=== PATIENT | male | born 1955 | race Caucasian/White ===

== ENCOUNTER 2020-12-08 18:24 | Observation (INO) | payer MEDICARE, SELFPAY ==
[2020-12-08] VITALS (12 sets, daily range): BP systolic 118–160; BP diastolic 74–92; PULSE 75–92; RESP 18–25; TEMP 36.6–37.2; O2SAT 92–97; BMI 39.9; BMI 41.1
--- NOTE | 2020-12-08 18:25 | CT_ITS ---
We are attempting to reach an attending provider to discuss findings. An addendum with communication details will be sent when the communication is complete. HISTORY: Neuro deficit, acute stroke suspected EXAMINATION: CT Head Stroke Protocol W/O Contrast Injection TECHNIQUE: Multiple axial images were obtained of the head without intravenous contrast. A radiation dose optimization technique was used for this scan. IV Contrast dosage and agent: COMPARISON: None FINDINGS: BRAIN PARENCHYMA: No intra- or extra-axial hemorrhage. No evidence of acute infarct. No intracranial mass or mass effect. There is preservation of the villalobos/white matter interface. Posterior fossa structures are unremarkable. CSF SPACES: Appropriate for age. No hydrocephalus. Basal cisterns are patent. CALVARIUM, SKULL BASE, PARANASAL SINUSES AND MASTOID AIR CELLS: Scattered mucoperiosteal thickening. No discrete lytic or blastic abnormalities. ASPECTS Score for Acute Strokes: 10 CT/STROKE Brain/Head without Cont IMPRESSION: Negative Brain CT without contrast. Individualized dose optimization techniques were used for this CT. at 1840 Reported and signed by: Matteo Nunez MD Electronically Signed: Matteo Nunez MD at 18:39 EDT Tel , Service support ,
--- NOTE | 2020-12-08 18:25 | RAD_ITS ---
HISTORY: Neuro deficit, acute, stroke suspected EXAMINATION/TECHNIQUE: XR Chest 1 View: 1 view COMPARISON: None FINDINGS: LINES/DEVICES: None. LUNGS: No consolidation, edema or effusion. No pneumothorax. MEDIASTINUM AND CARDIOVASCULAR STRUCTURES: Cardiomegaly. Central airways and mediastinal contour are unremarkable. BONES AND SOFT TISSUES: No acute bony abnormalities. RAD/Chest 1 View IMPRESSION: Cardiomegaly without radiographic evidence of acute cardiopulmonary disease. at 1927 Reported and signed by: Matteo Nunez MD Electronically Signed: Matteo Nunez MD at 19:26 EDT Tel , Service support ,
--- NOTE | 2020-12-08 18:25 | EKG12_ITS ---
Test Reason : STROKE Blood Pressure : / mmHG Vent. Rate : 077 BPM Atrial Rate : 077 BPM P-R Int : 220 ms QRS Dur : 130 ms QT Int : 454 ms P-R-T Axes : 032 -59 116 degrees QTc Int : 513 ms Sinus rhythm with 1st degree A-V block Left axis deviation Left ventricular hypertrophy with QRS widening and repolarization abnormality Inferior infarct , age undetermined Abnormal ECG Confirmed by PIYUSH RAMIREZ, HOMER ([id number]), primer expeditor and drier NADJA NAVA ([id number]) on 12/13/2020 10:04:50 A M Referred By: TIM Confirmed By:YANDEL PICKETT MD
--- NOTE | 2020-12-08 18:26 | ED.VIS.STROK ---
HPI History of Present Illness Chief Complaint: Neuro S/Sx Informant: patient and EMS Onset/Context/Timing Onset: Today Context: Sudden Onset Timing: Continuous Quality and Location: Positive for Right Facial Droop, Right Arm Parasthesia, Right Arm Weakness, Right Leg Weakness and Slurred Speech Current Severity: Mild Maximum Severity: Moderate Associated Symptoms Associated Symptoms: Positive for Nausea and Vomiting Narrative Narrative: The patient is a 65-year-old male who does not follow with a primary care physician who presents to the emergency department with acute onset right-sided weakness, right facial droop, and slurred speech. Patient was in his normal state of health. He was working outdoors today. He was doing a lot of yard work. He came in and showered. He was sitting down to eat with his . She turned to him and asked him a question. He cannot respond. She noticed that his face was drooping. When he spoke, he was having significant slurred speech. He was also nauseated with vomiting. On arrival, the patient states that his symptoms are markedly improving. He has no history of stroke. Prior similar symptoms: No Recent Illness/Hospitalization: No PFSH PFS Medical History (Updated 12/08/20 @ 18:54 by Tony Bill) Degenerative disc disease no medical history Home Medications acetaminophen [Tylenol] 650 mg PO Q4H PRN 12/08/20 [History Last Taken Unknown] Allergy/AdvReac Type Severity Reaction Status Date / Time No Known Allergies Allergy Verified 12/08/20 18:58 Surgical History History of carpal tunnel surgery History of hip replacement Social History Smoking Status: Never smoker ROS ROS ED Constitutional Constitutional ED: Denies chills or fever(s) Eyes Eyes: Denies blurry vision or change in vision ENT ENT ED: Denies ear pain or sore throat Cardiovascular Cardiovascular: Denies chest pain or palpitations Respiratory/Chest Respiratory/Chest: Denies cough, dyspnea or dyspnea on exertion Gastrointestinal Gastrointestinal: Denies abdominal pain, nausea or vomiting Genitourinary Genitourinary ED: Denies dysuria or urinary frequency Musculoskeletal Musculoskeletal: Denies arthralgias or myalgias Integumentary Denies rash Neurologic Neurologic: Denies headache(s) or paresthesias Psychiatric Psychiatric: Denies anxiety or depression Endocrine Endocrinology: Denies polydipsia or polyuria Allergic/Immunologic Allergic/Immunologic ED: Denies urticaria EXAM Physical Exam Const Vital Signs: 12/08/20 18:37 12/08/20 18:43 12/08/20 18:44 Temperature 98.9 F Temperature Source Oral Pulse Rate 77 76 75 Respiratory Rate 22 H 20 H 20 H Blood Pressure 136/90 H 136/90 H 121/78 H Blood Pressure Mean 105 105 92 Pulse Ox 94 94 94 Oxygen Delivery Method Room Air Room Air Room Air Oxygen Flow Rate (L/min) 12/08/20 18:52 12/08/20 19:01 12/08/20 19:32 Temperature Temperature Source Pulse Rate 76 Respiratory Rate 20 H Blood Pressure 127/83 H 118/74 Blood Pressure Mean 97 88 Pulse Ox 94 92 Oxygen Delivery Method Nasal Cannula Room Air Room Air Oxygen Flow Rate (L/min) 2 Positive well nourished and well developed General Appearance ED: well developed HEENT Reports normocephalic, head/scalp atraumatic and moist mucous membranes Eyes PERRL and EOMs intact bilaterally Neck no lymphadenopathy and supple General: Negative for tenderness Chest Wall inspection of chest normal Resp normal respiratory effort and clear to auscultation bilaterally Cardio regular rate, regular rhythm and no murmurs GI normal to inspection, nondistended, normoactive bowel sounds Palpation: Negative for tender, guarding or rebound tenderness present Back/Spine no CVA tenderness Cervical Spine: Negative for cervical spine tenderness Thoracic Spine / Upper Back: Negative for thoracic spinal tenderness Extremity normal to inspection General Extremety ED: Negative for tenderness Neuro oriented x3 and CN's II-XII intact bilaterally Neuro Narrative: No focal deficits appreciated. Sensorium / Orientation: alert Psych mental status grossly normal Skin no rashes or lesions noted, no wounds and skin turgor normal STROKE Vital Signs/Narrative: Vital Signs Temp Pulse Resp BP Pulse Ox 12/08/20 19:32 118/74 92 12/08/20 19:01 76 20 H 127/83 H 94 12/08/20 18:44 75 20 H 121/78 H 94 12/08/20 18:43 76 20 H 136/90 H 94 12/08/20 18:37 98.9 F 77 22 H 136/90 H 94 NIHSS Initial: 1a Level of Consciousness: 0 1b LOC Questions (Score 2 if aphasic/stupor): 0 1c LOC Commands (Only score 1st attempt): 0 2 Best Gaze (If aphasic, use reflexive mvmts.): 0 3 Visual: 0 4 Facial Palsy: 0 5 Motor Arm Right (UN = amputation/fusion): 0 5 Motor Arm Left: 0 6 Motor Leg Right: 0 6 Motor Leg Left: 0 7 Limb ataxia (Only + if out of proportion): 0 8 Sensory (Aphasia/stupor=0 or 1, coma=2): 0 9 Best Language: 0 10 Dysarthria (mute, coma=2, intubated=UN): 0 11 Extinction and Inattention (only scored if +): 0 Total Score: 0 MDM MDM MDM Narrative Medical decision making narrative: Stroke team was activated prehospital he. On arrival, the patient symptoms have markedly improved. He underwent noncontrast CT which was unremarkable for acute process. The patient also underwent CTA which shows what appears to be a chronically occluded right vertebral artery with reconstitution. Patient received no TPA because his symptoms have resolved and his NIH was 0. However, given the significant symptoms and lack of known risk factors, the patient will be admitted at this time. Impression 1. TIA Lab Data Attestation: I reviewed the patient's lab results. Labs: Laboratory Results - last 24 hr 12/08/20 12/08/20 12/08/20 18:27 18:27 18:27 WBC 9.9 RBC 5.31 Hgb 15.9 Hct 50.2 MCV 94.5 H MCH 29.9 MCHC 31.7 L RDW Std Deviation 44.8 H RDW Coeff of Benny 12.8 Plt Count 242 MPV 9.8 Immature Gran % (Auto) 0.400 Neut % (Auto) 62.1 Lymph % (Auto) 23.9 [place] % (Auto) 11.2 H Eos % (Auto) 2.2 Baso % (Auto) 0.2 Absolute Neuts (auto) 6.2 Absolute Lymphs (auto) 2.37 Nucleated RBC % 0 PT 13.5 INR 1.1 APTT 26.3 Sodium 142 Potassium 3.5 Chloride 106 Carbon Dioxide 27.0 Anion Gap 9 BUN 16 Creatinine 1.18 Estim Creat Clear Calc 76.58 Est GFR (MDRD) Af Amer 80 Est GFR (MDRD) Non-Af 66 BUN/Creatinine Ratio 13.6 Glucose 118 H Calcium 9.0 Troponin I 0.025 Radiography Diagnostic Testing: Radiology Impression Brain CT 12/08/20 18:25 IMPRESSION: Negative Brain CT without contrast. Individualized dose optimization techniques were used for this CT. at 1840 Reported and signed by: Matteo Nunez MD Electronically Signed: Matteo Nunez MD at 18:39 EDT Tel , Service support , ADDENDUM: 12/08/20 1857 IMPRESSION: Negative Brain CT without contrast. Individualized dose optimization techniques were used for this CT. at 1840 Reported and signed by: Matteo Nunez MD N.B. : The above information has been verbally conveyed by Matteo Nunez MD to Guille Thrasher MD, on 12/08/2020 18:50:20 (ET). Electronically Signed: Matteo Nunez MD at 18:39 EDT Tel , Service support , Chest X-Ray 12/08/20 18:25 IMPRESSION: Cardiomegaly without radiographic evidence of acute cardiopulmonary disease. at 1927 Reported and signed by: Matteo Nunez MD Electronically Signed: Matteo Nunez MD at 19:26 EDT Tel , Service support , Head/Neck CTA 12/08/20 18:27 IMPRESSION: 5 cm aneurysmal dilatation of the ascending aorta. No significant major vessel vaso-occlusive disease in the head. 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 Individualized dose optimization techniques were used for this CT. at 1859 Reported and signed by: Matteo Nunez MD Electronically Signed: Matteo Nunez MD at 18:58 EDT Tel , Service support , ADDENDUM: 12/08/20 1908 IMPRESSION: 5 cm aneurysmal dilatation of the ascending aorta. No significant major vessel vaso-occlusive disease in the head. 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 Individualized dose optimization techniques were used for this CT. at 0929 Reported and signed by: Matteo Nunez MD N.B. : The above information has been verbally conveyed by Matteo Nunez MD to Guille Thrasher MD, on 12/08/2020 19:01:21 (ET). Electronically Signed: Matteo Nunez MD at 18:58 EDT Tel , Service support , Discharge Plan Triage Chief Complaint: Neuro S/Sx ED Provider: Guille Thrasher Dx/Rx/DC Orders Prescriptions: No Action acetaminophen [Tylenol] 325 mg Capsule 650 mg PO Q4H PRN (Reason: Pain) RF: 0 Primary Care Provider: Josefina Berumen
--- NOTE | 2020-12-08 18:27 | CT_ITS ---
We are attempting to reach an attending provider to discuss findings. An addendum with communication details will be sent when the communication is complete. HISTORY: stroke TECHNIQUE: Routine carotid CT angiogram protocol was performed without and with IV contrast. In addition, images were obtained of the [place]. Nascet criteria using the distal ICAs for comparison were used for evaluation of stenoses. 3D reconstructions were reviewed. A radiation dose optimization technique was used for this scan. IV Contrast dosage and agent: 100mL [id number] COMPARISON: None FINDINGS: --NECK: AORTIC ARCH AND BRANCHES: 5 cm aneurysmal dilatation ascending aorta. Cervical vessel origins patent. RIGHT CCA: No occlusion, significant stenosis or dissection. RIGHT ICA: No occlusion, significant stenosis or dissection. LEFT CCA: No occlusion, significant stenosis or dissection. LEFT ICA: No occlusion, significant stenosis or dissection. RIGHT VERTEBRAL ARTERY: No occlusion, significant stenosis or dissection. LEFT VERTEBRAL ARTERY: Occludes at the base of the skull with reconstitution by collaterals. NECK SOFT TISSUES: Unremarkable. LUNG APICES: Clear. BONES: Unremarkable. --HEAD: --Anterior circulation: ICAs: No significant stenosis at the intracranial/visualized segments. ACAs: Absent right A1 segment, no significant stenosis at the visualized segments. ACOM: Present. MCAs: No significant stenosis at the visualized segments. --Posterior circulation: quality tech: No significant stenosis at the visualized segments. origin left DIRECTOR DISTRIBUTION. BASILAR ARTERY: No significant stenosis. VERTEBRAL ARTERIES: No significant stenosis at the intradural/visualized segments. No evidence of intracranial aneurysm or vascular malformation. CT/CTA Head AND Neck W/ Contrast IMPRESSION: 5 cm aneurysmal dilatation of the ascending aorta. No significant major vessel vaso-occlusive disease in the head. 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 Individualized dose optimization techniques were used for this CT. at 1859 Reported and signed by: Matteo Nunez MD Electronically Signed: Matteo Nunez MD at 18:58 EDT Tel , Service support ,
--- NOTE | 2020-12-08 18:32 | ED.RN ---
NO OLD EKGS IN MUSE
[2020-12-08 18:36] LABS: Absolute Lymphocyte Count 2.37 X10^3/uL (0.83-4.51); Absolute Neutrophil Count 6.2 X10^3/uL (2.0-7.7); Basophil# 0.02 X10^3/uL; Basophil% 0.2 % (0-1); Eosinophil# 0.22 X10^3/uL; Eosinophils% 2.2 % (0-5); Hematocrit 50.2 % (40-54); Hemoglobin 15.9 g/dL (13.0-16.5); Lymphocyte # 2.37 X10^3/ul (0.83-4.51); Lymphocyte % 23.9 % (19-41); Mean Corp Hgb Conc 31.7 g/dL (32-36); Mean Corpuscular Hgb 29.9 pg (27.0-32.0); Mean Corpuscular Volume 94.5 fL (80-94); Mean Platelet Vol. 9.8 fl (6.2-12.0); Monocyte# 1.11 X10^3/uL; Monocyte% 11.2 % (0-10); NRBC Flagged by Analyzer 0 % (0-5); Neutrophil # 6.16 X10^3/uL (2.7-7.7); Neutrophil % 62.1 % (47-70); Platelet Count 242 K/mm3 (150-450); RBC Distribution Width CV 12.8 % (11.6-14.6); RBC Distribution Width SD 44.8 fl (35.1-43.9); Red Blood Count 5.31 M/mm3 (4.6-6.2); White Blood Count 9.9 K/mm3 (4.4-11.0)
[2020-12-08 18:46] LABS: Partial Thromboplast Time 26.3 Seconds (24.1-36.2)
[2020-12-08 18:47] LABS: International Normalized Ratio 1.1; Prothrombin Time (Protime)PT. 13.5 SECONDS (11.7-14.9)
[2020-12-08 18:55] LABS: Anion Gap 9 (5-15); BUN 16 mg/dL (7-18); BUN/Creat Ratio 13.6 RATIO (10-20); Chloride 106 mmol/L (98-107); Creatinine, Serum 1.18 mg/dL (0.70-1.30); EST Glomerular Filtration Rate 66 mL/min (>60); Est Glom Filt Rate - Afr Amer 80 mL/min (>60); Estimated Creatinine Clearance 76.58 ml/min; Glucose 118 mg/dL (74-106); Potassium 3.5 mmol/L (3.5-5.1); Sodium Level 142 mmol/L (136-145)
[2020-12-08] MEDS: Ondansetron 4 MG/2 ML Vial IV (19:00)
[2020-12-08] MEDS: 0.9% Normal Saline 1,000 ML 100 ML IV ×2 (19:00→21:16)
--- NOTE | 2020-12-08 19:06 | PCM.HP.STD ---
HPI - General General Date of Admission: 12/08/20 Chief Complaint: Transient R sided weakness, facial droop, slurred speech. HPI Narrative The patient is a 65 y/o M w/ PMHx: Morbid Obesity, no known medical history but reports not seeing a physician in many years, appearance likely BL LE venous stasis and possibly undiagnosed ALLIE who presents to the [facility] ED on 12/08/20 with onset at ~ 5:30 pm following dinner, just prior to getting up from his chair, noted onset right sided weakness, slurred speech, right facial droop with associated nausea and emesis prompting EMS call and transition to the ED for evaluation. Initial ED evaluation with NIH stroke scale 1. Work-up in the ED included T 98.9, heart rate 77, BP 136/90 initially with repeat 127/83, respiratory rate 22, 94% on room air, CBC with WBC 9.9, hemoglobin 15.9, platelet 242 without evidence of marked left shift, unremarkable coags, BNP not marked appearing aside glucose 118, troponin 0.025, CT brain with no acute intracranial findings, CTA head and neck with noted 5 cm aneurysmal dilation of the ascending aorta otherwise no significant major vessel vaso-occlusive disease in the head, left vertebral artery occlusion at the base of the skull with distal reconstitution by collaterals noted. In the ED stroke call performed and upon their evaluation NIH stroke scale 0 and patient reported feeling back to normal. Patient did receive aspirin 325 mg p.o. x1. Telemetry stroke recommend follow-up MRI brain, aspirin, statin, lipid profile, A1c per usual TIA/CVA protocol assessment. [facility] Medical History (Updated 12/08/20 @ 21:[address] Alyssa Tafoya MD) Degenerative disc disease Morbid obesity Home Medications acetaminophen [Tylenol] 650 mg PO Q4H PRN 12/08/20 [History Last Taken Unknown] Allergy/AdvReac Type Severity Reaction Status Date / Time No Known Allergies Allergy Verified 12/08/20 18:58 Family History (Updated 12/08/20 @ 21:[address] Alyssa Tafoya MD) Mother Heart disease Hypertension CAD (coronary artery disease) Father Cancer Surgical History (Updated 12/08/20 @ 20:01 by Jennifer Troy) H/O sinus surgery History of carpal tunnel surgery History of hip replacement Social History (Updated 12/08/20 @ 21:[address] Alyssa Tafoya MD) household members: family Smoking Status: Never smoker alcohol intake: current details: 1 EtOH drink daily. substance use type: does not use ROS ROS Narrative Admission Review of Systems: CONSTITUTIONAL: No weight loss, fever, chills, + weakness or fatigue. HEENT: Eyes: No visual loss, blurred vision, double vision or yellow sclerae. Ears, Nose, Throat: No hearing loss, sneezing, congestion, runny nose or sore throat. SKIN: + Stasis changes, R anterior ellis abrasion. No rash or itching, lesions. CARDIOVASCULAR: No chest pain, chest pressure or chest discomfort, palpitations, edema, orthopnea, syncopal events. RESPIRATORY: No shortness of breath, cough or sputum, wheezing, hemoptysis. GASTROINTESTINAL: No anorexia, nausea, vomiting or diarrhea, abdominal pain, melena, BRBPR. GENITOURINARY: No dysuria, frequency, urgency or retention. NEUROLOGICAL: + R sided weakness, facial droop, slurred speech. No headache, dizziness, syncope, paralysis, ataxia, numbness or tingling in the extremities, change in bowel or bladder control, seizure. MUSCULOSKELETAL: + muscle, back pain, joint pain or stiffness. HEMATOLOGIC: No anemia, bleeding or bruising. LYMPHATICS: No enlarged nodes. No history of splenectomy. PSYCHIATRIC: No history of depression or anxiety. ENDOCRINOLOGIC: No reports of sweating, cold or heat intolerance. No polyuria or polydipsia. ALLERGIES: No history of asthma, hives, eczema or rhinitis. Vital Signs Vital Signs Vital Signs: 12/08/20 18:37 12/08/20 18:43 12/08/20 18:44 Temperature 98.9 F Temperature Source Oral Pulse Rate 77 76 75 Respiratory Rate 22 H 20 H 20 H Blood Pressure 136/90 H 136/90 H 121/78 H Blood Pressure Mean 105 105 92 Pulse Ox 94 94 94 Oxygen Delivery Method Room Air Room Air Room Air Oxygen Flow Rate (L/min) 12/08/20 18:52 12/08/20 19:01 Temperature Temperature Source Pulse Rate 76 Respiratory Rate 20 H Blood Pressure 127/83 H Blood Pressure Mean 97 Pulse Ox 94 Oxygen Delivery Method Nasal Cannula Room Air Oxygen Flow Rate (L/min) 2 Physical Exam Narrative Physical Examination: General: awake, alert, oriented x 3 and cooperative, seated upright in the ED bed in no apparent distress. Skin: normal color, normal turgor, no icterus, no cyanosis except BL LE venous stasis skin changes, L anterior ellis abrasion. HEENT: AT/NC, EOMI, PERRLA, mildly dry MM, no carotid bruits or JVD noted; however, thickened neck makes examination difficult. Lungs: CTA bilaterally, moderate effort, mild decrease BL bases, no rales, ronchi or wheezing. Heart: Regular rate and rhythm; no gallop, rub audible. Abdomen: soft, morbidly obese, NTTP, ND but difficult to assess given habitus, distant normal BS, difficult to assess HSM given habitus. Extremities: no cyanosis, no clubbing, BL LE ankle 1+ edema and see skin. Neurological: patient awake, alert, oriented x 3, cognitive function intact; pupils equally reactive to light and accommodation, cranial nerves II-XII grossly normal, moving all 4 extremities, no focal deficits, strength mildly globally decreased, resolution of prior reported facial droop/right sided weakness and slurred speech, FTN/HTN appropriate, negative babinski. Psychiatric: affect appears normal, no acute evidence of depressive or anxiety feelings. Lab / Micro Data Result Diagrams: 12/08/20 18:27 12/08/20 18:27 Labs: Laboratory Results - last 24 hr 12/08/20 12/08/20 12/08/20 18:27 18:27 18:27 WBC 9.9 RBC 5.31 Hgb 15.9 Hct 50.2 MCV 94.5 H MCH 29.9 MCHC 31.7 L RDW Std Deviation 44.8 H RDW Coeff of Benny 12.8 Plt Count 242 MPV 9.8 Immature Gran % (Auto) 0.400 Neut % (Auto) 62.1 Lymph % (Auto) 23.9 [place] % (Auto) 11.2 H Eos % (Auto) 2.2 Baso % (Auto) 0.2 Absolute Neuts (auto) 6.2 Absolute Lymphs (auto) 2.37 Nucleated RBC % 0 PT 13.5 INR 1.1 APTT 26.3 Sodium 142 Potassium 3.5 Chloride 106 Carbon Dioxide 27.0 Anion Gap 9 BUN 16 Creatinine 1.18 Estim Creat Clear Calc 76.58 Est GFR (MDRD) Af Amer 80 Est GFR (MDRD) Non-Af 66 BUN/Creatinine Ratio 13.6 Glucose 118 H Calcium 9.0 Troponin I 0.[address] 12/08/20 18:25 IMPRESSION: Negative Brain CT without contrast. Individualized dose optimization techniques were used for this CT. at 1840 Reported and signed by: Matteo Nunez MD Electronically Signed: Matteo Nunez MD at 18:39 EDT Tel , Service support , ADDENDUM: 12/08/20 1857 IMPRESSION: Negative Brain CT without contrast. Individualized dose optimization techniques were used for this CT. at 1840 Reported and signed by: Matteo Nunez MD N.B. : The above information has been verbally conveyed by Matteo Nunez MD to Guille Thrasher MD, on 12/08/2020 18:50:20 (ET). Electronically Signed: Matteo Nunez MD at 18:39 EDT Tel , Service support , Head/Neck CTA 12/08/20 18:27 IMPRESSION: 5 cm aneurysmal dilatation of the ascending aorta. No significant major vessel vaso-occlusive disease in the head. 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 Individualized dose optimization techniques were used for this CT. at 1859 Reported and signed by: Matteo Nunez MD Electronically Signed: Matteo Nunez MD at 18:58 EDT Tel , Service support , Assessment & Plan Assessment/Plan (1) TIA (transient ischemic attack): PLAN: The patient is a 65 y/o M w/ PMHx: Morbid Obesity, no known medical history but reports not seeing a physician in many years, appearance likely BL LE venous stasis and possibly undiagnosed ALLIE who presents to the [facility] ED on 12/08/20 with onset at ~ 5:30 pm following dinner, just prior to getting up from his chair, noted onset right sided weakness, slurred speech, right facial droop with associated nausea and emesis. 1. Right facial droop, right-sided weakness, slurred speech transiently concerning for TIA/CVA: Will admit to PCU, will obtain MRI Brain, ECHO, PT/OT/Speech/Nutrition evaluation per protocol. Will consult Neurology for evaluation once MRI obtained per protocol. Will allow permissive HTN, maintain on asa, statin w/ AM FLP, fall precautions. HgbA1c, mag, TSH, FLP pending. 2. Incidental ascending aorta aneurysm: CT with incidentally noted 5 cm aneurysmal dilation of the ascending aorta, will recommend outpatient continued assessment and follow-up. 3. Mild hyperglycemia: Glucose 118, hemoglobin A1c pending as noted. 4. Elevated BP without hypertensive diagnosis: Patient likely an undiagnosed hypertensive patient, given presentation will maintain permissive hypertension and add regimen once appropriate. 5. Morbid Obesity: Weight loss and lifestyle changes encouraged, nutrition consulted. 6. Suspected ALLIE: Per discussion with patient and family in the room do suspect likely sleep apnea, will obtain trending pulse ox. 7. Suspected venous stasis disease: Bilateral lower extremity with stasis skin changes, abrasion to the left ellis which patient's notes having been there for several weeks, will need to have continued through medical evaluation given he has not seen a physician in at least a decade. 8. DVT prophylaxis: SCDs, Lovenox. Visit Charges OBSV E&M: 20388 Initial observation care L3
[2020-12-08 19:56] LABS: Magnesium 2.1 mg/dL (1.6-2.6)
--- NOTE | 2020-12-08 20:26 | ECHOCS_ITS ---
Reason For Study: CVA Procedure This was a 2D Doppler, Color Flow transthoracic echocardiogram. Very technically difficult study due to patients body habitus. Bubble study and contrast injection performed. Exam performed portable in patient room. Left Ventricle Normal LV size. The estimated ejection fraction is 60 %. Diastolic function is indeterminate. No regional wall motion abnormalities noted. Right Ventricle Normal RV size. Normal systolic function. Atria Normal left atrium. Normal right atrium. No doppler evidence for ASD. Mitral Valve There is no mitral valve stenosis. No mitral valve insufficiency. Tricuspid Valve There is no tricuspid stenosis. Unable to estimate RV systolic pressure due to inadequate jet, pulmonary artery pressure probably normal. Trivial tricuspid valve insufficiency. Aortic Valve The aortic valve is not well visualized. There is no aortic stenosis. No aortic valve insufficiency. Pulmonic Valve There is no pulmonic valvular stenosis. No pulmonic valve insufficiency. Great Vessels Normal aortic root. Pericardium/Pleural No pericardial effusion. Medication Diluted definity 4ml given slow IV push to enhance endocardial definition. Performed a rapid injection of agitated mix of 9 cc saline and 1cc air to assess for atrial septal defect. MMode/2D Measurements & Calculations LVIDd: 5.6 cm IVSd: 2.1 cm Ao root diam: 4.9 cm LVIDs: 4.3 cm LVPWd: 2.4 cm RVDd: 4.7 cm FS: 22.4 % LAV(MOD-bp): 113.2 ml LA A4 area: 32.3 cm2 RA A4 area: 27.9 cm2 LAV(MOD-bp) Indexed: 42.1 ml/m2 LAV(MOD-sp2): 98.9 ml LAV(MOD-sp4): 125.2 ml Time Measurements MV dec time: 0.18 sec Doppler Measurements & Calculations MV E max johny: 126.3 cm/sec Lat Peak E' Johny: 6.6 cm/sec Med Peak E' Johny: 7.9 cm/sec MV A max johny: 139.5 cm/sec E/E' lat: 19.0 E/E' med: 16.0 MV E/A: 0.91 Ao V2 max: 177.1 cm/sec AI max johny: 347.5 cm/sec LV V1 max: 97.8 cm/sec Ao max P.5 mmHg AI max P.3 mmHg LV V1 max P.8 mmHg Ao V2 mean: 113.4 cm/sec AI dec slope: 199.2 cm/sec2 LV V1 mean P.8 mmHg Ao mean P.2 mmHg AI P1/2t: 510.9 msec LV V1 mean: 61.9 cm/sec Ao V2 VTI: 28.7 cm LV V1 VTI: 19.8 cm PA V2 max: 65.2 cm/sec ECHO/Echo Complete W/ Contrast Interpretation Summary The study was technically difficult. Contrast injection was performed. The estimated ejection fraction is 60 %. Diastolic function is indeterminate. The study was technically difficult. Contrast injection was performed. Ordering Physician: Alyssa Tafoya Referring Physician: Josefina Berumen Performed By: Brodwolf, Gagan, RCS
[2020-12-08] MEDS: Atorvastatin Calcium 80 MG Tablet PO (23:12)
[2020-12-08] MEDS: Enoxaparin 40 MG/0.4 ML Syringe SC (23:12)
[2020-12-08] MEDS: Famotidine 20 MG Tablet PO (23:12)
[2020-12-09] VITALS (15 sets, daily range): BP systolic 163–221; BP diastolic 90–126; PULSE 85–103; RESP 12–20; TEMP 36.5–37.2; O2SAT 91–100
--- NOTE | 2020-12-09 01:11 | NURSING ---
NIH late on patient do to assisting with a code earlier. NIH assessment completed and documented no changes noted at this time.
[2020-12-09] MEDS: hydrALAZINE 20 MG/ML Vial 5 MG IV (05:37)
--- NOTE | 2020-12-09 05:55 | MRI_ITS ---
STUDY: MRI BRAIN WITHOUT CONTRAST REASON FOR EXAM: Male, 65 years old. TIA TECHNIQUE: Standardized multiplanar fat and water weighted pulse sequences were obtained. COMPARISON: CT 12/08/2020 FINDINGS: Normal size of the ventricles and extra-axial spaces for the patient''s age. Normal white matter tracts of the supratentorial brain. There is no evidence for recent intracranial ischemia or other cause of cytotoxic edema on diffusion weighted imaging (DWI). Normal T2* images of the brain without demonstrated susceptibility artifact. There is no demonstrated hemosiderin stain. Normal bilateral basal ganglia. Normal thalami. There is no extra-axial fluid accumulation. Normal flow voids within the major intracranial circulation suggesting patency by spin echo criteria. Normal sella turcica, pituitary gland, infundibular stalk, optic chiasm and hypothalamus. Normal tectal plate and pineal gland. Normal midbrain, kai and medulla. Normal cerebellum. Normal basal cisterns. Normal bilateral temporal bones. Normal bilateral internal auditory canals. No demonstrated orbital abnormality, within the constraints of a routine brain study. Normal visualized paranasal sinuses. Normal calvarium and skull base. Normal visualized soft tissue structures. Normal visualized upper cervical spine. MRI/Brain without Contrast IMPRESSION: Normal unenhanced MRI of the brain. No acute infarct. Electronically Signed: Fernando Cuevas MD at 13:33 EDT Tel , Service support ,
[2020-12-09 07:06] LABS: Absolute Lymphocyte Count 1.07 X10^3/uL (0.83-4.51); Absolute Neutrophil Count 5.2 X10^3/uL (2.0-7.7); Basophil# 0.03 X10^3/uL; Basophil% 0.4 % (0-1); Eosinophil# 0.12 X10^3/uL; Eosinophils% 1.7 % (0-5); Hematocrit 47.8 % (40-54); Hemoglobin 15.1 g/dL (13.0-16.5); Lymphocyte # 1.07 X10^3/ul (0.83-4.51); Mean Corp Hgb Conc 31.6 g/dL (32-36); Mean Corpuscular Hgb 29.9 pg (27.0-32.0); Mean Corpuscular Volume 94.7 fL (80-94); Mean Platelet Vol. 10.1 fl (6.2-12.0); Monocyte# 0.73 X10^3/uL; Monocyte% 10.2 % (0-10); NRBC Flagged by Analyzer 0 % (0-5); Neutrophil # 5.18 X10^3/uL (2.7-7.7); Neutrophil % 72.4 % (47-70); Platelet Count 190 K/mm3 (150-450); RBC Distribution Width CV 13.2 % (11.6-14.6); RBC Distribution Width SD 45.6 fl (35.1-43.9); Red Blood Count 5.05 M/mm3 (4.6-6.2); White Blood Count 7.2 K/mm3 (4.4-11.0)
[2020-12-09] MEDS: Aspirin 81 MG TAB.CHEW PO (07:47)
[2020-12-09] MEDS: Famotidine 20 MG Tablet PO (07:47)
[2020-12-09] MEDS: Enoxaparin 40 MG/0.4 ML Syringe SC (07:47)
[2020-12-09] MEDS: 0.9% Normal Saline 1,000 ML 100 ML IV (07:50)
[2020-12-09 08:08] LABS: AST(SGOT) 20 U/L (15-37); Alanine Aminotransfer ALT/SGPT 25 U/L (16-61); Albumin, Serum 3.5 g/dL (3.2-5.0); Alkaline Phosphatase 79 U/L (45-117); Anion Gap 7 (5-15); BUN 14 mg/dL (7-18); BUN/Creat Ratio 16.4 RATIO (10-20); Calcium,Total 8.8 mg/dL (8.5-10.1); Chloride 105 mmol/L (98-107); Cholesterol 180 mg/dL (200); Creatinine, Serum 0.85 mg/dL (0.70-1.30); EST Glomerular Filtration Rate 96 mL/min (>60); Est Glom Filt Rate - Afr Amer 116 mL/min (>60); Estimated Creatinine Clearance 106.32 ml/min; Globulin 3.4 g/dL (2.2-4.2); Glucose 121 mg/dL (74-106); High Density Lipoprotein 45 mg/dL; Protein, Total 6.9 g/dL (6.4-8.2); Sodium Level 140 mmol/L (136-145); Thyroid Stim Hormone (TSH) 1.56 uIU/mL (0.358-3.74); Triglycerides 112 mg/dL; Very Low Density Lipoprotein 22 mg/dL (5-40)
[2020-12-09 08:53] LABS: Hemoglobin A1c 5.9 % (3.8-5.6)
--- NOTE | 2020-12-09 10:37 | PCM.PN.HOSP ---
Subjective Subjective Patient is a 65-year-old gentleman with multiple comorbidities admitted with right-sided weakness, right facial droop and slurred speech. An assessment of possible TIA made admitted to a monitored bed for subsequent evaluation Objective Data Objective Data Vital Signs: Vital Signs Temp Pulse Resp BP Pulse Ox 98.0 F 95 18 182/110 H 97 12/09/20 07:54 12/09/20 07:54 12/09/20 07:54 12/09/20 07:54 12/09/20 08:09 Oxygen Flow Rate (L/min) 2 Oxygen Delivery Method Room Air Weight: 150 kg Body Mass Index (BMI) 41.1 Intake & Output: Intake and Output for Last 24 Hours 12/07/20 12/08/20 12/09/20 23:59 23:59 23:59 Intake Total 428.33 / 428.33 1110.00 / 1110.00 Balance 428.33 / 428.33 1110.00 / 1110.00 Lab / Micro Data Result Diagrams: 12/09/20 06:38 12/09/20 06:38 Labs: Laboratory Results - last 24 hr 12/08/20 12/08/20 12/08/20 18:27 18:27 18:27 WBC 9.9 RBC 5.31 Hgb 15.9 Hct 50.2 MCV 94.5 H MCH 29.9 MCHC 31.7 L RDW Std Deviation 44.8 H RDW Coeff of Benny 12.8 Plt Count 242 MPV 9.8 Immature Gran % (Auto) 0.400 Neut % (Auto) 62.1 Lymph % (Auto) 23.9 Hubbard % (Auto) 11.2 H Eos % (Auto) 2.2 Baso % (Auto) 0.2 Absolute Neuts (auto) 6.2 Absolute Lymphs (auto) 2.37 Nucleated RBC % 0 PT 13.5 INR 1.1 APTT 26.3 Sodium 142 Potassium 3.5 Chloride 106 Carbon Dioxide 27.0 Anion Gap 9 BUN 16 Creatinine 1.18 Estim Creat Clear Calc 76.58 Est GFR (MDRD) Af Amer 80 Est GFR (MDRD) Non-Af 66 BUN/Creatinine Ratio 13.6 Glucose 118 H Hemoglobin A1c Calcium 9.0 Magnesium Total Bilirubin AST ALT Alkaline Phosphatase Troponin I 0.025 Total Protein Albumin Globulin Albumin/Globulin Ratio Triglycerides Cholesterol LDL Cholesterol VLDL Cholesterol HDL Cholesterol TSH 12/08/20 12/09/20 12/09/20 18:27 06:38 06:38 WBC 7.2 RBC 5.05 Hgb 15.1 Hct 47.8 MCV 94.7 H MCH 29.9 MCHC 31.6 L RDW Std Deviation 45.6 H RDW Coeff of Benny 13.2 Plt Count 190 MPV 10.1 Immature Gran % (Auto) 0.300 Neut % (Auto) 72.4 H Lymph % (Auto) 15.0 L Hubbard % (Auto) 10.2 H Eos % (Auto) 1.7 Baso % (Auto) 0.4 Absolute Neuts (auto) 5.2 Absolute Lymphs (auto) 1.07 Nucleated RBC % 0 PT INR APTT Sodium 140 Potassium 4.0 Chloride 105 Carbon Dioxide 28.0 Anion Gap 7 BUN 14 Creatinine 0.85 Estim Creat Clear Calc 106.32 Est GFR (MDRD) Af Amer 116 Est GFR (MDRD) Non-Af 96 BUN/Creatinine Ratio 16.4 Glucose 121 H Hemoglobin A1c Calcium 8.8 Magnesium 2.1 Total Bilirubin 0.60 AST 20 ALT 25 Alkaline Phosphatase 79 Troponin I Total Protein 6.9 Albumin 3.5 Globulin 3.4 Albumin/Globulin Ratio 1.0 Triglycerides 112 Cholesterol 180 LDL Cholesterol 113 VLDL Cholesterol 22 HDL Cholesterol 45 TSH 1.56 12/09/20 06:38 WBC RBC Hgb Hct MCV MCH MCHC RDW Std Deviation RDW Coeff of Benny Plt Count MPV Immature Gran % (Auto) Neut % (Auto) Lymph % (Auto) Hubbard % (Auto) Eos % (Auto) Baso % (Auto) Absolute Neuts (auto) Absolute Lymphs (auto) Nucleated RBC % PT INR APTT Sodium Potassium Chloride Carbon Dioxide Anion Gap BUN Creatinine Estim Creat Clear Calc Est GFR (MDRD) Af Amer Est GFR (MDRD) Non-Af BUN/Creatinine Ratio Glucose Hemoglobin A1c 5.9 H Calcium Magnesium Total Bilirubin AST ALT Alkaline Phosphatase Troponin I Total Protein Albumin Globulin Albumin/Globulin Ratio Triglycerides Cholesterol LDL Cholesterol VLDL Cholesterol HDL Cholesterol TSH Radiography Diagnostic Testing: Radiology Impression Brain CT 12/08/20 18:25 IMPRESSION: Negative Brain CT without contrast. Individualized dose optimization techniques were used for this CT. at 1840 Reported and signed by: Matteo Nunez MD Electronically Signed: Matteo Nunez MD at 18:39 EDT Tel , Service support , ADDENDUM: 12/08/20 1857 IMPRESSION: Negative Brain CT without contrast. Individualized dose optimization techniques were used for this CT. at 1840 Reported and signed by: Matteo Nunez MD N.B. : The above information has been verbally conveyed by Matteo Nunez MD to Guille Thrasher MD, on 12/08/2020 18:50:20 (ET). Electronically Signed: Matteo Nunez MD at 18:39 EDT Tel , Service support , Chest X-Ray 12/08/20 18:25 IMPRESSION: Cardiomegaly without radiographic evidence of acute cardiopulmonary disease. at 1927 Reported and signed by: Matteo Nunez MD Electronically Signed: Matteo Nunez MD at 19:26 EDT Tel , Service support , Head/Neck CTA 12/08/20 18:27 IMPRESSION: 5 cm aneurysmal dilatation of the ascending aorta. No significant major vessel vaso-occlusive disease in the head. 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 Individualized dose optimization techniques were used for this CT. at 1859 Reported and signed by: Matteo Nunez MD Electronically Signed: Matteo Nunez MD at 18:58 EDT Tel , Service support , ADDENDUM: 12/08/20 1908 IMPRESSION: 5 cm aneurysmal dilatation of the ascending aorta. No significant major vessel vaso-occlusive disease in the head. 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 Individualized dose optimization techniques were used for this CT. at 1859 Reported and signed by: Matteo Nunez MD N.B. : The above information has been verbally conveyed by Matteo Nunez MD to Guille Thrasher MD, on 12/08/2020 19:01:21 (ET). Electronically Signed: Matteo Nunez MD at 18:58 EDT Tel , Service support , Physical Exam Narrative GENERAL: cooperative HEENT: Atraumatic; EYES; Anicteric, Normal Conjunctiva NECK; supple, normal thyroid, RESPIRATORY: Diminished to auscultation CARDIOVASCULAR: Regular S1 S2, GI: soft, normoactive bowel sounds, : No Renal angle tenderness; EXTREMITIES: No edema, no clubbing, MUSCULOSKELETAL: no muscle waisting NEURO: Awake; no lateralizing signs. SKIN: No Rash PSYCH; Flat affect Assessment & Plan Assessment/Plan (1) TIA (transient ischemic attack): (2) Ascending aortic aneurysm: (3) Morbid obesity: (4) Degenerative disc disease: PLAN: Patient is a 65-year-old gentleman with multiple comorbidities admitted with right-sided weakness, right facial droop and slurred speech. An assessment of possible TIA made admitted to a monitored bed for subsequent evaluation 1. Transient ischemic attack ?Patient has been admitted to monitored bed currently undergoing evaluation with every 4 neurochecks, 2D echo, CT angio and an MRI. CT angio obtained demonstrated No significant major vessel vaso-occlusive disease in the head. 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 2D echo was also ordered results pending 2. Ascending aorta aneurysm ?Patient CT obtained as part of evaluation for his TIA did demonstrate 5 cm aneurysmal dilatation of the ascending aorta.. Patient informed of the result. Patient to follow-up with PCP for subsequent serial monitoring and referral to cardiology 3. Morbid obesity - With a BMI of 41.3 patient was counseled on weight reduction 4. Degenerative disc disease ?Pain meds as needed 5. DVT prophylaxis - On enoxaparin Visit Charges OBSV E&M: 33189 Subsequent observation care L2
[2020-12-09 10:54] LABS: Bacteria 0 SEEN /hpf (None Seen); Mucous, Urine 0 SEEN /hpf (<or=2+); Red Blood Cells-Urine 0 SEEN /hpf (0-5)
[2020-12-09 10:59] LABS: Glucose, Dipstick Normal (Normal); Ketone-Dipstick Negative (Negative); Leukocyte Esterase-Dipstick Negative /ul (Negative); Nitrite-Dipstick Negative (Negative); Occult Blood-Urine Negative /ul (Negative); Protein-Dipstick 30 mg/dl (Negative); Specific Gravity, Urine 1.025 (1.002-1.030); Urine Bilirubin Dipstick Negative (Negative); Urine Clarity Clear (Clear); Urine Urobilinogen Normal (Normal)
[2020-12-09 11:10] LABS: Color, Urine Straw (Yellow)
[2020-12-09 11:21] LABS: Squamous Epithelial Cells - UA 0-5 SEEN /hpf (0-5); White Blood Cells 0-5 SEEN /hpf (0-5)
[2020-12-09] MEDS: LORazepam 2 MG/ML Syringe IV (11:27)
[2020-12-09] MEDS: Albuterol 2.5 MG/3 ML VIAL.NEB. INHALATION (11:49)
--- NOTE | 2020-12-09 12:25 | NURSING ---
Pt taken to MRI. EDWARD Richmond asks pt if he is feeling relaxed from the Ativan he received, to which, pt replies I don't feel any different from the way I felt before they gave it to me EDWARD Richmond states she will give him 0.5mg Ativan IV. Per Ativan IV x1 order 0.5mg may be repeated in MRI if needed. 0.5mg Ativan IV given by EDWARD Richmond at 1221. Pt aware MRI scan will take approx 25 minutes. darshan Owen's nurse to be made aware that pt received more Ativan in MRI.
--- NOTE | 2020-12-09 14:29 | DS.PCM_ITS ---
Providers Date of Admission: 12/08/20 Primary Care Physician: Dr. Josefina Berumen, DO Reason For Visit: TIA Diagnosis Discharge Diagnosis (1) TIA (transient ischemic attack): Status: Acute Code(s): G45.9 - Transient cerebral ischemic attack, unspecified (2) Ascending aortic aneurysm: Status: Acute Code(s): I71.2 - Thoracic aortic aneurysm, without rupture (3) Morbid obesity: Status: Inactive Code(s): E66.01 - Morbid (severe) obesity due to excess calories (4) Degenerative disc disease: Status: Acute Medications at Discharge Home Medications acetaminophen [Tylenol] 650 mg PO Q4H PRN 12/08/20 aspirin 81 mg PO DAILY@0800 #0 tab 12/09/20 aspirin [Ecotrin Low Strength] 81 mg PO DAILY #90 tab 12/09/20 atorvastatin 40 mg PO QHS #90 tab 12/09/20 Hospital Course Summary of Care Provided Minutes Spent on Discharge: 35 Hospital Course: ?Patient is a 65-year-old gentleman with multiple comorbidities admitted with right-sided weakness, right facial droop and slurred speech.? An assessment of possible TIA made admitted to a monitored bed for subsequent evaluation 1.? Transient ischemic attack ?Patient has been admitted to monitored bed currently undergoing evaluation with every 4 neurochecks, 2D echo, CT angio and an MRI.? CT angio obtained demonstrated No significant major vessel vaso-occlusive disease in the head. Left vertebral artery occludes at the base of the skull with distal reconstitution by collaterals.? 2D echo was also ordered results pending ?Patient 2D echo was unremarkable. MRI was negative for acute CVA. Patient was discharged home on aspirin and statin therapy ? 2.? Ascending aorta aneurysm ?Patient CT obtained as part of evaluation for his TIA did demonstrate 5 cm aneurysmal dilatation of the ascending aorta..? Patient informed of the result.? Patient to follow-up with PCP for subsequent serial monitoring and referral to cardiology 3.? Morbid obesity - With a BMI of 41.3 patient was counseled on weight reduction ? 4.? Degenerative disc disease ?Pain meds as needed 5.? DVT prophylaxis - On enoxaparin Physical Exam Narrative GENERAL: cooperative HEENT: Atraumatic; EYES; Anicteric, Normal Conjunctiva NECK; supple, normal thyroid, RESPIRATORY: Diminished to auscultation CARDIOVASCULAR:? Regular S1 S2, GI:? soft, normoactive bowel sounds, : No Renal angle tenderness; EXTREMITIES:? No edema, no clubbing, MUSCULOSKELETAL:? no muscle waisting NEURO:? Awake;? no lateralizing signs. SKIN:? No Rash PSYCH; Flat? affect ABG / Lab / Microbiology Data Result Diagrams: 12/09/20 06:38 12/09/20 06:38 Laboratory: Laboratory Results - last 24 hr 12/08/20 12/08/20 12/08/20 18:27 18:27 18:27 WBC 9.9 RBC 5.31 Hgb 15.9 Hct 50.2 MCV 94.5 H MCH 29.9 MCHC 31.7 L RDW Std Deviation 44.8 H RDW Coeff of Benny 12.8 Plt Count 242 MPV 9.8 Immature Gran % (Auto) 0.400 Neut % (Auto) 62.1 Lymph % (Auto) 23.9 [place] % (Auto) 11.2 H Eos % (Auto) 2.2 Baso % (Auto) 0.2 Absolute Neuts (auto) 6.2 Absolute Lymphs (auto) 2.37 Nucleated RBC % 0 PT 13.5 INR 1.1 APTT 26.3 Sodium 142 Potassium 3.5 Chloride 106 Carbon Dioxide 27.0 Anion Gap 9 BUN 16 Creatinine 1.18 Estim Creat Clear Calc 76.58 Est GFR (MDRD) Af Amer 80 Est GFR (MDRD) Non-Af 66 BUN/Creatinine Ratio 13.6 Glucose 118 H Hemoglobin A1c Calcium 9.0 Magnesium Total Bilirubin AST ALT Alkaline Phosphatase Troponin I 0.025 Total Protein Albumin Globulin Albumin/Globulin Ratio Triglycerides Cholesterol LDL Cholesterol VLDL Cholesterol HDL Cholesterol TSH Urine Color Urine Clarity Urine pH Ur Specific [place] Urine Protein Urine Glucose (UA) Urine Ketones Urine Occult Blood Urine Nitrite Urine Bilirubin Urine Urobilinogen Ur Leukocyte Esterase Urine RBC Urine WBC Ur Squamous Epith Cells Urine Bacteria Urine Mucus 12/08/20 12/09/20 12/09/20 18:27 06:38 06:38 WBC 7.2 RBC 5.05 Hgb 15.1 Hct 47.8 MCV 94.7 H MCH 29.9 MCHC 31.6 L RDW Std Deviation 45.6 H RDW Coeff of Benny 13.2 Plt Count 190 MPV 10.1 Immature Gran % (Auto) 0.300 Neut % (Auto) 72.4 H Lymph % (Auto) 15.0 L [place] % (Auto) 10.2 H Eos % (Auto) 1.7 Baso % (Auto) 0.4 Absolute Neuts (auto) 5.2 Absolute Lymphs (auto) 1.07 Nucleated RBC % 0 PT INR APTT Sodium 140 Potassium 4.0 Chloride 105 Carbon Dioxide 28.0 Anion Gap 7 BUN 14 Creatinine 0.85 Estim Creat Clear Calc 106.32 Est GFR (MDRD) Af Amer 116 Est GFR (MDRD) Non-Af 96 BUN/Creatinine Ratio 16.4 Glucose 121 H Hemoglobin A1c Calcium 8.8 Magnesium 2.1 Total Bilirubin 0.60 AST 20 ALT 25 Alkaline Phosphatase 79 Troponin I Total Protein 6.9 Albumin 3.5 Globulin 3.4 Albumin/Globulin Ratio 1.0 Triglycerides 112 Cholesterol 180 LDL Cholesterol 113 VLDL Cholesterol 22 HDL Cholesterol 45 TSH 1.56 Urine Color Urine Clarity Urine pH Ur Specific [place] Urine Protein Urine Glucose (UA) Urine Ketones Urine Occult Blood Urine Nitrite Urine Bilirubin Urine Urobilinogen Ur Leukocyte Esterase Urine RBC Urine WBC Ur Squamous Epith Cells Urine Bacteria Urine Mucus 12/09/20 12/09/20 06:38 10:30 WBC RBC Hgb Hct MCV MCH MCHC RDW Std Deviation RDW Coeff of Benny Plt Count MPV Immature Gran % (Auto) Neut % (Auto) Lymph % (Auto) [place] % (Auto) Eos % (Auto) Baso % (Auto) Absolute Neuts (auto) Absolute Lymphs (auto) Nucleated RBC % PT INR APTT Sodium Potassium Chloride Carbon Dioxide Anion Gap BUN Creatinine Estim Creat Clear Calc Est GFR (MDRD) Af Amer Est GFR (MDRD) Non-Af BUN/Creatinine Ratio Glucose Hemoglobin A1c 5.9 H Calcium Magnesium Total Bilirubin AST ALT Alkaline Phosphatase Troponin I Total Protein Albumin Globulin Albumin/Globulin Ratio Triglycerides Cholesterol LDL Cholesterol VLDL Cholesterol HDL Cholesterol TSH Urine Color Straw Urine Clarity Clear Urine pH 5.0 Ur Specific [place] 1.025 Urine Protein 30 H Urine Glucose (UA) Normal Urine Ketones Negative Urine Occult Blood Negative Urine Nitrite Negative Urine Bilirubin Negative Urine Urobilinogen Normal Ur Leukocyte Esterase Negative Urine RBC 0 SEEN Urine WBC 0-5 SEEN Ur Squamous Epith Cells 0-5 SEEN Urine Bacteria 0 SEEN Urine Mucus 0 SEEN Radiography Diagnostic Testing: Radiology Impression Brain CT 12/08/20 18:25 IMPRESSION: Negative Brain CT without contrast. Individualized dose optimization techniques were used for this CT. at 1840 Reported and signed by: Matteo Nunez MD Electronically Signed: Matteo Nunez MD at 18:39 EDT Tel , Service support , ADDENDUM: 12/08/20 1857 IMPRESSION: Negative Brain CT without contrast. Individualized dose optimization techniques were used for this CT. at 1840 Reported and signed by: Matteo Nunez MD N.B. : The above information has been verbally conveyed by Matteo Nunez MD to Guille Thrasher MD, on 12/08/2020 18:50:20 (ET). Electronically Signed: Matteo Nunez MD at 18:39 EDT Tel , Service support , Chest X-Ray 12/08/20 18:25 IMPRESSION: Cardiomegaly without radiographic evidence of acute cardiopulmonary disease. at 1927 Reported and signed by: Matteo Nunez MD Electronically Signed: Matteo Nunez MD at 19:26 EDT Tel , Service support , Head/Neck CTA 12/08/20 18:27 IMPRESSION: 5 cm aneurysmal dilatation of the ascending aorta. No significant major vessel vaso-occlusive disease in the head. 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 Individualized dose optimization techniques were used for this CT. at 1859 Reported and signed by: Matteo Nunez MD Electronically Signed: Matteo Nunez MD at 18:58 EDT Tel , Service support , ADDENDUM: 12/08/20 1908 IMPRESSION: 5 cm aneurysmal dilatation of the ascending aorta. No significant major vessel vaso-occlusive disease in the head. 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 Individualized dose optimization techniques were used for this CT. at 1859 Reported and signed by: Matteo Nunez MD N.B. : The above information has been verbally conveyed by Matteo Nunez MD to Guille Thrasher MD, on 12/08/2020 19:01:21 (ET). Electronically Signed: Matteo Nunez MD at 18:58 EDT Tel , Service support , Echocardiogram 12/08/20 20:26 Interpretation Summary The study was technically difficult. Contrast injection was performed. The estimated ejection fraction is 60 %. Diastolic function is indeterminate. The study was technically difficult. Contrast injection was performed. Ordering Physician: Alyssa Tafoya Referring Physician: Josefina Berumen Performed By: Gagan Singh RCS Brain MRI 12/09/20 05:55 IMPRESSION: Normal unenhanced MRI of the brain. No acute infarct. Electronically Signed: Fernando Cuevas MD at 13:33 EDT Tel , Service support , D/C Instructions Discharge Diet: No restrictions Discharge Activity: Return to Normal Activity Meaningful Use Info Meaningful Use Diagnoses (Choose all that apply): None applicable Discharge Plan Admission Admit Date/Time: 12/08/20 19:41 Attending Provider: Marcus Avila Primary Care Provider: Josefina Berumen Instructions Patient Instructions: Transient Ischemic Attack (TIA) Discharge Orders/Prescriptions Prescriptions: New aspirin 81 mg Tablet,Chewable 81 mg PO DAILY@0800 Qty: 0 RF: 0 atorvastatin 40 mg tablet 40 mg PO QHS Qty: 90 RF: 0 aspirin [Ecotrin Low Strength] 81 mg tablet,delayed release (DR/EC) 81 mg PO DAILY Qty: 90 RF: 0 Continued acetaminophen [Tylenol] 325 mg Capsule 650 mg PO Q4H PRN (Reason: Pain) RF: 0 Referrals / Follow Up: Josefina Berumen DO [Primary Care Provider] - In 1 Week Disposition Disposition (needs filled in before D/C Order can be placed): Home, self care Visit Charges OBSV E&M: 20134 Observation care discharge
--- NOTE | 2020-12-09 14:31 | CASEMGMT ---
SW completed a PHQ 9 with patient as he had a TIA. He scored a 0. Rosy PEDRO
--- NOTE | 2020-12-09 15:17 | PCM.DC ---
Discharge Instructions Diet Discharge Diet: No restrictions Activity Discharge Activity: Return to Normal Activity Follow Up Care Test Results: Test results from this visit will be discussed in further detail at your follow-up appointment, if applicable. Discharge Plan Admission Admit Date/Time: 12/08/20 19:41 Primary Reason for Your Visit: TIA Attending Provider: Marcus Avila Primary Care Provider: Josefina Berumen Instructions Patient Instructions: Transient Ischemic Attack (TIA) Discharge Orders/Prescriptions Prescriptions: New aspirin 81 mg Tablet,Chewable 81 mg PO DAILY@0800 Qty: 0 RF: 0 atorvastatin 40 mg tablet 40 mg PO QHS Qty: 90 RF: 0 aspirin [Ecotrin Low Strength] 81 mg tablet,delayed release (DR/EC) 81 mg PO DAILY Qty: 90 RF: 0 Continued acetaminophen [Tylenol] 325 mg Capsule 650 mg PO Q4H PRN (Reason: Pain) RF: 0 Referrals / Follow Up: Josefina Berumen, [Primary Care Provider] - In 1 Week Disposition Disposition (needs filled in before D/C Order can be placed): Home, self care
== END 2020-12-09 14:33 | disposition home or self-care (01) ==
LOC: ED 19:56 → PCU 19:57
PROVIDERS: Admitting Provider Family Medicine; Emergency Provider Emergency Medicine; Visit Provider Internal Medicine
DX: G45.9 Transient cerebral ischemic attack, unspecified (principal); I71.2 Thoracic aortic aneurysm, without rupture; E66.01 Morbid (severe) obesity due to excess calories; R29.810 Facial weakness; R53.1 Weakness; R47.81 Slurred speech; R03.0 Elevated blood-pressure reading, without diagnosis of hypertension; R73.9 Hyperglycemia, unspecified; R29.700 NIHSS score 0; Z68.41 Body mass index [BMI] 40.0-44.9, adult; Z79.899 Other long term (current) drug therapy; Z79.82 Long term (current) use of aspirin
CPT/HCPCS: 36415; 70450; 70496; 70498; 70551; 71045; 80048; 80053; 80061; 81001; 83036; 83735; 84443; 84484; 85025; 85610; 85730; 92610; 93005; 93306; 94640; 94762; 96361; 96372; 96374; 96375; 99218; 99251; 99285; J7030; Q9957; A4216; C8929; G0378; G0463; J2405

== ENCOUNTER 2021-11-10 17:34 | Inpatient (IN) | payer MEDICARE, SELFPAY ==
[2021-11-10 17:36] VITALS: BP 139/67; PULSE 115; RESP 20; TEMP 36.6; O2SAT 98; BMI 48.2
[2021-11-10 17:39] VITALS: BP 139/67; PULSE 115; RESP 20; TEMP 36.6; O2SAT 98
[2021-11-10] MEDS: Cefazolin 1 GM/50 ML BAG IV (18:11)
[2021-11-10] MEDS: 0.9% Normal Saline 1,000 ML 1000 ML IV (18:11)
[2021-11-10] MEDS: Acetaminophen 325 MG Tablet 650 MG PO (18:11)
[2021-11-10 18:12] LABS: Absolute Lymphocyte Count 1.24 X10^3/uL (0.83-4.51); Absolute Neutrophil Count 4.5 X10^3/uL (2.0-7.7); Basophil# 0.01 X10^3/uL; Basophil% 0.1 % (0-1); Eosinophil# 0.26 X10^3/uL; Eosinophils% 3.9 % (0-5); Hematocrit 47.5 % (40-54); Hemoglobin 15.9 g/dL (13.0-16.5); Lymphocyte # 1.24 X10^3/ul (0.83-4.51); Lymphocyte % 18.4 % (19-41); Mean Corp Hgb Conc 33.5 g/dL (32-36); Mean Corpuscular Hgb 31.4 pg (27.0-32.0); Mean Corpuscular Volume 93.9 fL (80-94); Monocyte# 0.73 X10^3/uL; Monocyte% 10.8 % (0-10); NRBC Flagged by Analyzer 0 % (0-5); Neutrophil # 4.47 X10^3/uL (2.7-7.7); Neutrophil % 66.5 % (47-70); Platelet Count 205 K/mm3 (150-450); RBC Distribution Width CV 13.2 % (11.6-14.6); Red Blood Count 5.06 M/mm3 (4.6-6.2); White Blood Count 6.7 K/mm3 (4.4-11.0)
[2021-11-10] MEDS: Morphine 4 MG/ML Syringe IV ×2 (18:18→18:51)
--- NOTE | 2021-11-10 18:20 | RAD_ITS ---
STUDY: X-RAY - LEFT FOOT CLINICAL: Male, 66 years old. Injury/Pain TECHNIQUE: 3 view(s) of the foot. COMPARISON: None. FINDINGS: Normal talus, calcaneus, and tarsal bones. There are degenerative changes of the midfoot. Normal metatarsi. There is degenerative arthrosis of the metatarsophalangeal joint of the hallux . Normal interphalangeal joint of the great toe. There is a comminuted fracture of the first distal phalanx associated with bone loss. There is diffuse soft tissue swelling. Normal second through fifth metatarsophalangeal joints. Normal interphalangeal joints and phalanges of the lesser toes. There are densities projecting over the soft tissues of the plantar aspect of the midfoot. RAD/Foot min 3 Views IMPRESSION: Comminuted fracture of the first distal phalanx associated with bone loss. Indeterminate densities projecting over the soft tissues of the plantar aspect of the midfoot, may reflect retained foreign bodies. Electronically Signed: Vicky Phillips MD at 18:33 EDT ,
[2021-11-10 18:27] LABS: AST(SGOT) 19 U/L (15-37); Alanine Aminotransfer ALT/SGPT 28 U/L (16-61); Albumin, Serum 3.5 g/dL (3.2-5.0); Alkaline Phosphatase 79 U/L (45-117); Anion Gap 4 (5-15); BUN 19 mg/dL (7-18); Calcium,Total 9.6 mg/dL (8.5-10.1); Chloride 109 mmol/L (98-107); Creatinine, Serum 0.95 mg/dL (0.70-1.30); EST Glomerular Filtration Rate 85 mL/min (>60); Est Glom Filt Rate - Afr Amer 103 mL/min (>60); Estimated Creatinine Clearance 83.67 ml/min; Globulin 3.5 g/dL (2.2-4.2); Glucose 139 mg/dL (74-106); Potassium 3.6 mmol/L (3.5-5.1); Sodium Level 143 mmol/L (136-145)
[2021-11-10 18:30] LABS: Partial Thromboplast Time 31.1 Seconds (24.1-36.2)
[2021-11-10] MEDS: Diphth,Pertuss(Acell),Tet Vac 0.5 ML Vial IM (18:40)
--- NOTE | 2021-11-10 18:51 | EDS_ITS ---
HPI History of Present Illness HPI Narrative: Patient presents with injury to his left great toe that occurred today. Patient states a mower deck fell onto his toe. Patient states that hit his leg as it was falling. Patient states the mower deck with detached from the mower and was not operational. Patient is unsure of his last tetanus. Patient states his pain is localized to his left great toe. Patient states the bleeding stopped after several minutes of pressure. Patient denies any paresthesias or weakness. Patient denies any chest pain or shortness of breath. Chief Complaint: Lower Extremity Injury Informant: patient Occured/Mechanism Mechanism/Context: Yes blunt trauma and Yes direct blow Onset/Context/Timing Onset: Today Context: Sudden Onset Timing: Continuous Quality of Pain: Aching Worsened by: Movement Relieved by: Nothing Associated Symptoms Associated Symptoms: Negative for Parasthesia, Weakness and Loss of Funtion Narrative Tetanus Immunization: Unknown [facility] Medical History Degenerative disc disease Morbid obesity Home Medications acetaminophen [Tylenol] 650 mg PO Q4H PRN 12/08/20 [History Last Taken Unknown] aspirin 81 mg PO DAILY@0800 #0 tab 12/09/20 [Rx Last Taken Unknown] aspirin [Ecotrin Low Strength] 81 mg PO DAILY #90 tab 12/09/20 [Rx Last Taken Unknown] atorvastatin 40 mg PO QHS #90 tab 12/09/20 [Rx Last Taken Unknown] Allergy/AdvReac Type Severity Reaction Status Date / Time No Known Allergies Allergy Verified 11/10/21 17:41 Family History Mother Heart disease Hypertension CAD (coronary artery disease) Father Cancer Surgical History H/O sinus surgery History of carpal tunnel surgery History of hip replacement Social History household members: family Smoking Status: Never smoker alcohol intake: current details: 1 EtOH drink daily. substance use type: does not use ROS ROS ED Constitutional Constitutional ED: Denies chills or fever(s) Eyes Eyes: Denies blurry vision or change in vision ENT ENT ED: Denies rhinorrhea or sore throat Cardiovascular Cardiovascular: Denies chest pain or palpitations Respiratory/Chest Respiratory/Chest: Denies cough or dyspnea Gastrointestinal Gastrointestinal: Denies nausea or vomiting Genitourinary Genitourinary ED: Denies dysuria or hematuria Musculoskeletal Musculoskeletal: Denies back pain or neck pain Integumentary Denies abscess or rash Neurologic Neurologic: Denies headache(s) or weakness Allergic/Immunologic Allergic/Immunologic ED: Denies mouth swelling or urticaria EXAM Physical Exam Const Vital Signs: 11/10/21 17:36 11/10/21 17:39 Temperature 97.9 F 97.9 F Temperature Source Temporal Temporal Pulse Rate 115 H 115 H Respiratory Rate 20 H 20 H Blood Pressure 139/67 H 139/67 H Blood Pressure Mean 91 91 Pulse Ox 98 98 Oxygen Delivery Method Room Air Room Air Positive well nourished and well developed General Appearance ED: well developed HEENT Reports moist mucous membranes Neck supple and no JVD Resp normal respiratory effort and clear to auscultation bilaterally Cardio regular rate, regular rhythm and no murmurs GI normal to inspection, nondistended, normoactive bowel sounds and non-tender Palpation: soft Extremity normal to inspection Extremity Narrative: There is a superficial skin tear over the anteromedial aspect of the left lower leg. There is a near complete amputation of the distal phalanx of the left great toe. This includes the nail plate and nailbed. There is mild bleeding. Capillary refill is less than 2 seconds in all digits. General Extremety ED: Negative for edema or tenderness General Extremity: Negative for edema Neuro oriented x3, CN's II-XII intact bilaterally and no sensory deficits noted Sensorium / Orientation: alert Motor Exam: strength 5/5 throughout Psych mental status grossly normal Skin no rashes or lesions noted MDM MDM MDM Narrative Medical decision making narrative: Patient was given IV fluids. Patient was given a tetanus booster. Patient was given a dose of Ancef. Patient was given a dose of morphine. X-rays of the left foot were obtained. There are 3 views. On my interpretation, there is a comminuted fracture of the left great toe with displacement. CBC was within normal limits. PT with INR and PTT were normal. Comprehensive metabolic profile was within normal limits. Patient was advised of his findings. Case was discussed with Dr. Marquis. She will be in to evaluate the patient and likely admit the patient for surgery. Patient understood and was agreeable with the plan. All questions were answered. Lab Data Attestation: I reviewed the patient's lab results. Labs: Laboratory Results - last 24 hr 11/10/21 11/10/21 11/10/21 17:55 17:55 17:55 WBC 6.7 RBC 5.06 Hgb 15.9 Hct 47.5 MCV 93.9 MCH 31.4 MCHC 33.5 RDW Std Deviation 45.0 H RDW Coeff of Benny 13.2 Plt Count 205 MPV 11.0 Immature Gran % (Auto) 0.300 Neut % (Auto) 66.5 Lymph % (Auto) 18.4 L [place]verse % (Auto) 10.8 H Eos % (Auto) 3.9 Baso % (Auto) 0.1 Absolute Neuts (auto) 4.5 Absolute Lymphs (auto) 1.24 Nucleated RBC % 0 PT 13.0 INR 1.0 APTT 31.1 Sodium 143 Potassium 3.6 Chloride 109 H Carbon Dioxide 30.0 Anion Gap 4 L BUN 19 H Creatinine 0.95 Estim Creat Clear Calc 83.67 Est GFR (MDRD) Af Amer 103 Est GFR (MDRD) Non-Af 85 BUN/Creatinine Ratio 20.0 Glucose 139 H Calcium 9.6 Total Bilirubin 0.30 AST 19 ALT 28 Alkaline Phosphatase 79 Total Protein 7.0 Albumin 3.5 Globulin 3.5 Albumin/Globulin Ratio 1.0 Radiography Diagnostic Testing: Clinical Impression(s) from Imaging Studies Foot X-Ray 11/10/21 18:20 IMPRESSION: Comminuted fracture of the first distal phalanx associated with bone loss. Indeterminate densities projecting over the soft tissues of the plantar aspect of the midfoot, may reflect retained foreign bodies. Electronically Signed: Vicky Phillips MD at 18:33 EDT , EKG Initial EKG: Interpretation: Sinus Tachycardia (115) and Non-Specific ST Changes Discharge Plan Triage Chief Complaint: Lower Extremity Injury ED Provider: Luis Alberto Gutiérrez Dx/Rx/DC Orders Clinical Impression: Open displaced fracture of distal phalanx of left great toe, Noninfected skin tear of left leg Prescriptions: No Action acetaminophen [Tylenol] 325 mg Capsule 650 mg PO Q4H PRN (Reason: Pain) RF: 0 aspirin 81 mg Tablet,Chewable 81 mg PO DAILY@0800 Qty: 0 RF: 0 atorvastatin 40 mg tablet 40 mg PO QHS Qty: 90 RF: 0 aspirin [Ecotrin Low Strength] 81 mg tablet,delayed release (DR/EC) 81 mg PO DAILY Qty: 90 RF: 0 Primary Care Provider: Care Physician,No Primary Referrals: Care Physician,No Primary [Primary Care Provider] - Disposition Disposition: Acute Care Hospital [facility]
--- NOTE | 2021-11-10 20:16 | HP.PCM_ITS ---
HPI - General General Date of Admission: 11/10/21 HPI Narrative MARTI MARTINS, is a 66 M who was seen bedside for a left lower extremity crush injury. The injury occurred earlier this afternoon when a mower deck fell on his toe. He estimates the mower deck weighs 100s of pounds and fell at an accelerated rotational force and hit after detached from the rest of the mower. His tetanus has been updated while in the emergency room. His pain is moderate to the left great toe with attempted motion otherwise it is controlled. A dressing is in place upon initial evaluation. He reports his bleeding was controlled initially with direct pressure. He relates the mower deck also hit his leg and he has a skin tear. He does not have any current leg or ankle pain however reports he has neuropathy. He has had neuropathy for a while and denies known diabetes status. He denies lower extremity weakness. He also has lower extremity chronic swelling and a history of venous stasis wounds with delayed healing. He has a venous stasis wound on his leg lateral aspect at this time relates this has been present for a couple of months. He denies claudication however reports vascular disease does run in his family. He denies calf pain. He is with a family member today who brought him into the emergency room. His reported past medical history includes hypertension in which he stopped taking his medication within the past 2 months, obesity, reported previous TIA, prior joint replacement. He denies other known cardiac history. [facility] Medical History Degenerative disc disease Morbid obesity Home Medications acetaminophen [Tylenol] 650 mg PO Q4H PRN 12/08/20 [History Last Taken Unknown] aspirin 81 mg PO DAILY@0800 #0 tab 12/09/20 [Rx Last Taken Unknown] aspirin [Ecotrin Low Strength] 81 mg PO DAILY #90 tab 12/09/20 [Rx Last Taken Unknown] atorvastatin 40 mg PO QHS #90 tab 12/09/20 [Rx Last Taken Unknown] Allergy/AdvReac Type Severity Reaction Status Date / Time No Known Allergies Allergy Verified 11/10/21 17:41 Family History Mother Heart disease Hypertension CAD (coronary artery disease) Father Cancer Surgical History H/O sinus surgery History of carpal tunnel surgery History of hip replacement Social History household members: family Smoking Status: Never smoker alcohol intake: current details: 1 EtOH drink daily. substance use type: does not use ROS Constitutional Constitutional: Denies chills, fatigue or fever(s) ENT HEENT: Denies sore throat Cardiovascular Cardiovascular: Reports leg edema, leg ulcers and pedal edema; Denies claudication, dizziness, nausea or vomiting Respiratory/Chest Respiratory/Chest: Denies cough Gastrointestinal Gastrointestinal: Denies nausea Genitourinary Genitourinary: Denies dysuria Musculoskeletal Musculoskeletal: Reports difficulty walking, extremity pain and numbness Integumentary Integumentary: Reports skin ulcer and wounds Hematologic/Lymphatic Hematologic/Lymphatic: Denies easy bleeding Vital Signs Vital Signs Vital Signs: 11/10/21 17:36 11/10/21 17:39 Temperature 97.9 F 97.9 F Temperature Source Temporal Temporal Pulse Rate 115 H 115 H Respiratory Rate 20 H 20 H Blood Pressure 139/67 H 139/67 H Blood Pressure Mean 91 91 Pulse Ox 98 98 Oxygen Delivery Method Room Air Room Air Weight Weight: 156.7 kg Body Mass Index (BMI) 48.2 Physical Exam Const alert and oriented x3 General Appearance: cooperative and comfortable HEENT normocephalic Extremity Extremity Narrative: No calf tenderness; negative Aleman bilateral Diminished pulses. Nonpalpable bilateral PT pulses and weak DP pulses bilateral. Notable bilateral lower extremity edema (left more than right). Capillary fill time is less than 3 seconds digits 2, 3, 4, 5 on the left and significantly delayed to the left hallux. Muscle wasting noted Active range of motion lesser toes on the left and ankle Compartments are soft to palpate left lower extremity and there is no bogginess or fluctuance No skin tenting left lower extremity Crush injury left hallux with near traumatic amputation with plantar vessels and soft tissue intact. Visualized bone and hematogenous drainage is also noted but not pulsatile. General Extremity: edema and no tenderness to palpation of joints or extremities; Negative for cyanosis Skin Skin Narrative: no purulence, no streaking, no odor, no infection. There is no boogie necrosis however the detached distal hallux at the interphalangeal joint level has a cyanotic tip and is to be noted to be nonsalvageable General Skin Exam: Negative for erythema Neuro Neuro Narrative: lack of normal epicritic sensation via light touch is consistent with neuropathy status Psych cooperative and affect normal Results Lab / Micro Data Result Diagrams: 11/10/21 17:55 11/10/21 17:55 Labs: Laboratory Results - last 24 hr 11/10/21 17:55: WBC 6.7, RBC 5.06, Hgb 15.9, Hct 47.5, MCV 93.9, MCH 31.4, MCHC 33.5, RDW Std Deviation 45.0 H, RDW Coeff of Benny 13.2, Plt Count 205, MPV 11.0, Immature Gran % (Auto) 0.300, Neut % (Auto) 66.5, Lymph % (Auto) 18.4 L, Graham % (Auto) 10.8 H, Eos % (Auto) 3.9, Baso % (Auto) 0.1, Absolute Neuts (auto) 4.5, Absolute Lymphs (auto) 1.24, Nucleated RBC % 0 11/10/21 17:55: PT 13.0, INR 1.0, APTT 31.1 11/10/21 17:55: Sodium 143, Potassium 3.6, Chloride 109 H, Carbon Dioxide 30.0, Anion Gap 4 L, BUN 19 H, Creatinine 0.95, Estim Creat Clear Calc 83.67, Est GFR (MDRD) Af Amer 103, Est GFR (MDRD) Non-Af 85, BUN/Creatinine Ratio 20.0, Glucose 139 H, Calcium 9.6, Total Bilirubin 0.30, AST 19, ALT 28, Alkaline Phosphatase 79, Total Protein 7.0, Albumin 3.5, Globulin 3.5, Albumin/Globulin Ratio 1.0 Radiology Impression Foot X-Ray 11/10/21 18:20 IMPRESSION: Comminuted fracture of the first distal phalanx associated with bone loss. Indeterminate densities projecting over the soft tissues of the plantar aspect of the midfoot, may reflect retained foreign bodies. Electronically Signed: Vicky Pihllips MD at 18:33 EDT , Assessment & Plan Assessment/Plan (1) Open displaced fracture of distal phalanx of left great toe: (2) Noninfected skin tear of left leg: (3) Crush injury of left foot: (4) Non-pressure chronic ulcer of unspecified part of left lower leg with fat layer exposed: (5) Venous insufficiency (chronic) (peripheral): (6) Other hereditary and idiopathic neuropathies: PLAN: I reviewed and discussed his case today. His traumatic accident is noted and I reviewed his diagnostic data. He does not have leukocytosis. There are no other gross abnormalities with CBC and CMP. I recommend screening with hemoglobin A1c. I also recommend preoperative EKG and this was ordered. Foot x-ray 3 views of the left demonstrate comminuted displaced distal phalanx fracture without soft tissue emphysema or retained foreign body. No other fractures or dislocations are noted. Ankle and leg x-rays were also ordered because the injury also included a crush component to his leg and he also has noted neuropathy. His tetanus was updated in the emergency room. After saline irrigation, wound cultures were obtained aerobic, anaerobic, and MRSA PCR in case he develops infection later because this was considered a dirty open fracture because it went through his shoe and there may be additional necrosis from the crush component. Surgical amputation of the remainder of the hallux of the left foot is recommended. The following work up and care recommendations were made: Dressing: Betadine wet-to-dry applied. To keep intact until surgery. Offload: Heel weight-bear left foot with surgical shoe and use of assistive device Edema: To elevate and keep Rowdy wrap intact Infection: This not present at this time however he will be monitored for this. Cultures were obtained as noted. He is on IV Ancef and is to be treated as an open fracture with antibiotics ordered preperi-and postoperative. Pain: Pain medications including oxycodone and morphine are ordered as needed Host factors: His medical history is noted. Hospitalist was asked to be on consultation for medical management and also for preoperative assessment. This is greatly appreciated. The case was briefly reviewed with Dr. Adame. It is also noted that he has prior history of leg ulcers with delayedhealing. Nutritional supplementation will be ordered to optimize healing. After his acute injury treatment I would also like to see him for wound care including further work-up of potential peripheral vascular disease and venous insufficien cy to treatment from a comprehensive standpoint. Preoperative diagnostic data was reviewed and additional EKG was ordered for risk assessment. I anticipate this left hallux irrigation and amputation may be completed under MAC and local anesthesia in the surgery time is anticipated to be less than 1 hour in duration. Preoperative indications, planned procedure, benefits, risk, anticipated healing time and management were reviewed. The patient understands and elects proceed with surgery at this time. No guarantees were made. The patient understands risk and complications include but are not limited to following: pain, swelling, scarring, need for further surgery, tendon contracture, transfer lesion, arthritis, need for further surgery, delayed or nonhealing, infection, blood clot, allergic reaction, loss of limb, function, or life. The informed surgical limb and consent will need to be signed. I answered all the patient's questions. This is not an elective surgery. This is tentatively scheduled for 11-11-2021 at approximately 9:00 AM. N.p.o. order was placed. Hold additional anticoagulation medication until after surgery. CODE STATUS confirmed: Full code Please do not hesitate to call if you have any questions. Jessica Marquis DPM, [facility] [phone]
--- NOTE | 2021-11-10 20:17 | RAD_ITS ---
EXAM: XR LEFT TIBIA AND FIBULA, 2 VIEWS CLINICAL INDICATION: trauma pt dropped mower deck on left foot. partial amputation to great toe. infection to leg TECHNIQUE: Frontal and lateral views of the left tibia and fibula. This report was created using [place] report generation technology. COMPARISON: None. FINDINGS: BONES/JOINTS: Unremarkable. No acute fracture. No subluxation. Normal alignment. Preservation of the joint space. No sclerotic or destructive changes observed. SOFT TISSUES: Soft tissue swelling around the level of the ankle. No radiopaque foreign body. VASCULATURE: There are atherosclerotic vascular calcifications. RAD/Tibia & Fibula 2 Views IMPRESSION: Soft tissue swelling around the level of the ankle. Electronically Signed: Harish Byrd MD at 21:29 EDT Reading Location ID and State: [facility] / [place] , Service support ,
[2021-11-10] MEDS: HYDROmorphone 1 MG/ML Syringe 0.5 MG IV (20:36)
--- NOTE | 2021-11-10 20:54 | PCM.PN.HOSP ---
Subjective Subjective 66-year-old male with history of hypertension, hyperlipidemia, morbid obesity presents to the hospital with an injury to his left great toe. A mower deck fell onto his toe and per podiatry they will need to take him to the OR tomorrow for amputation and washout. Objective Data Objective Data Vital Signs: Vital Signs Temp Pulse Resp BP Pulse Ox 97.9 F 115 H 20 H 139/67 H 98 11/10/21 17:39 11/10/21 17:39 11/10/21 17:39 11/10/21 17:39 11/10/21 17:39 Oxygen Delivery Method Room Air Weight: 345 lb 7.43 oz Body Mass Index (BMI) 48.2 Intake & Output: Intake and Output for Last 24 Hours 11/09/21 11/10/21 11/11/21 03:59 03:59 03:59 Intake Total 1050 / 1050 Balance 1050 / 1050 Lab / Micro Data Result Diagrams: 11/10/21 17:55 11/10/21 17:55 Labs: Laboratory Results - last 24 hr 11/10/21 17:55: WBC 6.7, RBC 5.06, Hgb 15.9, Hct 47.5, MCV 93.9, MCH 31.4, MCHC 33.5, RDW Std Deviation 45.0 H, RDW Coeff of Benny 13.2, Plt Count 205, MPV 11.0, Immature Gran % (Auto) 0.300, Neut % (Auto) 66.5, Lymph % (Auto) 18.4 L, [place]ett % (Auto) 10.8 H, Eos % (Auto) 3.9, Baso % (Auto) 0.1, Absolute Neuts (auto) 4.5, Absolute Lymphs (auto) 1.24, Nucleated RBC % 0 11/10/21 17:55: PT 13.0, INR 1.0, APTT 31.1 11/10/21 17:55: Sodium 143, Potassium 3.6, Chloride 109 H, Carbon Dioxide 30.0, Anion Gap 4 L, BUN 19 H, Creatinine 0.95, Estim Creat Clear Calc 83.67, Est GFR (MDRD) Af Amer 103, Est GFR (MDRD) Non-Af 85, BUN/Creatinine Ratio 20.0, Glucose 139 H, Calcium 9.6, Total Bilirubin 0.30, AST 19, ALT 28, Alkaline Phosphatase 79, Total Protein 7.0, Albumin 3.5, Globulin 3.5, Albumin/Globulin Ratio 1.0 Radiography Diagnostic Testing: Radiology Impression Foot X-Ray 11/10/21 18:20 IMPRESSION: Comminuted fracture of the first distal phalanx associated with bone loss. Indeterminate densities projecting over the soft tissues of the plantar aspect of the midfoot, may reflect retained foreign bodies. Electronically Signed: Vicky Phillips MD at 18:33 EDT , Physical Exam Const alert and oriented x3 General Appearance: cooperative HEENT normocephalic and moist oral mucous membranes Eyes PERRL, EOMs intact bilaterally and conjunctivae normal Neck supple and no JVD Resp normal respiratory effort, no retractions, no use of accessory muscles and clear to auscultation bilaterally Auscultation: Negative for crackles, rales, rhonchi or wheezes Cardio regular rate, regular rhythm, S1 normal heart sound, S2 normal heart sound and no murmurs GI soft to palpation, non-tender and non-distended; Negative for hepatosplenomegaly Extremity no clubbing, cyanosis or edema Extremity Narrative: Left great toe is nearly amputated, dressing currently in place Skin no rashes or lesions noted Neuro no focal motor deficits and no sensory deficits noted Psych affect normal Appearance: appropriate Assessment & Plan Assessment/Plan (1) Open displaced fracture of distal phalanx of left great toe: PLAN: 1. Open displaced fracture of the distal phalanx of his left great toe ? This is due to a crush injury ? Pain management per primary, plan for operative amputation and washout tomorrow ? PT/OT 2. HTN/HLD ? Blood pressures are stable, currently a little bit elevated but this is likely secondary to the pain also he ran out of his lisinopril ? Continue with lisinopril DVT: SCDs Charges/Coding Visit Charges Inpatient E&M: 00410 Subs Hosp L2
[2021-11-10 21:01] LABS: Hemoglobin A1c 5.9 % (3.8-5.6)
[2021-11-10 21:03] VITALS: BP 180/89; PULSE 100; RESP 20; TEMP 37.1; O2SAT 97
--- NOTE | 2021-11-10 21:15 | RAD_ITS ---
EXAM: XR LEFT ANKLE COMPLETE, 3 OR MORE VIEWS CLINICAL INDICATION: trauma TECHNIQUE: Frontal, lateral and oblique views of the left ankle. This report was created using [employer] report generation technology. COMPARISON: None. FINDINGS: BONES/JOINTS: There is a calcaneal spur. No acute fracture. No subluxation. Normal alignment. Preservation of the joint space. No sclerotic or destructive changes observed. SOFT TISSUES: Soft tissue swelling around the ankle. No radiopaque foreign body. VASCULATURE: There are atherosclerotic vascular calcifications. RAD/Ankle min 3 Views IMPRESSION: Soft tissue swelling around the ankle. Electronically Signed: Harish Byrd MD at 21:33 EDT ,
[2021-11-10 21:30] VITALS: BMI 46.4
[2021-11-10 21:56] LABS: M R Staph aureus DNA By PCR Negative (Negative); Probe Check PASS; Specimen Processing Control PASS; Staph aureus DNA By PCR NEGATIVE (Negative)
[2021-11-10 22:36] VITALS: BP 173/101; PULSE 108; RESP 20; TEMP 36.6; O2SAT 96
[2021-11-10] MEDS: oxyCODONE 5 MG Tablet 10 MG PO (22:59)
[2021-11-11] VITALS (14 sets, daily range): BP systolic 139–187; BP diastolic 91–105; PULSE 87–107; RESP 16–20; TEMP 36.6–37.2; O2SAT 94–98; BMI 46.4
[2021-11-11] MEDS: Morphine 2 MG/ML Syringe IV ×3 (00:34→07:04)
[2021-11-11] MEDS: 0.9% Saline Lock 10 ML Syringe IV ×3 (03:59→23:05)
--- NOTE | 2021-11-11 07:41 | PCM.PN.HOSP ---
Subjective Subjective Patient is a 66-year-old gentleman who presented with left lower extremity pain. He apparently dropped a lower deck on the left foot. Imaging studies obtained in the ED demonstrated comminuted fracture of the first distal phalanx associated with bone loss. Patient was admitted to podiatry service with consultation placed to the hospitalist team to assist with management of patient medical comorbidities Objective Data Objective Data Vital Signs: Vital Signs Temp Pulse Resp BP Pulse Ox 98.4 F 99 20 H 187/92 H 94 11/11/21 03:54 11/11/21 03:54 11/11/21 03:54 11/11/21 03:54 11/11/21 07:20 Oxygen Delivery Method Room Air Weight: 150.4 kg Body Mass Index (BMI) 46.4 Intake & Output: Intake and Output for Last 24 Hours 11/09/21 11/10/21 11/11/21 23:59 23:59 23:59 Intake Total 1050 / 1165 115 / 115 Output Total 375 / 375 Balance 1050 / 1165 -260 / -260 Lab / Micro Data Result Diagrams: 11/10/21 17:55 11/10/21 17:55 Labs: Laboratory Results - last 24 hr 11/10/21 17:55: WBC 6.7, RBC 5.06, Hgb 15.9, Hct 47.5, MCV 93.9, MCH 31.4, MCHC 33.5, RDW Std Deviation 45.0 H, RDW Coeff of Benny 13.2, Plt Count 205, MPV 11.0, Immature Gran % (Auto) 0.300, Neut % (Auto) 66.5, Lymph % (Auto) 18.4 L, Mckean % (Auto) 10.8 H, Eos % (Auto) 3.9, Baso % (Auto) 0.1, Absolute Neuts (auto) 4.5, Absolute Lymphs (auto) 1.24, Nucleated RBC % 0 11/10/21 17:55: PT 13.0, INR 1.0, APTT 31.1 11/10/21 17:55: Sodium 143, Potassium 3.6, Chloride 109 H, Carbon Dioxide 30.0, Anion Gap 4 L, BUN 19 H, Creatinine 0.95, Estim Creat Clear Calc 83.67, Est GFR (MDRD) Af Amer 103, Est GFR (MDRD) Non-Af 85, BUN/Creatinine Ratio 20.0, Glucose 139 H, Calcium 9.6, Total Bilirubin 0.30, AST 19, ALT 28, Alkaline Phosphatase 79, Total Protein 7.0, Albumin 3.5, Globulin 3.5, Albumin/Globulin Ratio 1.0 11/10/21 17:55: Hemoglobin A1c 5.9 H 11/10/21 20:15: S.aureus Protein A PCR NEGATIVE, MRSA (PCR) Negative Micro: Microbiology 11/11/21 06:20 Nasal Secretion SARS-CoV-2 Antigen (Rapid) - Final Radiography Diagnostic Testing: Radiology Impression Foot X-Ray 11/10/21 18:20 IMPRESSION: Comminuted fracture of the first distal phalanx associated with bone loss. Indeterminate densities projecting over the soft tissues of the plantar aspect of the midfoot, may reflect retained foreign bodies. Electronically Signed: Vicky Phillips MD at 18:33 EDT , Tibia/Fibula X-Ray 11/10/21 20:17 IMPRESSION: Soft tissue swelling around the level of the ankle. Electronically Signed: Harish Byrd MD at 21:29 EDT , Ankle X-Ray 11/10/21 21:15 IMPRESSION: Soft tissue swelling around the ankle. Electronically Signed: Harish Byrd MD at 21:33 EDT , Physical Exam Narrative GENERAL: cooperative HEENT: Atraumatic; EYES; Anicteric, Normal Conjunctiva NECK; supple, normal thyroid, RESPIRATORY: Diminished to auscultation CARDIOVASCULAR: Regular S1 S2, GI: soft, normoactive bowel sounds, : No Renal angle tenderness; EXTREMITIES: No edema, no clubbing, MUSCULOSKELETAL: Left foot in surgical dressing NEURO: Awake; no lateralizing signs. SKIN: No Rash PSYCH; Flat affect Assessment & Plan Assessment/Plan (1) Open displaced fracture of distal phalanx of left great toe: PLAN: Patient is a 66-year-old gentleman who presented with left lower extremity pain. He apparently dropped a lower deck on the left foot. Imaging studies obtained in the ED demonstrated comminuted fracture of the first distal phalanx associated with bone loss. Patient was admitted to podiatry service with consultation placed to the hospitalist team to assist with management of patient medical comorbidities 1. Open displaced fracture of the distal phalanx of the left great toe ? Following a crush injury. Plan is for patient to undergo surgical repair with plans for operative amputation and washout by Dr. Marquis on 11/11/2021 2. Hypertension - Blood pressure controlled, home medications continued with dose adjustment as needed 3. Class III obesity with BMI of 46.4 ? Weight loss advised 4. DVT prophylaxis ? SCDs for now with plans to initiate chemoprophylaxis following patient procedure Charges/Coding Visit Charges Inpatient E&M: 96109 Subs Hosp L2
--- NOTE | 2021-11-11 08:30 | RAD_ITS ---
STUDY: X-RAY - LEFT FOOT CLINICAL: Male, 66 years old. LEFT FOOT TECHNIQUE: 3 view(s) of the foot. COMPARISON: 11/10/2021 FINDINGS: 4 seconds of fluoroscopy of the left foot was utilized and operating room during amputation of the first digit 3 images are somewhat limited for interpretation.. RAD/Foot min 3 Views IMPRESSION: Fluoroscopy during interpretation of the first digit. Electronically Signed: Fernando Cuevas MD at 13:13 EDT ,
--- NOTE | 2021-11-11 09:45 | AMP_PTH ---
PATIENT: MARTI MARTINS LOC: [facility]3 U#:[id number] AGE/SX: 66/M ROOM: [facility] RE11/10/[address]: Dr. Luis Alberto Wilkerson DO : 1955 BED: 1 DIS: 11/13/2021 SPEC #: [id number] RECD: 11/13/21 10:11 STATUS: DAISHA REArtem #: [id number] CHIN: 11/11/21 09:[address]: Jessica Marquis DEPT: SURGICAL PATHOLOGY RECD BY: Marlen Savage ENTERED: 11/13/21 10:39 SP TYPE: Amputation OTHR DR: DO Dr. Jessica Mcconnell, DPM Dr. Declan Adame MD No Primary Care Phys Tissues: Toe, NOS Procedures: Decalcification bone/plaque Surgery Specimen Level II Comments: @ Ordering doctor for DEC edited from to DR.JFASCI Kyleigh HASKINS at 11/13/21 1438 @ Ordering doctor for SUIV edited from to @ sandra HASKINS at 11/13/21 1438 @ Submitting doctor edited from to DR.JFASCI Kyleigh HASKINS at 11/13/21 1438 HEADER OPERATION: Amputation of first left toe PRE-OP DIAGNOSIS: Open displaced fracture of distal phalanx of left great toe, crush injury of left foot TISSUE SUBMITTED: First left toe MICROSCOPIC DIAGNOSIS First left toe, amputation: Skin with focal area of ulceration and associated acute inflammation. Pieces of bone with focal area of hemorrhage, clinically crush injury left foot. RIZWANA:asad 11/16/2021 MICROSCOPIC DESCRIPTION Slides are reviewed. GROSS DESCRIPTION Received in fixative is one container labeled with the patient's name and designated first left toe. The specimen consists of a portion of toe with nail measuring 6 x 4 x 3 cm. A focal area of hemorrhage is noted underneath the toe. Resection margin is irregular and hemorrhagic. Also present in the container is a detached piece of bone measuring 7 x 3 x 1 cm. A focal area of ulceration is noted in this piece. Also present in the container is a detached piece of bone with adherent soft tissue measuring 6.5 x 2 x 2 cm. Clinical Asst sections are submitted in three cassettes as follows: 1 - skin underlying tissue of toe, 2 - detached piece of skin, 3 & 4 - detached piece of bone after decalcification. / RIZWANA:asad 11/13/2021 TC:5 CPT: 36152, 41055
[2021-11-11] MEDS: Lactated Ringers 1,000 ML 30 ML IV (10:45)
--- NOTE | 2021-11-11 10:55 | OP.PCM_ITS ---
Problems Associated Problem List Diagnoses (1) Open displaced fracture of distal phalanx of left great toe: (2) Crush injury of left foot: Report of Operation Date of Procedure: 11/11/21 Pre-Operative Diagnosis: open left hallux fracture secondary to crush injury Post-Operative Diagnosis: open left hallux fracture secondary to crush injury Surgery/Procedure Performed:: Left hallux amputation Description of Surgical Findings:: Hemostasis: Well-padded pneumatic left mid leg tourniquet, 250 mmHg, 9 minutes Materials: 2-0 Vicryl, 3-0 and 2-0 Prolene Specimens: Left first toe sent to pathology Complications: None The patient tolerated the procedure and anesthesia well. The patient was transported to the PACU with vital signs stable and vascular status intact to the surgical limb. To ice and elevate for pain and inflammation management. Postoperative x-rays were reviewed prior to leaving the operating room. Adequate left hallux amputation is noted without soft tissue emphysema foreign body or other acute fractures or dislocations. Postoperative orders were entered electronically. He will be transferred back to the medical surgical floor upon continued stability. He continues on IV antibiotics and his tetanus has been updated. Surgeon: Jessica Marquis manager enterprise content management: None Type of Anesthesia: Local (Preop: 1:1 mix 1% lidocaine plain and 0.5% Marcaine plain administered in the left first ray block fashion, 10 cc) and Spinal Anesthesiologist: Adam Silva Specimen's removed: Left hallux sent to pathology Drains: none Estimated Blood Loss (mL): <25 mL Description of Procedure: Indications: This 66 year old male with significant past medical history of hypertension, obesity, prior work up for TIA sustained a left foot injury on 11/10/21. This in jury resulted in an open hallux fracture with near complete toe detachment. He presents to the OR today for hallux amputation. The injury initially occurred when a mower deck detached and fell on his left foot in an accelerated manner. He presented to the emergency room in which his bleeding was stabilized and his tetanus status was updated. He has weak palpable pulse on the foot and his foot is warm to touch. He has significant bilateral lower extremities swelling with some evidence of venous stasis ulcer to the lateral aspect of the left leg that measures 8.5 x 4 x 0.1 cm. There is also a skin laceration from the injury to the medial left leg which measures 11 x 4 x 0.1 cm. There is no purulence or signs of infection. There is peripheral hyperpigmentation and skin peeling noted consistent with stasis changes. The hallux at the correct site is devitalized with cyanotic distal tip and nonsalvageable dorsal and plantar hallux skin. The distal phalanx is comminuted and directly visualized and is detached by over 80% and is seen lying in a plantar position. Foot x-rays were reviewed which demonstrate a comminuted displaced distal phalanx fracture without other acute fracture dislocations. Ankle and leg x-rays of the left lower extremity were also reviewed without acute injuries noted. It is noted that he does have some vessel calcification. He is otherwise stable and was also seen by hospitalist physician preoperatively and is optimized. Procedure in detail: The patient was brought into the operating room, and was place on the operating room table in the supine position. He was carefully secured to the operating room table with a safely belt around his upper limbs. A time out was performed, the patient was properly identified and the surgical plan and left surgical limb designation was confirmed. Patient was already on antibiotics; 3g ancef every 8 hours while on medical surgical floor. A well padded pneumatic tourniquet was placed around the left mid leg. The patient received spinal anesthesia per the anesthesia team, and an additional left foot first block was administered by myself. The left foot was scrubbed, prepped and draped in the usual aseptic fashion. The left foot was exsanguinated via Esmarch, and the left ankle pneumatic tourniquet was inflated to 250mmHg. Using a 15 scalpel blade a fishmouth incision was performed and the hallux was disarticulated at the metatarsal phalangeal joint level allowing preservation of soft tissue envolope and full coverage for closure of this amputation site. This was set aside and sent to pathology. It is noted he already had initial post irrigation culture sent to microbiology upon arrival to the hospital including aerobic, anaerobic, and MRSA PCR. Under direct surgical visualization, no necrosis or purulence was seen at this level. The tourniquet was deflated at this time. Healthy bleeding tissue was noted at the amputation level and no pulsatile bleeding was noted after hemostasis was controlled with direct pressure and electrocauterization. The site was flushed out with copious amounts of normal saline solution. A flap was created with the remaining viable skin using a 15 blade and deep closure was performed with vicryl in a minimal manner utilizing not touch technique. The skin edges were brought together and were reapproximated using 3-0 and 2-0 Prolene without tension. Brisk capillary refill time was noted to all digits of the left foot and also to all aspects of the amputation stump site. A dressing was applied which consisted of betadine soaked adaptic, 4x4 gauze, kerlix and fay dressing. Additional Adaptic was applied to the left leg ulcer site. After procedure: Patient tolerated the above procedure well with no complications. He was transported from the operating room to the recovery room in good condition to the PACU. Post operative orders placed. Post operative instructions were reviewed. He was advised to keep the surgical foot elevated, and to keep dressing left foot clean, dry and intact. To remain non weightbearing. He will work with PT and OT tomorrow for partial heel weightbearing with surigcal shoe in place and with assistive devices. Patient will be followed as an inpatient. To continue on IV antibiotics for treatment of his open fracture site during his hospital admission. Post surgical xrays were also reviewed as noted. Medical management per hospitalist team is noted and appreciated. He is also noted he does have some venous stasis changes including ulceration and this will be followed with further work-up in the outpatient setting. It is okay to proceed with DVT prophylaxis tomorrow morning. Jessica Marquis DPM, [facility] Grafts/Implants Used: none Complications None Admit VTE Documentation VTE Present on Admission: No VTE Mechan Device Prophylaxis: SCD's VTE Pharm Prophylaxis ordered?: Yes
[2021-11-11] MEDS: Lidocaine 1% (20 ml mdv) 20 ML Vial (11:14)
[2021-11-11] MEDS: Bupivacaine 0.25% 30 ML Vial (11:14)
[2021-11-11] MEDS: Lisinopril 40 MG Tablet PO (13:25)
--- NOTE | 2021-11-11 15:15 | CASEMGMT ---
RN DIANNA PERSONNEL CLERK CM to room to meet with patient for initial transition planning/care coordination assessment. EDWARD BUSTAMANTE introduced self and role at [facility].? Pt voices understanding and consents to assessment at this time.? Pt resting in bed in no distress at this time.? Pt is A/O at this time and answers all questions appropriately.?? Care providers, pharmacy, and demographics verified/updated at this time. PCP: No PCP. Provided w/list of local PCP's [facility] Prescription Benefit:? Yes Living Will/HPOA:? Has both LW and HPOA, who is his ex- Renee Hernandez LNOK: Ex-/POA, Renee Hernandez Living Arrangements: Lives w/ex-Afia, in one-story home w/2-3 steps to enter. Was independent prior to injury/hospitalization. Transportation: Pt and Afia both drive DME: ? Denies using any DME. Has crutches and a W/C available, if needed. Does not have a walker. States if therapy recommends a walker, he would be agreeable to getting one. Reviewed list of local DME companies. Pt states he does not have preference. HHC/SNF: No hx of SNF. Has had HHC in the past after hip surgery. Pt wishes to return home and states has no concerns with going home at time of discharge.? Pt voices no further concerns/needs at this time.? Advised pt to ask for CM if any further questions/concerns/needs arise.? Voices understanding. PLAN: ?Home w/support of ex-/POA and discharge plans in place. Pt agreeable to getting walker, if therapy recommends it. Green sheet on chart for walker, if needed. Marcelino BRIAN RN, CM
[2021-11-11] MEDS: Juven (unflavored) Packet 1 PACKET PO (17:00)
[2021-11-11] MEDS: oxyCODONE 5 MG Tablet 10 MG PO ×2 (17:00→21:04)
--- NOTE | 2021-11-11 17:42 | CM.ED ---
SW Note SW was advised by RN DIANNA that patient may have discharge needs. PT/OT held today due to patient's surgery. As there are no PT/OT recommendations the patient's discharge plan is still undetermined. Parris MCKENZIE
[2021-11-11] MEDS: Morphine 2 MG/ML Syringe 3 MG IV ×2 (18:08→23:13)
[2021-11-11] MEDS: Acetaminophen 325 MG Tablet 650 MG PO (20:35)
[2021-11-12 04:01] VITALS: BP 166/94; PULSE 96; RESP 20; TEMP 36.7; O2SAT 94
[2021-11-12] MEDS: oxyCODONE 5 MG Tablet 10 MG PO ×4 (04:05→21:29)
[2021-11-12] MEDS: Acetaminophen 325 MG Tablet 650 MG PO ×2 (04:06→21:28)
--- NOTE | 2021-11-12 07:49 | PN.HOSP_ITS ---
Subjective Subjective Patient underwent left hallux amputation on 11/11/2021. Seen this a.m. complains of significant pain. Objective Data Objective Data Vital Signs: Vital Signs Temp Pulse Resp BP Pulse Ox 98.1 F 96 20 H 166/94 H 94 11/12/21 04:01 11/12/21 04:01 11/12/21 04:01 11/12/21 04:01 11/12/21 04:01 Oxygen Delivery Method Room Air Weight: 150.4 kg Body Mass Index (BMI) 46.4 Intake & Output: Intake and Output for Last 24 Hours 11/10/21 11/11/21 11/12/21 23:59 23:59 23:59 Intake Total 1050 / 1165 1620 / 1735 115 / 115 Output Total 2075 / 2075 500 / 500 Balance 1050 / 1165 -455 / -340 -385 / -385 Lab / Micro Data Result Diagrams: 11/10/21 17:55 11/10/21 17:55 Micro: Microbiology 11/10/21 20:15 Wound - Toe Gram Stain - Final 11/10/21 20:15 Wound - Toe Wound Culture - Preliminary Gram positive organism 11/11/21 06:20 Nasal Secretion SARS-CoV-2 Antigen (Rapid) - Final Radiography Diagnostic Testing: Radiology Impression Foot X-Ray 11/11/21 08:30 IMPRESSION: Fluoroscopy during interpretation of the first digit. Electronically Signed: Fernando Cuevas MD at 13:13 EDT , Physical Exam Narrative GENERAL: cooperative HEENT: Atraumatic; EYES; Anicteric, Normal Conjunctiva NECK; supple, normal thyroid, RESPIRATORY: Diminished to auscultation CARDIOVASCULAR: Regular S1 S2, GI: soft, normoactive bowel sounds, : No Renal angle tenderness; EXTREMITIES: No edema, no clubbing, MUSCULOSKELETAL: Left foot in surgical dressing NEURO: Awake; no lateralizing signs. SKIN: No Rash PSYCH; Flat affect Assessment & Plan Assessment/Plan (1) Open displaced fracture of distal phalanx of left great toe: PLAN: Patient is a 66-year-old gentleman who presented with left lower extremity pain. He apparently dropped a lower deck on the left foot. Imaging studies obtained in the ED demonstrated comminuted fracture of the first distal phalanx associated with bone loss. Patient was admitted to podiatry service with consultation placed to the hospitalist team to assist with management of p atient medical comorbidities 1. Open displaced fracture of the distal phalanx of the left great toe ? Following a crush injury. Plan is for patient to undergo surgical repair with plans for operative amputation and washout by Dr. Marquis on 11/11/2021 -11/13/2019 patient underwent left hallux amputation on 11/11/2021 2. Hypertension - Blood pressure controlled, home medications continued with dose adjustment as needed 3. Class III obesity with BMI of 46.4 ? Weight loss advised 4. DVT prophylaxis ? On enoxaparin Charges/Coding Visit Charges Inpatient E&M: 85010 Subs Hosp L2
[2021-11-12] MEDS: Morphine 2 MG/ML Syringe 3 MG IV (09:11)
[2021-11-12] MEDS: Juven (unflavored) Packet 1 PACKET PO ×2 (09:12→15:06)
[2021-11-12] MEDS: Enoxaparin 40 MG/0.4 ML Syringe SC (09:15)
[2021-11-12] MEDS: Lisinopril 40 MG Tablet PO (09:15)
[2021-11-12 09:36] VITALS: BP 178/97; PULSE 105; RESP 20; TEMP 37.8; O2SAT 99
--- NOTE | 2021-11-12 11:23 | PN_ITS ---
Subjective Subjective This 66-year-old male was seen bedside postoperative day #1 left hallux amputation secondary to crush injury with open dislocated fracture. He denies fever, chill, nausea, vomiting. He relates his pain is very manageable at this time now that the Rowdy wrap was loosened. He worked with physical therapy this morning and reports he does not feel safe to return home yet even with use of an assistive device. He would like to consider at [facility]. Objective Data Objective Data Vital Signs: Vital Signs Temp Pulse Resp BP Pulse Ox 100.1 F H 105 H 20 H 178/97 H 99 11/12/21 09:36 11/12/21 09:36 11/12/21 09:36 11/12/21 09:36 11/12/21 09:36 Oxygen Delivery Method Room Air Weight: 150.4 kg Body Mass Index (BMI) 46.4 Intake & Output: Intake and Output for Last 24 Hours 11/10/21 11/11/21 11/12/21 23:59 23:59 23:59 Intake Total 1050 / 1165 1620 / 1735 230 / 230 Output Total 2075 / 2075 500 / 500 Balance 1050 / 1165 -455 / -340 -270 / -270 Lab / Micro Data Result Diagrams: 11/10/21 17:55 11/10/21 17:55 Micro: Microbiology 11/10/21 20:15 Wound - Toe Gram Stain - Final 11/10/21 20:15 Wound - Toe Wound Culture - Preliminary Staphylococcus species 11/11/21 06:20 Nasal Secretion SARS-CoV-2 Antigen (Rapid) - Final Radiography Diagnostic Testing: Radiology Impression Foot X-Ray 11/11/21 08:30 IMPRESSION: Fluoroscopy during interpretation of the first digit. Electronically Signed: Fernando Cuevas MD at 13:13 EDT , Physical Exam Const alert and oriented x3 General Appearance: cooperative and comfortable Extremity Extremity Narrative: No calf tenderness; negative Aleman bilateral Diminished pulses. Nonpalpable bilateral PT pulses and weak DP pulses bilateral. Lower extremity edema noted, left. Capillary fill time is less than 3 seconds digits 2, 3, 4, 5 on the left and also to to all aspects of the hallux amputation surgical site Muscle wasting noted Active range of motion lesser toes on the left and ankle Compartments are soft to palpate left lower extremity and there is no bogginess or fluctuance No adjacent bogginess or fluctuance on palpation left lower extremity General Extremity: edema and no tenderness to palpation of joints or extremities; Negative for cyanosis Skin Skin Narrative: no purulence, no streaking, no odor, no infection. Hallux amputation with sutures intact without gapping or evidence of boogie eschar or necrosis development. General Skin Exam: Negative for erythema Neuro Neuro Narrative: lack of normal epicritic sensation via light touch is consistent with neuropathy status Psych cooperative and affect normal Assessment & Plan Assessment/Plan (1) Open displaced fracture of distal phalanx of left great toe: (2) Crush injury of left foot: (3) Noninfected skin tear of left leg: (4) Non-pressure chronic ulcer of unspecified part of left lower leg with fat layer exposed: (5) Venous insufficiency (chronic) (peripheral): (6) Other hereditary and idiopathic neuropathies: (7) Difficulty in walking: PLAN: I reviewed and discussed his case today. He is afebrile and he has continued hypertension. He is postoperative day #1 left hallux amputation secondary to a traumatic crush injury. The surgical dressing was changed with Betadine Adaptic and gauze to the foot and Adaptic to the leg ulcers. This was secured with Rowdy wrap. The following work up and care recommendations were made: Offload: Heel weight-bear left foot with surgical shoe and use of assistive d evice. To continue to work with physical and Occupational Therapy. He did not feel comfortable with his status after this morning sessions. Edema: To elevate and keep Rowdy wrap intact Infection: This not present at this time however he will be monitored for this. Cultures were obtained as noted there is only rare gram-positive growth so far which may be consistent with skin contamination. He will complete IV Ancef every 8 hours today. Additional antibiotics only be considered if local signs of infection develop. Pain: Pain medications including oxycodone and morphine are ordered as needed Host factors: Nutritional supplementation will be ordered to optimize healing. After his acute injury treatment I would also like to see him for wound care including further work-up of potential peripheral vascular disease and venous insufficiency to treatment from a comprehensive standpoint. This will be completed in outpatient setting. Medical management: Managed by hospitalist team and is greatly appreciated DVT prophylaxis: SCD contralateral limb and enoxaparin Discharge planning: He does not feel comfortable or safe returning home. We will see if there is an opportunity for [place] [facility] facility placement and a consult for case management was placed. Please do not hesitate to call if you have any questions. Jessica Marquis DPM, [facility] [phone]
[2021-11-12 15:17] VITALS: BP 154/89; PULSE 91; RESP 18; TEMP 37.1; O2SAT 95
[2021-11-12 21:25] VITALS: BP 162/102; PULSE 110; RESP 20; TEMP 36.6; O2SAT 95
[2021-11-12] MEDS: Lactated Ringers 1,000 ML 30 ML IV (21:26)
[2021-11-13] VITALS (8 sets, daily range): BP systolic 120–158; BP diastolic 84–92; PULSE 90–114; RESP 20–22; TEMP 36.4–37; O2SAT 92–96
[2021-11-13] MEDS: oxyCODONE 5 MG Tablet 10 MG PO ×3 (02:45→19:51)
--- NOTE | 2021-11-13 07:13 | PN_ITS ---
Subjective Subjective This 66-year-old male was seen bedside postoperative day #2 left hallux amputation secondary to crush injury with open dislocated fracture. He denies fever, chill, nausea, vomiting. He relates his pain is very manageable at this time now that the Rowdy wrap was loosened. He would like to consider at [facility] facility placement and reports he does not feel safe returning home. He also requests a parking placard. Objective Data Objective Data Vital Signs: Vital Signs Temp Pulse Resp BP Pulse Ox 97.5 F L 99 20 H 158/92 H 92 11/13/21 02:39 11/13/21 02:39 11/13/21 02:39 11/13/21 02:39 11/13/21 02:39 Oxygen Delivery Method Room Air Weight: 150.4 kg Body Mass Index (BMI) 46.4 Intake & Output: Intake and Output for Last 24 Hours 11/11/21 11/12/21 11/13/21 23:59 23:59 23:59 Intake Total 1620 / 1735 700 / 700 Output Total 2075 / 2075 1400 / 2475 1075 / 1075 Balance -455 / -340 -700 / -1775 -1075 / -1075 Lab / Micro Data Result Diagrams: 11/10/21 17:55 11/10/21 17:55 Micro: Microbiology 11/10/21 20:15 Wound - Toe Gram Stain - Final 11/10/21 20:15 Wound - Toe Wound Culture - Preliminary Staphylococcus species 11/11/21 06:20 Nasal Secretion SARS-CoV-2 Antigen (Rapid) - Final Physical Exam Const alert and oriented x3 General Appearance: cooperative and comfortable Cardio regular rate and regular rhythm Extremity Extremity Narrative: No calf tenderness; negative Aleman bilateral Diminished pulses. Capillary fill time is less than 3 seconds digits 2, 3, 4, 5 on the left Active range of motion lesser toes on the left and ankle; no pain today Compartments are soft to palpate left lower extremity and there is no bogginess or fluctuance No adjacent bogginess or fluctuance on palpation left lower extremity General Extremity: edema and no tenderness to palpation of joints or extremities; Negative for cyanosis Skin Skin Narrative: no purulence, no streaking, no odor, no infection. Left lower extremity dressing and Rowdy wraps are clean, dry, and intact without strikethroug h. General Skin Exam: Negative for erythema Neuro Neuro Narrative: lack of normal epicritic sensation via light touch is consistent with neuropathy status Psych cooperative and affect normal Assessment & Plan Assessment/Plan (1) Open displaced fracture of distal phalanx of left great toe: (2) Crush injury of left foot: (3) Noninfected skin tear of left leg: (4) Non-pressure chronic ulcer of unspecified part of left lower leg with fat layer exposed: (5) Venous insufficiency (chronic) (peripheral): (6) Other hereditary and idiopathic neuropathies: (7) Difficulty in walking: PLAN: I reviewed and discussed his case today. He is afebrile and vitals are stable. He is postoperative day #2 left hallux amputation secondary to a traumatic crush injury. The following work up and care recommendations were made: Dressing: To keep clean and dry and intact today. We will change tomorrow with Adaptic and Betadine gauze to the hallux amputation site. Adaptic will also be applied to the leg ulcer sites. This will further be secured with an Rowdy wrap to the left lower extremity. Offload: Heel weight-bear left foot with surgical shoe and use of assistive device. To continue to work with physical and Occupational Therapy. He did not feel comfortable with his status after this morning sessions. Edema: To elevate and keep Rowdy wrap intact Infection: This not present at this time however he will be monitored for this. Cultures were obtained as noted there is only rare staph species (no mrsa) growth so far which may be consistent with skin contamination. He has completed IV Ancef every 8 hours yesterday for treatment of open fracture. Additional antibiotics only be considered if local signs of infection develop. Pain: Pain medications including oxycodone and morphine are ordered as needed. This is better controlled at this time. Host factors: Nutritional supplementation will be ordered to optimize healing. After his acute injury treatment I would also like to see him for wound care including further work-up of potential peripheral vascular disease and venous insufficiency to treatment from a comprehensive standpoint. This will be completed in outpatient setting. Medical management: Managed by hospitalist team and is greatly appreciated DVT prophylaxis: SCD contralateral limb and enoxaparin Discharge planning: He does not feel comfortable or safe returning home. We will see if there is an opportunity for [facility] facility placement and a consult for case management was placed. Handicap parking placard order was also provided per his request today. Please do not hesitate to call if you have any questions. Jessica Marquis DPM, FAC[facility] [phone]
[2021-11-13] MEDS: Juven (unflavored) Packet 1 PACKET PO (09:25)
[2021-11-13] MEDS: Lisinopril 40 MG Tablet PO (09:25)
[2021-11-13] MEDS: Enoxaparin 40 MG/0.4 ML Syringe SC (09:25)
[2021-11-13] MEDS: cycloBENZAPRine HCl 10 MG Tablet PO ×2 (11:53→19:57)
--- NOTE | 2021-11-13 12:12 | CASEMGMT ---
Patient is requesting to go to a residential facility for rehab. SW provided patient with a list of SNF providers including quality and resource use data and consistent with the patient?s preferred geographic region, medical needs, and insurance network. GREG explained to patient the facilities GREG highlighted in pink are the facilities that take his insurance. Patient said his first choice is [facility]. GREG told patient SW will check on bed availability and get back to him. GREG spoke with Patricia in TCU and they are able to take patient. Patricia will start pre-cert with K[facility]. GREG let patient know that TCU can take him and that he will stay in the hospital until his insurance approves him. Plan: [facility] pending insurance approval. Rosy PEDRO
--- NOTE | 2021-11-13 12:19 | PCM.PN.HOSP ---
Subjective Subjective Pain neck. Difficulty turning his head. Pain in left foot tolerable. Objective Data Objective Data Vital Signs: Vital Signs Temp Pulse Resp BP Pulse Ox 37.0 C 90 20 H 141/88 H 93 11/13/21 08:40 11/13/21 08:40 11/13/21 08:40 11/13/21 08:40 11/13/21 08:40 Oxygen Delivery Method Room Air Weight: 150.4 kg Body Mass Index (BMI) 46.4 Intake & Output: Intake and Output for Last 24 Hours 11/11/21 11/12/21 11/13/21 23:59 23:59 23:59 Intake Total 1620 / 1735 700 / 700 Output Total 2075 / 2075 1400 / 2475 1075 / 1075 Balance -455 / -340 -700 / -1775 -1075 / -1075 Lab / Micro Data Result Diagrams: 11/10/21 17:55 11/10/21 17:55 Micro: Microbiology 11/10/21 20:15 Wound - Toe Gram Stain - Final 11/10/21 20:15 Wound - Toe Wound Culture - Preliminary Staphylococcus sciuri Staphylococcus epidermidis 11/10/21 20:15 Wound - Toe Anaerobic Culture - Preliminary 11/11/21 06:20 Nasal Secretion SARS-CoV-2 Antigen (Rapid) - Final Physical Exam Const alert and no apparent distress Neck Neck Narrative: reproducible bilateral trapezius spasm. Resp normal respiratory effort, no retractions, no use of accessory muscles and clear to auscultation bilaterally Cardio regular rate, regular rhythm, S1 normal heart sound and S2 normal heart sound GI normal to inspection, nondistended, normoactive bowel sounds, soft to palpation, non-tender and non-distended Extremity normal to inspection Assessment & Plan Assessment/Plan (1) Open displaced fracture of distal phalanx of left great toe: QUALIFIERS: Encounter type: initial encounter Qualified Code(s): S92.422B - Displaced fracture of distal phalanx of left great toe, initial encounter for open fracture PLAN: Patient is a 66-year-old gentleman who presented with left lower extremity pain. He apparently dropped a lower deck on the left foot. Imaging studies obtained in the ED demonstrated comminuted fracture of the first distal phalanx associated with bone loss. Patient was admitted to podiatry service with consultation placed to the hospitalist team to assist with management of patient medical comorbidities 1. Open displaced fracture of the distal phalanx of the left great toe ? Following a crush injury. Plan is for patient to undergo surgical repair with plans for operative amputation and washout by Dr. Marquis on 11/11/2021 -11/13/2019 patient underwent left hallux amputation on 11/11/2021 2. Hypertension - Blood pressure controlled, home medications continued with dose adjustment as needed 3. Class III obesity with BMI of 46.4 ? Weight loss advised 4. DVT prophylaxis ? On enoxaparin 5. Trapezius spasm - Add cyclobenzaprine Charges/Coding Visit Charges Inpatient E&M: 88972 Subs Hosp L2
[2021-11-13] MEDS: Polyethylene Glycol 3350 17 GM PACKET PO (15:06)
[2021-11-13] MEDS: Bisacodyl 5 MG Tablet 10 MG PO (15:06)
--- NOTE | 2021-11-13 16:45 | PCM.DC ---
Discharge Instructions Diet Discharge Diet: No restrictions Activity Discharge Activity: May Not Drive and May Shower (with shower bag left lower extremity) Weight Bearing Status: Partial weight bearing (left heel weightbear with surgical shoe) Keep extremity elevated above heart level: Left Leg Dressing / Incision Call your doctor if your incision/area has: Continuous Slow Oozing, Sudden Increased Bleeding, Increased Pain/ Swelling, Increased Redness, Foul Smelling Discharge and Swelling at the incision site Call your doctor if you observe: Fever of 101 or Higher, Change in Color, Calf discomfort and Uncontrolled pain Change Dressing in: do not change dressing Cleanse incision/area with: Soap & Water Follow Up Care Please Follow Up With: Test Results: Test results from this visit will be discussed in further detail at your follow-up appointment, if applicable. Discharge Plan Admission Admit Date/Time: 11/10/21 20:22 Primary Reason for Your Visit: hallux crush injury with amputation Attending Provider: Luis Alberto Wilkerson Primary Care Provider: Care Physician,No Primary Consulting Providers: Declan Adame Instructions Additional Instructions / Restrictions: Heel weight-bear with surgical shoe left lower extremity. Use assistive device. Keep surgical and wound dressings clean, dry, and intact until follow-up in clinic. Elevate left lower extremity. Apply ice behind the knee for 15 minutes each hour if needed for additional pain control. Discharge Orders/Prescriptions Prescriptions: No Action acetaminophen [Tylenol] 325 mg Capsule 650 mg PO Q4H PRN (Reason: Pain) RF: 0 lisinopril 40 mg Tablet 40 mg PO DAILY RF: 0 aspirin [Ecotrin Low Strength] 81 mg tablet,delayed release (DR/EC) 81 mg PO DAILY RF: 0 Referrals / Follow Up: Jessica Marquis DPM [STAFF PHYSICIAN] - In 1 Week (Wound care center for leg ulcer and post [phone]. ) Care Physician,No Primary [Primary Care Provider] -
--- NOTE | 2021-11-13 18:56 | NURSING ---
Report called to TCU. Please leave IV in per TCU nurse. Pt will need last set of vitals and complete discharge.
--- NOTE | 2021-11-13 19:15 | PCM.TXEXTCAR ---
Diet 11/11/21 10:54 Diet: Regular - General Dietary Modifications:: Sodium Restricted Is pt able to select menu?: Yes Wound(s) L foot: Wound Type: Surgical Incision Therapies Weight Bearing: Partial weight bearing Problem/Diagnosis (1) Open displaced fracture of distal phalanx of left great toe: Status: Acute Comment: walking difficulty, venous insufficiency, left leg laceration, left leg wound, hypertension, neck pain Allergies/Procedures Done in Hospital Allergies No Known Allergies Allergy (Verified 11/10/21 17:41) Type of Care/Length of Stay Estimated LOS: Convalescent Care Less Than 30 days Type of Care Needed: Skilled Rehab Potential: Good Prognosis: Good Additional Orders/Day of Discharge Day of Discharge: 11/13/21 Dietary and Speech Recommendations Dietitian Recommendations/Changes: regular diet as tolerated after surgery; ensure enlive w/ medpass does not appear indicated at this time. May benefit from Sung BID instead. Will adjust ONS. Follow Up Care Please Follow Up With: dia Discharge Plan Admission Admit Date/Time: 11/10/21 20:22 Primary Reason for Your Visit: hallux crush injury with amputation Attending Provider: Luis Alberto Wilkerson Primary Care Provider: Care Physician,No Primary Consulting Providers: Declan Adame Instructions Additional Instructions / Restrictions: Heel weight-bear with surgical shoe left lower extremity. Use assistive device. Keep surgical and wound dressings clean, dry, and intact until follow-up in clinic. Elevate left lower extremity. Apply ice behind the knee for 15 minutes each hour if needed for additional pain control. Discharge Orders/Prescriptions Prescriptions: No Action acetaminophen [Tylenol] 325 mg Capsule 650 mg PO Q4H PRN (Reason: Pain) RF: 0 lisinopril 40 mg Tablet 40 mg PO DAILY RF: 0 aspirin [Ecotrin Low Strength] 81 mg tablet,delayed release (DR/EC) 81 mg PO DAILY RF: 0 Referrals / Follow Up: Jessica Marquis DPM [STAFF PHYSICIAN] - In 1 Week (Wound care center for leg ulcer and post [phone]. ) Care Physician,No Primary [Primary Care Provider] -
--- NOTE | 2021-11-13 19:17 | DS.PCM_ITS ---
Providers Date of Admission: 11/10/21 Date of Discharge: 11/13/21 Primary Care Physician: Saida Primary Care Phys Consultations 11/10/21 20:42 Consult: Hospitalist Routine Consulting Provider: Declan Adame Reason for Consult: preop assessment/medical management EMERGENT Consult: No MD Notified: Yes Date Notified: 11/10/21 Time Notified: 20:42 Method of Notification: Verbal Reason For Visit: OPEN HALLUX FRACTURE Diagnosis Discharge Diagnosis (1) Open displaced fracture of distal phalanx of left great toe: Status: Acute Code(s): S92.422B - Displaced fracture of distal phalanx of left great toe, initial encounter for open fracture Qualifiers: Encounter type: initial encounter Qualified Code(s): S92.422B - Displaced fracture of distal phalanx of left great toe, initial encounter for open fracture Plan: Admitted for crush injury left hallux secondary to countersinker balance screw hole deck with open hallux fracture on 11-10-21. Surgical hallux amputation of left foot performed on 11-11-21. Tetanus was updated and he underwent a 2 day course of IV AB for open fracture treatment. Also seen for left leg ulcer (chronic and recurrent) and left leg new laceration at time of injury as well. Also treated for neck pain and hypertension while hospitalized. Plan is for continued SNF placement for ongoing pt and ot due to walking difficulty. Medications at Discharge Home Medications acetaminophen [Tylenol] 650 mg PO Q4H PRN 12/08/20 aspirin [Ecotrin Low Strength] 81 mg PO DAILY 11/10/21 lisinopril 40 mg PO DAILY 11/10/21 Hospital Course Operations - (left hallux amputation) Summary of Care Provided Minutes Spent on Discharge: 20 Hospital Course: Admitted, antibiotics, surgery, wound care, PT/OT. Physical Exam Const alert and oriented x3 General Appearance: cooperative and comfortable Cardio regular rate and regular rhythm Extremity Extremity Narrative: No calf tenderness; negative Aleman bilateral Diminished pulses. Capillary fill time is less than 3 seconds digits 2, 3, 4, 5 on the left Active range of motion lesser toes on the left and ankle; no pain today Compartments are soft to palpate left lower extremity and there is no bogginess or fluctuance No adjacent bogginess or fluctuance on palpation left lower extremity General Extremity: edema and no tenderness to palpation of joints or extremities; Negative for cyanosis Skin Skin Narrative: no purulence, no streaking, no odor, no infection. Left lower extremity dressing and Rowdy wraps are clean, dry, and intact without strikethrough. General Skin Exam: Negative for erythema Neuro Neuro Narrative: lack of normal epicritic sensation via light touch is consistent with neuropathy status Psych cooperative and affect normal Weight / BMI Weight Weight: 150.4 kg Body Mass Index (BMI) 46.4 ABG / Lab / Microbiology Data Result Diagrams: 11/10/21 17:55 11/10/21 17:55 Microbiology: Microbiology 11/13/21 16:40 Nasal Secretion SARS-CoV-2 Antigen (Rapid) - Final 11/10/21 20:15 Wound - Toe Gram Stain - Final 11/10/21 20:15 Wound - Toe Wound Culture - Preliminary Staphylococcus sciuri Staphylococcus epidermidis 11/10/21 20:15 Wound - Toe Anaerobic Culture - Preliminary 11/11/21 06:20 Nasal Secretion SARS-CoV-2 Antigen (Rapid) - Final D/C Instructions Discharge Diet: No restrictions Weight Bearing Status: Partial weight bearing (left heel weightbear with surgical shoe) Keep extremity elevated above heart level: Left Leg Call your doctor if your incision/area has: Continuous Slow Oozing, Sudden Increased Bleeding, Increased Pain/ Swelling, Increased Redness, Foul Smelling Discharge and Swelling at the incision site Call your doctor if you observe: Fever of 101 or Higher, Change in Color, Calf discomfort and Uncontrolled pain Cleanse incision/area with: Soap & Water Please Follow Up With: fascione Meaningful Use Info Meaningful Use Diagnoses (Choose all that apply): None applicable Discharge Plan Admission Admit Date/Time: 11/10/21 20:22 Primary Reason for Your Visit: hallux crush injury with amputation Attending Provider: Luis Alberto Wilkerson Primary Care Provider: Care Physician,No Primary Consulting Providers: Declan Adame Instructions Additional Instructions / Restrictions: Heel weight-bear with surgical shoe left lower extremity. Use assistive device. Keep surgical and wound dressings clean, dry, and intact until follow-up in clinic. Elevate left lower extremity. Apply ice behind the knee for 15 minutes each hour if needed for additional pain control. Discharge Orders/Prescriptions Prescriptions: No Action acetaminophen [Tylenol] 325 mg Capsule 650 mg PO Q4H PRN (Reason: Pain) RF: 0 lisinopril 40 mg Tablet 40 mg PO DAILY RF: 0 aspirin [Ecotrin Low Strength] 81 mg tablet,delayed release (DR/EC) 81 mg PO DAILY RF: 0 Referrals / Follow Up: Jessica Marquis DPM [STAFF PHYSICIAN] - In 1 Week (Wound care center for leg ulcer and post [phone]. ) Care Physician,No Primary [Primary Care Provider] - Disposition Disposition (needs filled in before D/C Order can be placed): Detention Facility
== END 2021-11-13 20:15 | disposition skilled nursing facility (03) | DRG 504 ==
LOC: ED 20:28 → MS3 20:32
PROVIDERS: Admitting Provider Podiatrist; Emergency Provider Emergency Medicine
PROC: 0Y6Q0Z0 Detachment at Left 1st Toe, Complete, Open Approach (ICD-10-PCS; principal; 2021-11-11 09:30)
DX: S92.422B Displaced fracture of distal phalanx of left great toe, initial encounter for open fracture (principal); L97.922 Non-pressure chronic ulcer of unspecified part of left lower leg with fat layer exposed; Z68.42 Body mass index [BMI] 45.0-49.9, adult; G60.8 Other hereditary and idiopathic neuropathies; E66.01 Morbid (severe) obesity due to excess calories; I10 Essential (primary) hypertension; G62.9 Polyneuropathy, unspecified; E78.5 Hyperlipidemia, unspecified; I87.2 Venous insufficiency (chronic) (peripheral); S97.82XA Crushing injury of left foot, initial encounter; W23.0XXA Caught, crushed, jammed, or pinched between moving objects, initial encounter; Z23 Encounter for immunization
CPT/HCPCS: 73590; 73610; 73630; 76000; 80053; 83036; 85025; 85610; 85730; 87070; 87075; 87077; 87186; 87205; 87426; 87640; 88302; 88305; 88311; 90471; 90715; 97110; 97116; 97162; 97166; 97530; 97535; 99251; 99285; J7030; J7120; A4216; G0463

== ENCOUNTER 2021-11-13 20:25 | Inpatient (IN) | payer MEDICARE, SELFPAY ==
[2021-11-13 20:59] VITALS: BMI 41.3
[2021-11-13 21:00] VITALS: PULSE 102; RESP 20; O2SAT 95
[2021-11-13 21:10] VITALS: BP 151/100; PULSE 93; RESP 18; TEMP 37.7; O2SAT 95
--- NOTE | 2021-11-13 21:21 | PCM.HP.STD ---
HPI - General General Date of Admission: 11/13/21 HPI Narrative 11/10/2021 MARTI MARTINS, is a 66 Male who presents to [facility] Emergency Department with left great toe injury. Left great toe injury, mower deck fell on toe. Mower deck hit his leg, then left great toe. Left great toe pain, bleeding stopped. IV fluids given, Td booster given, Ancef given, Morphine given. X-ray showed comminuted fracture left great toe with displacement. 11/10/2021 Admit to Hospital. Prepare for surgery. 11/10/2021 Lisinopril for hypertension. 11/11/2021 Weight loss advised for morbid obesity. Dr. Marquis performed left hallux amputation. 11/12/2021 Pain significant. Lovenox for DVT prophylaxis. 11/13/2021 Neck pain, difficulty turning head. Left foot pain tolerable. Add Flexeril for trapezius strain. 11/13/2021 Admit to TCU with debility, here for rehabilitation, strengthening, prior to discharge home with family. [facility] Medical History (Updated 11/13/21 @ 21:[address] Flakito Lopez MD) Amputation of left great toe Asthma Degenerative disc disease Hyperlipidemia Hypertension Morbid obesity Home Medications acetaminophen [Tylenol] 650 mg PO Q4H PRN 12/08/20 [History Last Taken Unknown] aspirin [Ecotrin Low Strength] 81 mg PO DAILY 11/10/21 [History Last Taken Unknown] lisinopril 40 mg PO DAILY 11/10/21 [History Last Taken Unknown] Allergy/AdvReac Type Severity Reaction Status Date / Time No Known Allergies Allergy Verified 11/10/21 17:41 Family History Mother Heart disease Hypertension CAD (coronary artery disease) Father Cancer Surgical History H/O sinus surgery History of carpal tunnel surgery History of hip replacement Social History household members: family Smoking Status: Never smoker alcohol intake: current details: 1 EtOH drink daily. substance use type: does not use ROS Constitutional Constitutional: Denies chills, fever(s) or weight gain ENT HEENT: Denies headache(s), nasal congestion or nasal discharge Cardiovascular Cardiovascular: Denies chest pain or palpitations Respiratory/Chest Respiratory/Chest: Denies cough, excessive phlegm production or shortness of breath with exertion Gastrointestinal Gastrointestinal: Denies abdominal pain, nausea or vomiting Genitourinary Genitourinary: Denies dysuria Musculoskeletal Musculoskeletal: Reports other Details: Neck, upper back stiffness. ; Denies joint pain or joint swelling Integumentary Integumentary: Denies rash or wounds Neurologic Neurologic: Denies focal weakness, numbness or tingling Psychiatric Psychiatric: Denies anxiety, auditory hallucinations, depression, homicidal ideation or suicidal ideation Physical Exam Const alert General Appearance: cooperative HEENT normocephalic Eyes PERRL and EOMs intact bilaterally Neck supple, no JVD and no carotid bruits Resp normal respiratory effort, normal air movement and clear to auscultation bilaterally Cardio regular rate and regular rhythm GI normal to inspection, nondistended, normoactive bowel sounds, non-tender and non-distended Extremity normal capillary refill Extremity Narrative: Left lower extremity dressing, left great toe amputation. General Extremity: Negative for edema Skin no rashes or lesions noted General Skin Exam: no breakdown Psych affect normal Appearance: appropriate Results Lab / Micro Data Result Diagrams: 11/14/21 05:20 11/14/21 05:20 Assessment & Plan Assessment/Plan (1) Debility: (2) Crush injury of left foot: (3) Trapezius strain: (4) Degenerative disc disease: (5) Hypertension: (6) Hyperlipidemia: (7) Morbid obesity: PLAN: 66 year old male with below past medical history hospitalized for left great toe crush injury/open fracture, underwent left hallux amputation 11/11/[address] Marquis, admitted to TCU with debility, here for rehabilitation, strengthening, prior to discharge home with family. Debility - PT/OT. Pain - Tylenol 1000mg q6h prn (1-3), Tramadol 50mg q6h prn (4-5), Oxycodone 5mg q4h prn pain (6-10). Bowel - Miralax 17gm daily, senna/colace 2 tablets bid, Dulcolax 10mg daily prn. Adult immunization - Administer pneumonia vaccine, flu vaccine, covid19 vaccine. DVT prophylaxis - HAS-BLED score 1 intermediate risk of bleeding, Odette score 6 high risk of blood clots, overall risk intermediate, Rx Xarelto 10mg daily x 14 days. CV prophylaxis - Aspirin 81mg daily. Hypertension - Lisinopril 40mg daily. Neck spasm - Flexeril 10mg tid. Fever - Low grade fever last night, evaluation for source negative, monitor.
[2021-11-13 21:30] VITALS: BP 145/82; TEMP 38.1
--- NOTE | 2021-11-13 21:50 | NURSING ---
Updated Dr. Lopez of patient's request for flexeril and that patient has temp 100.5. Order for 2 site blood cultures, cxray, CBC, BMP, respiratory panel, consult for Dr. Marquis, and flexeril 10mg TID.
--- NOTE | 2021-11-13 22:20 | RAD_ITS ---
EXAM: XR CHEST, 2 VIEWS CLINICAL INDICATION: cough,temp TECHNIQUE: 4 views, 2 AP upright views with mild superior and inferior position and respectively and 2 lateral views. COMPARISON: December 08, 2020 FINDINGS: LUNGS AND PLEURAL SPACES: Mildly increased lucency in the upper to mid lung connors and presumed COPD. No infiltrate or effusion. Flowing ossification at multiple mid to lower thoracic levels with at least mild diffuse idiopathic skeletal hyperostosis. No pneumothorax. HEART: Stable. Borderline cardiomegaly accentuated by portable technique. MEDIASTINUM: Central airways and mediastinal contour are unremarkable. BONES/JOINTS: Unremarkable. SOFT TISSUES: Unremarkable. RAD/Chest PA and Lateral IMPRESSION: No acute findings in the chest. Stable chronic-appearing changes including borderline apparent cardiomegaly and suspicion of COPD. Electronically Signed: Yu Alejandre MD at 23:43 EDT ,
[2021-11-13 22:43] LABS: Absolute Lymphocyte Count 1.24 X10^3/uL (0.83-4.51); Absolute Neutrophil Count 7.3 X10^3/uL (2.0-7.7); Basophil# 0.02 X10^3/uL; Basophil% 0.2 % (0-1); Eosinophil# 0.31 X10^3/uL; Hematocrit 45.9 % (40-54); Hemoglobin 14.7 g/dL (13.0-16.5); Lymphocyte # 1.24 X10^3/ul (0.83-4.51); Mean Corpuscular Hgb 30.2 pg (27.0-32.0); Mean Corpuscular Volume 94.3 fL (80-94); Mean Platelet Vol. 10.6 fl (6.2-12.0); Monocyte# 1.37 X10^3/uL; Monocyte% 13.3 % (0-10); NRBC Flagged by Analyzer 0 % (0-5); Neutrophil # 7.34 X10^3/uL (2.7-7.7); Neutrophil % 71.2 % (47-70); Platelet Count 201 K/mm3 (150-450); RBC Distribution Width CV 13.1 % (11.6-14.6); RBC Distribution Width SD 45.5 fl (35.1-43.9); Red Blood Count 4.87 M/mm3 (4.6-6.2); White Blood Count 10.3 K/mm3 (4.4-11.0)
[2021-11-13] MEDS: Acetaminophen 500 MG Tablet 1000 MG PO (22:45)
[2021-11-13] MEDS: Senna/Docusate Sodium 1 Tablet 2 TABLET PO (22:46)
[2021-11-13 23:03] LABS: Anion Gap 6 (5-15); BUN 21 mg/dL (7-18); BUN/Creat Ratio 25.9 RATIO (10-20); Calcium,Total 9.1 mg/dL (8.5-10.1); Chloride 104 mmol/L (98-107); Creatinine, Serum 0.81 mg/dL (0.70-1.30); EST Glomerular Filtration Rate 102 mL/min (>60); Est Glom Filt Rate - Afr Amer 123 mL/min (>60); Glucose 102 mg/dL (74-106); Potassium 3.9 mmol/L (3.5-5.1); Sodium Level 139 mmol/L (136-145)
[2021-11-14 00:49] VITALS: TEMP 37.1
[2021-11-14 05:41] LABS: Absolute Lymphocyte Count 0.96 X10^3/uL (0.83-4.51); Basophil# 0.03 X10^3/uL; Basophil% 0.3 % (0-1); Differential Indicated SCAN CRITERIA MET; Eosinophil# 0.35 X10^3/uL; Eosinophils% 3.5 % (0-5); Hematocrit 42.8 % (40-54); Lymphocyte # 0.96 X10^3/ul (0.83-4.51); Lymphocyte % 9.7 % (19-41); Mean Corp Hgb Conc 32.7 g/dL (32-36); Mean Corpuscular Volume 94.7 fL (80-94); Mean Platelet Vol. 10.1 fl (6.2-12.0); Monocyte# 1.51 X10^3/uL; Monocyte% 15.3 % (0-10); NRBC Flagged by Analyzer 0 % (0-5); Neutrophil # 6.98 X10^3/uL (2.7-7.7); Neutrophil % 70.9 % (47-70); POSITIVE DIFFERENTIAL YES; Platelet Count 181 K/mm3 (150-450); RBC Distribution Width CV 13.2 % (11.6-14.6); RBC Distribution Width SD 45.6 fl (35.1-43.9); Red Blood Count 4.52 M/mm3 (4.6-6.2); White Blood Count 9.9 K/mm3 (4.4-11.0)
[2021-11-14 06:00] VITALS: BP 128/78; PULSE 91; TEMP 36.6
[2021-11-14] MEDS: Senna/Docusate Sodium 1 Tablet 2 TABLET PO ×2 (06:01→17:23)
[2021-11-14] MEDS: Polyethylene Glycol 3350 17 GM PACKET PO (06:02)
[2021-11-14] MEDS: Lisinopril 40 MG Tablet PO (06:03)
[2021-11-14] MEDS: Aspirin E.C. 81 MG Tablet PO (06:03)
[2021-11-14 06:30] LABS: Anion Gap 6 (5-15); BUN 21 mg/dL (7-18); BUN/Creat Ratio 27.5 RATIO (10-20); Chloride 103 mmol/L (98-107); Creatinine, Serum 0.76 mg/dL (0.70-1.30); EST Glomerular Filtration Rate 109 mL/min (>60); Est Glom Filt Rate - Afr Amer 132 mL/min (>60); Estimated Creatinine Clearance 117.36 ml/min; Glucose 119 mg/dL (74-106); Potassium 3.7 mmol/L (3.5-5.1); Sodium Level 138 mmol/L (136-145)
[2021-11-14 06:45] LABS: Differential Comment SCANNED
[2021-11-14] MEDS: cycloBENZAPRine HCl 10 MG Tablet PO ×3 (09:32→20:56)
[2021-11-14] MEDS: oxyCODONE 5 MG Tablet PO ×2 (09:36→13:46)
[2021-11-14] MEDS: Tuberculin,Purif.prot.deriv. 50 TU/ML Vial 0.1 ML ID (09:37)
--- NOTE | 2021-11-14 11:43 | CASEMGMT ---
Social Work Met with patient for initial assessment. Introduced self and role. Pt wishes to have exwife as primary contact. Pt has two children but did not want them added. Discussed code status and MOLST form. Pt confirmed full code. MOLST communicated to , placed in chart. Explained [facility] insurance with [employer] 11/15 and continued stay is not guaranteed with each review. The goal is for pt to return home with exwife. Pt does have 3 steps to enter. Exwife does not work but has bad knees per pt. SW to continue to follow for DC planning. Gwen Farooq, IC [employer]
--- NOTE | 2021-11-14 12:22 | PCM.PROGNOTE ---
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 He denies any constitutional symptoms today. He relates some pain to the left foot but states it is manageable following loosening of his dressings. He states he had just finished physical therapy today and feels it went well. He has no other complaints. Objective Data Objective Data Vital Signs: Vital Signs Temp Pulse Resp BP Pulse Ox 97.8 F 91 18 128/78 H 95 11/14/21 06:00 11/14/21 06:00 11/13/21 21:10 11/14/21 06:00 11/13/21 21:10 Oxygen Delivery Method Room Air Weight: 150.139 kg Body Mass Index (BMI) 41.3 Intake & Output: Intake and Output for Last 24 Hours 11/12/21 11/13/21 11/14/21 23:59 23:59 23:59 Intake Total 240 / 240 Output Total 200 / 200 Balance -200 / -200 240 / 240 Lab / Micro Data Result Diagrams: 11/14/21 05:20 11/14/21 05:20 Labs: Laboratory Results - last 24 hr 11/13/21 22:10: WBC 10.3, RBC 4.87, Hgb 14.7, Hct 45.9, MCV 94.3 H, MCH 30.2, MCHC 32.0, RDW Std Deviation 45.5 H, RDW Coeff of Benny 13.1, Plt Count 201, MPV 10.6, Immature Gran % (Auto) 0.300, Neut % (Auto) 71.2 H, Lymph % (Auto) 12.0 L, [place] % (Auto) 13.3 H, Eos % (Auto) 3.0, Baso % (Auto) 0.2, Absolute Neuts (auto) 7.3, Absolute Lymphs (auto) 1.24, Nucleated RBC % 0 11/13/21 22:10: Sodium 139, Potassium 3.9, Chloride 104, Carbon Dioxide 29.0, Anion Gap 6, BUN 21 H, Creatinine 0.81, Est GFR (MDRD) Af Amer 123, Est GFR (MDRD) Non-Af 102, BUN/Creatinine Ratio 25.9 H, Glucose 102, Calcium 9.1 11/14/21 05:20: WBC 9.9, RBC 4.52 L, Hgb 14.0, Hct 42.8, MCV 94.7 H, MCH 31.0, MCHC 32.7, RDW Std Deviation 45.6 H, RDW Coeff of Benny 13.2, Plt Count 181, MPV 10.1, Immature Gran % (Auto) 0.300, Neut % (Auto) 70.9 H, Lymph % (Auto) 9.7 L, [place] % (Auto) 15.3 H, Eos % (Auto) 3.5, Baso % (Auto) 0.3, Absolute Neuts (auto) 7.0, Absolute Lymphs (auto) 0.96, Nucleated RBC % 0, Differential Comment SCANNED 11/14/21 05:20: Sodium 138, Potassium 3.7, Chloride 103, Carbon Dioxide 29.0, Anion Gap 6, BUN 21 H, Creatinine 0.76, Estim Creat Clear Calc 117.36, Est GFR (MDRD) Af Amer 132, Est GFR (MDRD) Non-Af 109, BUN/Creatinine Ratio 27.5 H, Glucose 119 H, Calcium 9.0 Micro: Microbiology 11/13/21 23:05 Mucosa - Nose Respiratory Panel (PCR) - Final Radiography Diagnostic Testing: Radiology Impression Chest X-Ray 11/13/21 22:20 IMPRESSION: No acute findings in the chest. Stable chronic-appearing changes including borderline apparent cardiomegaly and suspicion of COPD. Electronically Signed: Yu Alejandre MD at 23:43 EDT , Physical Exam Const alert, oriented x3 and no apparent distress General Appearance: cooperative and comfortable HEENT normocephalic Eyes General Eye: normal appearance of both eyes Neck General: normal visual inspection Lymph Lymphatic: no lymphadenopathy noted and no lymphedema noted Chest inspection of chest normal Resp normal respiratory effort Cardio regular rate and regular rhythm Extremity normal capillary refill and no calf tenderness Extremity Narrative: Vascular: DP and PT pulses are palpable bilaterally. Capillary refill less than 3 seconds to digits 2, 3, 4, and 5 of the left foot. Negative Homans' sign bilaterally. Negative Aleman sign bilaterally. Musculoskeletal: Active range of motion of the lesser toes on the left foot and ankle; no pain today. Compartments are soft to palpation of the lower extremity with no bogginess or fluctuance. No adjacent bogginess or fluctuance on palpation about the surgical site. Derm: Left lower extremity edema secondary to chronic venous insufficiency with brawny discoloration of the lower extremity with hemosiderin deposition. There are 2 superficial leg ulcerations secondary to his chronic venous insufficiency, medial leg and lateral leg with no localized signs of infection. Ulcerative sites demonstrate serosanguineous drainage as noted by strikethrough to the dressing. Left foot hallux amputation site demonstrates intact sutures with well coapted incision and no erythema, no purulent drainage, no malodor or other localized signs of infection. Left foot demonstrates mild nonpitting edema. General Extremity: Negative for calf tenderness Peripheral Pulses: Yes posterior tibial pulses present and dorsalis pedis pulses present Skin no rashes or lesions noted and no jaundice Neuro oriented x3 and moves all extremities Assessment & Plan Assessment/Plan (1) Crush injury of left foot: (2) Noninfected skin tear of left leg: (3) Non-pressure chronic ulcer of unspecified part of left lower leg with fat layer exposed: (4) Venous insufficiency (chronic) (peripheral): (5) Other hereditary and idiopathic neuropathies: (6) Difficulty in walking: (7) Open displaced fracture of distal phalanx of left great toe: QUALIFIERS: Encounter type: initial encounter Qualified Code(s): S92.422B - Displaced fracture of distal phalanx of left great toe, initial encounter for open fracture PLAN: 66-year-old male status post left hallux amputation secondary to traumatic crush injury performed 11/11/[address] Marquis. POD #3. Patient seen and evaluated. I discussed his case with him today. He is afebrile and vitals are stable. The following work-up and care recommendations were made: Dressing: He is to keep his dressings clean dry and intact to the left foot. Dressings changed daily with Adaptic and Betadine gauze to the hallux amputation site. Adaptic placed to left lower leg extremity ulceration sites. Foot dressed with 4 x 4 gauze fluff between the toes, 4 x 4 gauze, conform/Dolly, Kerlix, and Rowdy wraps rolled onto the foot and leg. Nursing may change dressing daily. Offloading: He may bear weight to the left heel with a surgical shoe and use of an assistive device. He is to continue working with physical and Occupational Therapy as he continues to rehab. Edema: Elevate both lower extremities at times of rest and keep Rowdy wrap intact to left foot. Infection: No localized signs of infection are present at this time however he will continue to be monitored for any changes. Cultures demonstrated scant staph (No MRSA), likely skin contamination. He has completed course of IV Ancef for treatment of open fracture. Additional antibiotics will be considered if localized signs of infection develop. Pain: Pain medications including oxycodone and morphine have been ordered and will be taken as needed. Host factors: Sung nutritional supplementation has been ordered to optimize wound healing. Following his acute injury treatment he is to follow-up with Dr. Marquis in the wound care center for continued care of his venous leg ulcerations with potential further work-up of peripheral vascular disease and venous insufficiency, this will be completed in an outpatient setting. Medical management: Dr. Lopez following, this is greatly appreciated. At this time no localized signs of infection are present about the surgical site, he will continue to be monitored for any changes. Podiatry will continue to follow in the postoperative period while he is rehabbing. Pending his discharge home he will follow-up with Dr. Marquis in the wound care center. Please call for any questions Jr. Dandre Guillen.P.M. [facility] [place] [phone] Note: [employer] speech recognition senior regulatory affairs specialist software was used to create portions of this document. Sound-alike and misspelled words, as well as other senior regulatory affairs specialist errors may be contained in the documentation.
--- NOTE | 2021-11-14 15:42 | PCM.PN.RX ---
Progress Note - Pharmacy Subjective: TCU ADMISSION Objective: Allergies No Known Allergies Allergy (Verified 11/10/21 17:41) Current Medications Generic Name Dose Route Start Last Admin Trade Name Freq PRN Reason Stop Dose Admin Acetaminophen 1,000 mg 11/13/21 21:33 11/13/21 22:45 Acetaminophen 500 Mg Tablet PO 1,000 mg Q6H PRN PRN Administration Pain Score 1-3 Aspirin 81 mg 11/14/21 06:00 11/14/21 06:03 Aspirin E.C. 81 Mg Tablet PO 81 mg DAILY GRAYSON Administration Bisacodyl 10 mg 11/13/21 21:32 Bisacodyl 5 Mg Tablet PO DAILY PRN Constipation Cyclobenzaprine HCl 10 mg 11/14/21 08:00 11/14/21 13:03 Cyclobenzaprine Hcl 10 Mg Tablet PO 10 mg TID GRAYSON Administration Lisinopril 40 mg 11/14/21 06:00 11/14/21 06:03 Lisinopril 40 Mg Tablet PO 40 mg DAILY GRAYSON Administration Oxycodone HCl 5 mg 11/13/21 21:32 11/14/21 13:46 Oxycodone 5 Mg Tablet PO 5 mg Q4H PRN PRN Administration Pain Score 6-10 Polyethylene Glycol 17 gm 11/14/21 06:00 11/14/21 06:02 Polyethylene Glycol 3350 17 Gm Packet PO 17 gm DAILY GRAYSON Administration Rivaroxaban 10 mg 11/14/21 17:00 Rivaroxaban 10 Mg Tablet PO 11/28/21 17:01 DINNER GRAYSON Senna/Docusate Sodium 2 tablet 11/13/21 21:45 11/14/21 06:01 Senna/Docusate Sodium 1 Tablet PO 2 tablet BID GRAYSON Administration Sodium Chloride 10 - 40 ml 11/13/21 23:48 0.9% Saline Lock 10 Ml Syringe IV UD PRN SALINE FLUSH Tramadol HCl 50 mg 11/13/21 21:32 Tramadol 50 Mg Tablet PO Q6H PRN PRN Pain Score 4-5 Tuberculin PPD 0.1 ml 11/21/21 10:00 Tuberculin,Purif.Prot.Deriv. 50 Tu/Ml Vial ID 11/21/21 10:01 X1 ONE Problem List (Last Updated 11/13/21 @ 21:[address] Flakito Lopez MD) Open displaced fracture of distal phalanx of left great toe (Acute) Crush injury of left foot (Acute) Noninfected skin tear of left leg (Acute) Non-pressure chronic ulcer of unspecified part of left lower leg with fat layer exposed (Chronic) Other hereditary and idiopathic neuropathies (Acute) Venous insufficiency (chronic) (peripheral) (Chronic) Difficulty in walking (Acute) Morbid obesity (Acute) Hyperlipidemia (Acute) Trapezius strain (Acute) Debility (Acute) Hypertension (Chronic) Degenerative disc disease (Acute) Vital Signs Temp Pulse Resp BP Pulse Ox 97.8 F 91 18 128/78 H 95 11/14/21 06:00 11/14/21 06:00 11/13/21 21:10 11/14/21 06:00 11/13/21 21:10 Oxygen Delivery Method Room Air Weight: 150.139 kg Body Mass Index (BMI) 41.3 Sodium 138 mmol/L (136-145) 11/14/21 05:20 Potassium 3.7 mmol/L (3.5-5.1) 11/14/21 05:20 Chloride 103 mmol/L (98-107) 11/14/21 05:20 Carbon Dioxide 29.0 mmol/L (21.0-32.0) 11/14/21 05:20 Anion Gap 6 (5-15) 11/14/21 05:20 BUN 21 mg/dL (7-18) H 11/14/21 05:20 Creatinine 0.76 mg/dL (0.70-1.30) 11/14/21 05:20 Est GFR (MDRD) Af Amer 132 mL/min (>60) 11/14/21 05:20 Est GFR (MDRD) Non-Af 109 mL/min (>60) 11/14/21 05:20 BUN/Creatinine Ratio 27.5 RATIO (10-20) H 11/14/21 05:20 Glucose 119 mg/dL (74-106) H 11/14/21 05:20 Assessment/Plan: 1. Pain: acetaminophen 32854hb PO Q6H PRN pain 1-3, tramadol 50mg PO Q6H PRN pain 4-5 and oxycodone 5mg PO Q4H PRN pain 6-10. Please continue to monitor for S/S of increased pain, PRN usage, renal function, constipation and respiratory depression. 2. DVT prophylaxis: rivaroxaban 10mg PO DINNER thru 11/28/21. Please continue to monitor for S/S of bleeding and hemoglobin (last 14g/dL). 3. CV prophylaxis: aspirin 81mg PO DAILYCM. Please continue to monitor for S/S of bleeding and hemoglobin. 4. Hypertension: lisinopril 40mg PO daily. Please continue to monitor for BP (last 128/78), potassium (last 3.7mmol/L), cough and renal function. 5. Muscle spasms: cyclobenzaprine 10mg PO TID. Please continue to monitor for muscle spasms and anticholinergic side effects. Psychotropic Medications: None Unnecessary Medications: None Bowel Regimen: Miralax 17gm PO daily, senna/docusate 2T PO BID and bisacodyl 10mg PO daily constipation. Please continue to monitor for S/S of constipation and PRN usage. Date of Note:: 11/14/21
[2021-11-14 15:44] VITALS: BP 144/72; PULSE 99; RESP 18; TEMP 36.6; O2SAT 97
--- NOTE | 2021-11-14 16:19 | NURSING ---
called in and reported that was talking to pt after had just hung up with pt and reported that thought that pt sounded like speech slightly slurred and that had same symptoms when had a light stroke previous year went in to check pt out and pt very upset that they called you guys when i told them i had been coughing up phlegm just before bp elevated d/t pt being angry. nih stroke assessment done and no unilateral weakness obs at this time. will continue to monitor. pt denies need to call or family back. pt a&ox3 with tongue midline and no slurred speech obs at this time
[2021-11-14] MEDS: Rivaroxaban 10 MG Tablet PO (17:23)
[2021-11-14] MEDS: Acetaminophen 500 MG Tablet 1000 MG PO (20:55)
[2021-11-14] MEDS: oxyCODONE 5 MG Tablet 10 MG PO (20:55)
[2021-11-15 07:02] VITALS: BP 149/89; PULSE 90; RESP 18; TEMP 36.4; O2SAT 94
[2021-11-15] MEDS: cycloBENZAPRine HCl 10 MG Tablet PO ×3 (07:06→20:36)
[2021-11-15] MEDS: Senna/Docusate Sodium 1 Tablet 2 TABLET PO ×2 (07:07→17:01)
[2021-11-15] MEDS: Polyethylene Glycol 3350 17 GM PACKET PO (07:07)
[2021-11-15] MEDS: traMADol 50 MG Tablet PO ×2 (07:08→20:38)
[2021-11-15] MEDS: Lisinopril 40 MG Tablet PO (07:08)
[2021-11-15] MEDS: Aspirin E.C. 81 MG Tablet PO (07:09)
[2021-11-15] MEDS: 0.9% Saline Lock 10 ML Syringe IV (08:08)
--- NOTE | 2021-11-15 09:31 | WOUNDNOTE ---
wound photo: left foot
--- NOTE | 2021-11-15 09:33 | WOUNDNOTE ---
wound photo: left medial lower leg
--- NOTE | 2021-11-15 09:33 | WOUNDNOTE ---
wound photo: left lateral lower leg
--- NOTE | 2021-11-15 09:36 | WOUNDNOTE ---
wound photo: left foot
--- NOTE | 2021-11-15 11:19 | NS ---
Provided first choice/daily specials menu w/ instructions on how to order. Portion sizes fine for pt.
[2021-11-15 14:33] VITALS: BP 158/95; PULSE 94; RESP 16; TEMP 37.2; O2SAT 97
[2021-11-15] MEDS: Rivaroxaban 10 MG Tablet PO (17:01)
[2021-11-15] MEDS: oxyCODONE 5 MG Tablet 10 MG PO (17:01)
[2021-11-15] MEDS: Acetaminophen 500 MG Tablet 1000 MG PO (20:38)
[2021-11-16] MEDS: Aspirin E.C. 81 MG Tablet PO (06:02)
[2021-11-16] MEDS: Lisinopril 40 MG Tablet PO (06:02)
[2021-11-16] MEDS: cycloBENZAPRine HCl 10 MG Tablet PO ×3 (06:02→20:18)
[2021-11-16] MEDS: Polyethylene Glycol 3350 17 GM PACKET PO (06:02)
[2021-11-16] MEDS: Senna/Docusate Sodium 1 Tablet 2 TABLET PO ×2 (06:07→17:16)
[2021-11-16] MEDS: 0.9% Saline Lock 10 ML Syringe IV (06:12)
[2021-11-16 06:24] VITALS: BP 140/85; PULSE 82; RESP 16; TEMP 36; O2SAT 96
[2021-11-16] MEDS: oxyCODONE 5 MG Tablet 10 MG PO ×2 (08:39→14:53)
[2021-11-16 13:40] VITALS: BP 114/78; PULSE 100; RESP 18; TEMP 36.1; O2SAT 95
[2021-11-16] MEDS: Rivaroxaban 10 MG Tablet PO (17:16)
--- NOTE | 2021-11-16 18:35 | PCA ---
Patient did not wish to get washed up at this time, and stated they would prefer to wait until the morning.
[2021-11-16] MEDS: Acetaminophen 500 MG Tablet 1000 MG PO (20:17)
[2021-11-16] MEDS: traMADol 50 MG Tablet PO (20:18)
--- NOTE | 2021-11-17 05:38 | NURSING ---
Patient c/o pain in right hip this AM. Tramadol 50mg PO administered as directed. Patient repositioned. Will continue to monitor.
[2021-11-17] MEDS: Polyethylene Glycol 3350 17 GM PACKET PO (05:50)
[2021-11-17] MEDS: Aspirin E.C. 81 MG Tablet PO (05:50)
[2021-11-17] MEDS: Senna/Docusate Sodium 1 Tablet 2 TABLET PO ×2 (05:50→17:19)
[2021-11-17] MEDS: Lisinopril 40 MG Tablet PO (05:50)
[2021-11-17] MEDS: cycloBENZAPRine HCl 10 MG Tablet PO ×3 (05:51→21:36)
[2021-11-17] MEDS: Acetaminophen 500 MG Tablet 1000 MG PO (05:56)
--- NOTE | 2021-11-17 06:00 | NURSING ---
Patient c/o pain in left foot 10/29. Preferred Tylenol at this time and will take stronger pain medication closer to time for therapy. PRN Tylenol administered as directed. Will continue to monitor.
[2021-11-17] MEDS: traMADol 50 MG Tablet PO (08:08)
--- NOTE | 2021-11-17 09:04 | CASEMGMT ---
Social Work BIMS and PHQ-9 completed for MDS assessment. Gwen Farooq, HEAD UP OPERATOR MARKETING AGENT
[2021-11-17] MEDS: oxyCODONE 5 MG Tablet 10 MG PO ×2 (10:55→20:41)
--- NOTE | 2021-11-17 12:10 | NURSING ---
Completed pain interview for ILDEFONSO 11/20/2021
--- NOTE | 2021-11-17 13:19 | PCM.PROGNOTE ---
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 He denies any constitutional symptoms today. He relates some pain to the left foot but states this is improving and it is manageable following loosening of his dressings. He states he will be attending physical therapy today and feels it is going well and he is gaining more confidence. He has no other complaints. Objective Data Objective Data Vital Signs: Vital Signs Temp Pulse Resp BP Pulse Ox 97.0 F L 100 18 114/78 95 11/16/21 13:40 11/16/21 13:40 11/16/21 13:40 11/16/21 13:40 11/16/21 13:40 Oxygen Delivery Method Room Air Weight: 150.139 kg Body Mass Index (BMI) 41.3 Intake & Output: Intake and Output for Last 24 Hours 11/15/21 11/16/21 11/17/21 23:59 23:59 23:59 Intake Total 360 / 360 840 / 840 240 / 240 Balance 360 / 360 840 / 840 240 / 240 Lab / Micro Data Result Diagrams: 11/14/21 05:20 11/14/21 05:20 Micro: Microbiology 11/13/21 22:17 Blood Culture (Wb) - Anticubital Left Blood Culture - Preliminary No growth in 48 hours. 11/13/21 22:10 Blood Culture (Wb) - Anticubital Right Blood Culture - Preliminary No growth in 48 hours. 11/13/21 23:05 Mucosa - Nose Respiratory Panel (PCR) - Final Physical Exam Const alert, oriented x3 and no apparent distress General Appearance: cooperative and comfortable HEENT normocephalic Eyes General Eye: normal appearance of both eyes Neck General: normal visual inspection Lymph Lymphatic: no lymphadenopathy noted and no lymphedema noted Chest inspection of chest normal Resp normal respiratory effort Cardio regular rate and regular rhythm Extremity normal capillary refill and no calf tenderness Extremity Narrative: Vascular: DP and PT pulses are palpable bilaterally. Capillary refill less than 3 seconds to digits 2, 3, 4, and 5 of the left foot. Negative Homans' sign bilaterally. Negative Aleman sign bilaterally. Musculoskeletal: Active range of motion of the lesser toes on the left foot and ankle; no pain today. Compartments are soft to palpation of the lower extremity with no bogginess or fluctuance. No adjacent bogginess or fluctuance on palpation about the surgical site. Derm: Left lower extremity edema secondary to chronic venous insufficiency with brawny discoloration of the lower extremity with hemosiderin deposition. There are 2 superficial leg ulcerations secondary to his chronic venous insufficiency, medial leg and lateral leg with no localized signs of infection. Ulcerative sites demonstrate serosanguineous drainage as noted by strikethrough to the dressing. Left foot hallux amputation site demonstrates intact sutures with well coapted incision and no erythema, no purulent drainage, no malodor or other localized signs of infection. Left foot demonstrates mild nonpitting edema. General Extremity: Negative for calf tenderness Skin no rashes or lesions noted and no jaundice Neuro oriented x3 and moves all extremities Assessment & Plan Assessment/Plan (1) Crush injury of left foot: (2) Noninfected skin tear of left leg: (3) Non-pressure chronic ulcer of unspecified part of left lower leg with fat layer exposed: (4) Venous insufficiency (chronic) (peripheral): (5) Other hereditary and idiopathic neuropathies: (6) Difficulty in walking: (7) Open displaced fracture of distal phalanx of left great toe: QUALIFIERS: Encounter type: initial encounter Qualified Code(s): S92.422B - Displaced fracture of distal phalanx of left great toe, initial encounter for open fracture PLAN: 66-year-old male status post left hallux amputation secondary to traumatic crush injury performed 11/11/[address] Marquis. POD #6. Patient seen and evaluated. I discussed his case with him today. He is afebrile and vitals are stable. Incision site sutures intact with skin well coapted. He continues to have decreased edema to the foot. The following work-up and care recommendations were made: Dressing: He is to keep his dressings clean dry and intact to the left foot. Dressings changed daily with Adaptic and Betadine gauze to the hallux amputation site. Adaptic placed to left lower leg extremity ulceration sites. Foot dressed with 4 x 4 gauze fluff between the toes, 4 x 4 gauze, conform/Dolly, Kerlix, and Rowdy wraps rolled onto the foot and leg. Nursing may change dressing daily. Offloading: He may bear weight to the left heel with a surgical shoe and use of an assistive device. He is to continue working with physical and Occupational Therapy as he continues to rehab. Edema: Elevate both lower extremities at times of rest and keep Rowdy wrap intact to left foot. Infection: No localized signs of infection are present at this time however he will continue to be monitored for any changes. Cultures demonstrated scant staph (No MRSA), likely skin contamination. He has completed course of IV Ancef for treatment of open fracture. Additional antibiotics will be considered if localized signs of infection develop. Pain: Pain medications including oxycodone and morphine have been ordered and will be taken as needed. Host factors: Sung nutritional supplementation has been ordered to optimize wound healing. Following his acute injury treatment he is to follow-up with Dr. Marquis in the wound care center for continued care of his venous leg ulcerations with potential further work-up of peripheral vascular disease and venous insufficiency, this will be completed in an outpatient setting. Medical management: Dr. Lopez following, this is greatly appreciated. At this time no localized signs of infection are present about the surgical site, he will continue to be monitored for any changes. Podiatry will continue to follow in the postoperative period while he is rehabbing. Pending his discharge home he will follow-up with Dr. Marquis in the wound care center. Please call for any questions Dr. Guille Collier Jr. D.P.M. [facility] [phone] Note: [employer] speech recognition poultry veterinarian software was used to create portions of this document. Sound-alike and misspelled words, as well as other poultry veterinarian errors may be contained in the documentation.
[2021-11-17 14:07] VITALS: BP 134/88; PULSE 98; RESP 18; TEMP 36.2; O2SAT 96
[2021-11-17] MEDS: Rivaroxaban 10 MG Tablet PO (17:19)
[2021-11-17 23:42] VITALS: PULSE 0
[2021-11-18] MEDS: oxyCODONE 5 MG Tablet 10 MG PO ×3 (01:23→21:27)
[2021-11-18] MEDS: Senna/Docusate Sodium 1 Tablet 2 TABLET PO ×2 (05:50→17:05)
[2021-11-18] MEDS: Lisinopril 40 MG Tablet PO (05:50)
[2021-11-18] MEDS: cycloBENZAPRine HCl 10 MG Tablet PO ×3 (05:50→21:22)
[2021-11-18] MEDS: Polyethylene Glycol 3350 17 GM PACKET PO (05:50)
[2021-11-18] MEDS: Aspirin E.C. 81 MG Tablet PO (05:50)
[2021-11-18] MEDS: traMADol 50 MG Tablet PO ×2 (08:06→17:05)
[2021-11-18 11:30] VITALS: PULSE 93; RESP 18; O2SAT 99
[2021-11-18 16:00] VITALS: BP 146/77; PULSE 96; RESP 17; TEMP 36.6; O2SAT 93
[2021-11-18] MEDS: Rivaroxaban 10 MG Tablet PO (17:05)
[2021-11-18] MEDS: Acetaminophen 500 MG Tablet 1000 MG PO (17:06)
[2021-11-19] MEDS: Acetaminophen 500 MG Tablet 1000 MG PO ×2 (05:38→17:11)
[2021-11-19] MEDS: traMADol 50 MG Tablet PO ×2 (05:38→17:10)
[2021-11-19] MEDS: Aspirin E.C. 81 MG Tablet PO (05:39)
[2021-11-19] MEDS: Lisinopril 40 MG Tablet PO (05:40)
[2021-11-19] MEDS: Senna/Docusate Sodium 1 Tablet 2 TABLET PO ×2 (05:40→17:08)
[2021-11-19] MEDS: cycloBENZAPRine HCl 10 MG Tablet PO ×3 (05:41→19:58)
[2021-11-19] MEDS: Polyethylene Glycol 3350 17 GM PACKET PO (05:41)
[2021-11-19 16:00] VITALS: BP 132/80; PULSE 97; RESP 21; TEMP 36.2; O2SAT 94
[2021-11-19] MEDS: Rivaroxaban 10 MG Tablet PO (17:08)
[2021-11-19] MEDS: oxyCODONE 5 MG Tablet 10 MG PO (19:57)
[2021-11-20] VITALS: RESP 18
[2021-11-20] MEDS: Polyethylene Glycol 3350 17 GM PACKET PO (06:25)
[2021-11-20] MEDS: traMADol 50 MG Tablet PO ×2 (06:26→18:14)
[2021-11-20] MEDS: Acetaminophen 500 MG Tablet 1000 MG PO ×2 (06:26→18:14)
[2021-11-20] MEDS: Senna/Docusate Sodium 1 Tablet 2 TABLET PO ×2 (06:27→18:04)
[2021-11-20] MEDS: Aspirin E.C. 81 MG Tablet PO (06:27)
[2021-11-20] MEDS: cycloBENZAPRine HCl 10 MG Tablet PO ×3 (06:27→21:06)
[2021-11-20] MEDS: Lisinopril 40 MG Tablet PO (06:28)
--- NOTE | 2021-11-20 11:08 | NURSING ---
Forming Process Worker Note: Interview and MDS section F complete.
[2021-11-20] MEDS: oxyCODONE 5 MG Tablet 10 MG PO ×2 (12:31→21:09)
--- NOTE | 2021-11-20 14:28 | WOUNDNOTE ---
Nursing had changed dressing to the left foot and lower leg wounds.
--- NOTE | 2021-11-20 14:46 | NURSING ---
Resident educated on the COVID 19 Vaccine and does not want to receive it.
[2021-11-20 15:56] VITALS: BP 129/75; PULSE 97; RESP 18; TEMP 36.4; O2SAT 93
[2021-11-20] MEDS: Juven (unflavored) Packet 1 PACKET PO (18:04)
[2021-11-20] MEDS: Rivaroxaban 10 MG Tablet PO (18:04)
[2021-11-21] MEDS: Polyethylene Glycol 3350 17 GM PACKET PO (05:00)
[2021-11-21] MEDS: Lisinopril 40 MG Tablet PO (05:01)
[2021-11-21] MEDS: Aspirin E.C. 81 MG Tablet PO (05:01)
[2021-11-21] MEDS: Senna/Docusate Sodium 1 Tablet 2 TABLET PO ×2 (05:01→17:04)
[2021-11-21] MEDS: cycloBENZAPRine HCl 10 MG Tablet PO ×3 (05:01→20:16)
[2021-11-21] MEDS: Acetaminophen 500 MG Tablet 1000 MG PO ×2 (05:05→20:16)
[2021-11-21 05:36] LABS: Absolute Lymphocyte Count 1.54 X10^3/uL (0.83-4.51); Absolute Neutrophil Count 3.9 X10^3/uL (2.0-7.7); Basophil# 0.02 X10^3/uL; Basophil% 0.3 % (0-1); Eosinophil# 0.34 X10^3/uL; Eosinophils% 5.1 % (0-5); Hematocrit 43.9 % (40-54); Hemoglobin 13.9 g/dL (13.0-16.5); Lymphocyte # 1.54 X10^3/ul (0.83-4.51); Lymphocyte % 23.1 % (19-41); Mean Corp Hgb Conc 31.7 g/dL (32-36); Mean Corpuscular Hgb 30.4 pg (27.0-32.0); Mean Corpuscular Volume 96.1 fL (80-94); Mean Platelet Vol. 9.9 fl (6.2-12.0); Monocyte# 0.83 X10^3/uL; Monocyte% 12.5 % (0-10); NRBC Flagged by Analyzer 0 % (0-5); Neutrophil % 58.5 % (47-70); Platelet Count 249 K/mm3 (150-450); RBC Distribution Width CV 12.9 % (11.6-14.6); RBC Distribution Width SD 45.9 fl (35.1-43.9); Red Blood Count 4.57 M/mm3 (4.6-6.2); White Blood Count 6.7 K/mm3 (4.4-11.0)
[2021-11-21 05:57] LABS: Anion Gap 4 (5-15); BUN 19 mg/dL (7-18); BUN/Creat Ratio 25.2 RATIO (10-20); Calcium,Total 8.8 mg/dL (8.5-10.1); Chloride 99 mmol/L (98-107); Creatinine, Serum 0.75 mg/dL (0.70-1.30); EST Glomerular Filtration Rate 111 mL/min (>60); Est Glom Filt Rate - Afr Amer 134 mL/min (>60); Estimated Creatinine Clearance 118.93 ml/min; Glucose 108 mg/dL (74-106); Potassium 4.2 mmol/L (3.5-5.1); Sodium Level 135 mmol/L (136-145)
[2021-11-21] MEDS: Juven (unflavored) Packet 1 PACKET PO ×2 (07:57→17:04)
[2021-11-21 10:00] VITALS: RESP 18
[2021-11-21] MEDS: oxyCODONE 5 MG Tablet 10 MG PO (10:22)
[2021-11-21] MEDS: Tuberculin,Purif.prot.deriv. 50 TU/ML Vial 0.1 ML ID (10:26)
--- NOTE | 2021-11-21 13:47 | WOUNDNOTE ---
wound photo: left medial lower leg
--- NOTE | 2021-11-21 13:47 | WOUNDNOTE ---
wound photo: left lateral lower leg
--- NOTE | 2021-11-21 13:48 | WOUNDNOTE ---
wound photo: left foot
[2021-11-21 15:55] VITALS: BP 132/83; PULSE 101; RESP 14; TEMP 36.4; O2SAT 92
[2021-11-21] MEDS: Rivaroxaban 10 MG Tablet PO (17:04)
[2021-11-22] MEDS: Aspirin E.C. 81 MG Tablet PO (05:21)
[2021-11-22] MEDS: cycloBENZAPRine HCl 10 MG Tablet PO ×3 (05:21→19:33)
[2021-11-22] MEDS: Lisinopril 40 MG Tablet PO (05:21)
[2021-11-22] MEDS: Acetaminophen 500 MG Tablet 1000 MG PO ×3 (05:25→19:31)
[2021-11-22] MEDS: Juven (unflavored) Packet 1 PACKET PO ×2 (08:19→17:46)
--- NOTE | 2021-11-22 09:35 | CASEMGMT ---
Addendum entered by Gwen Farooq 11/23/21 13:45: Followed up with pt on HHC preference. Pt prefers [facility]. Referral made for PT/OT/SN. Original Note: Social Work IDT met with patient and exwife for care plan meeting. Discussed patient's progress in PT/OT and nursing. Pt progressing well. Explained [employer] insurance with NRD 11/23 and EDC 11/27, however, explained pt is doing well and anticipate DC date with 3 day notice. Explained and provided insurance care plan. Exwife is getting training on wound care today from nursing. Discussed HHC vs OP. Pt prefers HHC. Pt and exwife agreeable to set DC for 11/25. Provided skilled HHC lsit with quality and resource data to choose HHC agency. Pt needs FWW. SW to refer to [facility]. SW to f/u for HHC referral. Plan: D home with exwife 11/25, HHC PT/OT/SN, FWW Gwen Farooq, SOLAR ELECTRIC/PHOTOVOLTAIC INSTALLER BRAND AMBASSADOR
--- NOTE | 2021-11-22 10:40 | NURSING ---
Pt ex- in today and was shown how to perform dressing change to LLE. She verbalized understanding of proper steps and was able to verbalize back to this nurse the proper order of procedure at the end of dressing change. She states pt is probably discharging Saturday and she would be picking him up. On Saturday she plans on trying dressing change before discharge from TCU under nursing supervision.
--- NOTE | 2021-11-22 12:45 | PN_ITS ---
Subjective Subjective This 66 year old male seen bedside today for follow up on a left hallux amputation performed on 11/11/21. Patient denies any constitutional symptoms. Patient notes controlled pain. Patient able to transport assisted with walker. Patient denies any signs or symptoms of DVT. Patient has no other complaints. Objective Data Objective Data Vital Signs: Vital Signs Temp Pulse Resp BP Pulse Ox 97.6 F L 101 H 14 132/83 H 92 11/21/21 15:55 11/21/21 15:55 11/21/21 15:55 11/21/21 15:55 11/21/21 15:55 Oxygen Delivery Method Room Air Weight: 145.83 kg Body Mass Index (BMI) 41.3 Intake & Output: Intake and Output for Last 24 Hours 11/20/21 11/21/21 11/22/21 23:59 23:59 23:59 Intake Total 720 / 720 780 / 780 300 / 300 Balance 720 / 720 780 / 780 300 / 300 Lab / Micro Data Result Diagrams: 11/21/21 05:11 11/21/21 05:11 Micro: Microbiology 11/20/21 06:25 Nasal Secretion SARS-CoV-2 Antigen (Rapid) - Final 11/13/21 22:17 Blood Culture (Wb) - Anticubital Left Blood Culture - Final No growth in 5 days. 11/13/21 22:10 Blood Culture (Wb) - Anticubital Right Blood Culture - Final No growth in 5 days. 11/13/21 23:05 Mucosa - Nose Respiratory Panel (PCR) - Final Physical Exam Const alert, oriented x3 and no apparent distress General Appearance: cooperative and comfortable HEENT normocephalic Eyes General Eye: normal appearance of both eyes Neck General: normal visual inspection Lymph Lymphatic: no lymphadenopathy noted and no lymphedema noted Chest inspection of chest normal Resp normal respiratory effort Cardio regular rate and regular rhythm Extremity normal capillary refill and no calf tenderness Extremity Narrative: Vascular: DP and PT pulses are palpable bilaterally. Capillary refill less than 3 seconds to digits 2, 3, 4, and 5 of the left foot. Negative Homans' sign bilaterally. Negative Aleman sign bilaterally. Musculoskeletal: Active range of motion of the lesser toes on the left foot and ankle; no pain today. Compartments are soft to palpation of the lower extremity with no bogginess or fluctuance. No adjacent bogginess or fluctuance on palpation about the surgical site. Derm: Left lower extremity edema secondary to chronic venous insufficiency with brawny discoloration of the lower extremity with hemosiderin deposition. There are 2 superficial leg ulcerations secondary to his chronic venous insufficiency, medial leg and lateral leg with no localized signs of infection. Ulcerative sites demonstrate serosanguineous drainage as noted by strikethrough to the dressing. Left foot hallux amputation site demonstrates intact sutures with well coapted incision and no erythema, no purulent drainage, no malodor or other localized signs of infection. Left foot demonstrates mild nonpitting edema. General Extremity: Negative for calf tenderness Skin no rashes or lesions noted and no jaundice Neuro oriented x3 and moves all extremities Assessment & Plan Assessment/Plan (1) Crush injury of left foot: (2) Noninfected skin tear of left leg: (3) Non-pressure chronic ulcer of unspecified part of left lower leg with fat layer exposed: (4) Venous insufficiency (chronic) (peripheral): (5) Other hereditary and idiopathic neuropathies: (6) Difficulty in walking: (7) Open displaced fracture of distal phalanx of left great toe: QUALIFIERS: Encounter type: initial encounter Qualified Code(s): S92.422B - Displaced fracture of distal phalanx of left great toe, initial encounter for open fracture PLAN: 66-year-old male status post left hallux amputation secondary to traumatic crush injury performed 11/11/[address] Marquis. POD #6. Patient seen and evaluated. I discussed his case with him today. He is afebrile and vitals are stable. Incision site sutures intact with skin well coapted. He continues to have decreased edema to the foot. The following work-up and care recommendations were made: Dressing: He is to keep his dressings clean dry and intact to the left foot. Dressings changed daily with Adaptic and Betadine gauze to the hallux amputation site. Adaptic placed to left lower leg extremity ulceration sites. Foot dresse d with 4 x 4 gauze fluff between the toes, 4 x 4 gauze, conform/Dolly, Kerlix, and Rowdy wraps rolled onto the foot and leg. Nursing may change dressing daily. Offloading: He may bear weight to the left heel with a surgical shoe and use of an assistive device. He is to continue working with physical and Occupational Therapy as he continues to rehab. Edema: Elevate both lower extremities at times of rest and keep Rowdy wrap intact to left foot. Infection: No localized signs of infection are present at this time however he will continue to be monitored for any changes. Cultures demonstrated scant staph (No MRSA), likely skin contamination. He has completed course of IV Ancef for treatment of open fracture. Additional antibiotics will be considered if localized signs of infection develop. Pain: Pain medications including oxycodone and morphine have been ordered and will be taken as needed. Host factors: Sung nutritional supplementation has been ordered to optimize wound healing. Following his acute injury treatment he is to follow-up with Dr. Marquis in the wound care center for continued care of his venous leg ulcerations with potential further work-up of peripheral vascular disease and venous insufficiency, this will be completed in an outpatient setting. Medical management: Dr. Lopez following, this is greatly appreciated. At this time no localized signs of infection are present about the surgical site, he will continue to be monitored for any changes. Podiatry will continue to follow in the postoperative period while he is rehabbing. Pending his discharge home he will follow-up with Dr. Marquis in the wound care center. Patient will d/c to home with heel weightbearing assisted by walker on Saturday. Please call for any questions Dr. Guille Collier Jr. D.P.M. [facility] [phone] Note: [employer] speech recognition radiation / chemistry technician software was used to create portions of this document. Sound-alike and misspelled words, as well as other radiation / chemistry technician errors may be contained in the documentation.
[2021-11-22 14:40] VITALS: BP 128/75; PULSE 96; RESP 14; TEMP 36.6; O2SAT 94
[2021-11-22] MEDS: Rivaroxaban 10 MG Tablet PO (17:46)
--- NOTE | 2021-11-22 19:39 | PCM.DC.SUM ---
Providers Date of Admission: 11/13/21 Primary Care Physician: Saida Primary Care Phys Consultations 11/13/21 23:28 Consult: Podiatry Routine Consulting Provider: Jessica Marquis Reason for Consult: Surgical patient, left great toe amputation EMERGENT Consult: No MD Notified: Yes Date Notified: 11/13/21 Time Notified: 23:29 Method of Notification: Answering Service Method of Consult:: In-Person Reason For Visit: OPEN HALLUX FRACTURE Diagnosis Discharge Diagnosis (1) Crush injury of left foot: Status: Acute Code(s): S97.82XA - Crushing injury of left foot, initial encounter (2) Noninfected skin tear of left leg: Status: Acute Code(s): S81.812A - Laceration without foreign body, left lower leg, initial encounter (3) Non-pressure chronic ulcer of unspecified part of left lower leg with fat layer exposed: Status: Chronic Code(s): L97.922 - Non-pressure chronic ulcer of unspecified part of left lower leg with fat layer exposed (4) Venous insufficiency (chronic) (peripheral): Status: Chronic Code(s): I87.2 - Venous insufficiency (chronic) (peripheral) (5) Other hereditary and idiopathic neuropathies: Status: Acute Code(s): G60.8 - Other hereditary and idiopathic neuropathies (6) Difficulty in walking: Status: Acute Code(s): R26.2 - Difficulty in walking, not elsewhere classified (7) Open displaced fracture of distal phalanx of left great toe: Status: Resolved Code(s): S92.422B - Displaced fracture of distal phalanx of left great toe, initial encounter for open fracture Qualifiers: Encounter type: initial encounter Qualified Code(s): S92.422B - Displaced fracture of distal phalanx of left great toe, initial encounter for open fracture Medications at Discharge Home Medications aspirin [Ecotrin Low Strength] 81 mg PO DAILY 11/10/21 acetaminophen 1,000 mg PO Q6H PRN PRN #0 tab 11/22/21 [id number] [Sung (with collagen)] 1 packet PO 0600,1700 30 Days #60 ea 11/22/21 cyclobenzaprine 10 mg PO TID 30 Days #90 tab 11/22/21 lisinopril 40 mg PO DAILY 30 Days #30 tab 11/22/21 oxycodone 10 mg PO Q4H PRN PRN 3 Days #18 tab 11/22/21 polyethylene glycol 3350 17 g PO DAILY 30 Days #30 ea 11/22/21 povidone-iodine [Betadine] 0 ml TOPICAL 2200 30 Days #500 ml 11/22/21 sennosides-docusate sodium [Stool Softener-Stimulant Laxat] 2 tab PO BID 30 Days #120 tab 11/22/21 tramadol 50 mg PO Q6H PRN PRN 3 Days #12 tab 11/22/21 Hospital Course Operations - (Left hallux amputation.) Procedures None Summary of Care Provided Minutes Spent on Discharge: 35 Hospital Course: 66 year old male with below past medical history hospitalized for left great toe crush injury/open fracture, underwent left hallux amputation 11/11/[address] Marquis, admitted to TCU with debility, here for rehabilitation, strengthening, prior to discharge home with family. Discharge home with ex- 11/25/2021, Home Health Care PT/OT/SN, [employer] - Front wheeled walker. Physical Exam Const alert General Appearance: cooperative HEENT normocephalic Eyes PERRL and EOMs intact bilaterally Neck supple, no JVD and no carotid bruits Resp normal respiratory effort, normal air movement and clear to auscultation bilaterally Cardio regular rate and regular rhythm GI normal to inspection, nondistended, normoactive bowel sounds, non-tender and non-distended Extremity normal capillary refill Extremity Narrative: Left hallux amputation. General Extremity: Negative for edema Skin no rashes or lesions noted General Skin Exam: no breakdown Psych affect normal Appearance: appropriate Weight / BMI Weight Weight: 145.83 kg Body Mass Index (BMI) 41.3 ABG / Lab / Microbiology Data Result Diagrams: 11/21/21 05:11 11/21/21 05:11 Microbiology: Microbiology 11/20/21 06:25 Nasal Secretion SARS-CoV-2 Antigen (Rapid) - Final 11/13/21 22:17 Blood Culture (Wb) - Anticubital Left Blood Culture - Final No growth in 5 days. 11/13/21 22:10 Blood Culture (Wb) - Anticubital Right Blood Culture - Final No growth in 5 days. 11/13/21 23:05 Mucosa - Nose Respiratory Panel (PCR) - Final D/C Instructions Discharge Diet: No restrictions Discharge Activity: Return to Normal Activity, May Shower and Use Walker May resume sexual activity in: No Restrictions Weight Bearing Status: Weight bearing as tolerated Call your doctor if you observe: Fever of 101 or Higher, Inability to urinate, Inability to have a bowel movement, Shortness of breath, Dizziness, Fainting spells, Swelling in the ankles, Chest pain and Uncontrolled pain Additional Instructions: Discharge home with ex- 11/25/2021, Home Health Care PT/OT/SN, [employer] - Front wheeled walker. Meaningful Use Info Meaningful Use Diagnoses (Choose all that apply): None applicable Discharge Plan Admission Admit Date/Time: 11/13/21 20:25 Primary Reason for Your Visit: Debility. Attending Provider: Flakito Lopez Chi Primary Care Provider: Care Physician,No Primary Consulting Providers: Jessica Marquis Instructions Additional Instructions / Restrictions: Discharge home with ex- 11/25/2021, Home Health Care PT/OT/SN, [employer] - Front wheeled walker. Discharge Orders/Prescriptions Prescriptions: New acetaminophen 500 mg Tablet 1,000 mg PO Q6H PRN PRN (Reason: Pain Score 1-3) Qty: 0 RF: 0 cyclobenzaprine 10 mg Tablet 10 mg PO TID 30 Days Qty: 90 RF: 0 polyethylene glycol 3350 17 gram Powder In Packet 17 g PO DAILY 30 Days Qty: 30 RF: 0 oxycodone 5 mg Tablet 10 mg PO Q4H PRN PRN (Reason: Pain Score 6-10) 3 Days Qty: 18 RF: 0 Sung (with collagen) 7-7-1.5 gram Powder In Packet 1 packet PO 0600,1700 30 Days Qty: 60 RF: 0 povidone-iodine [Betadine] 10 % Solution 0 ml topical 2200 30 Days Qty: 500 RF: 0 sennosides-docusate sodium [Stool Softener-Stimulant Laxat] 8.6-50 mg Tablet 2 tab PO BID 30 Days Qty: 120 RF: 0 tramadol 50 mg Tablet 50 mg PO Q6H PRN PRN (Reason: Pain Score 4-5) 3 Days Qty: 12 RF: 0 Continued aspirin [Ecotrin Low Strength] 81 mg tablet,delayed release (DR/EC) 81 mg PO DAILY RF: 0 lisinopril 40 mg Tablet 40 mg PO DAILY 30 Days Qty: 30 RF: 0 Discontinued acetaminophen [Tylenol] 325 mg Capsule 650 mg PO Q4H PRN (Reason: Pain) RF: 0 Referrals / Follow Up: Jessica Marquis DPM [STAFF PHYSICIAN] - In 1 Week Care Physician,No Primary [Primary Care Provider] - Disposition Disposition (needs filled in before D/C Order can be placed): Home Health Service
[2021-11-23] MEDS: traMADol 50 MG Tablet PO ×3 (00:30→20:28)
[2021-11-23] MEDS: Juven (unflavored) Packet 1 PACKET PO ×2 (05:20→17:04)
[2021-11-23] MEDS: Acetaminophen 500 MG Tablet 1000 MG PO ×2 (05:20→21:39)
[2021-11-23] MEDS: cycloBENZAPRine HCl 10 MG Tablet PO ×3 (05:21→21:33)
[2021-11-23] MEDS: Aspirin E.C. 81 MG Tablet PO (05:21)
[2021-11-23] MEDS: Lisinopril 40 MG Tablet PO (05:21)
[2021-11-23 05:24] VITALS: BP 129/95; PULSE 85; RESP 16; TEMP 36.9; O2SAT 97
--- NOTE | 2021-11-23 13:36 | CASEMGMT ---
Social Work BIMS and PHQ-9 completed for MDS assessment. Gwen Farooq, TRAFFIC OPERATOR BIG DATA SOFTWARE ENGINEER
[2021-11-23 14:21] VITALS: BP 135/83; PULSE 102; RESP 18; TEMP 36.2; O2SAT 96
[2021-11-23] MEDS: Rivaroxaban 10 MG Tablet PO (17:04)
[2021-11-24] MEDS: Juven (unflavored) Packet 1 PACKET PO ×2 (06:04→18:09)
[2021-11-24 06:06] VITALS: BP 139/78; PULSE 86
[2021-11-24] MEDS: Lisinopril 40 MG Tablet PO (06:07)
[2021-11-24] MEDS: Aspirin E.C. 81 MG Tablet PO (06:07)
[2021-11-24] MEDS: cycloBENZAPRine HCl 10 MG Tablet PO ×3 (06:08→20:29)
[2021-11-24] MEDS: traMADol 50 MG Tablet PO ×2 (10:03→20:27)
[2021-11-24 14:17] VITALS: BP 140/94; PULSE 104; RESP 18; TEMP 36.1; O2SAT 96
[2021-11-24] MEDS: Rivaroxaban 10 MG Tablet PO (18:09)
[2021-11-24] MEDS: Acetaminophen 500 MG Tablet 1000 MG PO (20:28)
[2021-11-24 23:56] VITALS: RESP 18
[2021-11-25] MEDS: traMADol 50 MG Tablet PO (06:42)
[2021-11-25] MEDS: Aspirin E.C. 81 MG Tablet PO (06:42)
[2021-11-25] MEDS: Juven (unflavored) Packet 1 PACKET PO (06:43)
[2021-11-25] MEDS: Polyethylene Glycol 3350 17 GM PACKET PO (06:43)
[2021-11-25] MEDS: Senna/Docusate Sodium 1 Tablet 2 TABLET PO (06:43)
[2021-11-25] MEDS: cycloBENZAPRine HCl 10 MG Tablet PO (06:43)
[2021-11-25] MEDS: Lisinopril 40 MG Tablet PO (06:44)
[2021-11-25 06:53] VITALS: BP 141/90; PULSE 88; RESP 20; TEMP 36.2; O2SAT 97
[2021-11-25 06:55] VITALS: RESP 20; O2SAT 97
--- NOTE | 2021-11-25 09:32 | NURSING ---
Dressing changed performed by this nurse before d/c, Ex- decided not to come up and do dressing change d/t having pain today
== END 2021-11-25 09:15 | disposition home health service (06) | DRG 560 ==
PROVIDERS: Admitting Provider Family Medicine Geriatric Medicine; Visit Provider Family Medicine Geriatric Medicine
DX: S92.422D Displaced fracture of distal phalanx of left great toe, subsequent encounter for fracture with routine healing (principal); L97.922 Non-pressure chronic ulcer of unspecified part of left lower leg with fat layer exposed; Z68.41 Body mass index [BMI] 40.0-44.9, adult; E66.01 Morbid (severe) obesity due to excess calories; I10 Essential (primary) hypertension; I87.2 Venous insufficiency (chronic) (peripheral); E78.5 Hyperlipidemia, unspecified; G60.9 Hereditary and idiopathic neuropathy, unspecified; R26.2 Difficulty in walking, not elsewhere classified; J45.909 Unspecified asthma, uncomplicated; S46.812D Strain of other muscles, fascia and tendons at shoulder and upper arm level, left arm, subsequent encounter; S29.012D Strain of muscle and tendon of back wall of thorax, subsequent encounter; W23.0XXD Caught, crushed, jammed, or pinched between moving objects, subsequent encounter; Z79.899 Other long term (current) drug therapy; Z79.82 Long term (current) use of aspirin
CPT/HCPCS: 36415; 71046; 80048; 85025; 87040; 87426; 87633; 97110; 97116; 97162; 97166; 97530; 97535; 97802; A4216

== ENCOUNTER → 2021-11-29 | Outpatient (CLI) | payer MEDICARE, SELFPAY ==
--- NOTE | 2021-11-29 16:15 | RAD_ITS ---
STUDY: X-RAY - CERVICAL SPINE REASON FOR EXAM: Male, 66 years old. CERVICALGIA TECHNIQUE: 3 view(s) of the cervical spine were obtained. COMPARISON: None FINDINGS: Normal anterior atlantoaxial articulation. Normal odontoid process. There is straightening of the normal cervical lordosis. There is multi-level endplate spondylosis. There is multi-level degenerative disc disease with multilevel disc space narrowing. Multilevel facet arthropathy. Degenerative anterolisthesis at C4-C5. There are atherosclerotic vascular calcifications of the carotid arteries. RAD/Cerv Spine 2 or 3 Views IMPRESSION: Multilevel degenerative disc disease and facet arthropathy, as above. Electronically Signed: Michele Read MD ([place]) at 22:38 EDT ,
[2021-11-29 17:10] LABS: Absolute Lymphocyte Count 1.79 X10^3/uL (0.83-4.51); Absolute Neutrophil Count 6.3 X10^3/uL (2.0-7.7); Basophil# 0.04 X10^3/uL; Basophil% 0.4 % (0-1); Eosinophil# 0.39 X10^3/uL; Eosinophils% 4.1 % (0-5); Hematocrit 45.8 % (40-54); Hemoglobin 14.9 g/dL (13.0-16.5); Lymphocyte # 1.79 X10^3/ul (0.83-4.51); Lymphocyte % 18.8 % (19-41); Mean Corp Hgb Conc 32.5 g/dL (32-36); Mean Corpuscular Hgb 30.1 pg (27.0-32.0); Mean Corpuscular Volume 92.5 fL (80-94); Mean Platelet Vol. 10.1 fl (6.2-12.0); Monocyte# 0.96 X10^3/uL; Monocyte% 10.1 % (0-10); NRBC Flagged by Analyzer 0 % (0-5); Neutrophil % 66.2 % (47-70); Platelet Count 334 K/mm3 (150-450); RBC Distribution Width CV 12.6 % (11.6-14.6); RBC Distribution Width SD 42.9 fl (35.1-43.9); Red Blood Count 4.95 M/mm3 (4.6-6.2); White Blood Count 9.5 K/mm3 (4.4-11.0)
[2021-11-29 17:41] LABS: ALB/GLOB Ratio 0.9 RATIO (0.9-2.4); AST(SGOT) 14 U/L (15-37); Alanine Aminotransfer ALT/SGPT 26 U/L (16-61); Albumin, Serum 3.6 g/dL (3.2-5.0); Alkaline Phosphatase 88 U/L (45-117); Anion Gap 7 (5-15); BUN 26 mg/dL (7-18); BUN/Creat Ratio 27.8 RATIO (10-20); Calcium,Total 9.3 mg/dL (8.5-10.1); Chloride 103 mmol/L (98-107); Cholesterol 152 mg/dL (200); Creatinine, Serum 0.94 mg/dL (0.70-1.30); EST Glomerular Filtration Rate 86 mL/min (>60); Est Glom Filt Rate - Afr Amer 104 mL/min (>60); Globulin 4.1 g/dL (2.2-4.2); Glucose 100 mg/dL (74-106); High Density Lipoprotein 34 mg/dL; PSA,Total - Annual Screen 2.71 ng/mL (0.00-4.00); Potassium 4.5 mmol/L (3.5-5.1); Protein, Total 7.7 g/dL (6.4-8.2); Sodium Level 138 mmol/L (136-145); Thyroid Stim Hormone (TSH) 1.46 uIU/mL (0.358-3.74); Triglycerides 109 mg/dL; Very Low Density Lipoprotein 22 mg/dL (5-40)
[2021-11-30 09:06] LABS: Hepatitis C Antibody Non-Reactive (Nonreactive)
== END | disposition home or self-care (01) ==
LOC: POLAB3 15:35 → RAD 16:13
PROVIDERS: PCP Family Medicine Geriatric Medicine; Referring Provider Family Medicine Geriatric Medicine; Visit Provider Family Medicine Geriatric Medicine
DX: R53.83 Other fatigue (principal); E78.5 Hyperlipidemia, unspecified; Z12.5 Encounter for screening for malignant neoplasm of prostate; Z13.89 Encounter for screening for other disorder
CPT/HCPCS: 36415; 72040; 80053; 80061; 84153; 84443; 85025; 86803; G0103

== ENCOUNTER 2021-12-13 12:40 | Outpatient (RCR) | payer MEDICARE, SELFPAY ==
[2021-12-13 13:10] VITALS: BP 159/94; PULSE 107; RESP 20; TEMP 36.3; BMI 39.9
--- NOTE | 2021-12-13 16:34 | PCM.WC.PN ---
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 He had a lot of soft tissue injury and he went for surgical amputation of the remainder of the hallux. His sutures are intact. He denies redness, odor, fever, chill, nausea, vomiting. He also had a chronic intermittent left leg ulcer the past couple of years and has chronic swelling. He also had sustained the laceration of the left leg at the time of injury and the site is healed. He denies claudication. He reports prior right hip injury with reduction in right lower extremity limb with atrophy. This contributes to his gait abnormalities. He has chronic intermittent limb edema that is worse on the left lower extremity. Progress of Wound: Improving Objective Data Objective Data Vital Signs: Vital Signs Temp Pulse Resp BP 97.3 F L 107 H 20 H 159/94 H 12/13/21 13:10 12/13/21 13:10 12/13/21 13:10 12/13/21 13:10 Oxygen Delivery Method Room Air Weight: 145.15 kg Body Mass Index (BMI) 39.9 Physical Exam Const alert, oriented x3 and no apparent distress General Appearance: cooperative and comfortable Lymph Lymphatic: no lymphedema noted Extremity normal capillary refill and no calf tenderness Extremity Narrative: Vascular: DP and PT pulses are palpable bilaterally. Capillary refill less than 3 seconds to digits 2, 3, 4, and 5 of the left foot. Negative Homans' sign bilaterally. Negative Aleman sign bilaterally. Musculoskeletal: Active range of motion of the lesser toes on the left foot and ankle; no pain today. Compartments are soft to palpation of the lower extremity with no bogginess or fluctuance. No adjacent bogginess or fluctuance on palpation about the surgical site. Derm: Left lower extremity edema secondary to chronic venous insufficiency with brawny discoloration of the lower extremity with hemosiderin deposition. There is one reduced size superficial leg ulceration likely secondary to his chronic venous insufficiency, lateral leg with no localized signs of infection. Ulcerative sites demonstrate serosanguineous drainage as noted by strikethrough to the dressing. he prior ulcer secondary to injury laceration is now healed with full epithelialization Left foot hallux amputation site demonstrates intact sutures with well coapted incision and no erythema, no purulent drainage, no malodor or other localized signs of infection. Left foot demonstrates mild nonpitting edema no gapping noted upon suture removal and there are medial and distal skin discontinuities remaining with granular and fibrous bases. General Extremity: Negative for calf tenderness Neuro oriented x3 Debridement Note Debridement Note Wound debrided: left leg, left amputation site (medial and distal) Wound Grade/Stage: Type of Debridement: Excisional debridement Anesthesia Used: 4% Lidocaine Solution Depth: in the subcutaneous layer Percentage of wound debrided: 100 Instrument Used: #15 blade Tissue Removed: fibrous, devitalized subcutaneous, biofilm, slough Severity: Fat Layer Exposed Amount of bleeding with debridement: Mild Bleeding Controlled with: Pressure Patient tolerated procedure: Patient tolerated procedure well Post-Debridement Measurements and Additional Note: Post-Debridement Measurements/Treatment - Nurse 1 - General Ulcer Assessment Start: 12/13/21 13:09 Freq: Status: Active Protocol: MERVIN Activity Type Activity Date Activity User E-Sign Co-Sign Detail Recorded Client Recorded Date Recorded By Document 12/13/21 13:10 [facility] [id number] 12/13/21 13:22 [facility] 12/13/21 13:10 - Today's Visit Information Type of service Follow-up Visit (Physician/OIM CONSULTANT ) Arrival Mode Ambulatory,Cane Transfer Assistance None Patient Identification Verified (Name & Yes ) Patient Requires Transmission-Based No Precautions Height and Weight Height 6 ft 3 in Weight 145.15 kg Weight in Pounds 320.0 lbs Weight Measurement Method Estimated by Patient Body Mass Index (BMI) 39.9 BMI Classification Obese BSA - Jemma 2.68 Vital Signs Temperature (97.8 F-99.1 F) 97.3 F L Temperature Source Temporal Pulse Rate (60-100) 107 H Pulse Location Monitor Respiratory Rate (12-18) 20 H Respiratory rate source Observation Oxygen Delivery Method Room Air Blood Pressure (90/60-120/80) 159/94 H Blood Pressure Mean (mm Hg) 115 Source Monitor Position Sitting Blood Pressure Location Left Arm History Since Last Visit- (Skip if this is Patient's initial visit) Left Footwear Surgical Shoe with pressure relief insole Right Footwear Regular Shoe Pain Scale: 0-10 Numeric Is Patient Pain Free? Yes Communication Assessment Preferred language Monegasque Scalehouse Attendant Required No Able to Read Yes Able to Write Yes Communication Tools None Right Hearing Abillity Normal Left Hearing Abillity Normal Visual Assistive Devices Glasses Teaching Assessment Preferences Verbal,Written, Audio/Visual, Demonstration Barriers to Learning None Readiness To Learn Excellent Willingness to Engage in Self Management High Activies Readiness to Engage in Self Management High Activities Anxiety Level Calm Cooperation Cooperative Perception Coherent Interest in Health Problem Asks Questions Education Importance Acknowledges Need Does Patient Smoke tobacco or other No substances Smoking Status Never smoker Is Patient Diabetic No Functional Assessment Recent Decline in Ability to Perform Ambulation Culture/Shinto/Manager Of Purchasing Cultural/Shinto Needs that may affect No Treatment Plan Teaching: Wound Center *Welcome to the Wound Center -Person Taught Patient -Teaching Method Discussion -Response to teaching Verbalize understanding Welcome to the Wound Care Center English MOISE - Nurse 1 - General Ulcer Measurement Start: 12/13/21 13:09 Freq: Status: Active Protocol: Activity Type Activity Date Activity User E-Sign Co-Sign Detail Recorded Client Recorded Date Recorded By Document 12/13/21 13:10 [facility] [id number] 12/13/21 13:22 [facility] 12/13/21 13:10 Wound Center Nurse 1 #2- L LAT LE CLUSTER -Combined with other wound No -Current Size (cm) - Length 1.8 -Current Size (cm) - Width 0.5 -Current Size (cm) - Depth 0.1 -Total Square Cm 0.90 -Date of Last Picture (Recall this 12/13/21 field) -Photo Taken Yes -Epithelialization None Present -Tunneling No -Undermining/Tunneling No -Circular Undermining No -Exudate Amt Small -Exudate Type Serous -Wound Margin Distinct, Outline Attached -Granulation Amt Medium (34-66%) -Granulation Quality Red -Slough/Fibrin Yes -Necrosis Amt Medium (34-66%) -Necrotic Tissue Type Adherent Slough -Texture (Tracy-wound Skin Appearance) Assessed, Scarring -Moisture (Tracy-wound Skin Appearance) Assessed,Dry/ Scaly -Color (Tracy-wound Skin Appearance) Assessed, Erythema -Temperature (Tracy-wound Skin No Abnormality Appearance) (Pt Warm) -Tenderness on Palpation (Tracy-wound Yes Skin Appearance) -Ulcer Cleansing Soap and Water -Foul Odor after Cleansing No -Anesthetic Used 5% Lidocaine Gel #1- L post-op medial SITE -Combined with other wound No -Current Size (cm) - Length 0.1 -Current Size (cm) - Width 0.1 -Current Size (cm) - Depth 0.1 -Total Square Cm 0.01 -Date of Last Picture (Recall this 12/13/21 field) -Photo Taken Yes -Epithelialization None Present -Tunneling No -Undermining/Tunneling No -Circular Undermining No -Texture (Tracy-wound Skin Appearance) Assessed -Moisture (Tracy-wound Skin Appearance) Assessed,Dry/ Scaly -Color (Tracy-wound Skin Appearance) Assessed -Temperature (Tracy-wound Skin No Abnormality Appearance) (Pt Warm) -Tenderness on Palpation (Tracy-wound No Skin Appearance) -Ulcer Cleansing Soap and Water -Foul Odor after Cleansing No -Anesthetic Used 5% Lidocaine Gel -Wound Comment(s) SUTURES IN PLACE Lower Limb Edema Present Yes Left Calf (cm) 46.6 Left Ankle (cm) 28.4 WC - Nurse 2 - General Ulcer CM Notes Start: 12/13/21 13:09 Freq: Status: Active Protocol: Activity Type Activity Date Activity User E-Sign Co-Sign Detail Recorded Client Recorded Date Recorded By Document 12/13/21 13:35 [id number] 12/13/21 13:42 [facility]ON 12/13/21 13:35 Wound Center Nurse 2 3-left postop distal ulcer foot -Time 13:41 -Correct Patient Yes -Correct Side, Site, Position Yes -Correct Procedure Yes -Procedure Performed Yes -Type of Procedure Debridement -Clinical Debridement Subcutaneous -Tissue Removed Subcutaneous -Post Debridement (cm) - Length 0.6 -Post Debridement (cm) - Width 0.6 -Post Debridement (cm) - Depth 0.1 -Total Square (Post) (cm) 0.36 -Area of Debridement (cm) - Length 0.6 -Area of Debridement (cm) - Width 0.6 -Total Square (Area) (cm) 0.36 -Tunneling No -Undermining/Tunneling No -Circular Undermining No -Wound/Ulcer Outcome Not Healed -Ulcer Cleansing Rinsed/ Irrigated with Saline -Foul Odor after Cleansing No -Bioengineered Tissue No -Bleeding Controlled with Pressure -Treatment Response Procedure Tolerated Well -Offloading Yes -Type of Offloading Surgical Shoe -Debridement - Subq, 1st 20sq cm Yes #2- L LAT LE CLUSTER -Time 13:35 -Correct Patient Yes -Correct Side, Site, Position Yes -Correct Procedure Yes -Procedure Performed Yes -Type of Procedure Debridement -Clinical Debridement Subcutaneous -Tissue Removed Subcutaneous -Post Debridement (cm) - Length 1.8 -Post Debridement (cm) - Width 0.6 -Post Debridement (cm) - Depth 0.1 -Total Square (Post) (cm) 1.08 -Area of Debridement (cm) - Length 1.8 -Area of Debridement (cm) - Width 0.6 -Total Square (Area) (cm) 1.08 -Tunneling No -Undermining/Tunneling No -Circular Undermining No -Wound/Ulcer Outcome Not Healed -Ulcer Cleansing Rinsed/ Irrigated with Saline -Foul Odor after Cleansing No -Bioengineered Tissue No -Bleeding Controlled with Pressure -Treatment Response Procedure Tolerated Well -Offloading Yes -Type of Offloading Surgical Shoe -Debridement - Subq, 20sq cm Yes #1- L post-op medial SITE -Time 13:38 -Correct Patient Yes -Correct Side, Site, Position Yes -Correct Procedure Yes -Procedure Performed Yes -Type of Procedure Debridement -Clinical Debridement Subcutaneous -Tissue Removed Subcutaneous -Post Debridement (cm) - Length 1.0 -Post Debridement (cm) - Width 0.3 -Post Debridement (cm) - Depth 0.1 -Total Square (Post) (cm) 0.30 -Area of Debridement (cm) - Length 1.0 -Area of Debridement (cm) - Width 0.3 -Total Square (Area) (cm) 0.30 -Tunneling No -Undermining/Tunneling No -Circular Undermining No -Wound/Ulcer Outcome Not Healed -Ulcer Cleansing Rinsed/ Irrigated with Saline -Foul Odor after Cleansing No -Bioengineered Tissue No -Treatment Response Procedure Tolerated Well -Offloading Yes -Type of Offloading Surgical Shoe -Debridement - Subq, 20sq cm No Pain Scale: 0-10 Numeric Is Patient Pain Free? Yes WC - Nurse 3 - General Ulcer D/C NN Start: 12/13/21 13:09 Freq: Status: Active Protocol: Activity Type Activity Date Activity User E-Sign Co-Sign Detail Recorded Client Recorded Date Recorded By Document 12/13/21 13:50 [place] [id number] 12/13/21 13:51 ID 12/13/21 13:50 Wound Care Nurse 3 3-left postop distal ulcer foot -Ulcer Cleansing Rinsed/ Irrigated with Saline -Foul Odor after Cleansing No -Negative Pressure Wound Therapy N/A -Primary Dressing Applied C Hydrogel ($) -Primary Dressing Covered/Secured with Dry Gauze, Secured with Tape #2- L LAT LE CLUSTER -Ulcer Cleansing Rinsed/ Irrigated with Saline -Foul Odor after Cleansing No -Negative Pressure Wound Therapy N/A -Primary Dressing Applied C Hydrogel ($), NonAdherent Contact Layer -Primary Dressing Covered/Secured with Dry Gauze & Roll Gauze, Secured with Tape #1- L post-op medial SITE -Ulcer Cleansing Rinsed/ Irrigated with Saline -Foul Odor after Cleansing No -Negative Pressure Wound Therapy N/A -Primary Dressing Applied C Hydrogel ($) -Primary Dressing Covered/Secured with Dry Gauze, Secured with Tape Pain Scale: 0-10 Numeric Is Patient Pain Free? Yes WC - Visit Discharge Discharge Condition Stable Ambulatory Status Ambulatory Transportation Private Auto Medication Reconcilliation completed & Yes provided to patient/care provider Clinical Summary of Care Provided Yes Assessment/Plan Assessment/Plan (1) Chronic ulcer of left leg with fat layer exposed: CODE(S): L97.922 - Non-pressure chronic ulcer of unspecified part of left lower leg with fat layer exposed (2) Localized edema: CODE(S): R60.0 - Localized edema (3) Other specified peripheral vascular diseases: CODE(S): I73.89 - Other specified peripheral vascular diseases (4) Venous insufficiency (chronic) (peripheral): CODE(S): I87.2 - Venous insufficiency (chronic) (peripheral) (5) Crush injury of left foot: CODE(S): S97.82XA - Crushing injury of left foot, initial encounter PLAN: Patient seen and evaluated. I discussed his case with him today. He is afebrile and vitals are stable. Incision site sutures intact with skin well coapted. The following work-up and care recommendations were made: Dressing: He is to keep his dressings clean dry and intact to the left foot. Dressings changed daily with Adaptic and Betadine gauze to the hallux amputation site. Adaptic placed to left lower leg extremity ulceration sites of leg and foot. Offloading: He may bear weight to the left heel with a surgical shoe and use of an assistive device. His gait has improved since he resided in transitional care unit for additional rehabilitation services. Edema: Elevate both lower extremities at times of rest and keep Rowdy wrap intact to left foot. Doppler with venous reflux exam was ordered to work up for diagnosis of venous insufficiency. Infection: No localized signs of infection are present at this time however he will continue to be monitored for any changes. Cultures demonstrated scant staph (No MRSA), likely skin contamination. He has completed course of IV Ancef for treatment of open fracture. Additional antibiotics will be considered if localized signs of infection develop. This is not noted today. Pain: Pain medications including oxycodone and morphine have been ordered and will be taken as needed. Vascular: arterial studies ordered to rule in or out arterial perfusion issues. Diagnostic data: CBC and CMP reviewed from 11-29-2021 without gross pertinent abnormalities. Host factors: Sung nutritional supplementation has been ordered to optimize wound healing. Following his acute injury treatment he is to follow-up with Dr. Marquis in the wound care center for continued care of his venous leg ulcerations with potential further work-up of peripheral vascular disease and venous insufficiency, this will be completed in an outpatient setting. Medical management: Dr. Lopez following, this is greatly appreciated. Note: [employer] speech recognition supervisor electric software was used to create portions of this document. Sound-alike and misspelled words, as well as other supervisor electric errors may be contained in the documentation. The medical decision making level is moderate based on data including at least three of the following: review of prior external notes, review of a test, ordering a test, assessment requiring an independent historian. The medical decision making level is moderate. There is noted moderate risk of morbidity after considering this treatment plan and diagnostic data. Considerations were given to prescription management, decisions regarding surgical options, or social determinants of health. The problems addressed require a moderate decision making level which includes one or more chronic illnesses (w/ exacerbation, progression, or side effects), two or more stable chronic illnesses, one undiagnosed new problem w/ uncertain prognosis, one acute illness with systemic symptoms, or one acute complicated injury.
== END 2021-12-19 23:59 | disposition home or self-care (01) ==
LOC: WC 12:40
PROVIDERS: PCP Family Medicine Geriatric Medicine; Visit Provider Podiatrist
DX: L97.922 Non-pressure chronic ulcer of unspecified part of left lower leg with fat layer exposed (principal); I73.89 Other specified peripheral vascular diseases; R60.0 Localized edema; I87.2 Venous insufficiency (chronic) (peripheral); R26.9 Unspecified abnormalities of gait and mobility; S97.82XA Crushing injury of left foot, initial encounter
CPT/HCPCS: 11042; 99213; G0463

== ENCOUNTER → 2022-01-09 | Outpatient (CLI) | payer MEDICARE, SELFPAY ==
--- NOTE | 2022-01-09 12:00 | RAD_ITS ---
STUDY: X-RAY - LUMBAR SPINE REASON FOR EXAM: Male, 66 years old. LOW BACK PAIN TECHNIQUE: 3 view(s) of the lumbar spine were obtained. COMPARISON: None FINDINGS: Normal lumbar lordosis. There is no substantial scoliosis. There is a normal alignment of the vertebrae. There is multilevel endplate spondylosis of the lumbar vertebrae. There is multi-level degenerative disc disease with multi-level disc space narrowing. Facet hypertrophy throughout the lumbar spine. The soft tissue structures are unremarkable. RAD/Lumbar Spine 2 or 3 Views IMPRESSION: Degenerative changes of the spine, as detailed above. MRI would be useful. Electronically Signed: Fernando Cuevas MD at 8:10 EDT ,
== END | disposition home or self-care (01) ==
LOC: RAD 11:58
PROVIDERS: PCP Family Medicine Geriatric Medicine; Referring Provider Family Medicine Geriatric Medicine; Visit Provider Family Medicine Geriatric Medicine
DX: M54.50 Low back pain, unspecified (principal)
CPT/HCPCS: 72100

== ENCOUNTER → 2022-01-12 | Outpatient (CLI) | payer MEDICARE, SELFPAY ==
--- NOTE | 2022-01-12 08:21 | ART_ITS ---
Reason For Study: PVD Procedure A bilateral lower extremity continuous wave Doppler with analog waveform analysis,segmental pressures,and ankle brachial indexes without exercise. Left Segmental Pressures Left brachial= 151mmHg. Left posterior tibial artery = 154mmHg. Left dorsalis pedis artery = 141mmHg. The left dorsalis pedis waveforms are triphasic. The left posterior tibial artery waveforms are triphasic. Right Segmental Pressures Right brachial= 136mmHg. Right posterior tibial artery = 176mmHg. Right dorsalis pedis artery = 172mmHg. The right dorsalis pedis waveforms are triphasic. The right posterior tibial artery waveforms are triphasic. Indices The right ankle brachial index by the dorsalis pedis is 1.14. The right ankle brachial index by the posterior tibial artery is 1.17. The left ankle brachial index by the dorsalis pedis is 1.02. The left ankle brachial index by the posterior tibial artery is 0.93. VL/Lower Ext Art Exam w/o Exercis Interpretation Summary Normal right lower extremity PT and DP ankle-brachial index at rest at 1.17 and 1.14 respectively with normal triphasic Doppler waveforms Normal left lower extremity PT ankle-brachial index at rest at 1.02 with a mini shan diminished left ankle-brachial DP index of 0.93. Triphasic left posterior tibial and biphasic l eft dorsalis pedis Doppler waveforms Ordering Physician: Jessica Marquis Referring Physician: Jessica Marquis Performed By: SHAE DE LA PAZ
--- NOTE | 2022-01-12 08:24 | VDLE_ITS ---
Reason For Study: Edema RIGHT LEFT CFV is compressible, spontaneous, phasic, CFV appears patent with color flow only. competent and demonstrates normal Normal venous flow noted. Patient unable to augmentation. tolerate compression. FV is compressible, spontaneous, phasic, FV is compressible, spontaneous, phasic, competent and demonstrates normal competent and demonstrates normal augmentation. augmentation. POP V is compressible, spontaneous, phasic, POP V is compressible, spontaneous, phasic, competent and demonstrates normal competent and demonstrates normal augmentation. augmentation. T/P Trunk is compressible. T/P Trunk is compressible. PTV is compressible. PTV is compressible. RT PerV is compressible. LT PerV is compressible. SFJ is competent and measures 0.79 cm. SFJ is competent and measures 0.92 cm. GSV proximal thigh measures 0.43 x 0.47 cm. GSV proximal thigh measures 0.36 x 0.44 cm. GSV at knee measures 0.42 x 0.49 cm. GSV at knee measures 0.33 x 0.37 cm. GSV above knee is competent. GSV above knee is competent. GSV below knee is INCOMPETENT for greater GSV below knee is INCOMPETENT for greater than 0.5 seconds. than 0.5 seconds. SSV proximal calf is competent and measures ASV proximal calf is INCOMPETENT for greater 0.38 x 0.45 cm. than 0.5 seconds and measures 0.37 x 0.49 cm. Procedure SSV proximal calf is INCOMPETENT for greater Exam performed in department. than 0.5 seconds and measures 0.58 x 0.64 cm. This is a venous duplex using B-mode, color flow and spectral Doppler. Patient was scanned in reverse Trendelenburg position during reflux assessment. A preliminary report was called and/or faxed to . VL/Venous Duplex US - Alexandre Extrem Interpretation Summary Deep veins of the lower extremities are bilaterally patent and compressible seg mentally. There is no evidence of deep vein thrombosis on either side. Valvular competence appears in tact within the proximal deep venous systems bilaterally. The great saphenous veins appear bila terally patent and compressible segmentally. Sapheno-femoral junctions are bilaterally competent . The right great saphenous vein appears competent above the knee. The right great saphenous vein appears incompetent below the knee. The left great saphenous vein appears competent above the knee. The left great saphenous vein appears incompetent below the knee. The right small saphenous ve in is patent and competent. The left small saphenous vein is patent and incompetent. The accesso ry saphenous vein in the left proximal calf is incompetent. Ordering Physician: Jessica Marquis Referring Physician: Jessica Marquis Performed By: Guille Meza
== END | disposition home or self-care (01) ==
LOC: CVS 08:18
PROVIDERS: PCP Family Medicine Geriatric Medicine; Referring Provider Podiatrist; Visit Provider Podiatrist
DX: I87.2 Venous insufficiency (chronic) (peripheral) (principal); I73.89 Other specified peripheral vascular diseases; R60.0 Localized edema
CPT/HCPCS: 93923; 93970

== ENCOUNTER 2022-01-17 09:15 | Outpatient (RCR) | payer MEDICARE, SELFPAY ==
[2021-12-20 01:16] VITALS: BP 159/94; PULSE 107; RESP 20; TEMP 36.3; BMI 39.9
[2021-12-20 08:50] VITALS: RESP 20; TEMP 36.2; BMI 39.9
--- NOTE | 2021-12-20 09:44 | PCM.WC.PN ---
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 He had a lot of soft tissue injury and he went for surgical amputation of the remainder of the hallux. He denies redness, odor, fever, chill, nausea, vomiting. He also had a chronic intermittent left leg ulcer the past couple of years and has chronic swelling. He denies claudication. He reports prior right hip injury with reduction in right lower extremity limb with atrophy. This contributes to his gait abnormalities. He has chronic intermittent limb edema that is worse on the left lower extremity. His venous doppler with reflux evaluation is scheduled for 01/12/22. Progress of Wound: improving leg stable foot x 2 Objective Data Objective Data Vital Signs: Vital Signs Temp Pulse Resp BP 97.2 F L 107 H 20 H 159/94 H 12/20/21 08:50 12/20/21 01:16 12/20/21 08:50 12/20/21 01:16 Oxygen Delivery Method Room Air Weight: 145.15 kg Body Mass Index (BMI) 39.9 Physical Exam Const alert, oriented x3 and no apparent distress General Appearance: cooperative and comfortable Lymph Lymphatic: no lymphedema noted Extremity normal capillary refill and no calf tenderness Extremity Narrative: Vascular: DP and PT pulses are palpable bilaterally. Capillary refill less than 3 seconds to digits 2, 3, 4, and 5 of the left foot. Negative Homans' sign bilaterally. Negative Aleman sign bilaterally. Musculoskeletal: Active range of motion of the lesser toes on the left foot and ankle; no pain today. Compartments are soft to palpation of the lower extremity with no bogginess or fluctuance. No adjacent bogginess or fluctuance on palpation about the surgical site. Derm: Left lower extremity edema secondary to chronic venous insufficiency with brawny discoloration of the lower extremity with hemosiderin deposition. There is one reduced size superficial leg ulceration likely secondary to his chronic venous insufficiency, lateral leg with no localized signs of infection. Ulcerative sites demonstrate serosanguineous drainage as noted by strikethrough to the dressing. the prior ulcer secondary to injury laceration is now healed with full epithelialization Left foot hallux amputation site demonstrates intact sutures with well coapted incision and no erythema, no purulent drainage, no malodor or other localized signs of infection. Left foot demonstrates mild nonpitting edema no gapping noted upon suture removal and there are medial and distal skin discontinuities remaining with granular and fibrous bases. General Extremity: Negative for calf tenderness Neuro oriented x3 Debridement Note Debridement Note Wound debrided: left leg, left medial foot, left distal foot at surgical site Wound Grade/Stage: Type of Debridement: Excisional debridement Anesthesia Used: 4% Lidocaine Solution Depth: in the subcutaneous layer Percentage of wound debrided: 100 Instrument Used: #15 blade Tissue Removed: fibrous, devitalized subcutaneous, biofilm, slough Severity: Fat Layer Exposed Amount of bleeding with debridement: Mild Bleeding Controlled with: Pressure Patient tolerated procedure: Patient tolerated procedure well Post-Debridement Measurements and Additional Note: Post-Debridement Measurements/Treatment - Nurse 1 - General Ulcer Assessment Start: 12/20/21 08:50 Freq: Status: Active Protocol: MERVIN Activity Type Activity Date Activity User E-Sign Co-Sign Detail Recorded Client Recorded Date Recorded By Document 12/20/21 08:50 [facility] Desktop 12/20/21 09:05 [facility] 12/20/21 08:50 - Today's Visit Information Type of service Follow-up Visit (Physician/MAINTENANCE HELPER ) Arrival Mode Ambulatory,Cane Transfer Assistance None Patient Identification Verified (Name & Yes ) Patient Requires Transmission-Based No Precautions Height and Weight Body Mass Index (BMI) 39.9 BMI Classification Obese Vital Signs Temperature (97.8 F-99.1 F) 97.2 F L Temperature Source Temporal Pulse Location Monitor Respiratory Rate (12-18) 20 H Respiratory rate source Observation Oxygen Delivery Method Room Air Source Monitor Position Sitting Blood Pressure Location Left Arm History Since Last Visit- (Skip if this is Patient's initial visit) Have you changed medications since your No last visit? Any new allergies or adverse reactions No Had a fall/change in ADL's that may No increase risk of falls Signs or symptoms of abuse and/or No neglect since last visit Have you been in the hospital since your No last visit? Has dressing in place as prescribed Yes Has compression in place as prescribed Yes Has offloadiing in place as prescribed Yes Experienced any changes in pain level or No management Left Footwear Surgical Shoe with pressure relief insole Right Footwear Regular Shoe Pain Scale: 0-10 Numeric Is Patient Pain Free? Yes WC - Nurse 1 - General Ulcer Measurement Start: 12/20/21 08:50 Freq: Status: Active Protocol: Activity Type Activity Date Activity User E-Sign Co-Sign Detail Recorded Client Recorded Date Recorded By Document 12/20/21 08:50 [facility] Desktop 12/20/21 09:05 [facility] 12/20/21 08:50 Wound Center Nurse 1 3-left postop distal ulcer foot -Combined with other wound No -Current Size (cm) - Length 0.1 -Current Size (cm) - Width 0.1 -Current Size (cm) - Depth 0.1 -Total Square Cm 0.01 -Date of Last Picture (Recall this 12/20/21 field) -Photo Taken Yes -Epithelialization Large 67-100% -Tunneling No -Undermining/Tunneling No -Circular Undermining No -Exudate Amt None Present -Wound Margin Distinct, Outline Attached -Slough/Fibrin Yes -Necrosis Amt Small (1-33%) -Necrotic Tissue Type Adherent Slough -Texture (Tracy-wound Skin Appearance) Assessed, Localized Edema ,Scarring -Moisture (Tracy-wound Skin Appearance) Assessed -Color (Tracy-wound Skin Appearance) Assessed -Temperature (Tracy-wound Skin No Abnormality Appearance) (Pt Warm) -Tenderness on Palpation (Tracy-wound No Skin Appearance) -Ulcer Cleansing Soap and Water -Foul Odor after Cleansing No -Anesthetic Used 4% Lidocaine Solution #2- L LAT LE CLUSTER -Combined with other wound No -Current Size (cm) - Length 3.6 -Current Size (cm) - Width 0.4 -Current Size (cm) - Depth 0.1 -Total Square Cm 1.44 -Date of Last Picture (Recall this 12/20/21 field) -Photo Taken Yes -Epithelialization Small 1-33% -Tunneling No -Undermining/Tunneling No -Exudate Amt Small -Exudate Type Serous -Wound Margin Distinct, Outline Attached -Granulation Amt None Present (0 %) -Slough/Fibrin Yes -Necrosis Amt Large (67-100%) -Necrotic Tissue Type Adherent Slough -Texture (Tracy-wound Skin Appearance) Assessed, Scarring -Moisture (Tracy-wound Skin Appearance) Assessed -Color (Tracy-wound Skin Appearance) Assessed, Hemosiderin Staining -Temperature (Tracy-wound Skin No Abnormality Appearance) (Pt Warm) -Tenderness on Palpation (Tracy-wound No Skin Appearance) -Ulcer Cleansing Soap and Water -Foul Odor after Cleansing No -Anesthetic Used 4% Lidocaine Solution #1- L post-op medial SITE -Combined with other wound No -Current Size (cm) - Length 0.4 -Current Size (cm) - Width 0.4 -Current Size (cm) - Depth 0.1 -Total Square Cm 0.16 -Date of Last Picture (Recall this 12/20/21 field) -Photo Taken Yes -Epithelialization Small 1-33% -Tunneling No -Undermining/Tunneling No -Circular Undermining No -Exudate Amt Small -Exudate Type Serous -Wound Margin Distinct, Outline Attached -Granulation Amt Small (1-33%) -Granulation Quality Red -Slough/Fibrin Yes -Necrosis Amt Medium (34-66%) -Necrotic Tissue Type Adherent Slough -Texture (Tracy-wound Skin Appearance) Assessed, Localized Edema ,Scarring -Moisture (Tracy-wound Skin Appearance) Assessed -Color (Tracy-wound Skin Appearance) Assessed -Temperature (Tracy-wound Skin No Abnormality Appearance) (Pt Warm) -Tenderness on Palpation (Tracy-wound No Skin Appearance) -Ulcer Cleansing Soap and Water -Foul Odor after Cleansing No -Anesthetic Used 4% Lidocaine Solution Lower Limb Edema Present Yes Left Calf (cm) 47.3 Left Ankle (cm) 26.8 WC - Nurse 2 - General Ulcer CM Notes Start: 12/20/21 08:50 Freq: Status: Active Protocol: Activity Type Activity Date Activity User E-Sign Co-Sign Detail Recorded Client Recorded Date Recorded By Document 12/20/21 09:39 [id number] 12/20/21 09:43 ARON 12/20/21 09:39 Wound Center Nurse 2 3-left postop distal ulcer foot -Time 09:39 -Correct Patient Yes -Correct Side, Site, Position Yes -Correct Procedure Yes -Procedure Performed Yes -Type of Procedure Debridement -Clinical Debridement Subcutaneous -Tissue Removed Subcutaneous -Post Debridement (cm) - Length 0.3 -Post Debridement (cm) - Width 0.2 -Post Debridement (cm) - Depth 0.1 -Total Square (Post) (cm) 0.06 -Area of Debridement (cm) - Length 0.3 -Area of Debridement (cm) - Width 0.2 -Total Square (Area) (cm) 0.06 -Tunneling No -Undermining/Tunneling No -Circular Undermining No -Wound/Ulcer Outcome Not Healed -Ulcer Cleansing Rinsed/ Irrigated with Saline -Foul Odor after Cleansing No -Bioengineered Tissue No -Bleeding Controlled with Pressure -Treatment Response Procedure Tolerated Well -Offloading Yes -Type of Offloading Surgical Shoe -Debridement - Subq, 1st 20sq cm No #2- L LAT LE CLUSTER -Time 09:40 -Correct Patient Yes -Correct Side, Site, Position Yes -Correct Procedure Yes -Procedure Performed Yes -Type of Procedure Debridement -Clinical Debridement Subcutaneous -Tissue Removed Subcutaneous -Post Debridement (cm) - Length 2.3 -Post Debridement (cm) - Width 1.0 -Post Debridement (cm) - Depth 0.1 -Total Square (Post) (cm) 2.30 -Area of Debridement (cm) - Length 2.3 -Area of Debridement (cm) - Width 1.0 -Total Square (Area) (cm) 2.30 -Tunneling No -Undermining/Tunneling No -Circular Undermining No -Wound/Ulcer Outcome Not Healed -Ulcer Cleansing Rinsed/ Irrigated with Saline -Foul Odor after Cleansing No -Bioengineered Tissue No -Bleeding Controlled with Pressure -Treatment Response Procedure Tolerated Well -Offloading Yes -Type of Offloading Surgical Shoe -Debridement - Subq, 1st 20sq cm No #1- L post-op medial SITE -Time 09:41 -Correct Patient Yes -Correct Side, Site, Position Yes -Correct Procedure Yes -Procedure Performed Yes -Type of Procedure Debridement -Clinical Debridement Subcutaneous -Tissue Removed Subcutaneous -Post Debridement (cm) - Length 0.8 -Post Debridement (cm) - Width 0.3 -Post Debridement (cm) - Depth 0.1 -Total Square (Post) (cm) 0.24 -Area of Debridement (cm) - Length 0.8 -Area of Debridement (cm) - Width 0.3 -Total Square (Area) (cm) 0.24 -Tunneling No -Undermining/Tunneling No -Circular Undermining No -Wound/Ulcer Outcome Not Healed -Ulcer Cleansing Rinsed/ Irrigated with Saline -Foul Odor after Cleansing No -Bioengineered Tissue No -Bleeding Controlled with Pressure -Treatment Response Procedure Tolerated Well -Offloading Yes -Type of Offloading Surgical Shoe -Debridement - Subq, 1st 20sq cm Yes Pain Scale: 0-10 Numeric Is Patient Pain Free? Yes Assessment/Plan Assessment/Plan (1) Chronic ulcer of left leg with fat layer exposed: CODE(S): L97.922 - Non-pressure chronic ulcer of unspecified part of left lower leg with fat layer exposed (2) Localized edema: CODE(S): R60.0 - Localized edema (3) Other specified peripheral vascular diseases: CODE(S): I73.89 - Other specified peripheral vascular diseases (4) Venous insufficiency (chronic) (peripheral): CODE(S): I87.2 - Venous insufficiency (chronic) (peripheral) (5) Crush injury of left foot: CODE(S): S97.82XA - Crushing injury of left foot, initial encounter (6) Chronic ulcer of left foot with fat layer exposed: CODE(S): L97.522 - Non-pressure chronic ulcer of other part of left foot with fat layer exposed PLAN: Patient seen and evaluated. I discussed his case with him today. He is afebrile and vitals are stable. ulcers debrided as noted in clinical panel. The following work-up and care recommendations were made: Dressing: He is to keep his dressings clean dry and intact to the left foot. Hydrogel / Adaptic placed to left lower leg extremity ulceration sites of leg and foot. Offloading: He may bear weight to the left heel with a surgical shoe and use of an assistive device. His gait has improved since he resided in transitional care unit for additional rehabilitation services. Edema: Elevate both lower extremities at times of rest and keep Rowdy wrap intact to left foot. Doppler with venous reflux exam was ordered to work up for diagnosis of venous insufficiency. Infection: No localized signs of infection are present at this time however he will continue to be monitored for any changes. Cultures demonstrated scant staph (No MRSA), likely skin contamination. He has completed course of IV Ancef for treatment of open fracture. Additional antibiotics will be considered if localized signs of infection develop. This is not noted today. Pain: Pain medications including oxycodone and morphine have been ordered and will be taken as needed. Vascular: arterial studies ordered to rule in or out arterial perfusion issues. Diagnostic data: CBC and CMP reviewed from 11-29-2021 without gross pertinent abnormalities. Host factors: Sung nutritional supplementation has been ordered to optimize wound healing. Following his acute injury treatment he is to follow-up with Dr. Marquis in the wound care center for continued care of his venous leg ulcerations with potential further work-up of peripheral vascular disease and venous insufficiency, this will be completed in an outpatient setting. Medical management: Dr. Lopez following, this is greatly appreciated. Note: [employer] speech recognition instrument repairer software was used to create portions of this document. Sound-alike and misspelled words, as well as other instrument repairer errors may be contained in the documentation.
[2021-12-27 09:27] VITALS: BP 149/83; PULSE 98; RESP 18; TEMP 36.3; BMI 39.9
--- NOTE | 2021-12-27 15:22 | PCM.WC.PN ---
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 He had a lot of soft tissue injury and he went for surgical amputation of the remainder of the hallux. He denies redness, odor, fever, chill, nausea, vomiting. He also had a chronic intermittent left leg ulcer the past couple of years and has chronic swelling. He denies claudication. He reports prior right hip injury with reduction in right lower extremity limb with atrophy. This contributes to his gait abnormalities. He has chronic intermittent limb edema that is worse on the left lower extremity. His venous doppler with reflux evaluation is scheduled for 01/12/22. His leg ulcer is no longer draining and he thinks this site has healed. Progress of Wound: healed leg improving foot x 2 Objective Data Objective Data Vital Signs: Vital Signs Temp Pulse Resp BP 97.3 F L 98 18 149/83 H 12/27/21 09:27 12/27/21 09:27 12/27/21 09:27 12/27/21 09:27 Oxygen Delivery Method Room Air Weight: 145.15 kg Body Mass Index (BMI) 39.9 Physical Exam Const alert, oriented x3 and no apparent distress General Appearance: cooperative and comfortable Lymph Lymphatic: no lymphedema noted Extremity normal capillary refill and no calf tenderness Extremity Narrative: Vascular: DP and PT pulses are palpable bilaterally. Capillary refill less than 3 seconds to digits 2, 3, 4, and 5 of the left foot. Negative Homans' sign bilaterally. Negative Aleman sign bilaterally. Musculoskeletal: Active range of motion of the lesser toes on the left foot and ankle; no pain today. Compartments are soft to palpation of the lower extremity with no bogginess or fluctuance. No adjacent bogginess or fluctuance on palpation about the surgical site. Derm: Left lower extremity edema secondary to chronic venous insufficiency with brawny discoloration of the lower extremity with hemosiderin deposition. leg ulcer is healed with full epithelialization Left foot hallux amputation site demonstrates intact sutures with well coapted incision and no erythema, no purulent drainage, no malodor or other localized signs of infection. Left foot demonstrates mild nonpitting edema no gapping noted upon suture removal and there are medial and distal skin discontinuities remaining with granular and fibrous bases. General Extremity: Negative for calf tenderness Neuro oriented x3 Debridement Note Debridement Note Wound debrided: left foot medial and distal Wound Grade/Stage: 1 Type of Debridement: Excisional debridement Anesthesia Used: 4% Lidocaine Solution Depth: in the subcutaneous layer Percentage of wound debrided: 100 Instrument Used: #15 blade Tissue Removed: fibrous, devitalized subcutaneous, biofilm, slough Severity: Fat Layer Exposed Amount of bleeding with debridement: Mild Bleeding Controlled with: Pressure Patient tolerated procedure: Patient tolerated procedure well Post-Debridement Measurements and Additional Note: Post-Debridement Measurements/Treatment - Nurse 1 - General Ulcer Assessment Start: 12/20/21 08:50 Freq: Status: Active Protocol: ELVIA Activity Type Activity Date Activity User E-Sign Co-Sign Detail Recorded Client Recorded Date Recorded By Document 12/20/21 08:50 [facility] Desktop 12/20/21 09:05 [facility] Document 12/27/21 09:27 [id number] 12/27/21 09:42 RB 12/20/21 12/27/21 08:50 09:27 - Today's Visit Information Type of service Follow-up Visit Follow-up Visit (Physician/TRUST ADMINISTRATIVE ASSISTANT (Physician/TRUST ADMINISTRATIVE ASSISTANT ) ) Arrival Mode Ambulatory,Cane Ambulatory Transfer Assistance None None Patient Identification Verified (Name & Yes Yes ) Patient Requires Transmission-Based No No Precautions Height and Weight Body Mass Index (BMI) 39.9 39.9 BMI Classification Obese Obese Vital Signs Temperature (97.8 F-99.1 F) 97.2 F L 97.3 F L Temperature Source Temporal Temporal Pulse Rate (60-100) 98 Pulse Location Monitor Monitor Respiratory Rate (12-18) 20 H 18 Respiratory rate source Observation Observation Oxygen Delivery Method Room Air Blood Pressure (90/60-120/80) 149/83 H Blood Pressure Mean (mm Hg) 105 Source Monitor Monitor Position Sitting Semi-Fowlers Blood Pressure Location Left Arm Left Arm History Since Last Visit- (Skip if this is Patient's initial visit) Have you changed medications since your No No last visit? Any new allergies or adverse reactions No No Had a fall/change in ADL's that may No No increase risk of falls Signs or symptoms of abuse and/or No No neglect since last visit Have you been in the hospital since your No No last visit? Has dressing in place as prescribed Yes Yes Has compression in place as prescribed Yes Yes Has offloadiing in place as prescribed Yes Yes Experienced any changes in pain level or No No management Left Footwear Surgical Shoe Regular Shoe with pressure relief insole Right Footwear Regular Shoe Regular Shoe Pain Scale: 0-10 Numeric Is Patient Pain Free? Yes Yes WC - Nurse 1 - General Ulcer Measurement Start: 12/20/21 08:50 Freq: Status: Active Protocol: Activity Type Activity Date Activity User E-Sign Co-Sign Detail Recorded Client Recorded Date Recorded By Document 12/20/21 08:50 [facility] Desktop 12/20/21 09:05 BM Document 12/27/21 09:27 RB [id number] 12/27/21 09:42 RB 12/20/21 12/27/21 08:50 09:27 Wound Center Nurse 1 3-left postop distal ulcer foot -Combined with other wound No No -Current Size (cm) - Length 0.1 0.8 -Current Size (cm) - Width 0.1 0.3 -Current Size (cm) - Depth 0.1 0.2 -Total Square Cm 0.01 0.24 -Date of Last Picture (Recall this 12/20/21 field) -Photo Taken Yes Yes -Epithelialization Large 67-100% -Tunneling No No -Undermining/Tunneling No No -Circular Undermining No -Exudate Amt None Present Medium -Exudate Type Serosanguineous -Wound Margin Distinct, Distinct, Outline Outline Attached Attached -Granulation Amt Medium (34-66%) -Granulation Quality Mcneil -Slough/Fibrin Yes Yes -Necrosis Amt Small (1-33%) Small (1-33%) -Necrotic Tissue Type Adherent Slough Adherent Slough -Structure Exposed N/A -Texture (Tracy-wound Skin Appearance) Assessed, Assessed, Localized Edema Scarring ,Scarring -Moisture (Tracy-wound Skin Appearance) Assessed Assessed -Color (Tracy-wound Skin Appearance) Assessed Assessed -Temperature (Tracy-wound Skin No Abnormality No Abnormality Appearance) (Pt Warm) (Pt Warm) -Tenderness on Palpation (Tracy-wound No No Skin Appearance) -Ulcer Cleansing Soap and Water Wound Cleanser -Foul Odor after Cleansing No No -Anesthetic Used 4% Lidocaine 5% Lidocaine Solution Gel #2- L LAT LE CLUSTER -Combined with other wound No No -Current Size (cm) - Length 3.6 0 -Current Size (cm) - Width 0.4 0 -Current Size (cm) - Depth 0.1 0 -Total Square Cm 1.44 0 -Date of Last Picture (Recall this 12/20/21 field) -Photo Taken Yes Yes -Epithelialization Small 1-33% Large 67-100% -Tunneling No -Undermining/Tunneling No -Exudate Amt Small -Exudate Type Serous -Wound Margin Distinct, Outline Attached -Granulation Amt None Present (0 %) -Slough/Fibrin Yes -Necrosis Amt Large (67-100%) -Necrotic Tissue Type Adherent Slough -Texture (Tracy-wound Skin Appearance) Assessed, Scarring -Moisture (Tracy-wound Skin Appearance) Assessed -Color (Tracy-wound Skin Appearance) Assessed, Hemosiderin Staining -Temperature (Tracy-wound Skin No Abnormality Appearance) (Pt Warm) -Tenderness on Palpation (Tracy-wound No Skin Appearance) -Ulcer Cleansing Soap and Water -Foul Odor after Cleansing No -Anesthetic Used 4% Lidocaine Solution #1- L post-op medial SITE -Combined with other wound No No -Current Size (cm) - Length 0.4 0.1 -Current Size (cm) - Width 0.4 0.1 -Current Size (cm) - Depth 0.1 0.1 -Total Square Cm 0.16 0.01 -Date of Last Picture (Recall this 12/20/21 field) -Photo Taken Yes Yes -Epithelialization Small 1-33% -Tunneling No -Undermining/Tunneling No -Circular Undermining No -Exudate Amt Small -Exudate Type Serous -Wound Margin Distinct, Outline Attached -Granulation Amt Small (1-33%) -Granulation Quality Red -Slough/Fibrin Yes -Necrosis Amt Medium (34-66%) -Necrotic Tissue Type Adherent Slough -Texture (Tracy-wound Skin Appearance) Assessed, Localized Edema ,Scarring -Moisture (Tracy-wound Skin Appearance) Assessed -Color (Tracy-wound Skin Appearance) Assessed -Temperature (Tracy-wound Skin No Abnormality Appearance) (Pt Warm) -Tenderness on Palpation (Tracy-wound No Skin Appearance) -Ulcer Cleansing Soap and Water -Foul Odor after Cleansing No -Anesthetic Used 4% Lidocaine Solution Lower Limb Edema Present Yes Left Calf (cm) 47.3 Left Ankle (cm) 26.8 WC - Nurse 2 - General Ulcer CM Notes Start: 12/20/21 08:50 Freq: Status: Active Protocol: Activity Type Activity Date Activity User E-Sign Co-Sign Detail Recorded Client Recorded Date Recorded By Document 12/20/21 09:39 [id number] 12/20/21 09:43 Document 12/27/21 09:45 [id number] 12/27/21 09:48 12/20/21 12/27/21 09:39 09:45 Wound Center Nurse 2 3-left postop distal ulcer foot -Time 09:39 09:46 -Correct Patient Yes Yes -Correct Side, Site, Position Yes Yes -Correct Procedure Yes Yes -Procedure Performed Yes Yes -Type of Procedure Debridement Debridement -Clinical Debridement Subcutaneous Subcutaneous -Tissue Removed Subcutaneous Subcutaneous -Post Debridement (cm) - Length 0.3 0.5 -Post Debridement (cm) - Width 0.2 0.9 -Post Debridement (cm) - Depth 0.1 0.1 -Total Square (Post) (cm) 0.06 0.45 -Area of Debridement (cm) - Length 0.3 0.5 -Area of Debridement (cm) - Width 0.2 0.9 -Total Square (Area) (cm) 0.06 0.45 -Tunneling No No -Undermining/Tunneling No No -Circular Undermining No No -Wound/Ulcer Outcome Not Healed Not Healed -Ulcer Cleansing Rinsed/ Rinsed/ Irrigated with Irrigated with Saline Saline -Foul Odor after Cleansing No No -Bioengineered Tissue No No -Bleeding Controlled with Pressure Pressure -Treatment Response Procedure Procedure Tolerated Well Tolerated Well -Offloading Yes Yes -Type of Offloading Surgical Shoe Surgical Shoe -Debridement - Subq, 1st 20sq cm No Yes #2- L LAT LE CLUSTER -Time 09:40 -Correct Patient Yes No -Correct Side, Site, Position Yes No -Correct Procedure Yes No -Procedure Performed Yes No -Type of Procedure Debridement -Clinical Debridement Subcutaneous -Tissue Removed Subcutaneous -Post Debridement (cm) - Length 2.3 0 -Post Debridement (cm) - Width 1.0 0 -Post Debridement (cm) - Depth 0.1 0 -Total Square (Post) (cm) 2.30 0 -Area of Debridement (cm) - Length 2.3 0 -Area of Debridement (cm) - Width 1.0 0 -Total Square (Area) (cm) 2.30 0 -Tunneling No -Undermining/Tunneling No -Circular Undermining No -Wound/Ulcer Outcome Not Healed Healed- Epithelialized -Ulcer Cleansing Rinsed/ Irrigated with Saline -Foul Odor after Cleansing No -Bioengineered Tissue No -Bleeding Controlled with Pressure Pressure -Treatment Response Procedure Procedure Tolerated Well Tolerated Well -Offloading Yes No -Type of Offloading Surgical Shoe -Debridement - Subq, 1st 20sq cm No No #1- L post-op medial SITE -Time 09:41 09:47 -Correct Patient Yes Yes -Correct Side, Site, Position Yes Yes -Correct Procedure Yes Yes -Procedure Performed Yes Yes -Type of Procedure Debridement Debridement -Clinical Debridement Subcutaneous Subcutaneous -Tissue Removed Subcutaneous Subcutaneous -Post Debridement (cm) - Length 0.8 0.6 -Post Debridement (cm) - Width 0.3 0.2 -Post Debridement (cm) - Depth 0.1 0.2 -Total Square (Post) (cm) 0.24 0.12 -Area of Debridement (cm) - Length 0.8 0.6 -Area of Debridement (cm) - Width 0.3 0.2 -Total Square (Area) (cm) 0.24 0.12 -Tunneling No No -Undermining/Tunneling No No -Circular Undermining No No -Wound/Ulcer Outcome Not Healed Not Healed -Ulcer Cleansing Rinsed/ Rinsed/ Irrigated with Irrigated with Saline Saline -Foul Odor after Cleansing No No -Bioengineered Tissue No No -Bleeding Controlled with Pressure Pressure -Treatment Response Procedure Procedure Tolerated Well Tolerated Well -Offloading Yes Yes -Type of Offloading Surgical Shoe Surgical Shoe -Debridement - Subq, 1st 20sq cm Yes No Pain Scale: 0-10 Numeric Is Patient Pain Free? Yes Yes WC - Nurse 3 - General Ulcer D/C NN Start: 12/20/21 08:50 Freq: Status: Active Protocol: Activity Type Activity Date Activity User E-Sign Co-Sign Detail Recorded Client Recorded Date Recorded By Document 12/20/21 10:01 ESTEFANI [id number] 12/20/21 10:02 RB Document 12/27/21 09:59 RB [id number] 12/27/21 09:59 RB 12/20/21 12/27/21 10:01 09:59 Wound Care Nurse 3 3-left postop distal ulcer foot -Ulcer Cleansing Rinsed/ Rinsed/ Irrigated with Irrigated with Saline Saline -Primary Dressing Applied NonAdherent C Hydrogel ($) Contact Layer -Other Dressing hydrogel -Primary Dressing Covered/Secured with Dry Gauze,Dry Dry Gauze, Gauze & Roll Secured with Gauze,Secured Tape with Tape #2- L LAT LE CLUSTER -Primary Dressing Applied NonAdherent Contact Layer -Other Dressing hydrogel -Primary Dressing Covered/Secured with Dry Gauze,Dry Gauze & Roll Gauze,Secured with Tape #1- L post-op medial SITE -Primary Dressing Applied NonAdherent Contact Layer -Other Dressing hydrogel hydrogel -Primary Dressing Covered/Secured with Dry Gauze,Dry Dry Gauze, Gauze & Roll Secured with Gauze,Secured Tape with Tape Left -Tubular Bandage Double Layer Double Layer -Size of Tubigrip Used Size E Size E -Size E ($) 2 2 Treatment Response Procedure Procedure Tolerated Well Tolerated Well Pain Scale: 0-10 Numeric Is Patient Pain Free? Yes Yes WC - Visit Discharge Discharge Condition Stable Stable Ambulatory Status Ambulatory,Cane Ambulatory,Cane Transportation Private Auto Private Auto Medication Reconcilliation completed & No No provided to patient/care provider Clinical Summary of Care Provided Yes Yes Assessment/Plan Assessment/Plan (1) Chronic ulcer of left leg with fat layer exposed: CODE(S): L97.922 - Non-pressure chronic ulcer of unspecified part of left lower leg with fat layer exposed (2) Localized edema: CODE(S): R60.0 - Localized edema (3) Other specified peripheral vascular diseases: CODE(S): I73.89 - Other specified peripheral vascular diseases (4) Venous insufficiency (chronic) (peripheral): CODE(S): I87.2 - Venous insufficiency (chronic) (peripheral) (5) Crush injury of left foot: CODE(S): S97.82XA - Crushing injury of left foot, initial encounter (6) Chronic ulcer of left foot with fat layer exposed: CODE(S): L97.522 - Non-pressure chronic ulcer of other part of left foot with fat layer exposed PLAN: Patient seen and evaluated. I discussed his case with him today. He is afebrile and vitals are stable. ulcers debrided as noted in clinical panel. The following work-up and care recommendations were made: Dressing: He is to keep his dressings clean dry and intact to the left foot. d/c leg dressing due to healed status. Offloading: He may bear weight to the left heel with a surgical shoe and use of an assistive device. His gait has improved since he resided in transitional care unit for additional rehabilitation services. Edema: Elevate both lower extremities at times of rest and keep Rowdy wrap intact to left foot. Doppler with venous reflux exam was ordered to work up for diagnosis of venous insufficiency.To get as scheduled. Infection: No localized signs of infection are present at this time however he will continue to be monitored for any changes. Cultures demonstrated scant staph (No MRSA), likely skin contamination. He has completed course of IV Ancef for treatment of open fracture. Additional antibiotics will be considered if localized signs of infection develop. This is not noted today. Pain: Pain medications including oxycodone and morphine have been ordered and will be taken as needed. Vascular: arterial studies ordered to rule in or out arterial perfusion issues. Diagnostic data: CBC and CMP reviewed from 11-29-2021 without gross pertinent abnormalities. Host factors: Sung nutritional supplementation has been ordered to optimize wound healing. Note: CX speech recognition machinist supervisor outside software was used to create portions of this document. Sound-alike and misspelled words, as well as other machinist supervisor outside errors may be contained in the documentation.
[2022-01-10 09:18] VITALS: BP 175/103; PULSE 107; RESP 18; TEMP 37.3; BMI 39.9
--- NOTE | 2022-01-10 11:04 | PCM.WC.PN ---
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 He had a lot of soft tissue injury and he went for surgical amputation of the remainder of the hallux. He denies redness, odor, fever, chill, nausea, vomiting. He also had a chronic intermittent left leg ulcer the past couple of years and has chronic swelling. He denies claudication. He reports prior right hip injury with reduction in right lower extremity limb with atrophy. This contributes to his gait abnormalities. He has chronic intermittent limb edema that is worse on the left lower extremity. His venous doppler with reflux evaluation is scheduled for 01/12/22. His leg ulcer is no longer draining and this site has healed. He wears left foot surgical shoe. Progress of Wound: healed leg improving foot x 2 Objective Data Objective Data Vital Signs: Vital Signs Temp Pulse Resp BP 99.1 F 107 H 18 175/103 H 01/10/22 09:18 01/10/22 09:18 01/10/22 09:18 01/10/22 09:18 Oxygen Delivery Method Room Air Weight: 145.15 kg Body Mass Index (BMI) 39.9 Physical Exam Const alert, oriented x3 and no apparent distress General Appearance: cooperative and comfortable Lymph Lymphatic: no lymphedema noted Extremity normal capillary refill and no calf tenderness Extremity Narrative: Vascular: DP and PT pulses are palpable bilaterally. Capillary refill less than 3 seconds to digits 2, 3, 4, and 5 of the left foot. Negative Homans' sign bilaterally. Negative Aleman sign bilaterally. Musculoskeletal: Active range of motion of the lesser toes on the left foot and ankle; no pain today. Compartments are soft to palpation of the lower extremity with no bogginess or fluctuance. No adjacent bogginess or fluctuance on palpation about the surgical site. Derm: Left lower extremity edema secondary to chronic venous insufficiency with brawny discoloration of the lower extremity with hemosiderin deposition. leg ulcer is healed with full epithelialization Left foot hallux amputation site demonstrates intact sutures with well coapted incision and no erythema, no purulent drainage, no malodor or other localized signs of infection. Left foot demonstrates mild nonpitting edema no gapping noted upon suture removal and there are medial and distal skin discontinuities remaining with granular and fibrous bases. General Extremity: Negative for calf tenderness Neuro oriented x3 Debridement Note Debridement Note Wound debrided: left foot medial and distal Wound Grade/Stage: 1 Type of Debridement: Excisional debridement Anesthesia Used: 4% Lidocaine Solution Depth: in the subcutaneous layer Percentage of wound debrided: 100 Instrument Used: #15 blade Tissue Removed: fibrous, devitalized subcutaneous, biofilm, slough Severity: Fat Layer Exposed Amount of bleeding with debridement: Mild Bleeding Controlled with: Pressure Patient tolerated procedure: Patient tolerated procedure well Post-Debridement Measurements and Additional Note: Post-Debridement Measurements/Treatment - Nurse 1 - General Ulcer Assessment Start: 12/20/21 08:50 Freq: Status: Active Protocol: MERVIN Activity Type Activity Date Activity User E-sign Co-sign Detail Recorded Client Recorded Date Recorded By Document 12/20/21 08:50 [facility] Desktop 12/20/21 09:05 [facility] Document 12/27/21 09:27 RB [id number] 12/27/21 09:42 RB Document 01/10/22 09:18 DL [id number] 01/10/22 09:26 DL 12/20/21 12/27/21 01/10/22 08:50 09:27 09:18 - Today's Visit Information Type of service Follow-up Visit Follow-up Visit Follow-up Visit (Physician/LEAD JAVA DEVELOPER ARCHITECT (Physician/LEAD JAVA DEVELOPER ARCHITECT (Physician/LEAD JAVA DEVELOPER ARCHITECT ) ) ) Arrival Mode Ambulatory,Cane Ambulatory Ambulatory Transfer Assistance None None None Patient Identification Verified (Name & Yes Yes Yes ) Patient Requires Transmission-Based No No No Precautions Height and Weight Body Mass Index (BMI) 39.9 39.9 39.9 BMI Classification Obese Obese Obese Vital Signs Temperature (97.8 F-99.1 F) 97.2 F L 97.3 F L 99.1 F Temperature Source Temporal Temporal Temporal Pulse Rate (60-100) 98 107 H Pulse Location Monitor Monitor Monitor Respiratory Rate (12-18) 20 H 18 18 Respiratory rate source Observation Observation Observation Oxygen Delivery Method Room Air Blood Pressure (90/60-120/80) 149/83 H 175/103 H Blood Pressure Mean (mm Hg) 105 127 Source Monitor Monitor Monitor Position Sitting Semi-Fowlers Blood Pressure Location Left Arm Left Arm History Since Last Visit- (Skip if this is Patient's initial visit) Have you changed medications since your No No No last visit? Any new allergies or adverse reactions No No No Had a fall/change in ADL's that may No No No increase risk of falls Signs or symptoms of abuse and/or No No No neglect since last visit Have you been in the hospital since your No No No last visit? Has dressing in place as prescribed Yes Yes Yes Has compression in place as prescribed Yes Yes Yes Has offloadiing in place as prescribed Yes Yes Yes Experienced any changes in pain level or No No No management Left Footwear Surgical Shoe Regular Shoe Surgical Shoe with pressure with pressure relief insole relief insole Right Footwear Regular Shoe Regular Shoe Pain Scale: 0-10 Numeric Is Patient Pain Free? Yes Yes Yes WC - Nurse 1 - General Ulcer Measurement Start: 12/20/21 08:50 Freq: Status: Active Protocol: Activity Type Activity Date Activity User E-sign Co-sign Detail Recorded Client Recorded Date Recorded By Document 12/20/21 08:50 [facility] Desktop 12/20/21 09:05 [facility] Document 12/27/21 09:27 RB [id number] 12/27/21 09:42 RB Document 01/10/22 09:18 DL [id number] 01/10/22 09:26 DL 12/20/21 12/27/21 01/10/22 08:50 09:27 09:18 Wound Center Nurse 1 #2- L LAT LE CLUSTER -Combined with other wound No No -Current Size (cm) - Length 3.6 0 -Current Size (cm) - Width 0.4 0 -Current Size (cm) - Depth 0.1 0 -Total Square Cm 1.44 0 -Date of Last Picture (Recall this 12/20/21 field) -Photo Taken Yes Yes -Epithelialization Small 1-33% Large 67-100% -Tunneling No -Undermining/Tunneling No -Exudate Amt Small -Exudate Type Serous -Wound Margin Distinct, Outline Attached -Granulation Amt None Present (0 %) -Slough/Fibrin Yes -Necrosis Amt Large (67-100%) -Necrotic Tissue Type Adherent Slough -Texture (Tracy-wound Skin Appearance) Assessed, Scarring -Moisture (Tracy-wound Skin Appearance) Assessed -Color (Tracy-wound Skin Appearance) Assessed, Hemosiderin Staining -Temperature (Tracy-wound Skin No Abnormality Appearance) (Pt Warm) -Tenderness on Palpation (Tracy-wound No Skin Appearance) -Ulcer Cleansing Soap and Water -Foul Odor after Cleansing No -Anesthetic Used 4% Lidocaine Solution 3-left postop distal ulcer foot -Combined with other wound No No -Current Size (cm) - Length 0.1 0.8 0.2 -Current Size (cm) - Width 0.1 0.3 0.2 -Current Size (cm) - Depth 0.1 0.2 0.2 -Total Square Cm 0.01 0.24 0.04 -Date of Last Picture (Recall this 12/20/21 field) -Photo Taken Yes Yes No -Epithelialization Large 67-100% -Tunneling No No -Undermining/Tunneling No No -Circular Undermining No -Exudate Amt None Present Medium None Present -Exudate Type Serosanguineous -Wound Margin Distinct, Distinct, Distinct, Outline Outline Outline Attached Attached Attached -Granulation Amt Medium (34-66%) Small (1-33%) -Granulation Quality [place] -Slough/Fibrin Yes Yes -Necrosis Amt Small (1-33%) Small (1-33%) None Present (0 %) -Necrotic Tissue Type Adherent Slough Adherent Slough -Structure Exposed N/A N/A -Texture (Tracy-wound Skin Appearance) Assessed, Assessed, Scarring Localized Edema Scarring ,Scarring -Moisture (Tracy-wound Skin Appearance) Assessed Assessed Dry/Scaly -Color (Tracy-wound Skin Appearance) Assessed Assessed Hemosiderin Staining -Temperature (Tracy-wound Skin No Abnormality No Abnormality No Abnormality Appearance) (Pt Warm) (Pt Warm) (Pt Warm) -Tenderness on Palpation (Tracy-wound No No No Skin Appearance) -Ulcer Cleansing Soap and Water Wound Cleanser Soap and Water -Foul Odor after Cleansing No No No -Anesthetic Used 4% Lidocaine 5% Lidocaine 5% Lidocaine Solution Gel Gel #1- L post-op medial SITE -Combined with other wound No No -Current Size (cm) - Length 0.4 0.1 0.2 -Current Size (cm) - Width 0.4 0.1 0.2 -Current Size (cm) - Depth 0.1 0.1 0.2 -Total Square Cm 0.16 0.01 0.04 -Date of Last Picture (Recall this 12/20/21 field) -Photo Taken Yes Yes No -Epithelialization Small 1-33% -Tunneling No -Undermining/Tunneling No -Circular Undermining No -Exudate Amt Small None Present -Exudate Type Serous -Wound Margin Distinct, Distinct, Outline Outline Attached Attached -Granulation Amt Small (1-33%) Small (1-33%) -Granulation Quality [place] -Slough/Fibrin Yes -Necrosis Amt Medium (34-66%) Small (1-33%) -Necrotic Tissue Type Adherent Slough Adherent Slough -Structure Exposed N/A -Texture (Tracy-wound Skin Appearance) Assessed, Scarring Localized Edema ,Scarring -Moisture (Tracy-wound Skin Appearance) Assessed Dry/Scaly -Color (Tracy-wound Skin Appearance) Assessed Hemosiderin Staining -Temperature (Tracy-wound Skin No Abnormality No Abnormality Appearance) (Pt Warm) (Pt Warm) -Tenderness on Palpation (Tracy-wound No No Skin Appearance) -Ulcer Cleansing Soap and Water Soap and Water -Foul Odor after Cleansing No No -Anesthetic Used 4% Lidocaine 5% Lidocaine Solution Gel Lower Limb Edema Present Yes Left Calf (cm) 47.3 Left Ankle (cm) 26.8 WC - Nurse 2 - General Ulcer CM Notes Start: 12/20/21 08:50 Freq: Status: Active Protocol: Activity Type Activity Date Activity User E-sign Co-sign Detail Recorded Client Recorded Date Recorded By Document 12/20/21 09:39 [id number] 12/20/21 09:43 Document 12/27/21 09:45 [id number] 12/27/21 09:48 Document 01/10/22 09:49 [id number] 01/10/22 09:51 12/20/21 12/27/21 01/10/22 09:39 09:45 09:49 Wound Center Nurse 2 #2- L LAT LE CLUSTER -Time 09:40 -Correct Patient Yes No -Correct Side, Site, Position Yes No -Correct Procedure Yes No -Procedure Performed Yes No -Type of Procedure Debridement -Clinical Debridement Subcutaneous -Tissue Removed Subcutaneous -Post Debridement (cm) - Length 2.3 0 -Post Debridement (cm) - Width 1.0 0 -Post Debridement (cm) - Depth 0.1 0 -Total Square (Post) (cm) 2.30 0 -Area of Debridement (cm) - Length 2.3 0 -Area of Debridement (cm) - Width 1.0 0 -Total Square (Area) (cm) 2.30 0 -Tunneling No -Undermining/Tunneling No -Circular Undermining No -Wound/Ulcer Outcome Not Healed Healed- Epithelialized -Ulcer Cleansing Rinsed/ Irrigated with Saline -Foul Odor after Cleansing No -Bioengineered Tissue No -Bleeding Controlled with Pressure Pressure -Treatment Response Procedure Procedure Tolerated Well Tolerated Well -Offloading Yes No -Type of Offloading Surgical Shoe -Debridement - Subq, 1st 20sq cm No No 3-left postop distal ulcer foot -Time 09:39 09:46 09:49 -Correct Patient Yes Yes Yes -Correct Side, Site, Position Yes Yes Yes -Correct Procedure Yes Yes Yes -Procedure Performed Yes Yes Yes -Type of Procedure Debridement Debridement Debridement -Clinical Debridement Subcutaneous Subcutaneous Subcutaneous -Tissue Removed Subcutaneous Subcutaneous Subcutaneous -Post Debridement (cm) - Length 0.3 0.5 0.3 -Post Debridement (cm) - Width 0.2 0.9 0.2 -Post Debridement (cm) - Depth 0.1 0.1 0.2 -Total Square (Post) (cm) 0.06 0.45 0.06 -Area of Debridement (cm) - Length 0.3 0.5 0.3 -Area of Debridement (cm) - Width 0.2 0.9 0.2 -Total Square (Area) (cm) 0.06 0.45 0.06 -Tunneling No No No -Undermining/Tunneling No No No -Circular Undermining No No No -Wound/Ulcer Outcome Not Healed Not Healed Not Healed -Ulcer Cleansing Rinsed/ Rinsed/ Rinsed/ Irrigated with Irrigated with Irrigated with Saline Saline Saline -Foul Odor after Cleansing No No No -Bioengineered Tissue No No No -Bleeding Controlled with Pressure Pressure Pressure -Treatment Response Procedure Procedure Procedure Tolerated Well Tolerated Well Tolerated Well -Offloading Yes Yes Yes -Type of Offloading Surgical Shoe Surgical Shoe Surgical Shoe -Debridement - Subq, 1st 20sq cm No Yes Yes #1- L post-op medial SITE -Time 09:41 09:47 09:50 -Correct Patient Yes Yes Yes -Correct Side, Site, Position Yes Yes Yes -Correct Procedure Yes Yes Yes -Procedure Performed Yes Yes Yes -Type of Procedure Debridement Debridement Debridement -Clinical Debridement Subcutaneous Subcutaneous Subcutaneous -Tissue Removed Subcutaneous Subcutaneous Subcutaneous -Post Debridement (cm) - Length 0.8 0.6 0.2 -Post Debridement (cm) - Width 0.3 0.2 0.2 -Post Debridement (cm) - Depth 0.1 0.2 0.1 -Total Square (Post) (cm) 0.24 0.12 0.04 -Area of Debridement (cm) - Length 0.8 0.6 0.2 -Area of Debridement (cm) - Width 0.3 0.2 0.2 -Total Square (Area) (cm) 0.24 0.12 0.04 -Tunneling No No No -Undermining/Tunneling No No No -Circular Undermining No No No -Wound/Ulcer Outcome Not Healed Not Healed Not Healed -Ulcer Cleansing Rinsed/ Rinsed/ Rinsed/ Irrigated with Irrigated with Irrigated with Saline Saline Saline -Foul Odor after Cleansing No No No -Bioengineered Tissue No No No -Bleeding Controlled with Pressure Pressure Pressure -Treatment Response Procedure Procedure Procedure Tolerated Well Tolerated Well Tolerated Well -Offloading Yes Yes Yes -Type of Offloading Surgical Shoe Surgical Shoe Surgical Shoe -Debridement - Subq, 1st 20sq cm Yes No Yes Pain Scale: 0-10 Numeric Is Patient Pain Free? Yes Yes Yes WC - Nurse 3 - General Ulcer D/C NN Start: 12/20/21 08:50 Freq: Status: Active Protocol: Activity Type Activity Date Activity User E-sign Co-sign Detail Recorded Client Recorded Date Recorded By Document 12/20/21 10:01 RB [id number] 12/20/21 10:02 RB Document 12/27/21 09:59 RB [id number] 12/27/21 09:59 RB Document 01/10/22 10:04 RB [id number] 01/10/22 10:05 RB 12/20/21 12/27/21 01/10/22 10:01 09:59 10:04 Wound Care Nurse 3 #2- L LAT LE CLUSTER -Primary Dressing Applied NonAdherent Contact Layer -Other Dressing hydrogel -Primary Dressing Covered/Secured with Dry Gauze,Dry Gauze & Roll Gauze,Secured with Tape 3-left postop distal ulcer foot -Ulcer Cleansing Rinsed/ Rinsed/ Irrigated with Irrigated with Saline Saline -Primary Dressing Applied NonAdherent C Hydrogel ($) Contact Layer -Other Dressing hydrogel hydrogel -Primary Dressing Covered/Secured with Dry Gauze,Dry Dry Gauze, Dry Gauze, Gauze & Roll Secured with Secured with Gauze,Secured Tape Tape with Tape #1- L post-op medial SITE -Primary Dressing Applied NonAdherent Contact Layer -Other Dressing hydrogel hydrogel hydrogel -Primary Dressing Covered/Secured with Dry Gauze,Dry Dry Gauze, Dry Gauze, Gauze & Roll Secured with Secured with Gauze,Secured Tape Tape with Tape Left -Tubular Bandage Double Layer Double Layer Double Layer -Size of Tubigrip Used Size E Size E Size E -Size E ($) 2 2 2 Treatment Response Procedure Procedure Procedure Tolerated Well Tolerated Well Tolerated Well Pain Scale: 0-10 Numeric Is Patient Pain Free? Yes Yes Yes WC - Visit Discharge Discharge Condition Stable Stable Stable Ambulatory Status Ambulatory,Cane Ambulatory,Cane Ambulatory Transportation Private Auto Private Auto Private Auto Medication Reconcilliation completed & No No No provided to patient/care provider Clinical Summary of Care Provided Yes Yes Yes Assessment/Plan Assessment/Plan (1) Localized edema: CODE(S): R60.0 - Localized edema (2) Other specified peripheral vascular diseases: CODE(S): I73.89 - Other specified peripheral vascular diseases (3) Venous insufficiency (chronic) (peripheral): CODE(S): I87.2 - Venous insufficiency (chronic) (peripheral) (4) Crush injury of left foot: CODE(S): S97.82XA - Crushing injury of left foot, initial encounter (5) Chronic ulcer of left foot with fat layer exposed: CODE(S): L97.522 - Non-pressure chronic ulcer of other part of left foot with fat layer exposed PLAN: Plan Patient seen and evaluated. I discussed his case with him today. He is afebrile and vitals are stable. ulcers debrided as noted in clinical panel. The following work-up and care recommendations were made: Dressing: He is to keep his dressings clean dry and intact to the left foot. d/c leg dressing due to healed status. Offloading: He may bear weight to the left heel with a surgical shoe and use of an assistive device. His gait has improved since he resided in transitional care unit for additional rehabilitation services. Dual density offloading Plastizote liners were applied in a surgical shoe to further offload this foot site. Edema: Elevate both lower extremities at times of rest and keep Rowdy wrap intact to left foot. Doppler with venous reflux exam was ordered to work up for diagnosis of venous insufficiency.To get as scheduled. Infection: No localized signs of infection are present at this time however he will continue to be monitored for any changes. Cultures demonstrated scant staph (No MRSA), likely skin contamination. He has completed course of IV Ancef for treatment of open fracture. Additional antibiotics will be considered if localized signs of infection develop. This is not noted today. Pain: Pain medications including oxycodone and morphine have been ordered and will be taken as needed. Vascular: arterial studies ordered to rule in or out arterial perfusion issues. Diagnostic data: CBC and CMP reviewed from 11-29-2021 without gross pertinent abnormalities. Host factors: Sung nutritional supplementation has been ordered to optimize wound healing. Note: [employer] speech recognition security controls assessor software was used to create portions of this document. Sound-alike and misspelled words, as well as other security controls assessor errors may be contained in the documentation.
[2022-01-17 08:57] VITALS: BMI 39.9
--- NOTE | 2022-01-17 10:03 | PN.PCM_ITS ---
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 He had a lot of soft tissue injury and he went for surgical amputation of the remainder of the hallux. He denies redness, odor, fever, chill, nausea, vomiting. He also had a chronic intermittent left leg ulcer the past couple of years and has chronic swelling. He denies claudication. His venous doppler with reflux evaluation was completed His leg ulcer is no longer draining and this site has healed. He wears left foot surgical shoe with recent modification. Progress of Wound: healed leg improving foot x 2 Objective Data Objective Data Vital Signs: Vital Signs Temp Pulse Resp BP O2 Del Method 99.1 F 107 H 18 175/103 H Room Air 01/10/22 09:18 01/10/22 09:18 01/10/22 09:18 01/10/22 09:18 12/20/21 08:50 Oxygen Delivery Method Room Air Weight: 145.15 kg Body Mass Index (BMI) 39.9 Physical Exam Const alert, oriented x3 and no apparent distress General Appearance: cooperative and comfortable Lymph Lymphatic: no lymphedema noted Extremity normal capillary refill and no calf tenderness Extremity Narrative: Vascular: DP and PT pulses are palpable bilaterally. Capillary refill less than 3 seconds to digits 2, 3, 4, and 5 of the left foot. Negative Homans' sign bilaterally. Negative Aleman sign bilaterally. Musculoskeletal: Active range of motion of the lesser toes on the left foot and ankle; no pain today. Compartments are soft to palpation of the lower extremity with no bogginess or fluctuance. No adjacent bogginess or fluctuance on palpation about the surgical site. Derm: Left lower extremity edema secondary to chronic venous insufficiency with brawny discoloration of the lower extremity with hemosiderin deposition. leg ulcer is healed with full epithelialization Left foot hallux amputation site demonstrates intact sutures with well coapted incision and no erythema, no purulent drainage, no malodor or other localized signs of infection. Left foot demonstrates mild nonpitting edema no gapping noted upon suture removal and there are medial and distal skin discontinuities remaining with granular and fibrous bases. General Extremity: Negative for calf tenderness Neuro oriented x3 Debridement Note Debridement Note Wound debrided: left foot medial and distal Wound Grade/Stage: 1 Type of Debridement: Excisional debridement Anesthesia Used: 4% Lidocaine Solution Depth: in the subcutaneous layer Percentage of wound debrided: 100 Instrument Used: #15 blade Tissue Removed: fibrous, devitalized subcutaneous, biofilm, slough Severity: Fat Layer Exposed Amount of bleeding with debridement: Mild Bleeding Controlled with: Pressure Patient tolerated procedure: Patient tolerated procedure well Post-Debridement Measurements and Additional Note: Post-Debridement Measurements/Treatment - Nurse 1 - General Ulcer Assessment Start: 12/20/21 08:50 Freq: Status: Active Protocol: Apiphany Activity Type Activity Date Activity User E-sign Co-sign Detail Recorded Client Recorded Date Recorded By Document 12/20/21 08:50 [facility] Desktop 12/20/21 09:05 [facility] Document 12/27/21 09:27 RB [id number] 12/27/21 09:42 RB Document 01/10/22 09:18 DL [id number] 01/10/22 09:26 DL Document 01/17/22 08:57 RB [id number] 01/17/22 09:12 RB 12/20/21 12/27/21 01/10/22 08:50 09:27 09:18 - Today's Visit Information Type of service Follow-up Visit Follow-up Visit Follow-up Visit (Physician/MACHINE TECHNICIAN (Physician/MACHINE TECHNICIAN (Physician/MACHINE TECHNICIAN ) ) ) Arrival Mode Ambulatory,Cane Ambulatory Ambulatory Transfer Assistance None None None Patient Identification Verified (Name & Yes Yes Yes ) Patient Requires Transmission-Based No No No Precautions Height and Weight Body Mass Index (BMI) 39.9 39.9 39.9 BMI Classification Obese Obese Obese Vital Signs Temperature (97.8 F-99.1 F) 97.2 F L 97.3 F L 99.1 F Temperature Source Temporal Temporal Temporal Pulse Rate (60-100) 98 107 H Pulse Location Monitor Monitor Monitor Respiratory Rate (12-18) 20 H 18 18 Respiratory rate source Observation Observation Observation Oxygen Delivery Method Room Air Blood Pressure (90/60-120/80) 149/83 H 175/103 H Blood Pressure Mean (mm Hg) 105 127 Source Monitor Monitor Monitor Position Sitting Semi-Fowlers Blood Pressure Location Left Arm Left Arm History Since Last Visit- (Skip if this is Patient's initial visit) Have you changed medications since your No No No last visit? Any new allergies or adverse reactions No No No Had a fall/change in ADL's that may No No No increase risk of falls Signs or symptoms of abuse and/or No No No neglect since last visit Have you been in the hospital since your No No No last visit? Has dressing in place as prescribed Yes Yes Yes Has compression in place as prescribed Yes Yes Yes Has offloadiing in place as prescribed Yes Yes Yes Experienced any changes in pain level or No No No management Left Footwear Surgical Shoe Regular Shoe Surgical Shoe with pressure with pressure relief insole relief insole Right Footwear Regular Shoe Regular Shoe Pain Scale: 0-10 Numeric Is Patient Pain Free? Yes Yes Yes 01/17/22 08:57 - Today's Visit Information Type of service Arrival Mode Transfer Assistance Patient Identification Verified (Name & ) Patient Requires Transmission-Based Precautions Height and Weight Body Mass Index (BMI) 39.9 BMI Classification Obese Vital Signs Temperature (97.8 F-99.1 F) Temperature Source Pulse Rate (60-100) Pulse Location Respiratory Rate (12-18) Respiratory rate source Oxygen Delivery Method Blood Pressure (90/60-120/80) Blood Pressure Mean (mm Hg) Source Position Blood Pressure Location History Since Last Visit- (Skip if this is Patient's initial visit) Have you changed medications since your last visit? Any new allergies or adverse reactions Had a fall/change in ADL's that may increase risk of falls Signs or symptoms of abuse and/or neglect since last visit Have you been in the hospital since your last visit? Has dressing in place as prescribed Has compression in place as prescribed Has offloadiing in place as prescribed Experienced any changes in pain level or management Left Footwear Right Footwear Pain Scale: 0-10 Numeric Is Patient Pain Free? Yes - Nurse 1 - General Ulcer Measurement Start: 12/20/21 08:50 Freq: Status: Active Protocol: Activity Type Activity Date Activity User E-sign Co-sign Detail Recorded Client Recorded Date Recorded By Document 12/20/21 08:50 [facility] Desktop 12/20/21 09:05 [facility] Document 12/27/21 09:27 [id number] 12/27/21 09:42 RB Document 01/10/22 09:18 DL [id number] 01/10/22 09:26 DL Document 01/17/22 08:57 RB [id number] 01/17/22 09:12 RB 12/20/21 12/27/21 01/10/22 08:50 09:27 09:18 Wound Center Nurse 1 #2- L LAT LE CLUSTER -Combined with other wound No No -Current Size (cm) - Length 3.6 0 -Current Size (cm) - Width 0.4 0 -Current Size (cm) - Depth 0.1 0 -Total Square Cm 1.44 0 -Date of Last Picture (Recall this 12/20/21 field) -Photo Taken Yes Yes -Epithelialization Small 1-33% Large 67-100% -Tunneling No -Undermining/Tunneling No -Exudate Amt Small -Exudate Type Serous -Wound Margin Distinct, Outline Attached -Granulation Amt None Present (0 %) -Slough/Fibrin Yes -Necrosis Amt Large (67-100%) -Necrotic Tissue Type Adherent Slough -Texture (Tracy-wound Skin Appearance) Assessed, Scarring -Moisture (Tracy-wound Skin Appearance) Assessed -Color (Tracy-wound Skin Appearance) Assessed, Hemosiderin Staining -Temperature (Tracy-wound Skin No Abnormality Appearance) (Pt Warm) -Tenderness on Palpation (Tracy-wound No Skin Appearance) -Ulcer Cleansing Soap and Water -Foul Odor after Cleansing No -Anesthetic Used 4% Lidocaine Solution 3-left postop distal ulcer foot -Combined with other wound No No -Current Size (cm) - Length 0.1 0.8 0.2 -Current Size (cm) - Width 0.1 0.3 0.2 -Current Size (cm) - Depth 0.1 0.2 0.2 -Total Square Cm 0.01 0.24 0.04 -Date of Last Picture (Recall this 12/20/21 field) -Photo Taken Yes Yes No -Epithelialization Large 67-100% -Tunneling No No -Undermining/Tunneling No No -Circular Undermining No -Exudate Amt None Present Medium None Present -Exudate Type Serosanguineous -Wound Margin Distinct, Distinct, Distinct, Outline Outline Outline Attached Attached Attached -Granulation Amt Medium (34-66%) Small (1-33%) -Granulation Quality [place] -Slough/Fibrin Yes Yes -Necrosis Amt Small (1-33%) Small (1-33%) None Present (0 %) -Necrotic Tissue Type Adherent Slough Adherent Slough -Structure Exposed N/A N/A -Texture (Tracy-wound Skin Appearance) Assessed, Assessed, Scarring Localized Edema Scarring ,Scarring -Moisture (Tracy-wound Skin Appearance) Assessed Assessed Dry/Scaly -Color (Tracy-wound Skin Appearance) Assessed Assessed Hemosiderin Staining -Temperature (Tracy-wound Skin No Abnormality No Abnormality No Abnormality Appearance) (Pt Warm) (Pt Warm) (Pt Warm) -Tenderness on Palpation (Tracy-wound No No No Skin Appearance) -Ulcer Cleansing Soap and Water Wound Cleanser Soap and Water -Foul Odor after Cleansing No No No -Anesthetic Used 4% Lidocaine 5% Lidocaine 5% Lidocaine Solution Gel Gel #1- L post-op medial SITE -Combined with other wound No No -Current Size (cm) - Length 0.4 0.1 0.2 -Current Size (cm) - Width 0.4 0.1 0.2 -Current Size (cm) - Depth 0.1 0.1 0.2 -Total Square Cm 0.16 0.01 0.04 -Date of Last Picture (Recall this 12/20/21 field) -Photo Taken Yes Yes No -Epithelialization Small 1-33% -Tunneling No -Undermining/Tunneling No -Circular Undermining No -Exudate Amt Small None Present -Exudate Type Serous -Wound Margin Distinct, Distinct, Outline Outline Attached Attached -Granulation Amt Small (1-33%) Small (1-33%) -Granulation Quality [place] -Slough/Fibrin Yes -Necrosis Amt Medium (34-66%) Small (1-33%) -Necrotic Tissue Type Adherent Slough Adherent Slough -Structure Exposed N/A -Texture (Tracy-wound Skin Appearance) Assessed, Scarring Localized Edema ,Scarring -Moisture (Tracy-wound Skin Appearance) Assessed Dry/Scaly -Color (Tracy-wound Skin Appearance) Assessed Hemosiderin Staining -Temperature (Tracy-wound Skin No Abnormality No Abnormality Appearance) (Pt Warm) (Pt Warm) -Tenderness on Palpation (Tracy-wound No No Skin Appearance) -Ulcer Cleansing Soap and Water Soap and Water -Foul Odor after Cleansing No No -Anesthetic Used 4% Lidocaine 5% Lidocaine Solution Gel Lower Limb Edema Present Yes Left Calf (cm) 47.3 Left Ankle (cm) 26.8 01/17/22 08:57 Wound Center Nurse 1 #2- L LAT LE CLUSTER -Combined with other wound -Current Size (cm) - Length -Current Size (cm) - Width -Current Size (cm) - Depth -Total Square Cm -Date of Last Picture (Recall this field) -Photo Taken -Epithelialization -Tunneling -Undermining/Tunneling -Exudate Amt -Exudate Type -Wound Margin -Granulation Amt -Slough/Fibrin -Necrosis Amt -Necrotic Tissue Type -Texture (Tracy-wound Skin Appearance) -Moisture (Tracy-wound Skin Appearance) -Color (Tracy-wound Skin Appearance) -Temperature (Tracy-wound Skin Appearance) -Tenderness on Palpation (Tracy-wound Skin Appearance) -Ulcer Cleansing -Foul Odor after Cleansing -Anesthetic Used 3-left postop distal ulcer foot -Combined with other wound No -Current Size (cm) - Length 0.1 -Current Size (cm) - Width 0.1 -Current Size (cm) - Depth 0.1 -Total Square Cm 0.01 -Date of Last Picture (Recall this field) -Photo Taken Yes -Epithelialization Large 67-100% -Tunneling -Undermining/Tunneling -Circular Undermining -Exudate Amt Large -Exudate Type Serosanguineous -Wound Margin Distinct, Outline Attached -Granulation Amt Large (67-100%) -Granulation Quality [place] -Slough/Fibrin Yes -Necrosis Amt Small (1-33%) -Necrotic Tissue Type Adherent Slough -Structure Exposed N/A -Texture (Tracy-wound Skin Appearance) Assessed -Moisture (Tracy-wound Skin Appearance) Assessed -Color (Tracy-wound Skin Appearance) Assessed -Temperature (Tracy-wound Skin No Abnormality Appearance) (Pt Warm) -Tenderness on Palpation (Tracy-wound No Skin Appearance) -Ulcer Cleansing Wound Cleanser -Foul Odor after Cleansing No -Anesthetic Used 5% Lidocaine Gel #1- L post-op medial SITE -Combined with other wound No -Current Size (cm) - Length 0.1 -Current Size (cm) - Width 0.1 -Current Size (cm) - Depth 0.1 -Total Square Cm 0.01 -Date of Last Picture (Recall this field) -Photo Taken Yes -Epithelialization -Tunneling No -Undermining/Tunneling No -Circular Undermining No -Exudate Amt Large -Exudate Type Serosanguineous -Wound Margin Distinct, Outline Attached -Granulation Amt Medium (34-66%) -Granulation Quality [place] -Slough/Fibrin Yes -Necrosis Amt Small (1-33%) -Necrotic Tissue Type Adherent Slough -Structure Exposed N/A -Texture (Tracy-wound Skin Appearance) Assessed -Moisture (Tracy-wound Skin Appearance) Assessed -Color (Tracy-wound Skin Appearance) Assessed -Temperature (Tracy-wound Skin No Abnormality Appearance) (Pt Warm) -Tenderness on Palpation (Tracy-wound No Skin Appearance) -Ulcer Cleansing Wound Cleanser -Foul Odor after Cleansing No -Anesthetic Used 5% Lidocaine Gel Lower Limb Edema Present Yes Left Calf (cm) 46.5 Left Ankle (cm) 26.2 WC - Nurse 2 - General Ulcer CM Notes Start: 12/20/21 08:50 Freq: Status: Active Protocol: Activity Type Activity Date Activity User E-sign Co-sign Detail Recorded Client Recorded Date Recorded By Document 12/20/21 09:39 [id number] 12/20/21 09:43 Document 12/27/21 09:45 [id number] 12/27/21 09:48 Document 01/10/22 09:49 [id number] 01/10/22 09:51 JF Edit Result 01/10/22 09:49 JF (1) [id number] 01/11/22 06:49 PL Document 01/17/22 09:43 PL [id number] 01/17/22 09:44 PL (1) #1- L post-op medial SITE - Debridement - Subq, 1st 20sq cm Yes => No 12/20/21 12/27/21 01/10/22 09:39 09:45 09:49 Wound Center Nurse 2 #2- L LAT LE CLUSTER -Time 09:40 -Correct Patient Yes No -Correct Side, Site, Position Yes No -Correct Procedure Yes No -Procedure Performed Yes No -Type of Procedure Debridement -Clinical Debridement Subcutaneous -Tissue Removed Subcutaneous -Post Debridement (cm) - Length 2.3 0 -Post Debridement (cm) - Width 1.0 0 -Post Debridement (cm) - Depth 0.1 0 -Total Square (Post) (cm) 2.30 0 -Area of Debridement (cm) - Length 2.3 0 -Area of Debridement (cm) - Width 1.0 0 -Total Square (Area) (cm) 2.30 0 -Tunneling No -Undermining/Tunneling No -Circular Undermining No -Wound/Ulcer Outcome Not Healed Healed- Epithelialized -Ulcer Cleansing Rinsed/ Irrigated with Saline -Foul Odor after Cleansing No -Bioengineered Tissue No -Bleeding Controlled with Pressure Pressure -Treatment Response Procedure Procedure Tolerated Well Tolerated Well -Offloading Yes No -Type of Offloading Surgical Shoe -Debridement - Subq, 1st 20sq cm No No 3-left postop distal ulcer foot -Time 09:39 09:46 09:49 -Correct Patient Yes Yes Yes -Correct Side, Site, Position Yes Yes Yes -Correct Procedure Yes Yes Yes -Procedure Performed Yes Yes Yes -Type of Procedure Debridement Debridement Debridement -Clinical Debridement Subcutaneous Subcutaneous Subcutaneous -Tissue Removed Subcutaneous Subcutaneous Subcutaneous -Post Debridement (cm) - Length 0.3 0.5 0.3 -Post Debridement (cm) - Width 0.2 0.9 0.2 -Post Debridement (cm) - Depth 0.1 0.1 0.2 -Total Square (Post) (cm) 0.06 0.45 0.06 -Area of Debridement (cm) - Length 0.3 0.5 0.3 -Area of Debridement (cm) - Width 0.2 0.9 0.2 -Total Square (Area) (cm) 0.06 0.45 0.06 -Tunneling No No No -Undermining/Tunneling No No No -Circular Undermining No No No -Wound/Ulcer Outcome Not Healed Not Healed Not Healed -Ulcer Cleansing Rinsed/ Rinsed/ Rinsed/ Irrigated with Irrigated with Irrigated with Saline Saline Saline -Foul Odor after Cleansing No No No -Bioengineered Tissue No No No -Bleeding Controlled with Pressure Pressure Pressure -Treatment Response Procedure Procedure Procedure Tolerated Well Tolerated Well Tolerated Well -Offloading Yes Yes Yes -Type of Offloading Surgical Shoe Surgical Shoe Surgical Shoe -Debridement - Subq, 1st 20sq cm No Yes Yes #1- L post-op medial SITE -Time 09:41 09:47 09:50 -Correct Patient Yes Yes Yes -Correct Side, Site, Position Yes Yes Yes -Correct Procedure Yes Yes Yes -Procedure Performed Yes Yes Yes -Type of Procedure Debridement Debridement Debridement -Clinical Debridement Subcutaneous Subcutaneous Subcutaneous -Tissue Removed Subcutaneous Subcutaneous Subcutaneous -Post Debridement (cm) - Length 0.8 0.6 0.2 -Post Debridement (cm) - Width 0.3 0.2 0.2 -Post Debridement (cm) - Depth 0.1 0.2 0.1 -Total Square (Post) (cm) 0.24 0.12 0.04 -Area of Debridement (cm) - Length 0.8 0.6 0.2 -Area of Debridement (cm) - Width 0.3 0.2 0.2 -Total Square (Area) (cm) 0.24 0.12 0.04 -Tunneling No No No -Undermining/Tunneling No No No -Circular Undermining No No No -Wound/Ulcer Outcome Not Healed Not Healed Not Healed -Ulcer Cleansing Rinsed/ Rinsed/ Rinsed/ Irrigated with Irrigated with Irrigated with Saline Saline Saline -Foul Odor after Cleansing No No No -Bioengineered Tissue No No No -Bleeding Controlled with Pressure Pressure Pressure -Treatment Response Procedure Procedure Procedure Tolerated Well Tolerated Well Tolerated Well -Offloading Yes Yes Yes -Type of Offloading Surgical Shoe Surgical Shoe Surgical Shoe -Debridement - Subq, 1st 20sq cm Yes No No Pain Scale: 0-10 Numeric Is Patient Pain Free? Yes Yes Yes 01/17/22 09:43 Wound Center Nurse 2 #2- L LAT LE CLUSTER -Time -Correct Patient -Correct Side, Site, Position -Correct Procedure -Procedure Performed -Type of Procedure -Clinical Debridement -Tissue Removed -Post Debridement (cm) - Length -Post Debridement (cm) - Width -Post Debridement (cm) - Depth -Total Square (Post) (cm) -Area of Debridement (cm) - Length -Area of Debridement (cm) - Width -Total Square (Area) (cm) -Tunneling -Undermining/Tunneling -Circular Undermining -Wound/Ulcer Outcome -Ulcer Cleansing -Foul Odor after Cleansing -Bioengineered Tissue -Bleeding Controlled with -Treatment Response -Offloading -Type of Offloading -Debridement - Subq, 1st 20sq cm 3-left postop distal ulcer foot -Time 09:26 -Correct Patient Yes -Correct Side, Site, Position Yes -Correct Procedure Yes -Procedure Performed Yes -Type of Procedure Debridement -Clinical Debridement Subcutaneous -Tissue Removed Subcutaneous -Post Debridement (cm) - Length 0.4 -Post Debridement (cm) - Width 0.3 -Post Debridement (cm) - Depth 0.1 -Total Square (Post) (cm) 0.12 -Area of Debridement (cm) - Length 0.4 -Area of Debridement (cm) - Width 0.3 -Total Square (Area) (cm) 0.12 -Tunneling No -Undermining/Tunneling No -Circular Undermining No -Wound/Ulcer Outcome Not Healed -Ulcer Cleansing Rinsed/ Irrigated with Saline -Foul Odor after Cleansing No -Bioengineered Tissue No -Bleeding Controlled with Pressure -Treatment Response Procedure Tolerated Well -Offloading -Type of Offloading -Debridement - Subq, 1st 20sq cm No #1- L post-op medial SITE -Time 09:26 -Correct Patient Yes -Correct Side, Site, Position Yes -Correct Procedure Yes -Procedure Performed Yes -Type of Procedure Debridement -Clinical Debridement Subcutaneous -Tissue Removed Subcutaneous -Post Debridement (cm) - Length 0.1 -Post Debridement (cm) - Width 0.1 -Post Debridement (cm) - Depth 0.1 -Total Square (Post) (cm) 0.01 -Area of Debridement (cm) - Length 0.1 -Area of Debridement (cm) - Width 0.1 -Total Square (Area) (cm) 0.01 -Tunneling No -Undermining/Tunneling No -Circular Undermining No -Wound/Ulcer Outcome Not Healed -Ulcer Cleansing Rinsed/ Irrigated with Saline -Foul Odor after Cleansing No -Bioengineered Tissue No -Bleeding Controlled with Pressure -Treatment Response Procedure Tolerated Well -Offloading -Type of Offloading -Debridement - Subq, 1st 20sq cm Yes Pain Scale: 0-10 Numeric Is Patient Pain Free? Yes WC - Nurse 3 - General Ulcer D/C NN Start: 12/20/21 08:50 Freq: Status: Active Protocol: Activity Type Activity Date Activity User E-sign Co-sign Detail Recorded Client Recorded Date Recorded By Document 12/20/21 10:01 RB [id number] 12/20/21 10:02 RB Document 12/27/21 09:59 RB [id number] 12/27/21 09:59 RB Document 01/10/22 10:04 RB [id number] 01/10/22 10:05 RB Document 01/17/22 09:41 DL [id number] 01/17/22 09:42 DL 12/20/21 12/27/21 01/10/22 10:01 09:59 10:04 Wound Care Nurse 3 #2- L LAT LE CLUSTER -Primary Dressing Applied NonAdherent Contact Layer -Other Dressing hydrogel -Primary Dressing Covered/Secured with Dry Gauze,Dry Gauze & Roll Gauze,Secured with Tape 3-left postop distal ulcer foot -Ulcer Cleansing Rinsed/ Rinsed/ Irrigated with Irrigated with Saline Saline -Foul Odor after Cleansing -Primary Dressing Applied NonAdherent C Hydrogel ($) Contact Layer -Other Dressing hydrogel hydrogel -Primary Dressing Covered/Secured with Dry Gauze,Dry Dry Gauze, Dry Gauze, Gauze & Roll Secured with Secured with Gauze,Secured Tape Tape with Tape #1- L post-op medial SITE -Ulcer Cleansing -Foul Odor after Cleansing -Primary Dressing Applied NonAdherent Contact Layer -Other Dressing hydrogel hydrogel hydrogel -Primary Dressing Covered/Secured with Dry Gauze,Dry Dry Gauze, Dry Gauze, Gauze & Roll Secured with Secured with Gauze,Secured Tape Tape with Tape -Other Covering Left -Tubular Bandage Double Layer Double Layer Double Layer -Size of Tubigrip Used Size E Size E Size E -Size E ($) 2 2 2 Treatment Response Procedure Procedure Procedure Tolerated Well Tolerated Well Tolerated Well Pain Scale: 0-10 Numeric Is Patient Pain Free? Yes Yes Yes WC - Visit Discharge Discharge Condition Stable Stable Stable Ambulatory Status Ambulatory,Cane Ambulatory,Cane Ambulatory Transportation Private Auto Private Auto Private Auto Medication Reconcilliation completed & No No No provided to patient/care provider Clinical Summary of Care Provided Yes Yes Yes 01/17/22 09:41 Wound Care Nurse 3 #2- L LAT LE CLUSTER -Primary Dressing Applied -Other Dressing -Primary Dressing Covered/Secured with 3-left postop distal ulcer foot -Ulcer Cleansing Rinsed/ Irrigated with Saline -Foul Odor after Cleansing No -Primary Dressing Applied -Other Dressing hydrogel -Primary Dressing Covered/Secured with Dry Gauze & Roll Gauze, Secured with Tape #1- L post-op medial SITE -Ulcer Cleansing Rinsed/ Irrigated with Saline -Foul Odor after Cleansing No -Primary Dressing Applied -Other Dressing hydrogel -Primary Dressing Covered/Secured with Dry Gauze & Roll Gauze, Secured with Tape -Other Covering tubigrip Left -Tubular Bandage Double Layer -Size of Tubigrip Used Size E -Size E ($) 2 Treatment Response Procedure Tolerated Well Pain Scale: 0-10 Numeric Is Patient Pain Free? Yes WC - Visit Discharge Discharge Condition Stable Ambulatory Status Ambulatory Transportation Private Auto Medication Reconcilliation completed & provided to patient/care provider Clinical Summary of Care Provided Assessment/Plan Assessment/Plan (1) Localized edema: CODE(S): R60.0 - Localized edema (2) Other specified peripheral vascular diseases: CODE(S): I73.89 - Other specified peripheral vascular diseases (3) Venous insufficiency (chronic) (peripheral): CODE(S): I87.2 - Venous insufficiency (chronic) (peripheral) (4) Crush injury of left foot: CODE(S): S97.82XA - Crushing injury of left foot, initial encounter (5) Chronic ulcer of left foot with fat layer exposed: CODE(S): L97.522 - Non-pressure chronic ulcer of other part of left foot with fat layer exposed PLAN: Plan Patient seen and evaluated. I discussed his case with him today. He is afebrile and vitals are stable. ulcers debrided as noted in clinical panel. The following work-up and care recommendations were made: Dressing: He is to keep his dressings clean dry and intact to the left foot. d/c leg dressing due to healed status. Offloading: He may bear weight to the left heel with a surgical shoe and use of an assistive device. His gait has improved since he resided in [facility] for additional rehabilitation services. Dual density offloading Plastizote liners were applied in a surgical shoe to further offload this foot site. Edema: Elevate both lower extremities at times of rest and keep Rowdy wrap intact to left foot. Doppler with venous reflux exam was ordered to work up for diagnosis of venous insufficiency. A referral to vascular specialist, Dr. Sandoval was recommended to see if any venous intervention is possible. To continue to stay compliant with compression dressing, periodic elevation, exercise and dietary salt reduction. Infection: No localized signs of infection are present at this time however he will continue to be monitored for any changes. Cultures demonstrated scant staph (No MRSA), likely skin contamination. He has completed course of IV Ancef for treatment of open fracture. Additional antibiotics will be considered if localized signs of infection develop. This is not noted today. Pain: Pain medications including oxycodone and morphine have been ordered and will be taken as needed. Vascular: arterial studies were reviewed without any gross abnormalities. He has normal triphasic waveforms ABIs and toe pressures. Diagnostic data: CBC and CMP reviewed from 11-29-2021 without gross pertinent abnormalities. Host factors: Sung nutritional supplementation has been ordered to optimize wound healing. Note: [employer] speech recognition heavy truck technician software was used to create portions of this document. Sound-alike and misspelled words, as well as other heavy truck technician errors may be contained in the documentation. The medical decision making level is moderate based on data including at least three of the following: review of prior external notes, review of a test, ordering a test, assessment requiring an independent historian. The medical decision making level is moderate. There is noted moderate risk of morbidity after considering this treatment plan and diagnostic data. Considerations were given to prescription management, decisions regarding surgical options, or social determinants of health.
== END 2022-01-18 23:59 | disposition home or self-care (01) ==
LOC: WC 09:15
PROVIDERS: PCP Family Medicine Geriatric Medicine; Visit Provider Podiatrist
DX: L97.522 Non-pressure chronic ulcer of other part of left foot with fat layer exposed (principal); L97.922 Non-pressure chronic ulcer of unspecified part of left lower leg with fat layer exposed; I73.9 Peripheral vascular disease, unspecified; R60.0 Localized edema; R26.9 Unspecified abnormalities of gait and mobility; I87.2 Venous insufficiency (chronic) (peripheral); S97.82XA Crushing injury of left foot, initial encounter
CPT/HCPCS: 11042

== ENCOUNTER 2022-01-24 09:43 | Outpatient (RCR) | payer MEDICARE, SELFPAY ==
[2022-01-19 00:42] VITALS: BP 175/103; PULSE 107; RESP 18; TEMP 37.3; BMI 39.9
[2022-01-24 10:11] VITALS: BP 148/83; PULSE 102; RESP 20; TEMP 35.9; BMI 39.9
--- NOTE | 2022-01-24 10:36 | PN.PCM_ITS ---
History of Present Illness Date of Service: 01/24/22 Chief Complaint: left foot ulcer History of Wound: This 66-year-old male following up for surgery that was performed on 11-11-2021 after a lawnmower that crosses hallux causing a near traumatic amputation. He had a lot of soft tissue injury and he went for surgical amputation of the remainder of the hallux. He denies redness, odor, fever, chill, nausea, vomiting. He also had a chronic intermittent left leg ulcer the past couple of years and has chronic swelling; this is now healed but has a recurrence history. He denies claudication. He wears left foot surgical shoe with recent modification. He reports left foot drainage. Progress of Wound: Improving Objective Data Objective Data Vital Signs: Vital Signs Temp Pulse Resp BP O2 Del Method 96.6 F L 102 H 20 H 148/83 H Room Air 01/24/22 10:11 01/24/22 10:11 01/24/22 10:11 01/24/22 10:11 01/24/22 10:11 Oxygen Delivery Method Room Air Weight: 145.15 kg Body Mass Index (BMI) 39.9 Debridement Note Debridement Note Wound debrided: left foot medial Wound Grade/Stage: 1 Type of Debridement: Excisional debridement Anesthesia Used: 4% Lidocaine Solution Depth: in the subcutaneous layer Percentage of wound debrided: 100 Instrument Used: #15 blade Tissue Removed: fibrous, devitalized subcutaneous, biofilm, slough Severity: Fat Layer Exposed Amount of bleeding with debridement: Mild Bleeding Controlled with: Pressure Patient tolerated procedure: Patient tolerated procedure well Debridement Free Text: post debridement medial left foot 6x2x2 mm Post-Debridement Measurements and Additional Note: Post-Debridement Measurements/Treatment - Nurse 1 - General Ulcer Assessment Start: 01/24/22 10:11 Freq: Status: Active Protocol: [email or web address] Activity Type Activity Date Activity User E-sign Co-sign Detail Recorded Client Recorded Date Recorded By Document 01/24/22 10:11 [facility] [id number] 01/24/22 10:21 [facility] 01/24/22 10:11 Height and Weight Body Mass Index (BMI) 39.9 BMI Classification Obese Vital Signs Temperature (97.8 F-99.1 F) 96.6 F L Temperature Source Temporal Pulse Rate (60-100) 102 H Pulse Location Monitor Respiratory Rate (12-18) 20 H Respiratory rate source Observation Oxygen Delivery Method Room Air Blood Pressure (90/60-120/80) 148/83 H Blood Pressure Mean (mm Hg) 104 Source Monitor Position Sitting Blood Pressure Location Right Arm History Since Last Visit- (Skip if this is Patient's initial visit) Have you changed medications since your No last visit? Any new allergies or adverse reactions No Had a fall/change in ADL's that may No increase risk of falls Signs or symptoms of abuse and/or No neglect since last visit Have you been in the hospital since your No last visit? Has dressing in place as prescribed Yes Has compression in place as prescribed N/A Has offloadiing in place as prescribed Yes Experienced any changes in pain level or No management Left Footwear Surgical Shoe with pressure relief insole Right Footwear Regular Shoe Pain Scale: 0-10 Numeric Is Patient Pain Free? Yes WC - Nurse 1 - General Ulcer Measurement Start: 01/24/22 10:11 Freq: Status: Active Protocol: Activity Type Activity Date Activity User E-sign Co-sign Detail Recorded Client Recorded Date Recorded By Document 01/24/22 10:11 [facility] [id number] 01/24/22 10:21 [facility] 01/24/22 10:11 Wound Center Nurse 1 3-left postop distal ulcer foot -Combined with other wound No -Current Size (cm) - Length 0.7 -Current Size (cm) - Width 0.3 -Current Size (cm) - Depth 0.1 -Total Square Cm 0.21 -Date of Last Picture (Recall this 01/24/22 field) -Photo Taken Yes -Epithelialization Small 1-33% -Tunneling No -Undermining/Tunneling No -Circular Undermining No -Exudate Amt Small -Exudate Type Serous -Wound Margin Flat & Intact -Granulation Amt Small (1-33%) -Granulation Quality Meyer -Slough/Fibrin Yes -Necrosis Amt Medium (34-66%) -Necrotic Tissue Type Adherent Slough -Texture (Tracy-wound Skin Appearance) Assessed, Fluctuance -Moisture (Tracy-wound Skin Appearance) Assessed, Maceration -Color (Tracy-wound Skin Appearance) Assessed -Temperature (Tracy-wound Skin No Abnormality Appearance) (Pt Warm) -Tenderness on Palpation (Tracy-wound No Skin Appearance) -Ulcer Cleansing Rinsed/ Irrigated with Saline -Foul Odor after Cleansing No -Anesthetic Used 5% Lidocaine Gel #1- L post-op medial SITE -Combined with other wound No -Current Size (cm) - Length 0.5 -Current Size (cm) - Width 0.1 -Current Size (cm) - Depth 0.2 -Total Square Cm 0.05 -Date of Last Picture (Recall this 01/24/22 field) -Photo Taken Yes -Epithelialization Small 1-33% -Tunneling No -Undermining/Tunneling No -Circular Undermining No -Exudate Amt Small -Exudate Type Serous -Wound Margin Distinct, Outline Attached -Granulation Amt Large (67-100%) -Granulation Quality Meyer -Slough/Fibrin Yes -Necrosis Amt Small (1-33%) -Necrotic Tissue Type Adherent Slough -Texture (Tracy-wound Skin Appearance) Assessed, Scarring -Moisture (Tracy-wound Skin Appearance) Assessed, Maceration -Color (Tracy-wound Skin Appearance) Assessed -Temperature (Tracy-wound Skin No Abnormality Appearance) (Pt Warm) -Tenderness on Palpation (Tracy-wound No Skin Appearance) -Ulcer Cleansing Rinsed/ Irrigated with Saline -Foul Odor after Cleansing No -Anesthetic Used 5% Lidocaine Gel Assessment/Plan Assessment/Plan (1) Chronic ulcer of left foot with fat layer exposed: CODE(S): L97.522 - Non-pressure chronic ulcer of other part of left foot with fat layer exposed (2) Localized edema: CODE(S): R60.0 - Localized edema (3) Other specified peripheral vascular diseases: CODE(S): I73.89 - Other specified peripheral vascular diseases (4) Venous insufficiency (chronic) (peripheral): CODE(S): I87.2 - Venous insufficiency (chronic) (peripheral) (5) Crush injury of left foot: CODE(S): S97.82XA - Crushing injury of left foot, initial encounter PLAN: Plan Patient seen and evaluated. I discussed his case with him today. He is afebrile and vitals are stable. ulcer debrided as noted in clinical panel. distal most ulcer is healed today with full epithelialization The following work-up and care recommendations were made: Dressing: To change daily with hydrogel. He is to keep his dressings clean dry and intact to the left foot. Offloading: He may bear weight to the left heel with a surgical shoe and use of an assistive device. His gait has improved since he resided in transitional care unit for additional rehabilitation services. Dual density offloading Plastizote liners were applied in a surgical shoe to further offload this foot site. Edema: Elevate both lower extremities at times of rest and keep Rowdy wrap intact to left foot. Doppler with venous reflux exam was ordered to work up for diagnosis of venous insufficiency. A referral to vascular specialist, Dr. Sandoval was recommended to see if any venous intervention is possible; he is in the process of scheduling his consultation appointment date. To continue to stay compliant with compression dressing, periodic elevation, exercise and dietary salt reduction. Infection: No localized signs of infection are present at this time however he will continue to be monitored for any changes. Cultures demonstrated scant staph (No MRSA), likely skin contamination. He has completed course of IV Ancef for treatment of open fracture. Additional antibiotics will be considered if localized signs of infection develop. This is not noted today. Pain: Pain medications including oxycodone and morphine have been ordered and will be taken as needed. Vascular: arterial studies were reviewed without any gross abnormalities. He has normal triphasic waveforms ABIs and toe pressures. Diagnostic data: CBC and CMP reviewed from 11-29-2021 without gross pertinent abnormalities. Host factors: Sung nutritional supplementation has been ordered to optimize wound healing. We discussed this and he was advised to resume use. Note: [employer] speech recognition photolithographer software was used to create portions of this document. Sound-alike and misspelled words, as well as other photolithographer errors may be contained in the documentation. The medical decision making level is low. There is noted low risk of morbidity after considering this treatment plan and diagnostic data. The problems addressed require a low medical decision making level which includes two or more minor problems, a stable chronic illness, or an acute uncomplicated illness or injury.
[2022-02-07 09:49] VITALS: BP 143/92; PULSE 108; RESP 20; TEMP 35.9; BMI 39.9
--- NOTE | 2022-02-07 10:20 | WC ---
Dr. Marquis counseled the patient to return in 2 weeks for further treatment of the new ulcer to his LLE, pt refused any further treatment. Patient stated that he was not concerned with the new ulcer and wound call if he required further treatment. Patient was discharged from the wound center and advised to FU with his vascular physician.
--- NOTE | 2022-02-07 10:29 | PCM.WC.PN ---
History of Present Illness Date of Service: 02/07/22 Chief Complaint: left foot ulcer History of Wound: This 66-year-old male following up for surgery that was performed on 11-11-2021 after a lawnmower that crosses hallux causing a near traumatic amputation. He had a lot of soft tissue injury and he went for surgical amputation of the remainder of the hallux. He denies redness, odor, fever, chill, nausea, vomiting. He also had a chronic intermittent left leg ulcer the past couple of years and has chronic swelling; this is now healed but has a recurrence history. He denies claudication. He wears left foot surgical shoe with recent modification. He denies left foot drainage. He has a new wound to his left leg because he bumped it a few days ago. He reports he has plenty of hydrogel and Adaptic at home to perform dressing changes. He also has upcoming vascular appointment scheduled and plans proceed forward with any intervention recommendations. He reports he will no longer be following up with the wound healing center because his foot is better and he is placing himself on a management home program. Progress of Wound: Healed left foot New left leg Objective Data Objective Data Vital Signs: Vital Signs Temp Pulse Resp BP O2 Del Method 96.7 F L 108 H 20 H 143/92 H Room Air 02/07/22 09:49 02/07/22 09:49 02/07/22 09:49 02/07/22 09:49 02/07/22 09:49 Oxygen Delivery Method Room Air Weight: 145.15 kg Body Mass Index (BMI) 39.9 Physical Exam Const alert, oriented x3 and no apparent distress General Appearance: cooperative and comfortable Lymph Lymphatic: no lymphedema noted Extremity normal capillary refill and no calf tenderness Extremity Narrative: Vascular: DP and PT pulses are palpable bilaterally. Capillary refill less than 3 seconds to digits 2, 3, 4, and 5 of the left foot. Negative Homans' sign bilaterally. Negative Aleman sign bilaterally. Musculoskeletal: Active range of motion of the lesser toes on the left foot and ankle; no pain today. Compartments are soft to palpation of the lower extremity with no bogginess or fluctuance. No adjacent bogginess or fluctuance on palpation about the surgical site. Derm: Left lower extremity edema secondary to chronic venous insufficiency with brawny discoloration of the lower extremity with hemosiderin deposition. Prior leg ulcer is healed with full epithelialization. New left anterior proximal leg ulcer with granular base that is superficial without infection noted Left foot hallux amputation site is healed with full epithelialization and resolution of drainage today. There are no signs of infection or bogginess or fluctuance. General Extremity: Negative for calf tenderness Neuro oriented x3 Debridement Note Debridement Note Wound debrided: left leg Wound Grade/Stage: 1 Type of Debridement: Excisional debridement Anesthesia Used: 4% Lidocaine Solution Depth: in the subcutaneous layer Percentage of wound debrided: 100 Instrument Used: #15 blade Tissue Removed: fibrous, devitalized subcutaneous, biofilm, slough Severity: Fat Layer Exposed Amount of bleeding with debridement: Mild Bleeding Controlled with: Pressure Patient tolerated procedure: Patient tolerated procedure well Debridement Free Text: post debridement medial left foot 6x2x2 mm Post-Debridement Measurements and Additional Note: Post-Debridement Measurements/Treatment - Nurse 1 - General Ulcer Assessment Start: 01/24/22 10:11 Freq: Status: Active Protocol: MERVIN Activity Type Activity Date Activity User E-sign Co-sign Detail Recorded Client Recorded Date Recorded By Document 01/24/22 10:11 [facility] [id number] 01/24/22 10:21 [facility] Document 02/07/22 09:49 [facility] [id number] 02/07/22 09:59 [facility] 01/24/22 02/07/22 10:11 09:49 - Today's Visit Information Type of service Follow-up Visit (Physician/CONFERENCE RESERVATIONIST ) Arrival Mode Ambulatory,Cane Transfer Assistance None Patient Identification Verified (Name & Yes ) Patient Requires Transmission-Based No Precautions Height and Weight Body Mass Index (BMI) 39.9 39.9 BMI Classification Obese Obese Vital Signs Temperature (97.8 F-99.1 F) 96.6 F L 96.7 F L Temperature Source Temporal Temporal Pulse Rate (60-100) 102 H 108 H Pulse Location Monitor Monitor Respiratory Rate (12-18) 20 H 20 H Respiratory rate source Observation Observation Oxygen Delivery Method Room Air Room Air Blood Pressure (90/60-120/80) 148/83 H 143/92 H Blood Pressure Mean (mm Hg) 104 109 Source Monitor Monitor Position Sitting Sitting Blood Pressure Location Right Arm Left Arm History Since Last Visit- (Skip if this is Patient's initial visit) Have you changed medications since your No No last visit? Any new allergies or adverse reactions No No Had a fall/change in ADL's that may No No increase risk of falls Signs or symptoms of abuse and/or No No neglect since last visit Have you been in the hospital since your No No last visit? Has dressing in place as prescribed Yes Yes Has compression in place as prescribed N/A Yes Has offloadiing in place as prescribed Yes Yes Experienced any changes in pain level or No No management Left Footwear Surgical Shoe Surgical Shoe with pressure with pressure relief insole relief insole Right Footwear Regular Shoe Regular Shoe Pain Scale: 0-10 Numeric Is Patient Pain Free? Yes Yes WC - Nurse 1 - General Ulcer Measurement Start: 01/24/22 10:11 Freq: Status: Active Protocol: Activity Type Activity Date Activity User E-sign Co-sign Detail Recorded Client Recorded Date Recorded By Document 01/24/22 10:11 [facility] [id number] 01/24/22 10:21 [facility] Document 02/07/22 09:49 [facility] [id number] 02/07/22 09:59 [facility] 01/24/22 02/07/22 10:11 09:49 Wound Center Nurse 1 3-left postop distal ulcer foot -Combined with other wound No No -Current Size (cm) - Length 0.7 0.1 -Current Size (cm) - Width 0.3 0.1 -Current Size (cm) - Depth 0.1 0.1 -Total Square Cm 0.21 0.01 -Date of Last Picture (Recall this 01/24/22 02/07/22 field) -Photo Taken Yes Yes -Epithelialization Small 1-33% Large 67-100% -Tunneling No -Undermining/Tunneling No -Circular Undermining No -Exudate Amt Small -Exudate Type Serous -Wound Margin Flat & Intact -Granulation Amt Small (1-33%) -Granulation Quality [place] -Slough/Fibrin Yes -Necrosis Amt Medium (34-66%) -Necrotic Tissue Type Adherent Slough -Texture (Tracy-wound Skin Appearance) Assessed, Fluctuance -Moisture (Tracy-wound Skin Appearance) Assessed, Maceration -Color (Tracy-wound Skin Appearance) Assessed -Temperature (Tracy-wound Skin No Abnormality Appearance) (Pt Warm) -Tenderness on Palpation (Tracy-wound No Skin Appearance) -Ulcer Cleansing Rinsed/ Irrigated with Saline -Foul Odor after Cleansing No -Anesthetic Used 5% Lidocaine Gel #1- L post-op medial SITE -Combined with other wound No No -Current Size (cm) - Length 0.5 0.1 -Current Size (cm) - Width 0.1 0.1 -Current Size (cm) - Depth 0.2 0.1 -Total Square Cm 0.05 0.01 -Date of Last Picture (Recall this 01/24/22 02/07/22 field) -Photo Taken Yes Yes -Epithelialization Small 1-33% Large 67-100% -Tunneling No -Undermining/Tunneling No -Circular Undermining No -Exudate Amt Small -Exudate Type Serous -Wound Margin Distinct, Outline Attached -Granulation Amt Large (67-100%) -Granulation Quality [place] -Slough/Fibrin Yes -Necrosis Amt Small (1-33%) -Necrotic Tissue Type Adherent Slough -Texture (Tracy-wound Skin Appearance) Assessed, Scarring -Moisture (Tracy-wound Skin Appearance) Assessed, Maceration -Color (Tracy-wound Skin Appearance) Assessed -Temperature (Tracy-wound Skin No Abnormality Appearance) (Pt Warm) -Tenderness on Palpation (Tracy-wound No Skin Appearance) -Ulcer Cleansing Rinsed/ Irrigated with Saline -Foul Odor after Cleansing No -Anesthetic Used 5% Lidocaine Gel #4- L BREAUX -Combined with other wound No -Current Size (cm) - Length 2.1 -Current Size (cm) - Width 0.3 -Current Size (cm) - Depth 0.1 -Total Square Cm 0.63 -Date of Last Picture (Recall this 02/07/22 field) -Photo Taken Yes -Epithelialization None Present -Tunneling No -Undermining/Tunneling No -Circular Undermining No -Exudate Amt Medium -Exudate Type Serosanguineous -Wound Margin Distinct, Outline Attached -Granulation Amt Large (67-100%) -Granulation Quality Red -Slough/Fibrin Yes -Necrosis Amt Small (1-33%) -Necrotic Tissue Type Adherent Slough -Texture (Tracy-wound Skin Appearance) Scarring -Moisture (Tracy-wound Skin Appearance) Assessed -Color (Tracy-wound Skin Appearance) Assessed -Temperature (Tracy-wound Skin No Abnormality Appearance) (Pt Warm) -Tenderness on Palpation (Tracy-wound No Skin Appearance) -Ulcer Cleansing Rinsed/ Irrigated with Saline -Foul Odor after Cleansing No -Anesthetic Used 5% Lidocaine Gel Lower Limb Edema Present Yes Left Calf (cm) 46.3 Left Ankle (cm) 27.5 WC - Nurse 2 - General Ulcer CM Notes Start: 01/24/22 10:11 Freq: Status: Active Protocol: Activity Type Activity Date Activity User E-sign Co-sign Detail Recorded Client Recorded Date Recorded By Document 01/24/22 11:17 PL [id number] 01/24/22 11:19 PL Document 02/07/22 10:19 PL [id number] 02/07/22 10:20 PL 01/24/22 02/07/22 11:17 10:19 Wound Center Nurse 2 3-left postop distal ulcer foot -Time 10:26 -Correct Patient Yes -Correct Side, Site, Position Yes -Correct Procedure Yes -Procedure Performed Yes No -Type of Procedure Debridement -Clinical Debridement Subcutaneous -Tissue Removed Subcutaneous -Post Debridement (cm) - Length 0.7 -Post Debridement (cm) - Width 0.3 -Post Debridement (cm) - Depth 0.1 -Total Square (Post) (cm) 0.21 -Area of Debridement (cm) - Length 0.7 -Area of Debridement (cm) - Width 0.3 -Total Square (Area) (cm) 0.21 -Tunneling No -Undermining/Tunneling No -Circular Undermining No -Wound/Ulcer Outcome Not Healed Healed- Epithelialized -Ulcer Cleansing Rinsed/ Irrigated with Saline -Foul Odor after Cleansing No -Bioengineered Tissue No -Bleeding Controlled with Pressure -Treatment Response Procedure Tolerated Well -Debridement - Subq, 1st 20sq cm Yes #1- L post-op medial SITE -Time 10:26 -Correct Patient Yes -Correct Side, Site, Position Yes -Correct Procedure Yes -Procedure Performed Yes -Type of Procedure Debridement -Clinical Debridement Subcutaneous -Tissue Removed Subcutaneous -Post Debridement (cm) - Length 0.5 -Post Debridement (cm) - Width 0.1 -Post Debridement (cm) - Depth 0.2 -Total Square (Post) (cm) 0.05 -Area of Debridement (cm) - Length 0.5 -Area of Debridement (cm) - Width 0.1 -Total Square (Area) (cm) 0.05 -Tunneling No -Undermining/Tunneling No -Circular Undermining No -Wound/Ulcer Outcome Not Healed -Ulcer Cleansing Rinsed/ Irrigated with Saline -Foul Odor after Cleansing No -Bioengineered Tissue No -Bleeding Controlled with Pressure -Treatment Response Procedure Tolerated Well -Debridement - Subq, 1st 20sq cm No #4- L BREAUX -Time 10:06 -Correct Patient Yes -Correct Side, Site, Position Yes -Correct Procedure Yes -Procedure Performed Yes -Type of Procedure Debridement -Clinical Debridement Subcutaneous -Tissue Removed Subcutaneous -Post Debridement (cm) - Length 2.1 -Post Debridement (cm) - Width 0.3 -Post Debridement (cm) - Depth 0.1 -Total Square (Post) (cm) 0.63 -Area of Debridement (cm) - Length 2.1 -Area of Debridement (cm) - Width 0.3 -Total Square (Area) (cm) 0.63 -Tunneling No -Undermining/Tunneling No -Circular Undermining No -Wound/Ulcer Outcome Not Healed -Ulcer Cleansing Rinsed/ Irrigated with Saline -Foul Odor after Cleansing No -Bioengineered Tissue No -Bleeding Controlled with Pressure -Treatment Response Procedure Tolerated Well -Debridement - Subq, 1st 20sq cm Yes Pain Scale: 0-10 Numeric Is Patient Pain Free? Yes Yes WC - Nurse 3 - General Ulcer D/C NN Start: 01/24/22 10:11 Freq: Status: Active Protocol: Activity Type Activity Date Activity User E-sign Co-sign Detail Recorded Client Recorded Date Recorded By Document 01/24/22 10:40 [facility] [id number] 01/24/22 10:41 [facility] Document 02/07/22 10:27 [facility] [id number] 02/07/22 10:27 [facility] 01/24/22 02/07/22 10:40 10:27 Wound Care Nurse 3 3-left postop distal ulcer foot -Ulcer Cleansing Rinsed/ Irrigated with Saline -Foul Odor after Cleansing No -Primary Dressing Applied Other -Other Dressing hydrogel -Primary Dressing Covered/Secured with Dry Gauze, Secured with Tape #1- L post-op medial SITE -Ulcer Cleansing Rinsed/ Irrigated with Saline -Foul Odor after Cleansing No -Primary Dressing Applied Other -Other Dressing hydrogel -Primary Dressing Covered/Secured with Dry Gauze, Secured with Tape #4- L BREAUX -Ulcer Cleansing Rinsed/ Irrigated with Saline -Foul Odor after Cleansing No -Primary Dressing Applied C Hydrogel ($) -Primary Dressing Covered/Secured with Dry Gauze, Secured with Tape Left -Tubular Bandage Double Layer Single Layer -Size of Tubigrip Used Size E Size E -Size E ($) 1 1 Treatment Response Procedure Procedure Tolerated Well Tolerated Well Pain Scale: 0-10 Numeric Is Patient Pain Free? Yes Yes WC - Visit Discharge Discharge Condition Stable Stable Ambulatory Status Ambulatory,Cane Ambulatory,Cane Transportation Private Auto Private Auto Assessment/Plan Assessment/Plan (1) Chronic ulcer of left foot with fat layer exposed: CODE(S): L97.522 - Non-pressure chronic ulcer of other part of left foot with fat layer exposed (2) Localized edema: CODE(S): R60.0 - Localized edema (3) Other specified peripheral vascular diseases: CODE(S): I73.89 - Other specified peripheral vascular diseases (4) Venous insufficiency (chronic) (peripheral): CODE(S): I87.2 - Venous insufficiency (chronic) (peripheral) (5) Crush injury of left foot: CODE(S): S97.82XA - Crushing injury of left foot, initial encounter PLAN: Plan Patient seen and evaluated. I discussed his case with him today. He is afebrile and vitals are stable. ulcer debrided as noted in clinical panel. Left foot is healed and there is full epithelialization. It is okay to cover with a gauze while this skin continues to remodel over the next 1 to 2 weeks. The following work-up and care recommendations were made: Dressing: To change daily with hydrogel and adaptic left leg. wash with soap and water Offloading: He may bear weight to the left heel with a surgical shoe and use of an assistive device to allow skin remodeling this next week. His gait has improved since he resided in transitional care unit for additional rehabilitation services. Dual density offloading Plastizote liners were applied in a surgical shoe to further offload this foot site. Edema: Elevate both lower extremities at times of rest and keep Rowdy wrap intact to left foot. Doppler with venous reflux exam was ordered to work up for diagnosis of venous insufficiency. A referral to vascular specialist, Dr. Sandoval was recommended to see if any venous intervention is possible; he is in the process of scheduling his consultation appointment date. To continue to stay compliant with compression dressing, periodic elevation, exercise and dietary salt reduction. Infection: No localized signs of infection are present at this time however he will continue to be monitored for any changes. Cultures demonstrated scant staph (No MRSA), likely skin contamination. He has completed course of IV Ancef for treatment of open fracture. Additional antibiotics will be considered if localized signs of infection develop. This is not noted today. Pain: Pain medications including oxycodone and morphine have been ordered and will be taken as needed. Vascular: arterial studies were reviewed without any gross abnormalities. He has normal triphasic waveforms ABIs and toe pressures. Diagnostic data: CBC and CMP reviewed from 11-29-2021 without gross pertinent abnormalities. Host factors: Sung nutritional supplementation has been ordered to optimize wound healing. We discussed this and he was advised to resume use. I recommend he follows up in 1 to 2 weeks for his leg and to confirm his foot remained healed and also to follow-up on his vascular intervention status. He reports he is not going to follow-up and will call if needed even though this is not what is recommended. He is very happy with his progress and I answered his questions. Note: [employer] speech recognition meeting facilitator software was used to create portions of this document. Sound-alike and misspelled words, as well as other meeting facilitator errors may be contained in the documentation. The medical decision making level is low. There is noted low risk of morbidity after considering this treatment plan and diagnostic data. The problems addressed require a low medical decision making level which includes two or more minor problems, a stable chronic illness, or an acute uncomplicated illness or injury.
== END 2022-02-08 15:12 | disposition home or self-care (01) ==
LOC: WC 09:43
PROVIDERS: PCP Family Medicine Geriatric Medicine; Visit Provider Podiatrist
DX: L97.522 Non-pressure chronic ulcer of other part of left foot with fat layer exposed (principal); I73.9 Peripheral vascular disease, unspecified; I87.2 Venous insufficiency (chronic) (peripheral); R60.0 Localized edema; S97.82XA Crushing injury of left foot, initial encounter
CPT/HCPCS: 11042

== ENCOUNTER → 2022-02-24 | Outpatient (CLI) | payer MEDICARE, SELFPAY ==
--- NOTE | 2022-02-24 08:31 | MRI_ITS ---
STUDY: MRI LUMBAR SPINE WITHOUT CONTRAST REASON FOR EXAM: Male, 66 years old. LUMBAR RADICULOPATHY TECHNIQUE: Standardized fat and water weighted pulse sequences were obtained in the sagittal and axial planes. COMPARISON: Prior comparison studies are not available for review at this time. FINDINGS: Normal lumbar lordosis. There is a levoscoliosis of the lumbar spine. Normal conus medullaris that terminates at the T12-L1 level. No marrow edema or fracture or compression deformity is present. Multilevel endplate spurring/osteophyte formation is present. Benign vertebral body fatty hemangiomas are present at several levels. Small bone island is present in the posterior superior aspect of L5 vertebral body. L1-2: Mild disc desiccation. Normal disc height and morphology. Normal bilateral facet joints. Normal central canal and bilateral lateral recesses. Normal bilateral intervertebral neural foramina. L2-3: Mild disc desiccation. Normal disc height and morphology. Normal bilateral facet joints. Normal central canal and bilateral lateral recesses. Normal bilateral intervertebral neural foramina. L3-4: Diffuse disc bulging with minimal posterior disc space narrowing and annular bulging combined with moderate facet joint and ligamenta flava hypertrophy resulting and mild to moderate central canal stenosis. Normal bilateral intervertebral neural foramina. L4-5: Diffuse disc desiccation with mild posterior disc space narrowing and diffuse disc bulging combined with moderate facet joint and ligamenta flava hypertrophy results in severe central canal stenosis with an AP diameter 5.4 mm. normal bilateral facet joints. Normal central canal and bilateral lateral recesses. Normal bilateral intervertebral neural foramina. L5-S1: Diffuse disc desiccation with minimal posterior disc space narrowing and annular bulging. Moderate facet joint hypertrophy and degeneration. Normal central canal and bilateral lateral recesses. Normal bilateral intervertebral neural foramina. Normal visualized sacral ala. Normal visualized paraspinous soft tissue structures. MRI/Spine Lumbar (Routine) IMPRESSION: 1. Multilevel degenerative changes, as described above. 2. Severe central canal stenosis at L4-L5 3. Mild to moderate central canal stenosis at L3-L4 Pending Final Proof Editing
== END | disposition home or self-care (01) ==
PROVIDERS: PCP Family Medicine Geriatric Medicine; Referring Provider Anesthesiology Pain Medicine; Visit Provider Anesthesiology Pain Medicine
DX: M54.16 Radiculopathy, lumbar region (principal)
CPT/HCPCS: 72148

== ENCOUNTER → 2022-03-13 | Outpatient (CLI) | payer MEDICARE, SELFPAY ==
--- NOTE | 2022-03-13 15:55 | RAD_ITS ---
STUDY: X-RAY - PELVIS AND LEFT HIP REASON FOR EXAM: Left hip osteoarthritis. TECHNIQUE: 2 views of the pelvis and hip. COMPARISON: None. FINDINGS: Normal visualized soft tissue structures. There is mild bilateral sacroiliac arthrosis. Normal bilateral superior and inferior pubic rami. Normal pubic symphysis. Normal bilateral ischial tuberosities. There is a right hip arthroplasty. There is left hip arthrosis with small marginal osteophytes, joint space loss and subchondral eburnation of the femoral head. RAD/HIP, UNI W/ Pelvis 2-3 Views IMPRESSION: Left hip arthrosis. Mild bilateral sacroiliac arthrosis. Electronically Signed: Jim Denson MD at 12:43 EDT ,
== END | disposition home or self-care (01) ==
PROVIDERS: PCP Family Medicine Geriatric Medicine; Referring Provider Anesthesiology Pain Medicine; Visit Provider Anesthesiology Pain Medicine
DX: M16.12 Unilateral primary osteoarthritis, left hip (principal)
CPT/HCPCS: 73502

== ENCOUNTER → 2022-04-10 | Outpatient (CLI) | payer MEDICARE, SELFPAY ==
[2022-04-10 18:53] LABS: Amphetamine Urine VISTA NEGATIVE (<1000 ng/mL); Barbiturate Urine VISTA NEGATIVE (< 200 ng/mL); Benzodiazepine Urine VISTA NEGATIVE (< 200 ng/mL); Cocaine Urine VISTA NEGATIVE (< 300 ng/mL); Ecstacy Urine VISTA NEGATIVE (< 500 ng/mL); Methadone Urine VISTA NEGATIVE (< 300 ng/mL); PCP Urine VISTA NEGATIVE (< 25 ng/mL); THC Urine VISTA NEGATIVE (< 50 ng/mL); Vista UDS pH Range 4
== END | disposition home or self-care (01) ==
LOC: LAB 16:54
PROVIDERS: PCP Family Medicine Geriatric Medicine; Visit Provider Anesthesiology Pain Medicine
DX: F11.20 Opioid dependence, uncomplicated (principal)
CPT/HCPCS: 80307

== ENCOUNTER → 2022-06-05 | Outpatient (CLI) | payer MEDICARE, SELFPAY ==
[2022-06-05 17:04] LABS: Absolute Lymphocyte Count 1.65 X10^3/uL (0.83-4.51); Absolute Neutrophil Count 5.5 X10^3/uL (2.0-7.7); Basophil# 0.01 X10^3/uL; Basophil% 0.1 % (0-1); Eosinophil# 0.25 X10^3/uL; Eosinophils% 2.9 % (0-5); Hematocrit 44.3 % (40-54); Hemoglobin 14.4 g/dL (13.0-16.5); Lymphocyte # 1.65 X10^3/ul (0.83-4.51); Lymphocyte % 19.4 % (19-41); Mean Corp Hgb Conc 32.5 g/dL (32-36); Mean Corpuscular Hgb 31.7 pg (27.0-32.0); Mean Corpuscular Volume 97.6 fL (80-94); Mean Platelet Vol. 10.8 fl (6.2-12.0); Monocyte# 1.11 X10^3/uL; Monocyte% 13.1 % (0-10); NRBC Flagged by Analyzer 0 % (0-5); Neutrophil # 5.46 X10^3/uL (2.7-7.7); Neutrophil % 64.3 % (47-70); Platelet Count 265 K/mm3 (150-450); RBC Distribution Width CV 14.3 % (11.6-14.6); RBC Distribution Width SD 52.1 fl (35.1-43.9); Red Blood Count 4.54 M/mm3 (4.6-6.2); White Blood Count 8.5 K/mm3 (4.4-11.0)
[2022-06-05 17:55] LABS: Vitamin D,25 Hydroxy 31.6 ng/mL
[2022-06-05 18:02] LABS: ALB/GLOB Ratio 0.9 RATIO (0.9-2.4); AST(SGOT) 8 U/L (15-37); Alanine Aminotransfer ALT/SGPT 18 U/L (16-61); Albumin, Serum 3.5 g/dL (3.2-5.0); Alkaline Phosphatase 89 U/L (45-117); Anion Gap 8 (5-15); BUN 17 mg/dL (7-18); BUN/Creat Ratio 17.9 RATIO (10-20); Calcium,Total 9.8 mg/dL (8.5-10.1); Chloride 102 mmol/L (98-107); Creatinine, Serum 0.95 mg/dL (0.70-1.30); EST Glomerular Filtration Rate 85 mL/min (>60); Est Glom Filt Rate - Afr Amer 102 mL/min (>60); Globulin 3.9 g/dL (2.2-4.2); Glucose 83 mg/dL (74-106); Potassium 4.2 mmol/L (3.5-5.1); Protein, Total 7.4 g/dL (6.4-8.2); Sodium Level 138 mmol/L (136-145); Thyroid Stim Hormone (TSH) 1.35 uIU/mL (0.358-3.74)
== END | disposition home or self-care (01) ==
LOC: POLAB3 15:54
PROVIDERS: PCP Family Medicine Geriatric Medicine; Visit Provider Family Medicine Geriatric Medicine
DX: E55.9 Vitamin D deficiency, unspecified (principal); I10 Essential (primary) hypertension
CPT/HCPCS: 36415; 80053; 82306; 84443; 85025

== ENCOUNTER → 2022-09-07 | Outpatient (CLI) | payer MEDICARE, SELFPAY ==
--- NOTE | 2022-09-07 14:39 | STRESSREP ---
Stress Test Report Pharmacologic myocardial perfusion stress test. 67-year-old man with for preoperative evaluation with abnormal EKG Resting EKG demonstrates sinus rhythm with a rate of 87 bpm. Resting blood pressure is 122/82 mmHg. 0.4 mg of regadenoson was infused per usual protocol followed by rapid intravenous saline flush injection. Continuous EKG monitoring was performed. The maximum heart rate was 100 bpm which was 64% of max impacted heart rate the maximum workload was 1 metabolic equivalent. At rest there were no ST or T wave changes noted to suggest ischemia and at peak infusion nonspecific ST changes were noted which did not meet the criteria for ischemia. No clinical angina is noted. The final blood pressure was 122/80 mmHg. Myocardial perfusion protocol. 14.4 mCi of technetium 99m sestamibi was injected at rest. 0.4 mg of regadenoson was infused per usual protocol. At peak infusion 44.7 mCi of technetium 99m sestamibi was injected stress images were obtained stress and rest images were reconstructed and compared in the short axis vertical long and horizontal long axis. Gated images were also obtained. Perfusion SPECT analysis: Review of the stress images demonstrate normal uptake of tracer noted in all areas of the myocardium except for the inferior wall with reduced perfusion. The resting images similar demonstrated normal uptake of tracer noted in all areas of the myocardium. There is improvement in the inferior wall suggestive of mid inferior ischemia. Gated SPECT analysis: The gated ejection fraction is 36%. Conclusion: Abnormal pharmacologic myocardial perfusion stress test with evidence of mid inferior ischemia. Reduced ejection fraction.
== END | disposition home or self-care (01) ==
LOC: CVS 06:20
PROVIDERS: PCP Family Medicine Geriatric Medicine; Referring Provider Internal Medicine Cardiovascular Disease; Visit Provider Internal Medicine Cardiovascular Disease
DX: Z01.810 Encounter for preprocedural cardiovascular examination (principal); Z01.818 Encounter for other preprocedural examination
CPT/HCPCS: 78452; 93017; A9500; A4216; J2785

== ENCOUNTER 2022-09-18 06:37 | Day surgery (SDC) | payer MEDICARE, SELFPAY ==
--- NOTE | 2022-09-10 09:27 | RAD_ITS ---
STUDY: X-RAY CHEST REASON FOR EXAM: Male, 67 years old. Chest pain/pressure, abnormal stress test TECHNIQUE: 2 PA and 2 lateral views of the chest. COMPARISON: 11/13/2021 FINDINGS: Lungs are mildly hyperexpanded with chronic interstitial changes, no superimposed acute pulmonary process. Normal size heart. Normal mediastinum and frances. Normal visualized pulmonary arteries. Normal visualized aortic arch and descending thoracic aorta. There are diffuse degenerative changes of the visualized thoracic spine. Normal visualized ribs, clavicles, and shoulders. There is no demonstrated abnormality of the visualized soft tissue structures of the upper abdomen. RAD/Chest PA and Lateral IMPRESSION: Mildly hyperexpanded lungs with chronic interstitial changes, no superimposed acute pulmonary process Electronically Signed: Chaim Lackey MD at 11:33 EST ,
[2022-09-10 10:17] LABS: Absolute Lymphocyte Count 1.71 X10^3/uL (0.83-4.51); Absolute Neutrophil Count 4.3 X10^3/uL (2.0-7.7); Basophil# 0.04 X10^3/uL; Basophil% 0.6 % (0-1); Eosinophil# 0.28 X10^3/uL; Eosinophils% 3.9 % (0-5); Hematocrit 47.5 % (40-54); Hemoglobin 15.1 g/dL (13.0-16.5); Lymphocyte # 1.71 X10^3/ul (0.83-4.51); Lymphocyte % 23.6 % (19-41); Mean Corp Hgb Conc 31.8 g/dL (32-36); Mean Corpuscular Hgb 30.4 pg (27.0-32.0); Mean Corpuscular Volume 95.6 fL (80-94); Mean Platelet Vol. 10.6 fl (6.2-12.0); Monocyte# 0.91 X10^3/uL; Monocyte% 12.6 % (0-10); NRBC Flagged by Analyzer 0 % (0-5); Neutrophil # 4.29 X10^3/uL (2.7-7.7); Platelet Count 236 K/mm3 (150-450); RBC Distribution Width CV 12.6 % (11.6-14.6); RBC Distribution Width SD 44.4 fl (35.1-43.9); Red Blood Count 4.97 M/mm3 (4.6-6.2); White Blood Count 7.3 K/mm3 (4.4-11.0)
[2022-09-10 10:38] LABS: International Normalized Ratio 1.1; Partial Thromboplast Time 33.8 Seconds (24.1-36.2); Prothrombin Time (Protime)PT. 13.9 SECONDS (11.7-14.9)
[2022-09-10 11:04] LABS: Anion Gap 7 (5-15); BUN 21 mg/dL (7-18); BUN/Creat Ratio 23.2 RATIO (10-20); Calcium,Total 10.4 mg/dL (8.5-10.1); Chloride 104 mmol/L (98-107); EST Glomerular Filtration Rate 89 mL/min (>60); Est Glom Filt Rate - Afr Amer 108 mL/min (>60); Glucose 111 mg/dL (74-106); Potassium 4.1 mmol/L (3.5-5.1); Sodium Level 139 mmol/L (136-145)
[2022-09-10 12:30] VITALS: BMI 37.2
--- NOTE | 2022-09-18 08:50 | CL.D_ITS ---
Patient Name: MARTI MARTINS Study Date: 09/18/2022 Performing: Chad Limon MD Ht: 75 inches 190.5 cm : 1955 Wt: 298 lbs 135.17 kg Age: 67 Gender: male BSA: 2.6 PROCEDURE(S) PERFORMED DC01-(07930)LHC/COR/LV CLINICAL PROFILE AND INDICATIONS Indications: Suspected CAD Heart Failure: None Stress/Imaging Date: 09/07/22Stress Test with SPECT MPI: Positive Intermediate Risk CAD Presentations: No Sxs, no angina. CONCLUSIONS Coronary artery disease with moderate disease noted in the left anterior descending artery and circumflex artery totally occluded right coronary artery. Faint [id number] collaterals are noted. Patient also noted to be in atrial fibrillation. This appears to be new onset. RECOMMENDATIONS We will continue optimization of medical therapy and beta-ann for the heart rate. Will eventually need anticoagulation. DESCRIPTION OF PROCEDURE The patient arrived to the procedure lab. The risks and benefits of the procedure as well as a full description of our services here and current unavailability of surgical backup were fully explained to the patient and/or their significant other prior to the catheterization. The Timeout was completed, verifying the correct patient and procedure. The patient's procedural site was prepped and draped in the usual fashion. Local anesthetic was given subcutaneously to right radial region with Lidocaine 2%. Using a modified Seldinger technique, arterial access was obtained via the right radial artery, a 6Fr sheath was inserted. Left Coronary Artery selective angiography was performed in multiple views using a 6 Fr. JL 4-125cm catheter. Right Coronary Artery selective angiography was then performed in multiple views using a 6 Fr. JR 4-125cm catheter. Left Ventriculography was performed in SUMMERS projection using a 6 Fr. Pigtail catheter. LV to AO pullback pressures were then recorded.The arterial sheath was pulled and a TR Band was applied for hemostasis CORONARY ANGIOGRAPHY DOMINANCE: Right Dominant LEFT HEART ASSESSMENT Left Ventricular Ejection Fraction: by LV Gram 50 % Inferior Basal Akinesis Depressed Left Ventricular systolic function LEFT MAIN: Angiographically normal LEFT ANTERIOR DESCENDING ARTERY: The left anterior descending artery is calcified and has moderate diffuse disease of 50 to 60% noted in the proximal and mid segments. RIGHT CORONARY ARTERY: This vessel is totally occluded in the proximal region with homocollaterals noted. COMPLICATIONS No Complications PROCEDURE MEDICATIONS Versed 1 mg IV Fentanyl 50 mcg IV Versed 1 mg IV Oxygen: 2 L/min via nasal cannula Heparin given IA 09/18/2022 08:07:35 Verapamil 2.5mg, Ntg 100mcgs, 3000 units of Heparin given IA 09/18/2022 08:07:35 SUMMARY OF HEMODYNAMIC DATA Time AIR REST ECG 07:07:53 ECG 07:40:11 Art 140/75 (93) 07:56:40 AO 104/70 (83) SA 08:16:31 LV 110/17, 25 08:35:56 LV 112/13, 23 08:36:03 LV 105/13, 19 08:36:45 LV 105/13, 21 08:36:51 LVp 98/14, 23 08:36:57 AOp 105/73 (86) 08:37:02 AO 108/72 (87) 08:37:08 Signed By Chad Limon MD On 09/18/2022 08:49:22 Chad Limon MD
== END 2022-09-18 10:45 | disposition home or self-care (01) ==
LOC: CLSP 06:38
PROVIDERS: PCP Family Medicine Geriatric Medicine; Referring Provider Internal Medicine Cardiovascular Disease; Visit Provider Internal Medicine Cardiovascular Disease
DX: I25.10 Atherosclerotic heart disease of native coronary artery without angina pectoris (principal); I71.20 Thoracic aortic aneurysm, without rupture, unspecified; I48.91 Unspecified atrial fibrillation; I10 Essential (primary) hypertension; E78.5 Hyperlipidemia, unspecified; Z79.899 Other long term (current) drug therapy; Z79.82 Long term (current) use of aspirin
CPT/HCPCS: 36415; 71046; 80048; 85025; 85610; 85730; 93458; 99152; 99153; J7040; C1769; C1894; Q9967

== ENCOUNTER → 2023-01-02 | Outpatient (CLI) | payer MEDICARE, SELFPAY ==
[2023-01-02 14:01] LABS: Anion Gap 5 (5-15); BUN 15 mg/dL (7-18); BUN/Creat Ratio 21.4 RATIO (10-20); Calcium,Total 9.3 mg/dL (8.5-10.1); Chloride 106 mmol/L (98-107); EST Glomerular Filtration Rate 120 mL/min (>60); Est Glom Filt Rate - Afr Amer 145 mL/min (>60); Glucose 100 mg/dL (74-106); Potassium 4.1 mmol/L (3.5-5.1); Sodium Level 140 mmol/L (136-145)
== END | disposition home or self-care (01) ==
LOC: LAB 12:19
PROVIDERS: PCP Family Medicine Geriatric Medicine; Referring Provider Nurse Practitioner Gerontology; Visit Provider Nurse Practitioner Gerontology
DX: I48.19 Other persistent atrial fibrillation (principal)
CPT/HCPCS: 36415; 80048

== ENCOUNTER → 2023-01-15 | Outpatient (CLI) | payer MEDICARE, SELFPAY ==
--- NOTE | 2023-01-15 10:27 | ECHOCS_ITS ---
Reason For Study: Afib Procedure This was a 2D Doppler, Color Flow transthoracic echocardiogram. The study was technically difficult. Contrast injection was performed. Exam performed in department. Left Ventricle Normal LV size. Severe concentric left ventricular hypertrophy. Left ventricular systolic function is normal. The estimated ejection fraction is 60 %. Segmental dysfunction with preserved ejection fraction (see wall motion). Infero-Basal: Akinetic. Basal inferoseptal: Akinetic. Right Ventricle Normal RV size. Normal systolic function. Atria The left atrium is moderately enlarged. The right atrium is severely enlarged. Tricuspid Valve Normal tricuspid valve. Mild (1+) tricuspid valve insufficiency. Pulmonary artery systolic pressure is 32 mmHg. Aortic Valve Trisinus/trileaflet aortic valve. Mild (1+) eccentric aortic valve insufficiency. Pulmonic Valve Normal pulmonic valve. Great Vessels Moderately dilated aortic root. The pulmonary artery is normal size. Normal inferior vena cava. Pericardium/Pleural No pericardial effusion. Medication 22 gauge I.V. with prn adaptor inserted into left arm. Diluted definity 3ml given slow IV push to enhance endocardial definition. MMode/2D Measurements & Calculations LVIDd: 5.2 cm IVSd: 1.7 cm Ao root diam: 4.6 cm LVIDs: 3.7 cm LVPWd: 1.7 cm LA dimension: 4.6 cm RVDd: 3.9 cm FS: 29.0 % LAV(MOD-bp): 103.9 ml LVAd ap4: 49.3 cm2 SV(MOD-sp4): 104.0 ml LAV(MOD-bp) Indexed: 40.9 ml/m2 LVLd ap4: 10.5 cm LAV(MOD-sp2): 102.4 ml EDV(MOD-sp4): 192.5 ml LAV(MOD-sp4): 90.6 ml EDV(sp4-el): 196.8 ml LVAs ap4: 30.0 cm2 LVLs ap4: 8.6 cm ESV(MOD-sp4): 88.4 ml ESV(sp4-el): 88.6 ml EF(MOD-sp4): 54.1 % EF(sp4-el): 55.0 % SV(sp4-el): 108.1 ml LA A4 area: 28.7 cm2 RA A4 area: 31.3 cm2 Doppler Measurements & Calculations MV E max fredo: 117.1 cm/sec MV V2 max: 124.9 cm/sec Ao V2 max: 139.0 cm/sec MV max P.3 mmHg Ao max P.9 mmHg MV V2 mean: 66.6 cm/sec Ao V2 mean: 92.6 cm/sec MV mean P.3 mmHg Ao mean P.1 mmHg MV V2 VTI: 23.7 cm Ao V2 VTI: 21.2 cm AV (velocity ratio): 0.80 AI max fredo: 251.2 cm/sec LV V1 max: 103.6 cm/sec PA V2 max: 83.2 cm/sec AI max P.7 mmHg LV V1 max P.4 mmHg PA V2 mean: 61.9 cm/sec AI dec slope: 153.2 cm/sec2 LV V1 mean P.4 mmHg AI P1/2t: 480.4 msec LV V1 mean: 72.0 cm/sec LV V1 VTI: 17.0 cm TR max fredo: 266.4 cm/sec TR max P.4 mmHg ECHO/Echo Complete W/ Contrast Interpretation Summary Normal LV size. Severe concentric left ventricular hypertrophy. Left ventricular systolic function is normal. The estimated ejection fraction is 60 %. The left atrium is moderately enlarged. Segmental dysfunction with preserved ejection fraction (see wall motion). Mild (1+) eccentric aortic valve insufficiency. Ordering Physician: Meri Ren Referring Physician: Flakito Lopez Chi Performed By: Gagan Singh RCS
== END | disposition home or self-care (01) ==
LOC: CVS 10:26
PROVIDERS: PCP Family Medicine Geriatric Medicine; Referring Provider Nurse Practitioner Gerontology; Visit Provider Nurse Practitioner Gerontology
DX: I48.19 Other persistent atrial fibrillation (principal); I71.20 Thoracic aortic aneurysm, without rupture, unspecified
CPT/HCPCS: 93306; Q9957; A4216; C8929

== ENCOUNTER 2023-01-16 10:18 | Day surgery (SDC) | payer MEDICARE, SELFPAY ==
[2023-01-15 07:18] VITALS: BMI 37.2
--- NOTE | 2023-01-16 10:19 | EKG12_ITS ---
Test Reason : AFIB Blood Pressure : / mmHG Vent. Rate : 099 BPM Atrial Rate : 258 BPM P-R Int : 000 ms QRS Dur : 124 ms QT Int : 364 ms P-R-T Axes : 000 -76 094 degrees QTc Int : 467 ms Atrial fibrillation Left axis deviation Inferior infarct (cited on or before 08-DEC-2020) Anteroseptal infarct (cited on or before 08-DEC-2020) Abnormal ECG Confirmed by CHAD LIMON MD ([id number]), industrial editor NADJA NAVA ([id number]) on 01/18/2023 9:27:46 AM Referred By: hCad Limon Confirmed By:CHAD LIMON MD
--- NOTE | 2023-01-16 12:20 | PCM.OP.PRO ---
Procedure Report Date of Procedure: 01/16/23 DC version. 67-year-old man with a history of symptomatic atrial fibrillation. Patient has been on therapeutic anticoagulation. The patient was brought to the cardiac catheterization lab in the postabsorptive nonsedated state. Informed consent was obtained. The patient was seen by Dr. Hilton of the critical care division. Anterior-posterior pads were applied. The patient was administered 80 mg of intravenous propofol. 200 J of synchronized biphasic cardioversion energy were applied with prompt reversal to sinus rhythm. Patient tolerated the procedure well. Conclusion: Successful DC cardioversion from atrial fibrillation to sinus rhythm. Follow-up as per office protocol.
--- NOTE | 2023-01-16 12:49 | PRO.PCM_ITS ---
Procedure Report Date of Procedure: 01/16/23 CONSCIOUS SEDATION REPORT DATE OF SERVICE: January 16, 2023 BRIEF HISTORY OF PRESENT ILLNESS: The patient is a 67-year-old male who presented to [facility] for an elective outpatient cardioversion due to underlying atrial fibrillation. The patient has never previously undergone a cardioversion. He denied any prior anesthetic complications. The patient is a lifelong non-smoker. He has never been diagnosed with obstructive sleep apnea. The patient is systemically antico agulated on Eliquis. His last surface echocardiogram demonstrated an ejection fraction of 50%. PHYSICAL EXAMINATION: VITAL SIGNS: Reviewed and were acceptable. GENERAL: The patient is an obese male, in no apparent distress, speaking in full sentences. HEENT: Normocephalic, atraumatic. Mucous membranes are moist and pink. Good mouth opening noted. Trachea is midline. Good neck mobility. CHEST: S1, S2 irregularly irregular. No murmurs, rubs or gallops were noted. LUNGS: Clear to auscultation bilaterally without appreciable wheezes, rales or rhonchi. ABDOMEN: Soft, nontender, nondistended. Positive bowel sounds. EXTREMITIES: There is no clubbing, cyanosis or edema. ASA Class: II DESCRIPTION OF PROCEDURE: After confirmation of informed consent, the patient's anesthesia plan was reviewed in detail. Propofol was chosen. Risks and benefits were reviewed and the patient agreed to proceed. At 1209, the patient was given his first bolus of propofol. In total, the patient required 80 mg of propofol to achieve an appropriate level of sedation, after which time, he was given a 200 joule synchronized cardioversion by Dr. Limon at the bedside. This was successful in achieving normal sinus rhythm. The patient was monitored until 1223, at which time he reached his baseline mental status and function. The patient tolerated the procedure well. COMPLICATIONS: None ESTIMATED BLOOD LOSS: None RECOMMENDATIONS: Okay to recover in usual fashion. Procedures Pulmonary 9xxxx: [id number] Con Sedation
== END 2023-01-16 13:23 | disposition home or self-care (01) ==
LOC: CLSP 10:19
PROVIDERS: PCP Family Medicine Geriatric Medicine; Referring Provider Internal Medicine Cardiovascular Disease; Visit Provider Internal Medicine Cardiovascular Disease
DX: I48.19 Other persistent atrial fibrillation (principal); I71.20 Thoracic aortic aneurysm, without rupture, unspecified; G47.33 Obstructive sleep apnea (adult) (pediatric); Z79.01 Long term (current) use of anticoagulants; I10 Essential (primary) hypertension; E78.5 Hyperlipidemia, unspecified; I25.10 Atherosclerotic heart disease of native coronary artery without angina pectoris
CPT/HCPCS: 92960; 93005; J7040

== ENCOUNTER → 2023-02-26 | Outpatient (CLI) | payer MEDICARE, SELFPAY ==
[2023-02-26 09:16] LABS: Absolute Lymphocyte Count 1.21 X10^3/uL (0.83-4.51); Absolute Neutrophil Count 2.9 X10^3/uL (2.0-7.7); Basophil# 0.02 X10^3/uL; Basophil% 0.4 % (0-1); Hematocrit 44.7 % (40-54); Hemoglobin 14.6 g/dL (13.0-16.5); Lymphocyte # 1.21 X10^3/ul (0.83-4.51); Lymphocyte % 24.4 % (19-41); Mean Corp Hgb Conc 32.7 g/dL (32-36); Mean Corpuscular Hgb 31.1 pg (27.0-32.0); Mean Corpuscular Volume 95.1 fL (80-94); Mean Platelet Vol. 9.8 fl (6.2-12.0); Monocyte% 12.1 % (0-10); NRBC Flagged by Analyzer 0 % (0-5); Neutrophil # 2.91 X10^3/uL (2.7-7.7); Neutrophil % 58.9 % (47-70); Platelet Count 211 K/mm3 (150-450); RBC Distribution Width CV 13.6 % (11.6-14.6); RBC Distribution Width SD 48.2 fl (35.1-43.9)
[2023-02-26 09:41] LABS: International Normalized Ratio 1.1; Prothrombin Time (Protime)PT. 14.1 SECONDS (11.7-14.9)
[2023-02-26 09:42] LABS: Partial Thromboplast Time 35.8 Seconds (24.1-36.2)
[2023-02-26 09:47] LABS: AST(SGOT) 12 U/L (15-37); Alanine Aminotransfer ALT/SGPT 19 U/L (16-61); Albumin, Serum 3.4 g/dL (3.2-5.0); Alkaline Phosphatase 105 U/L (45-117); Bilirubin, Direct 0.18 mg/dL (0.00-0.30); Globulin 3.6 g/dL (2.2-4.2); Magnesium 2.1 mg/dL (1.6-2.6)
[2023-02-26 09:51] LABS: Albumin, Serum 3.3 g/dL (3.2-5.0); Anion Gap 4 (5-15); BUN 19 mg/dL (7-18); Calcium,Total 9.5 mg/dL (8.5-10.1); Chloride 107 mmol/L (98-107); Creatinine, Serum 0.79 mg/dL (0.70-1.30); EST Glomerular Filtration Rate 104 mL/min (>60); Est Glom Filt Rate - Afr Amer 126 mL/min (>60); Glucose 101 mg/dL (74-106); Potassium 4.7 mmol/L (3.5-5.1); Sodium Level 138 mmol/L (136-145)
== END | disposition home or self-care (01) ==
LOC: PAT 03-29 15:22
PROVIDERS: Anesthesiology; PCP Family Medicine Geriatric Medicine; Referring Provider Specialist; Visit Provider Specialist
DX: Z01.818 Encounter for other preprocedural examination (principal); Z01.812 Encounter for preprocedural laboratory examination
CPT/HCPCS: 36415; 80048; 80076; 82040; 83735; 85025; 85610; 85730; 87081

== ENCOUNTER → 2023-03-14 | Outpatient (CLI) | payer MEDICARE, SELFPAY ==
--- NOTE | 2023-03-14 14:02 | CT_ITS ---
STUDY: CT LEFT HIP REASON FOR EXAM: Male, 67 years old. Atraumatic left hip pain. RADIATION DOSAGE (If Supplied By Facility): CTDIvol = ( 26.62 ) mGy, DLP = ( 1110.47 ) mGycm TECHNIQUE: The patient was scanned in a multi detector CT scanner. High resolution transaxial imaging was performed without the administration of intravenous contrast material. Sagittal and coronal images were reconstructed. Individualized dose optimization techniques were used for this CT. COMPARISON: Pelvis and left hip x-rays dated March 13, 2022. FINDINGS: Osteopenia. Moderate lower lumbosacral spondylosis. Severe arthrosis of the left hip with complete loss of articular cartilage, marked osteophyte formation, subchondral cyst formation and subchondral sclerosis. Large left hip effusion. Minimal gluteal muscle atrophy. CT/Extremity Lower without Contra IMPRESSION: Osteopenia with severe arthrosis of the left hip as described. Large left hip effusion. Muscle atrophy. Electronically Signed: Bishnu Cardona MD at 14:34 EDT ,
== END | disposition home or self-care (01) ==
LOC: CT 13:49
PROVIDERS: PCP Family Medicine Geriatric Medicine
DX: M25.552 Pain in left hip (principal)
CPT/HCPCS: 73700

== ENCOUNTER → 2023-06-05 | Outpatient (CLI) | payer MEDICARE, SELFPAY ==
[2023-06-05 12:23] LABS: Absolute Lymphocyte Count 0.98 X10^3/uL (0.83-4.51); Basophil# 0.03 X10^3/uL; Basophil% 0.5 % (0-1); Eosinophil# 0.23 X10^3/uL; Hematocrit 38.4 % (40-54); Hemoglobin 11.9 g/dL (13.0-16.5); Lymphocyte # 0.98 X10^3/ul (0.83-4.51); Lymphocyte % 16.9 % (19-41); Mean Corpuscular Hgb 31.6 pg (27.0-32.0); Mean Corpuscular Volume 101.9 fL (80-94); Mean Platelet Vol. 10.2 fl (6.2-12.0); Monocyte# 0.58 X10^3/uL; NRBC Flagged by Analyzer 0 % (0-5); Neutrophil # 3.96 X10^3/uL (2.7-7.7); Neutrophil % 68.4 % (47-70); Platelet Count 259 K/mm3 (150-450); RBC Distribution Width CV 13.2 % (11.6-14.6); RBC Distribution Width SD 49.7 fl (35.1-43.9); Red Blood Count 3.77 M/mm3 (4.6-6.2); White Blood Count 5.8 K/mm3 (4.4-11.0)
[2023-06-05 12:50] LABS: ALB/GLOB Ratio 0.9 RATIO (0.9-2.4); AST(SGOT) 12 U/L (15-37); Alanine Aminotransfer ALT/SGPT 15 U/L (16-61); Alkaline Phosphatase 114 U/L (45-117); Anion Gap 3 (5-15); BUN 13 mg/dL (7-18); BUN/Creat Ratio 16.8 RATIO (10-20); Calcium,Total 8.4 mg/dL (8.5-10.1); Chloride 107 mmol/L (98-107); Cholesterol 147 mg/dL (200); Creatinine, Serum 0.77 mg/dL (0.70-1.30); EST Glomerular Filtration Rate 107 mL/min (>60); Est Glom Filt Rate - Afr Amer 130 mL/min (>60); Globulin 3.4 g/dL (2.2-4.2); Glucose 121 mg/dL (74-106); High Density Lipoprotein 34 mg/dL; PSA,Total - Annual Screen 1.36 ng/mL (0.00-4.00); Potassium 4.5 mmol/L (3.5-5.1); Protein, Total 6.4 g/dL (6.4-8.2); Sodium Level 139 mmol/L (136-145); Thyroid Stim Hormone (TSH) 1.66 uIU/mL (0.358-3.74); Triglycerides 66 mg/dL; Very Low Density Lipoprotein 13 mg/dL (5-40)
== END | disposition home or self-care (01) ==
LOC: POLAB3 11:30
PROVIDERS: PCP Family Medicine Geriatric Medicine; Visit Provider Family Medicine Geriatric Medicine
DX: I10 Essential (primary) hypertension (principal); E55.9 Vitamin D deficiency, unspecified; E78.5 Hyperlipidemia, unspecified; Z12.5 Encounter for screening for malignant neoplasm of prostate
CPT/HCPCS: 36415; 80053; 80061; 82306; 84153; 84443; 85025; G0103

== ENCOUNTER → 2023-12-04 | Outpatient (CLI) | payer MEDICARE, SELFPAY ==
[2023-12-04 12:47] LABS: Absolute Lymphocyte Count 1.31 X10^3/uL (0.83-4.51); Absolute Neutrophil Count 3.6 X10^3/uL (2.0-7.7); Basophil# 0.02 X10^3/uL; Basophil% 0.3 % (0-1); Eosinophil# 0.22 X10^3/uL; Eosinophils% 3.8 % (0-5); Hematocrit 47.9 % (40-54); Hemoglobin 15.1 g/dL (13.0-16.5); Lymphocyte # 1.31 X10^3/ul (0.83-4.51); Lymphocyte % 22.5 % (19-41); Mean Corp Hgb Conc 31.5 g/dL (32-36); Mean Corpuscular Hgb 29.2 pg (27.0-32.0); Mean Corpuscular Volume 92.5 fL (80-94); Mean Platelet Vol. 9.7 fl (6.2-12.0); Monocyte# 0.71 X10^3/uL; Monocyte% 12.2 % (0-10); NRBC Flagged by Analyzer 0 % (0-5); Neutrophil # 3.55 X10^3/uL (2.7-7.7); Platelet Count 229 K/mm3 (150-450); RBC Distribution Width CV 14.3 % (11.6-14.6); RBC Distribution Width SD 49.1 fl (35.1-43.9); Red Blood Count 5.18 M/mm3 (4.6-6.2); White Blood Count 5.8 K/mm3 (4.4-11.0)
[2023-12-04 13:17] LABS: Vitamin D,25 Hydroxy 32.7 ng/mL
[2023-12-04 14:49] LABS: ALB/GLOB Ratio 0.8 RATIO (0.9-2.4); AST(SGOT) 20 U/L (15-37); Alanine Aminotransfer ALT/SGPT 26 U/L (16-61); Albumin, Serum 3.4 g/dL (3.2-5.0); Alkaline Phosphatase 123 U/L (45-117); Anion Gap 2 (5-15); BUN 17 mg/dL (7-18); BUN/Creat Ratio 21.5 RATIO (10-20); Calcium,Total 9.3 mg/dL (8.5-10.1); Chloride 104 mmol/L (98-107); Cholesterol 142 mg/dL (200); Creatinine, Serum 0.79 mg/dL (0.70-1.30); EST Glomerular Filtration Rate 104 mL/min (>60); Est Glom Filt Rate - Afr Amer 126 mL/min (>60); Glucose 119 mg/dL (74-106); High Density Lipoprotein 46 mg/dL; Potassium 4.3 mmol/L (3.5-5.1); Protein, Total 7.4 g/dL (6.4-8.2); Sodium Level 136 mmol/L (136-145); Thyroid Stim Hormone (TSH) 1.16 uIU/mL (0.358-3.74); Triglycerides 54 mg/dL; Very Low Density Lipoprotein 11 mg/dL (5-40)
== END | disposition home or self-care (01) ==
LOC: LAB 12:29
PROVIDERS: PCP Family Medicine Geriatric Medicine; Referring Provider Family Medicine Geriatric Medicine; Visit Provider Family Medicine Geriatric Medicine
DX: I10 Essential (primary) hypertension (principal); E55.9 Vitamin D deficiency, unspecified; E78.5 Hyperlipidemia, unspecified
CPT/HCPCS: 36415; 80053; 80061; 82306; 84443; 85025

== ENCOUNTER → 2024-03-06 | Outpatient (CLI) | payer MEDICARE, SELFPAY ==
--- NOTE | 2024-03-06 12:10 | RAD_ITS ---
STUDY: X-RAY CHEST REASON FOR EXAM: Male, 68 years old. Hypoxemia. TECHNIQUE: Frontal and lateral views of the chest. COMPARISON: September 10, 2022 FINDINGS: Interval development of diffuse interstitial pattern with a basilar predominance. Moderate to large bilateral pleural effusions. Stable cardiomegaly. Normal mediastinum and frances. Normal visualized pulmonary arteries. Aortic tortuosity with calcification unchanged. No abnormality of the visualized soft tissue structures of the upper abdomen. RAD/Chest PA and Lateral IMPRESSION: Interval development of findings compatible with interstitial edema/congestive failure with effusions. Follow-up chest imaging to resolution recommended. Electronically Signed: Bishnu Cardona MD at 15:43 EDT ,
--- NOTE | 2024-03-06 12:12 | EKG12_ITS ---
Test Reason : HEART FAILURE Blood Pressure : / mmHG Vent. Rate : 104 BPM Atrial Rate : 104 BPM P-R Int : 150 ms QRS Dur : 116 ms QT Int : 348 ms P-R-T Axes : -07 -81 107 degrees QTc Int : 457 ms Sinus tachycardia with frequent Premature ventricular complexes Left axis deviation Inferior infarct , age undetermined Anteroseptal infarct , age undetermined ST & T wave abnormality, consider lateral ischemia Abnormal ECG Baseline artifact Confirmed by Guille Lloyd ([id number]), proposal editor NADJA NAVA ([id number]) on 03/09/2024 8:51:46 AM Referred By: Flakito Lopez Confirmed By:Guille Lloyd
[2024-03-06 13:53] LABS: AST(SGOT) 24 U/L (15-37); Alanine Aminotransfer ALT/SGPT 24 U/L (16-61); Albumin, Serum 3.1 g/dL (3.2-5.0); Alkaline Phosphatase 153 U/L (45-117); Bilirubin, Direct 0.25 mg/dL (0.00-0.30); Cholesterol 127 mg/dL (200); High Density Lipoprotein 43 mg/dL; Protein, Total 7.1 g/dL (6.4-8.2); Triglycerides 52 mg/dL; Very Low Density Lipoprotein 10 mg/dL (5-40)
== END | disposition home or self-care (01) ==
PROVIDERS: Nurse Practitioner Gerontology; PCP Family Medicine Geriatric Medicine; Referring Provider Family Medicine Geriatric Medicine; Visit Provider Family Medicine Geriatric Medicine
DX: I50.30 Unspecified diastolic (congestive) heart failure (principal); I11.0 Hypertensive heart disease with heart failure; R09.02 Hypoxemia
CPT/HCPCS: 36415; 71046; 80061; 80076; 93005

== ENCOUNTER → 2024-03-09 | Outpatient (CLI) | payer MEDICARE, SELFPAY ==
--- NOTE | 2024-03-09 11:50 | CT_ITS ---
STUDY: CTA CHEST REASON FOR EXAM: Male, 68 years old. SOB RADIATION DOSAGE (If Supplied By Facility): CTDIvol = ( 17.26 ) mGy, DLP = ( 599.45 ) mGycm TECHNIQUE: The examination was performed with the intravenous administration of IV 100mL Isovue-370. Post-processing of the angiographic images was performed, with multiplanar reformation and 3D reconstruction. Individualized dose optimization techniques were used for this CT. COMPARISON: Comparison is made with prior chest radiograph dated March 06, 2024. FINDINGS: Normal enhancement of the main pulmonary artery and right and left pulmonary arteries. Normal enhancement of the bilateral peripheral pulmonary arteries. There is no demonstrated pulmonary embolism. Normal thoracic aorta and visualized great vessels. There is no demonstrated aortic dissection. There are calcifications of the coronary arteries. Normal mediastinum. Normal hilar regions. Normal visualized trachea and bronchi. Moderate size bilateral pleural effusion slightly worse on the right side with bibasilar compressive atelectasis. Thickening of the left major fissure. Normal chest wall structures. There are degenerative changes of thoracic spine. Normal visualized upper abdomen. CT/CTA Chest W/WO Contrast IMPRESSION: Moderate-sized bilateral pleural effusions right greater than left with bibasilar compressive atelectasis. Electronically Signed: Antony Higuera MD at 13:18 EDT ,
== END | disposition home or self-care (01) ==
LOC: CT 11:49
PROVIDERS: PCP Family Medicine Geriatric Medicine; Referring Provider Family Medicine Geriatric Medicine; Visit Provider Family Medicine Geriatric Medicine
DX: R06.02 Shortness of breath (principal)
CPT/HCPCS: 71275; Q9967

== ENCOUNTER → 2024-03-09 | Outpatient (CLI) | payer MEDICARE, SELFPAY ==
[2024-03-09 10:44] LABS: Absolute Lymphocyte Count 1.78 X10^3/uL (0.83-4.51); Absolute Neutrophil Count 6.5 X10^3/uL (2.0-7.7); Basophil# 0.02 X10^3/uL; Basophil% 0.2 % (0-1); Eosinophil# 0.11 X10^3/uL; Eosinophils% 1.2 % (0-5); Hematocrit 52.2 % (40-54); Hemoglobin 15.6 g/dL (13.0-16.5); Lymphocyte # 1.78 X10^3/ul (0.83-4.51); Lymphocyte % 19.2 % (19-41); Mean Corp Hgb Conc 29.9 g/dL (32-36); Mean Corpuscular Hgb 29.1 pg (27.0-32.0); Mean Corpuscular Volume 97.4 fL (80-94); Mean Platelet Vol. 9.9 fl (6.2-12.0); Monocyte# 0.81 X10^3/uL; Monocyte% 8.7 % (0-10); NRBC Flagged by Analyzer 0 % (0-5); Neutrophil # 6.52 X10^3/uL (2.7-7.7); Neutrophil % 70.4 % (47-70); Platelet Count 270 K/mm3 (150-450); RBC Distribution Width CV 14.1 % (11.6-14.6); RBC Distribution Width SD 50.9 fl (35.1-43.9); Red Blood Count 5.36 M/mm3 (4.6-6.2); White Blood Count 9.3 K/mm3 (4.4-11.0)
[2024-03-09 11:07] LABS: D-Dimer Quantitative (DVT/PE) 1.11 FEU/ug/m (0.27-0.49)
[2024-03-09 11:15] LABS: BNP,B-Type NATRIURETIC PEPTIDE 126.8 pg/mL (0-100)
[2024-03-09 11:25] LABS: ALB/GLOB Ratio 0.7 RATIO (0.9-2.4); AST(SGOT) 23 U/L (15-37); Alanine Aminotransfer ALT/SGPT 36 U/L (16-61); Alkaline Phosphatase 164 U/L (45-117); Anion Gap 3 (5-15); BUN 21 mg/dL (7-18); CPK Total, Creatine Kinase 48 U/L (39-308); Calcium,Total 8.9 mg/dL (8.5-10.1); Chloride 102 mmol/L (98-107); Creatinine, Serum 0.88 mg/dL (0.70-1.30); EST Glomerular Filtration Rate 92 mL/min (>60); Est Glom Filt Rate - Afr Amer 112 mL/min (>60); Globulin 4.2 g/dL (2.2-4.2); Glucose 124 mg/dL (74-106); Potassium 4.3 mmol/L (3.5-5.1); Protein, Total 7.2 g/dL (6.4-8.2); Sodium Level 139 mmol/L (136-145); Troponin-I HS 37 pg/mL (3.0-78.0)
[2024-03-10 11:09] LABS: Myoglobin, Serum 76 ng/mL (28-72)
== END | disposition home or self-care (01) ==
LOC: POLAB3 10:31
PROVIDERS: PCP Family Medicine Geriatric Medicine; Visit Provider Family Medicine Geriatric Medicine
DX: I11.0 Hypertensive heart disease with heart failure (principal); I50.30 Unspecified diastolic (congestive) heart failure
CPT/HCPCS: 36415; 80053; 82550; 83874; 83880; 84484; 85025; 85379

== ENCOUNTER → 2024-03-12 | Outpatient (CLI) | payer MEDICARE, SELFPAY ==
--- NOTE | 2024-03-12 14:33 | RAD_ITS ---
STUDY: X-RAY CHEST REASON FOR EXAM: Male, 68 years old. Pleural effusions. TECHNIQUE: Frontal and lateral views of the chest. COMPARISON: March 06, 2024 FINDINGS: Mild hyperinflation with bilateral moderate to large pleural effusions with compression atelectasis of both lower lobes and the right middle lobe, unchanged. Stable vascular crowding. Cardiomegaly with aortic tortuosity and calcification unchanged. Stable thoracic osteopenia with diffuse mild thoracic spondylosis. No abnormality of the visualized soft tissue structures of the upper abdomen. RAD/Chest PA and Lateral IMPRESSION: Stable cardiomegaly, bilateral pleural effusions and mild hyperlucency. No active or acute cardiopulmonary disease. Electronically Signed: Bishnu Cardona MD at 14:51 EDT ,
[2024-03-12 15:55] LABS: Anion Gap 5 (5-15); BNP,B-Type NATRIURETIC PEPTIDE 107.8 pg/mL (0-100); BUN 28 mg/dL (7-18); BUN/Creat Ratio 25.7 RATIO (10-20); Calcium,Total 9.1 mg/dL (8.5-10.1); Chloride 98 mmol/L (98-107); Creatinine, Serum 1.09 mg/dL (0.70-1.30); EST Glomerular Filtration Rate 72 mL/min (>60); Est Glom Filt Rate - Afr Amer 87 mL/min (>60); Glucose 101 mg/dL (74-106); Potassium 4.3 mmol/L (3.5-5.1); Sodium Level 138 mmol/L (136-145)
== END | disposition home or self-care (01) ==
LOC: RAD 14:31
PROVIDERS: PCP Family Medicine Geriatric Medicine; Referring Provider Nurse Practitioner Gerontology; Visit Provider Nurse Practitioner Gerontology
DX: R06.09 Other forms of dyspnea (principal)
CPT/HCPCS: 36415; 71046; 80048; 83880

== ENCOUNTER → 2024-03-18 | Outpatient (CLI) | payer MEDICARE, SELFPAY ==
--- NOTE | 2024-03-18 | FLU_PTH ---
PATIENT: MARTI MARTINS LOC: [facility]#:[id number] AGE/SX: 68/M ROOM: RE03/18/[address]: Dr. Flakito Lopez MD : 1955 BED: DIS: 03/18/2024 SPEC #: [id number] RECD: 03/18/24 08:21 STATUS: DAISHA ARASH #: [id number] CHIN: 03/18/24 00:[address]: Flakito Lopez Chi DEPT: CYTOLOGY RECD BY: Marlen Savage Tissues: THORACIC FLUID Procedures: Special Stain Group II Surgery Specimen Level IV Cytospin Fluid HEADER OPERATION: Left ultrasound guided thoracentesis PRE-OP DIAGNOSIS: Pleural effusion TISSUE SUBMITTED: Thoracentesis fluid for cytology DIAGNOSIS CYTOLOGY Thoracentesis fluid for cytology (cytospin and cellblock): Negative for malignant cells. Bloody specimen. See comment. RIZWANA/ 03/19/2024 COMMENT Clinical correlation and appropriate follow up are necessary. CYTOLOGY STUDY Slides are reviewed. CYTOLOGY GROSS Received is 80 ml of red cloudy fluid labeled with the patient's name and and designated per the requisition as Thoracentesis fluid. Submitted for cytology preparation including cell block. Mr 03/18/2024 TC:5 CPT: 96904,19834
[2024-03-18] MEDS: Lidocaine 2% (20 ml mdv) 20 ML Vial INFILT (08:06)
--- NOTE | 2024-03-18 08:17 | RAD_ITS ---
STUDY: X-RAY CHEST REASON FOR EXAM: Male, 68 years old. Post thoracentesis TECHNIQUE: AP inspiration and expiration views. COMPARISON: Comparison is made with prior study dated March 12, 2024. FINDINGS: The patient is status post left thoracentesis. There is no evidence of pneumothorax. Mild residual pleural parenchymal changes at both lung bases. Cardiomegaly. RAD/Chest Insp/Exp 2 View IMPRESSION: Status post left thoracentesis. No evidence of pneumothorax. Electronically Signed: Antony Higuera MD at 8:30 EDT ,
--- NOTE | 2024-03-18 08:29 | PRO.PCM_ITS ---
Procedure Report Date of Procedure: 03/18/24 Assessment & Plan Assessment/Plan (1) Bilateral pleural effusion: PLAN: PROCEDURE: Ultrasound Guided Thoracentesis ORDERING PROVIDER: Dr. Lopez INDICATION: Male, 68 years old. Bilateral pleural effusions, left greater than right. PROVIDER: MORIS Hernandez PROCEDURE: The risks, benefits, and alternatives to the procedure were explained to the patient. The specific risks of bleeding, infection, and pneumothorax requiring chest tube insertion were discussed and accepted. Written informed consent was obtained. The patient was placed in the sitting, upright position. Ultrasonographic evaluation of the bilateral lower pleural spaces was carried out. An adequate pocket was identified in the left lower pleural space.The overlying skin was prepped and draped in sterile fashion. 2% lidocaine was administered subcutaneously for local anesthesia. Under ultrasound guidance, a 5-Filipino thoracentesis needle/catheter system was advanced into the left posterior lower pleural fluid collection. 900 ml of red colored fluid was drained. 100 mL of this fluid was collected and sent to the laboratory for analysiS. The catheter was removed, and a sterile dressing was applied. The patient tolerated the procedure well. A chest x-ray was ordered. IMPRESSION: Successful ultrasound-guided thoracentesis of left pleural effusion. Procedures Radiology Radiology US Procedures: [id number] Thoracentesis
[2024-03-18 08:36] VITALS: BP 142/87; PULSE 100; RESP 18; O2SAT 97
[2024-03-18 08:37] VITALS: BP 159/100; PULSE 105; RESP 18; O2SAT 97
[2024-03-18 08:38] VITALS: BP 140/96; PULSE 99; RESP 18; O2SAT 99
[2024-03-18 09:19] LABS: Cytology, Body Fluid / CSF SEE PATHOLOGY REPORT
[2024-03-18 10:35] LABS: Body Fluid Mononuclear WBC # 1.317 10^3/uL; Body Fluid Mononuclear WBC % 98.3 %; Body Fluid Polynuclear WBC # 0.023 10^3/uL; Body Fluid Polynuclear WBC % 1.7 %; Body Fluid Total Cells Counted 1.424 10^3/ul; Red Cell Count/Body Fluid 0.081 10^6/ul
[2024-03-18 10:59] LABS: LDH,Body Fluid 158 Units/L (Not Establ.)
[2024-03-18 11:38] LABS: Lymphocytes 93 %; Macrophages 2 %; Monocytes 3 %; Neutrophil (Segs) 2 %
[2024-03-18 11:39] LABS: Appearance/Body Fluid CLOUDY; Auto B Fluid Analyzer BKGD Ct COUNTS W/IN LIMITS (W/IN LIMITS); Color/Body Fluid RED; Source- Body Fluid THORACENTESIS
[2024-03-18 11:40] LABS: Body Fluid QC Type(s) BF1Q
[2024-03-19 08:33] LABS: Pathologist Comment/Body Fluid Reviewed
[2024-03-20 10:09] LABS: pH, Body Fluid 11254 7.4 (Not Estab.)
== END | disposition home or self-care (01) ==
LOC: US 07:36
PROVIDERS: PCP Family Medicine Geriatric Medicine; Referring Provider Family Medicine Geriatric Medicine; Visit Provider Family Medicine Geriatric Medicine
DX: J90 Pleural effusion, not elsewhere classified (principal); R84.6 Abnormal cytological findings in specimens from respiratory organs and thorax
CPT/HCPCS: 32555; 71046; 83615; 83986; 87070; 87075; 87205; 88108; 88305; 88313; 89050

== ENCOUNTER → 2024-04-03 | Outpatient (CLI) | payer MEDICARE, SELFPAY ==
--- NOTE | 2024-04-03 06:24 | ECHOD_ITS ---
Reason For Study: Dyspnea/SOB Procedure This was a 2D Doppler, Color Flow transthoracic echocardiogram. Myocardial strain analysis was performed in this exam to aid in the assessment of cardiac function. Exam performed in department. Left Ventricle Normal LV size. Severe concentric left ventricular hypertrophy. The left ventricular ejection fraction is 35 %. Stage 3 diastolic dysfunction. There is moderate global hypokinesis of the left ventricle. Right Ventricle Normal RV size. Normal systolic function. Atria The left atrium is moderately enlarged. The right atrium is moderately enlarged. Mitral Valve Normal mitral valve. Mild (1+) mitral valve insufficiency. Tricuspid Valve Normal tricuspid valve. Aortic Valve Trisinus/trileaflet aortic valve. Mild (1+) eccentric aortic valve insufficiency. Pulmonic Valve Normal pulmonic valve. Great Vessels Normal aortic root. The pulmonary artery is normal size. Inferior vena cava collapse with respiration. Pericardium/Pleural No pericardial effusion. Moderate size left pleural effusion. MMode/2D Measurements & Calculations LVIDd: 4.5 cm IVSd: 2.1 cm Ao root diam: 4.8 cm LVIDs: 3.7 cm LVPWd: 2.1 cm RVDd: 4.6 cm FS: 16.5 % LAV(MOD-bp): 83.0 ml LVAd ap4: 32.3 cm2 LVAd ap2: 39.5 cm2 LAV(MOD-bp) Indexed: 34.6 ml/m2 LVLd ap4: 9.7 cm LVLd ap2: 9.8 cm LAV(MOD-sp2): 92.5 ml EDV(MOD-sp4): 91.7 ml EDV(MOD-sp2): 139.7 ml LAV(MOD-sp4): 71.1 ml EDV(sp4-el): 91.5 ml EDV(sp2-el): 135.9 ml LVAs ap4: 24.1 cm2 LVAs ap2: 29.5 cm2 LVLs ap4: 8.9 cm LVLs ap2: 9.0 cm ESV(MOD-sp4): 55.6 ml ESV(MOD-sp2): 85.3 ml ESV(sp4-el): 55.7 ml ESV(sp2-el): 82.4 ml EF(MOD-sp4): 39.3 % EF(MOD-sp2): 38.9 % EF(sp4-el): 39.1 % SV(MOD-sp4): 36.1 ml SV(MOD-sp2): 54.4 ml SV(sp4-el): 35.8 ml LA dimension(2D): 4.6 cm LA A4 area: 24.6 cm2 RA A4 area: 29.7 cm2 Time Measurements MV dec time: 0.17 sec Doppler Measurements & Calculations MV E max johny: 114.9 cm/sec Lat Peak E' Johny: 4.7 cm/sec Med Peak E' Johny: 4.4 cm/sec MV A max johny: 45.9 cm/sec E/E' lat: 24.5 E/E' med: 26.2 MV E/A: 2.5 MV dec slope: 631.2 cm/sec2 Ao V2 max: 168.5 cm/sec AI max johny: 290.9 cm/sec Ao max P.4 mmHg AI max P.9 mmHg Ao V2 mean: 129.6 cm/sec AI dec slope: 221.5 cm/sec2 Ao mean P.1 mmHg AI P1/2t: 384.7 msec Ao V2 VTI: 21.5 cm AV (velocity ratio): 0.69 LV V1 max: 100.7 cm/sec PA V2 max: 71.0 cm/sec TR max johny: 263.3 cm/sec LV V1 max P.1 mmHg TR max P.7 mmHg LV V1 mean P.2 mmHg LV V1 mean: 68.2 cm/sec LV V1 VTI: 14.8 cm ECHO/Echo Complete Interpretation Summary Normal LV size. Severe concentric left ventricular hypertrophy. The left ventricular ejection fraction is 35 %. Stage 3 diastolic dysfunction. 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 The global longitu dinal strain is severely abnormal. The global longitudinal strain = -5.4% (abnormal). Ordering Physician: Meri Ren Referring Physician: Flakito Lopez Chi Performed By: Sangeetha Hernandez, ZULEIMA, RVT
[2024-04-03 15:22] LABS: Anion Gap 6 (5-15); BUN 19 mg/dL (7-18); BUN/Creat Ratio 18.4 RATIO (10-20); Calcium,Total 9.3 mg/dL (8.5-10.1); Chloride 102 mmol/L (98-107); Creatinine, Serum 1.03 mg/dL (0.70-1.30); EST Glomerular Filtration Rate 77 mL/min (>60); Est Glom Filt Rate - Afr Amer 93 mL/min (>60); Glucose 139 mg/dL (74-106); Potassium 3.9 mmol/L (3.5-5.1); Sodium Level 140 mmol/L (136-145)
[2024-04-07 14:11] LABS: Albumin 3.1 g/dL (2.9-4.4); Alpha-1-Globulins 0.3 g/dL (0.0-0.4); Alpha-2-Globulins 0.8 g/dL (0.4-1.0); Free Kappa Light Chains 30.8 mg/L (3.3-19.4); Free Lambda Light Chains 715.4 mg/L (5.7-26.3); Gamma Globulin 1.3 g/dL (0.4-1.8); Immunoglobulin A 299 mg/dL (61-437); Immunoglobulin G 1412 mg/dL (603-1613); Immunoglobulin M 30 mg/dL (20-172); PROEL- TOTAL PROTEIN 6.6 g/dL (6.0-8.5); PROELU- Albumin, Urine 69.4 % (.); PROELU- Beta Globulin, Ur 14.5 % (.); PROELU- Gamma Globulin, Ur 3.1 % (.); Total Protein, Ur 94.6 mg/dL (Not Estab.)
--- NOTE | 2024-04-13 07:31 | STRESSREP ---
Stress Test Report Pharmacologic myocardial perfusion stress test. 69-year-old man with a history of congestive heart failure and shortness of breath Resting EKG demonstrates sinus rhythm with a rate of 96 bpm. A right bundle branch block pattern is noted. Resting blood pressure is 122/80 mmHg. 0.4 mg of regadenoson was infused per usual protocol followed by rapid intravenous saline flush injection. Continuous EKG monitoring was performed. The maximum heart rate was 103 bpm which was 67% of max impacted heart rate the maximum workload was 1 metabolic equivalent. At rest there were no ST or T wave changes noted to suggest ischemia and at peak infusion nonspecific ST changes were noted which did not meet the criteria for ischemia. No clinical angina is noted. The final blood pressure was 102/68 mmHg. Myocardial perfusion protocol. 14 point mCi of technetium 99m sestamibi was injected at rest. 0.4 mg of regadenoson was infused per usual protocol. At peak infusion 45 mCi of technetium 99m sestamibi was injected stress images were obtained stress and rest images were reconstructed and compared in the short axis vertical long and horizontal long axis. Gated images were also obtained. Perfusion SPECT analysis: Review of the stress images demonstrate normal uptake of tracer noted in all areas of the myocardium. The resting images similar demonstrated normal uptake of tracer noted in all areas of the myocardium. No areas of reversibility are noted to suggest ischemia and no previous infarct is noted. It appears there is global hypokinesis present Gated SPECT analysis: The gated ejection fraction is 31%. Conclusion: Normal pharmacologic myocardial perfusion stress test. Reduced ejection fraction.
== END | disposition home or self-care (01) ==
PROVIDERS: PCP Family Medicine Geriatric Medicine; Referring Provider Nurse Practitioner Gerontology; Visit Provider Nurse Practitioner Gerontology
DX: R06.02 Shortness of breath (principal); I50.9 Heart failure, unspecified
CPT/HCPCS: 36415; 78452; 80048; 82784; 83883; 84165; 84166; 86334; 93017; 93306; A9500; A4216; J2785

== ENCOUNTER → 2024-04-07 | Outpatient (CLI) | payer MEDICARE, SELFPAY ==
--- NOTE | 2024-04-07 17:06 | CT_ITS ---
STUDY: CTA CHEST REASON FOR EXAM: Male, 69 years old. SOB RADIATION DOSAGE (If Supplied By Facility): CTDIvol = ( 16.06 ) mGy, DLP = ( 580.46 ) mGycm TECHNIQUE: The examination was performed with the intravenous administration of IV 100mL Isovue-370. Post-processing of the angiographic images was performed, with multiplanar reformation and 3D reconstruction. Individualized dose optimization techniques were used for this CT. COMPARISON: Chest x-ray April 07, 2024. Chest CT March 09, 2024. FINDINGS: Normal enhancement of the main pulmonary artery and right and left pulmonary arteries. Normal enhancement of the bilateral peripheral pulmonary arteries. There is no demonstrated pulmonary embolism. There is aneurysmal dilatation of the ascending aorta. The transverse diameter of the ascending aorta measures 53 mm''s. There is no demonstrated aortic dissection. There are calcifications of the coronary arteries. Normal mediastinum. Normal hilar regions. Normal visualized trachea and bronchi. The lungs are well expanded. There is mild lower lung consolidation. There are moderate bilateral pleural effusions. Normal chest wall structures. There are degenerative changes of thoracic spine. Normal visualized upper abdomen. CT/CTA Chest W/WO Contrast IMPRESSION: CTA chest examination, without a demonstrated pulmonary embolism or arterial dissection. Aneurysmal dilatation of the ascending aorta. Bilateral pleural effusions and lower lung consolidation. Electronically Signed: Kilo Durbin MD at 18:26 EDT ,
== END | disposition home or self-care (01) ==
PROVIDERS: PCP Family Medicine Geriatric Medicine; Referring Provider Family Medicine Geriatric Medicine; Visit Provider Family Medicine Geriatric Medicine
DX: R06.02 Shortness of breath (principal)
CPT/HCPCS: 71275; Q9967

== ENCOUNTER → 2024-04-07 | Outpatient (CLI) | payer MEDICARE, SELFPAY ==
[2024-04-07 15:29] LABS: Absolute Lymphocyte Count 1.15 X10^3/uL (0.83-4.51); Absolute Neutrophil Count 4.7 X10^3/uL (2.0-7.7); Basophil# 0.03 X10^3/uL; Basophil% 0.4 % (0-1); Eosinophils% 2.9 % (0-5); Hematocrit 45.1 % (40-54); Hemoglobin 14.3 g/dL (13.0-16.5); Lymphocyte # 1.15 X10^3/ul (0.83-4.51); Lymphocyte % 16.9 % (19-41); Mean Corp Hgb Conc 31.7 g/dL (32-36); Mean Corpuscular Hgb 29.1 pg (27.0-32.0); Mean Corpuscular Volume 91.9 fL (80-94); Monocyte# 0.77 X10^3/uL; Monocyte% 11.3 % (0-10); NRBC Flagged by Analyzer 0 % (0-5); Neutrophil # 4.65 X10^3/uL (2.7-7.7); Neutrophil % 68.2 % (47-70); Platelet Count 258 K/mm3 (150-450); RBC Distribution Width CV 13.1 % (11.6-14.6); RBC Distribution Width SD 43.9 fl (35.1-43.9); Red Blood Count 4.91 M/mm3 (4.6-6.2); White Blood Count 6.8 K/mm3 (4.4-11.0)
--- NOTE | 2024-04-07 15:30 | RAD_ITS ---
STUDY: X-RAY CHEST REASON FOR EXAM: Male, 69 years old. Shortness of breath. TECHNIQUE: Frontal and lateral views of the chest. COMPARISON: March 18, 2024 FINDINGS: Mild increase in diffuse interstitial prominence most marked in the bases. Increase in bilateral pleural effusions. Cardiomegaly unchanged. Normal mediastinum and frances. Normal visualized pulmonary arteries. Aortic tortuosity unchanged. Stable diffuse thoracic spondylosis. Normal visualized ribs, clavicles, and shoulders. No abnormality of the visualized soft tissue structures of the upper abdomen. RAD/Chest PA and Lateral IMPRESSION: Findings compatible with mild worsening of interstitial edema/congestive failure. Follow-up chest imaging to resolution recommended. Electronically Signed: Bishnu Cardona MD at 15:41 EDT ,
[2024-04-07 15:49] LABS: D-Dimer Quantitative (DVT/PE) 2.32 FEU/ug/m (0.27-0.49)
[2024-04-07 15:54] LABS: BNP,B-Type NATRIURETIC PEPTIDE 182.9 pg/mL (0-100)
[2024-04-07 16:09] LABS: ALB/GLOB Ratio 0.7 RATIO (0.9-2.4); AST(SGOT) 14 U/L (15-37); Alanine Aminotransfer ALT/SGPT 19 U/L (16-61); Alkaline Phosphatase 169 U/L (45-117); Anion Gap 4 (5-15); BUN 20 mg/dL (7-18); BUN/Creat Ratio 23.8 RATIO (10-20); Calcium,Total 9.8 mg/dL (8.5-10.1); Chloride 100 mmol/L (98-107); Creatinine, Serum 0.84 mg/dL (0.70-1.30); EST Glomerular Filtration Rate 97 mL/min (>60); Est Glom Filt Rate - Afr Amer 117 mL/min (>60); Globulin 4.3 g/dL (2.2-4.2); Glucose 115 mg/dL (74-106); Potassium 3.8 mmol/L (3.5-5.1); Protein, Total 7.3 g/dL (6.4-8.2); Sodium Level 136 mmol/L (136-145)
== END | disposition home or self-care (01) ==
LOC: POLAB3 15:07 → RAD 15:09
PROVIDERS: PCP Family Medicine Geriatric Medicine; Referring Provider Family Medicine Geriatric Medicine; Visit Provider Family Medicine Geriatric Medicine
DX: R06.02 Shortness of breath (principal)
CPT/HCPCS: 36415; 71046; 80053; 83880; 85025; 85379

== ENCOUNTER → 2024-05-02 | Outpatient (CLI) | payer MEDICARE, SELFPAY ==
--- NOTE | 2024-05-02 10:17 | US_ITS ---
INDICATION: HEPATOMEGALY EXAMINATION: Ultrasound US Abdomen Complete TECHNIQUE: Del Cid-scale and color Doppler imaging was performed of the abdomen. COMPARISON: FINDINGS: LIVER: There is fatty echotexture measuring 19.8 cm. No focal hepatic lesion. No intrahepatic biliary ductal dilatation. There is no free fluid. GALLBLADDER AND BILIARY TREE: No shadowing gallstone, pericholecystic fluid or gallbladder wall thickening is demonstrated. The proximal common bile duct measures 3.5 mm, which is within normal limits for the patient''s age. SONOGRAPHIC LAMB''S SIGN: Negative. PANCREAS: Limited visualization of the pancreas. No pancreatic ductal dilatation. SPLEEN: The spleen is normal in size measuring 10.4 cm and homogeneous in echotexture. RIGHT KIDNEY: 11.6 x 6.3 x 5.4 cm. the cortex is 13 mm. There is no hydronephrosis. No focal lesion, or perinephric collection is demonstrated. Possible 7 mm nonobstructive calculus. LEFT KIDNEY: 11.5 x 6.1 x 6.4 cm. The cortex is 13 mm. There is no hydronephrosis. No shadowing calculus, focal lesion, or perinephric collection is demonstrated. US/Abdomen Complete IMPRESSION: Enlarged fatty liver. Nonobstructive calculus in the right kidney. Electronically Signed: Sunil Moy DO at 23:20 EDT ,
== END | disposition home or self-care (01) ==
LOC: US 10:14
PROVIDERS: PCP Family Medicine Geriatric Medicine; Referring Provider Internal Medicine Hematology & Oncology; Visit Provider Internal Medicine Hematology & Oncology
DX: D47.2 Monoclonal gammopathy (principal); R16.0 Hepatomegaly, not elsewhere classified
CPT/HCPCS: 76700

== ENCOUNTER → 2024-05-08 | Outpatient (CLI) | payer MEDICARE, SELFPAY ==
--- NOTE | 2024-05-08 08:54 | NM_ITS ---
CLINICAL: 69-year-old male with suspected clinical diagnosis of of cardiac amyloidosis. 99m Tc PYROPHOSPHATE CARDIAC AMYLOID EXAMINATION COMPARISON: None available FINDINGS: Following the intravenous administration of 20.0 mCi of 99m Tc pyrophosphate, anterior acquisitions of the thorax reveal: 1. Planar projections demonstrate mild increased pharmaceutical concentration within the context of the left ventricular myocardium for a Perugini score of 1. The heart to contralateral ratio was calculated to be 1.20 (normal < 1.5:1). [place] Images Cardiac Amyloid IMPRESSION: 1. NEGATIVE EXAMINATION. There is no scintigraphic evidence of ATTR cardiac amyloidosis on the current evaluation. (Li et al, Diagnostics 11: [id number]). Electronically Signed: Fernando Silveira DO at 9:19 EDT ,
== END | disposition home or self-care (01) ==
PROVIDERS: PCP Family Medicine Geriatric Medicine; Referring Provider Nurse Practitioner Gerontology; Visit Provider Nurse Practitioner Gerontology
DX: R93.1 Abnormal findings on diagnostic imaging of heart and coronary circulation (principal); E85.4 Organ-limited amyloidosis; I43 Cardiomyopathy in diseases classified elsewhere
CPT/HCPCS: 78800; 78803; A9538

== ENCOUNTER → 2024-05-11 | Outpatient (CLI) | payer MEDICARE, SELFPAY ==
[2024-05-11 12:07] LABS: Absolute Lymphocyte Count 1.21 X10^3/uL (0.83-4.51); Absolute Neutrophil Count 4.8 X10^3/uL (2.0-7.7); Basophil# 0.01 X10^3/uL; Basophil% 0.1 % (0-1); Eosinophil# 0.18 X10^3/uL; Eosinophils% 2.5 % (0-5); Hematocrit 44.9 % (40-54); Hemoglobin 14.9 g/dL (13.0-16.5); Lymphocyte # 1.21 X10^3/ul (0.83-4.51); Lymphocyte % 16.9 % (19-41); Mean Corp Hgb Conc 33.2 g/dL (32-36); Mean Corpuscular Hgb 29.4 pg (27.0-32.0); Mean Corpuscular Volume 88.6 fL (80-94); Mean Platelet Vol. 10.1 fl (6.2-12.0); Monocyte# 0.91 X10^3/uL; Monocyte% 12.7 % (0-10); NRBC Flagged by Analyzer 0 % (0-5); Neutrophil % 67.4 % (47-70); Platelet Count 274 K/mm3 (150-450); RBC Distribution Width CV 12.4 % (11.6-14.6); RBC Distribution Width SD 39.9 fl (35.1-43.9); Red Blood Count 5.07 M/mm3 (4.6-6.2); White Blood Count 7.1 K/mm3 (4.4-11.0)
[2024-05-11 12:36] LABS: Anion Gap 5 (5-15); BUN 43 mg/dL (7-18); BUN/Creat Ratio 40.2 RATIO (10-20); Calcium,Total 10.6 mg/dL (8.5-10.1); Chloride 99 mmol/L (98-107); Creatinine, Serum 1.07 mg/dL (0.70-1.30); EST Glomerular Filtration Rate 73 mL/min (>60); Est Glom Filt Rate - Afr Amer 89 mL/min (>60); Glucose 129 mg/dL (74-106); Potassium 4.4 mmol/L (3.5-5.1); Sodium Level 133 mmol/L (136-145)
== END | disposition home or self-care (01) ==
LOC: POLAB3 11:30
PROVIDERS: PCP Family Medicine Geriatric Medicine; Visit Provider Family Medicine Geriatric Medicine
DX: I10 Essential (primary) hypertension (principal)
CPT/HCPCS: 36415; 80048; 85025

== ENCOUNTER 2024-05-14 05:11 | Emergency (ER) | payer MEDICARE, SELFPAY ==
[2024-05-14] VITALS (24 sets, daily range): BP systolic 46–115; BP diastolic 36–92; PULSE 52–100; RESP 14–34; TEMP 35.7–36.7; O2SAT 92–100; BMI 29.0
[2024-05-14] MEDS: 0.9% Normal Saline (1000mL) 1,000 ML 999 ML IV ×4 (05:11→08:15)
--- OUTSIDE RECORDS SUMMARY | 2024-05-14 05:26 | XMS RPT_ITS | CCD ---
Author Organization [facility] Care Team Providers Care Supervisor Photoengraving Name Role Phone RAMONA PETERS Referring Unavailable ANNIE ROGERS Primary Care Unavailable Unavailable Primary Care Provider Brando WRIGHT MD, DR WARREN Primary Care Physician DEVORA ALEJANDRE Attending Unavailable KYLE RAMIREZ, DR WARREN Primary Care Unavailable DEVORA ALEJANDRE Attending Unavailable KYLE RAMIREZ, DR WARREN Primary Care Unavailable DEVORA ALEJANDRE Attending Unavailable KYLE RAMIREZ, DR WARREN Primary Care Unavailable DEVORA ALEJANDRE Attending Unavailable KYLE RAMIREZ, DR WARREN Primary Care Unavailable Unavailable Primary Care Provider Brando meadows Allergies Allergy Classification Reported Allergen(s) Allergy Type Date of Onset Reaction(s) Facility Unclassified (1 source) Tetanus Vaccines And Toxoid Propensity to adverse reactions 02-28-2007 GI Upset [facility] Work Phone: (1 source) beta-Blocking agent Propensity to adverse reactions 05-13-2024 Other [facility] Medications Current Medications Medication Drug Class(es) Dates Sig (Normalized) Sig (Original) acetaminophen 500 mg oral tablet (4 sources) Start: 12-20-2020 acetaminophen 500 mg oral tablet Dose : 1,000 mg = 2 tab(s), Oral, TID, 0 Refill(s) Start Date: 12/20/20 Status: Ordered take 2 tablets by [facility] every six hours as needed for pain acetaminophen (Tylenol) 500 MG tablet Ta ke 1,000 mg by mouth every 6 hours as needed for mild pain (1-3). Active aspirin 81 mg delayed release oral tablet (1 source) Platelet Aggregation Inhibitor, Nonsteroidal Anti-inflammatory Drug take 1 tablet by mouth once daily aspirin 81 MG EC tablet Take 81 mg by mouth daily. Active atorvastatin 40 mg oral tablet (1 source) HMG-CoA Reductase Inhibitor take 1 tablet by mouth once daily atorvastatin (Lipitor) 40 MG tablet Take 40 mg by mouth daily. Active cyclobenzaprine hydrochloride 10 mg oral tablet (4 sources) Muscle Relaxant Start: 2022 cyclobenzaprine 10 mg oral tablet Dose : 10 mg = 1 tab(s), Oral, TID, 0 Refill(s) Start Date: 08/31/22 Status: Ordered take 5 mg by mouth three times d aily cyclobenzaprine (Flexeril) 10 MG tablet Take 5 mg by mouth 3 times daily. Active 24 hr dilTIAZem hydrochloride 120 mg extended release oral tablet (1 source) Calcium Channel Pelon take 1 capsule by mouth once daily dilTIAZem HCl ER 120 MG tablet sustained-release 24 hour Take 1 capsule by mouth daily. Active furosemide 40 mg oral tablet (1 source) Loop Diuretic take 1 tablet by mouth in the morning furosemide (Lasix) 40 MG tablet Take 40 mg by mouth in the morning and 40 mg in the evening. Active lisinopril 40 mg oral tablet (4 sources) Angiotensin Converting Enzyme Inhibitor Start: 023 take 1 dose by mouth once daily lisinopril Dose : 40 mg =, Oral, qDay, 0 Refill(s) Start Date: 08/31/22 Status: Ordered lisinopril 20 MG tablet Take 20 mg by mouth. Active Multivitamin preparation (3 sources) Start: 08-31-2022 take 1 tablet by mouth once daily Multivitamin Dose = 1 tab(s), Oral, Daily, 0 Refill(s) Start Date: 08/31/22 Status: Ordered 24 hr oxybutynin chloride 10 mg extended release oral tablet (4 sources) Cholinergic Muscarinic Antagonist Start: 08-31-2022 take 1 tablet by mouth every hour, then take 1 tablet by mouth once daily oxybutynin 10 mg/24 hr oral tablet, extended release Dose : 10 mg = 1 tab(s), Oral, qDay, # 30 tab(s), 0 Refill(s) Start Date: 08/31/22 Status: Ordered take 10 mg by mouth once daily O XYBUTYNIN CHLORIDE ER PO Take 10 mg by mouth Nightly. Active spironolactone 25 mg oral tablet (1 source) Aldosterone Antagonist take 1 tablet by mouth in the morning spironolactone (Aldactone) 25 MG tablet Take 25 mg by mouth in the morning and 25 mg in the evening. Active tamsulosin hydrochloride 0.4 mg oral capsule (4 sources) alpha-Adrenergic Pelon Start: 08-31-19 tamsulosin 0.4 mg oral capsule Dose : 0.4 mg = 1 cap(s), Oral, qDayPC, 0 Refill(s) Start Date: 08/31/22 Status: Ordered Completed/Discontinued Medications Medication Drug Class(es) Dates Sig (Normalized) Sig (Original) acetaminophen 325 mg / HYDROcodone bitartrate 5 mg oral tablet (4 sources) Opioid Agonist Start: 08-31-2022 [place] 325- 5 mg oral tablet Dose = 1 tab(s), Oral, BID, 0 Refill(s), 147 Start Date: 08/31/22 Status: Ordered Start: 10-07-2009 hydrocodone bi t/acetaminophen(VICODIN 5 MG-500 MG TAB) Indications: Lesion of ulnar nerve , Carpal tunnel syndrome Take 1 tablet) every six(6) hours as needed for pain. 30 0 10/07/2009 Active Comment on above: Take 1 tablet) every six(6) hours as needed for pain. metoprolol tartrate 50 mg oral tablet (1 source) beta-Adrenergic Pelon Start: 08-30-2008 METOPROLOL 50 MG TAB Take one(1) tablet twice daily. 180 3 08/30/2008 Active Comment on above: Take one(1) tablet t wice daily. Problems Active Problems Problem Classification Problem Date Documented Da te Episodic/Chronic Aortic; peripheral; and visceral artery aneurysms (4 sources) Aneurysm of ascending aorta; Translations: [Aneurysm of ascending aorta without rupture (HCC)] Onset: 12-08-2020 12-20-2020 Chronic Comment on above: [facility]-acute Cardiac dysrhythmias (1 source) Paroxysmal atrial fibrillation; Translations: [Paroxysmal atrial fibrillation] 05-13-2024 Chronic Cardiac dysrhythmias (3 sources) Tachycardia 12-20-2020 Episodic Congestive heart failure; nonhypertensive (1 source) Congestive heart failure due to left ventricular systolic dysfunction; Translations: [Unspecified systolic (congestive) heart failure] 05-13-2024 Chronic Coronary atherosclerosis and other heart disease (1 source) Coronary arteriosclerosis; Translations: [Atherosclerotic heart disease of [place] coronary artery without angina pectoris] 05-13-2024 Chronic Essential hypertension (4 sources) Hypertensive disorder; Translations: [Essential hypertension] 12-20-2020 Chronic Other nervous system disorders (1 source) Lesion of ulnar nerve; Translations: [Lesion of ulnar nerve, unspecified upper limb] Onset: 08-19-2009 08-19-2009 Chronic Other nervous system disorders (1 source) Carpal tunnel syndrome; Translations: [Carpal tunnel syndrome, unspecified upper limb] Onset: 08-19-2009 08-19-2009 Chronic Other non-traumatic joint disorders (3 sources) Hip pain 12-20-2020 Episodic Pleurisy; pneumothorax; pulmonary collapse (1 source) Bilateral pleural effusion; Translations: [Pleural effusion, not elsewhere classified] 05-13-2024 Episodic Residual codes; unclassified (1 source) Pain; Translations: [Pain, unspecified] Episodic Residual codes; unclassified (1 source) H/O: major vascular surgery; Translations: [Other specified postprocedural states] 05-13-2024 Episodic Spondylosis; intervertebral disc disorders; other back problems (6 sources) Degeneration of intervertebral disc; Translations: [Prolapsed lumbar intervertebral disc] 12-20-2020 Chronic Transient cerebral ischemia (3 sources) Transient cerebral ischemia 12-20-2020 Chronic Comment on above: [facility] Unclassified (3 sources) History of repair of hip joint 12-20-2020 Past or Other Problems Problem Classification Problem Date Documented Da te Episodic/Chronic Other connective tissue disease (1 source) Pain in limb; Translations: [Pain in unspecified limb] Onset: 10-07-2009 10-07-2009 Episodic Results Test Name Value Interpretation Reference Range Facility .Auto Diffon 10-17-2022 Basophil, Absolute 0.0 10 3/mcL Normal 0.0-0.2 Replaced by [facility] ([place]) Comment on above: Performed By: #### A LB, ADIFF, ANEU, CBC, GFR, BMP #### [address] [address] Basophils/100 WBC (Bld) 0.2 % Normal 0.0-2.5 [facility] ([place]) Comment on above: Performed By: #### A LB, ADIFF, ANEU, CBC, GFR, BMP #### [address] [address] Eosinophil, Absolute 0.3 10 3/mcL Normal 0.0-0.4 [facility] ([place]) Comment on above: Performed By: #### A LB, ADIFF, ANEU, CBC, GFR, BMP #### [address] [address] Eosinophils/100 WBC (Bld) 4.3 % Normal 0.0-7.0 [facility] ([place]) Comment on above: Performed By: #### A LB, ADIFF, ANEU, CBC, GFR, BMP #### [address] [address] Lymphocyte, Absolute 1.2 10 3/mcL Normal 0.8-3.9 [facility] ([place]) Comment on above: Performed By: #### A LB, ADIFF, ANEU, CBC, GFR, BMP #### [address] [address] Lymphocytes/100 WBC (Bld) 17.5 % Normal 10.0-50.0 [facility] ([place]) Comment on above: Performed By: #### A LB, ADIFF, ANEU, CBC, GFR, BMP #### [address] [address] Monocyte, Absolute 0.9 10 3/mcL Normal 0.2-1.0 Replaced by [facility] ([place]) Comment on above: Performed By: #### A LB, ADIFF, ANEU, CBC, GFR, BMP #### [address] [address] Monocytes/100 WBC (Bld) 12.7 % Normal 1.7-13.0 [facility] ([place]) Comment on above: Performed By: #### A LB, ADIFF, ANEU, CBC, GFR, BMP #### [address] [address] Neutrophils/100 WBC (Bld) 65.3 % Normal 37.0-80.0 [facility] ([place]) Comment on above: Performed By: #### A LB, ADIFF, ANEU, CBC, GFR, BMP #### [address] [address] .GFRon 10-17-2022 GFR Non- 89 ml/min/1.73sqm Normal [facility] ([place]) Comment on above: Result Comment: GFR Population mean for , Non- Americans Ages 20-29 = 116 mL/min/1.73 sq.m. Ages 30-39 = 107 mL/min/1.73 sq.m. Ages 40-49 = 99 mL/min/1.73 sq.m. Ages 50-59 = 93 mL/min/1.73 sq.m. Ages 60-69 = 85 mL/min/1.73 sq.m. Ages 70+ = 75 mL/min/1.73 sq.m. Chronic Kidney Disease: Less than 60 mL/min/1.73 square meters End Stage Renal Disease: Less than 15 mL/min/1.73 square meters Performed By: #### A LB, ADIFF, ANSG, GFR, BMP, ANEU, ABOG, CBC #### [address] [address] GFR 108 ml/min/1.73sqm Normal [facility] ([place]) Comment on above: Result Comment: GFR Population mean for , Non- Americans Ages 20-29 = 116 mL/min/1.73 sq.m. Ages 30-39 = 107 mL/min/1.73 sq.m. Ages 40-49 = 99 mL/min/1.73 sq.m. Ages 50-59 = 93 mL/min/1.73 sq.m. Ages 60-69 = 85 mL/min/1.73 sq.m. Ages 70+ = 75 mL/min/1.73 sq.m. Chronic Kidney Disease: Less than 60 mL/min/1.73 square meters End Stage Renal Disease: Less than 15 mL/min/1.73 square meters Performed By: #### A LB, ADIFF, ANSG, GFR, BMP, ANEU, ABOG, CBC #### [address] [address] .NEUABSon 10-17-2022 Neutrophil, Absolute 4.4 10 3/mcL Normal 2.9-6.2 [facility] ([place]) Comment on above: Performed By: #### A LB, ADIFF, ANSG, GFR, BMP, ANEU, ABOG, CBC #### [address] [address] ALBon 10-17-2022 Albumin Level 3.8 G/dL Normal 3.4-4.8 [facility] ([place]) Comment on above: Performed By: #### A LB, ADIFF, ANSG, GFR, BMP, ANEU, ABOG, CBC #### [address] [address] BMPon 10-17-2022 BUN/Creatinine Ratio 22 ratio Normal 7-27 Replaced by [facility] ([place]) Comment on above: Performed By: #### A LB, ADIFF, ANSG, GFR, BMP, ANEU, ABOG, CBC #### [address] [address] Calcium [Mass/Vol] 9.8 mg/dL Normal 8.4-10.2 [facility] ([place]) Comment on above: Performed By: #### A LB, ADIFF, ANSG, GFR, BMP, ANEU, ABOG, CBC #### [address] [address] Chloride [Moles/Vol] 102 mmol/L Normal 98-107 Replaced by [facility] ([place]) Comment on above: Performed By: #### A LB, ADIFF, ANSG, GFR, BMP, ANEU, ABOG, CBC #### [address] [address] CO2 [Moles/Vol] 27 mmol/L Normal 23-31 [facility] ([place]) Comment on above: Performed By: #### A LB, ADIFF, ANSG, GFR, BMP, ANEU, ABOG, CBC #### [address] [address] Creatinine [Mass/Vol] 0.86 mg/dL Normal 0.70-1.30 [facility] ([place]) Comment on above: Performed By: #### A LB, ADIFF, ANSG, GFR, BMP, ANEU, ABOG, CBC #### [address] [address] Electrolyte Balance 9.0 mEq/L Normal 4.0-15.0 [facility] ([place]) Comment on above: Performed By: #### A LB, ADIFF, ANSG, GFR, BMP, ANEU, ABOG, CBC #### [address] [address] Glucose [Mass/Vol] 99 mg/dL Normal 80-115 [facility] ([place]) Comment on above: Performed By: #### A LB, ADIFF, ANSG, GFR, BMP, ANEU, ABOG, CBC #### [address] [address] Potassium [Moles/Vol] 5.0 mmol/L Normal 3.5-5.1 [facility] ([place]) Comment on above: Performed By: #### A LB, ADIFF, ANSG, GFR, BMP, ANEU, ABOG, CBC #### [address] [address] Sodium [Moles/Vol] 138 mmol/L Normal 136-145 [facility] ([place]) Comment on above: Performed By: #### A LB, ADIFF, ANSG, GFR, BMP, ANEU, ABOG, CBC #### [address] [address] Urea nitrogen [Mass/Vol] 19 mg/dL High 7-18 [facility] ([place]) Comment on above: Performed By: #### A LB, ADIFF, ANSG, GFR, BMP, ANEU, ABOG, CBC #### [address] [address] CBCon 10-17-2022 Erythrocyte distribution width (RBC) [Ratio] 12.8 % Normal 11.5-14.5 [facility] ([place]) Comment on above: Performed By: #### A LB, ADIFF, ANEU, CBC, GFR, BMP #### [address] [address] Hematocrit (Bld) [Volume fraction] 43.7 % Normal 42.0-52.0 [facility] ([place]) Comment on above: Performed By: #### A LB, ADIFF, ANEU, CBC, GFR, BMP #### [address] [address] Hgb 14.5 G/dL Normal 14.0-18.0 [facility] ([place]) Comment on above: Performed By: #### A LB, ADIFF, ANEU, CBC, GFR, BMP #### [address] [address] MCH (RBC) [Entitic mass] 30.5 pg Normal 27.0-31.2 [facility] ([place]) Comment on above: Performed By: #### A LB, ADIFF, ANEU, CBC, GFR, BMP #### [address] [address] MCHC 33.2 G/dL Normal 31.8-35.4 [facility] ([place]) Comment on above: Performed By: #### A LB, ADIFF, ANEU, CBC, GFR, BMP #### [address] [address] MCV (RBC) [Entitic vol] 91.9 fL Normal 80.0-94.0 [facility] ([place]) Comment on above: Performed By: #### A LB, ADIFF, ANEU, CBC, GFR, BMP #### [address] [address] Platelet 190 10 3/mcL Normal 130-400 [facility] ([place]) Comment on above: Performed By: #### A LB, ADIFF, ANEU, CBC, GFR, BMP #### [address] [address] Platelet mean volume (Bld) [Entitic vol] 8.8 fL Normal 7.4-10.4 [facility] ([place]) Comment on above: Performed By: #### A LB, ADIFF, ANEU, CBC, GFR, BMP #### [address] [address] RBC 4.75 10 6/mcL Normal 4.04-6.13 [facility]) Comment on above: Performed By: #### A LB, ADIFF, ANEU, CBC, GFR, BMP #### [id number] [place], [place] [address] WBC 6.7 10 3/mcL Normal 4.6-10.8 [facility] ([place]) Comment on above: Performed By: #### A LB, ADIFF, ANEU, CBC, GFR, BMP #### [address] [place], [place] [address] LABORATORYOrdered By: [employer] SYSTEM on 10-17-2022 Albumin BCP dye [Mass/Vol] 3.8 G/dL Invalid Interpretation Code 3.4 - 4.8 G/dL AO ADM SS Calcium [Mass/Vol] 9.8 mg/dL Invalid Interpretation Code 8.4 - 10.2 mg/dL AO ADM SS Chloride [Moles/Vol] 102 mmol/L Invalid Interpretation Code 98 - 107 mmol/L AO ADM SS CO2 [Moles/Vol] 27 mmol/L Invalid Interpretation Code 23 - 31 mmol/L AO ADM SS Creatinine [Mass/Vol] 0.86 mg/dL Invalid Interpretation Code 0.70 - 1.30 mg/dL AO ADM SS Electrolyte Balance 9.0 mEq/L Invalid Interpretation Code 4.0 - 15.0 mEq/L AO ADM SS GFR 108 ml/min/1.73sqm Invalid Interpretation Code AO Chemistry S GFR Non- 89 ml/min/1.73sqm Invalid Interpretation Code AO Chemistry S Glucose [Mass/Vol] 99 mg/dL Invalid Interpretation Code 80 - 115 mg/dL AO ADM SS Potassium [Moles/Vol] 5.0 mmol/L Invalid Interpretation Code 3.5 - 5.1 mmol/L AO ADM SS Sodium [Moles/Vol] 138 mmol/L Invalid Interpretation Code 136 - 145 mmol/L AO ADM SS Urea nitrogen [Mass/Vol] 19 mg/dL Invalid Interpretation Code 7 - 18 mg/dL AO ADM SS Urea nitrogen/Creatinine [Mass ratio] 22 ratio Invalid Interpretation Code 7 - 27 ratio AO ADM SS LABORATORYOrdered By: Nando Steinberg on 10-17-2022 Basophil, Absolute 0.0 103/mcL Invalid Interpretation Code 0.0 - 0.2 10^3/mcL AO Workflow SS Basophils/100 WBC (Bld) 0.2 % Invalid Interpretation Code 0.0 - 2.5 % AO Workflow SS Eosinophil, Absolute 0.3 103/mcL Invalid Interpretation Code 0.0 - 0.4 10^3/mcL AO Workflow SS Eosinophils/100 WBC (Bld) 4.3 % Invalid Interpretation Code 0.0 - 7.0 % AO Workflow SS Erythrocyte distribution width (RBC) [Ratio] 12.8 % Invalid Interpretation Code 11.5 - 14.5 % AO Workflow SS Hematocrit (Bld) [Volume fraction] 43.7 % Invalid Interpretation Code 42.0 - 52.0 % AO Workflow SS Hemoglobin (Bld) [Mass/Vol] 14.5 G/dL Invalid Interpretation Code 14.0 - 18.0 G/dL AO Workflow SS Lymphocyte, Absolute 1.2 103/mcL Invalid Interpretation Code 0.8 - 3.9 10^3/mcL AO Workflow SS Lymphocytes/100 WBC (Bld) 17.5 % Invalid Interpretation Code 10.0 - 50.0 % AO Workflow SS MCH (RBC) [Entitic mass] 30.5 pg Invalid Interpretation Code 27.0 - 31.2 pg AO Workflow SS MCHC 33.2 G/dL Invalid Interpretation Code 31.8 - 35.4 G/dL AO Workflow SS MCV (RBC) [Entitic vol] 91.9 fL Invalid Interpretation Code 80.0 - 94.0 fL AO Workflow SS Monocyte, Absolute 0.9 103/mcL Invalid Interpretation Code 0.2 - 1.0 10^3/mcL AO Workflow SS Monocytes/100 WBC (Bld) 12.7 % Invalid Interpretation Code 1.7 - 13.0 % AO Workflow SS Neutrophil, Absolute 4.4 103/mcL Invalid Interpretation Code 2.9 - 6.2 10^3/mcL AO Workflow SS Neutrophils/100 WBC (Bld) 65.3 % Invalid Interpretation Code 37.0 - 80.0 % AO Workflow SS Platelet mean volume (Bld) [Entitic vol] 8.8 fL Invalid Interpretation Code 7.4 - 10.4 fL AO Workflow SS Platelets (Bld) [#/Vol] 190 103/mcL Invalid Interpretation Code 130 - 400 10^3/mcL AO Workflow SS RBC (Bld) [#/Vol] 4.75 106/mcL Invalid Interpretation Code 4.04 - 6.13 10^6/mcL AO Workflow SS WBC (Bld) [#/Vol] 6.7 103/mcL Invalid Interpretation Code 4.6 - 10.8 10^3/mcL AO Workflow SS .Auto Diffon 08-31-2022 Basophil, Absolute 0.0 10 3/mcL Normal 0.0-0.2 Replaced by [facility] ([place]) Comment on above: Performed By: #### A LB, ADIFF, ANSG, GFR, BMP, ANEU, ABOG, CBC #### [address] [address] Basophils/100 WBC (Bld) 0.2 % Normal 0.0-2.5 [facility] ([place]) Comment on above: Performed By: #### A LB, ADIFF, ANSG, GFR, BMP, ANEU, ABOG, CBC #### [address] [address] Eosinophil, Absolute 0.2 10 3/mcL Normal 0.0-0.4 [facility] ([place]) Comment on above: Performed By: #### A LB, ADIFF, ANSG, GFR, BMP, ANEU, ABOG, CBC #### [address] [address] Eosinophils/100 WBC (Bld) 3.3 % Normal 0.0-7.0 [facility] ([place]) Comment on above: Performed By: #### A LB, ADIFF, ANSG, GFR, BMP, ANEU, ABOG, CBC #### [address] [address] Lymphocyte, Absolute 1.2 10 3/mcL Normal 0.8-3.9 [facility] ([place]) Comment on above: Performed By: #### A LB, ADIFF, ANSG, GFR, BMP, ANEU, ABOG, CBC #### [address] [address] Lymphocytes/100 WBC (Bld) 20.6 % Normal 10.0-50.0 [facility] ([place]) Comment on above: Performed By: #### A LB, ADIFF, ANSG, GFR, BMP, ANEU, ABOG, CBC #### [address] [address] Monocyte, Absolute 0.7 10 3/mcL Normal 0.2-1.0 Replaced by [facility] ([place]) Comment on above: Performed By: #### A LB, ADIFF, ANSG, GFR, BMP, ANEU, ABOG, CBC #### [address] [address] Monocytes/100 WBC (Bld) 12.5 % Normal 1.7-13.0 [facility] ([place]) Comment on above: Performed By: #### A LB, ADIFF, ANSG, GFR, BMP, ANEU, ABOG, CBC #### [address] [address] Neutrophils/100 WBC (Bld) 63.4 % Normal 37.0-80.0 [facility] ([place]) Comment on above: Performed By: #### A LB, ADIFF, ANSG, GFR, BMP, ANEU, ABOG, CBC #### [address] [address] .GFRon 08-31-2022 GFR 92 ml/min/1.73sqm Normal [facility] ([place]) Comment on above: Result Comment: GFR Population mean for , Non- Americans Ages 20-29 = 116 mL/min/1.73 sq.m. Ages 30-39 = 107 mL/min/1.73 sq.m. Ages 40-49 = 99 mL/min/1.73 sq.m. Ages 50-59 = 93 mL/min/1.73 sq.m. Ages 60-69 = 85 mL/min/1.73 sq.m. Ages 70+ = 75 mL/min/1.73 sq.m. Chronic Kidney Disease: Less than 60 mL/min/1.73 square meters End Stage Renal Disease: Less than 15 mL/min/1.73 square meters Performed By: #### A LB, ADIFF, ANSG, GFR, BMP, ANEU, ABOG, CBC #### [address] [address] GFR Non- 76 ml/min/1.73sqm Normal [facility] ([place]) Comment on above: Result Comment: GFR Population mean for , Non- Americans Ages 20-29 = 116 mL/min/1.73 sq.m. Ages 30-39 = 107 mL/min/1.73 sq.m. Ages 40-49 = 99 mL/min/1.73 sq.m. Ages 50-59 = 93 mL/min/1.73 sq.m. Ages 60-69 = 85 mL/min/1.73 sq.m. Ages 70+ = 75 mL/min/1.73 sq.m. Chronic Kidney Disease: Less than 60 mL/min/1.73 square meters End Stage Renal Disease: Less than 15 mL/min/1.73 square meters Performed By: #### A LB, ADIFF, ANSG, GFR, BMP, ANEU, ABOG, CBC #### [address] [address] .NEUABSon 08-31-2022 Neutrophil, Absolute 3.7 10 3/mcL Normal 2.9-6.2 [facility] ([place]) Comment on above: Performed By: #### A LB, ADIFF, ANSG, GFR, BMP, ANEU, ABOG, CBC #### [address] [address] ALBon 08-31-2022 Albumin Level 3.8 G/dL Normal 3.4-4.8 [facility] ([place]) Comment on above: Performed By: #### A LB, ADIFF, ANSG, GFR, BMP, ANEU, ABOG, CBC #### [address] [address] BMPon 08-31-2022 BUN/Creatinine Ratio 25 ratio Normal 7-27 Replaced by [facility] ([place]) Comment on above: Performed By: #### A LB, ADIFF, ANSG, GFR, BMP, ANEU, ABOG, CBC #### [address] [address] Calcium [Mass/Vol] 10.1 mg/dL Normal 8.4-10.2 [facility] ([place]) Comment on above: Performed By: #### A LB, ADIFF, ANSG, GFR, BMP, ANEU, ABOG, CBC #### [address] [address] Chloride [Moles/Vol] 104 mmol/L Normal 98-107 Replaced by [facility] ([place]) Comment on above: Performed By: #### A LB, ADIFF, ANSG, GFR, BMP, ANEU, ABOG, CBC #### [address] [address] CO2 [Moles/Vol] 28 mmol/L Normal 23-31 [facility] ([place]) Comment on above: Performed By: #### A LB, ADIFF, ANSG, GFR, BMP, ANEU, ABOG, CBC #### [address] [address] Creatinine [Mass/Vol] 0.99 mg/dL Normal 0.70-1.30 [facility] ([place]) Comment on above: Performed By: #### A LB, ADIFF, ANSG, GFR, BMP, ANEU, ABOG, CBC #### [address] [address] Electrolyte Balance 8.0 mEq/L Normal 4.0-15.0 [facility] ([place]) Comment on above: Performed By: #### A LB, ADIFF, ANSG, GFR, BMP, ANEU, ABOG, CBC #### [address] [address] Glucose [Mass/Vol] 96 mg/dL Normal 80-115 [facility] ([place]) Comment on above: Performed By: #### A LB, ADIFF, ANSG, GFR, BMP, ANEU, ABOG, CBC #### [address] [address] Potassium [Moles/Vol] 4.8 mmol/L Normal 3.5-5.1 [facility] ([place]) Comment on above: Performed By: #### A LB, ADIFF, ANSG, GFR, BMP, ANEU, ABOG, CBC #### [address] [address] Sodium [Moles/Vol] 140 mmol/L Normal 136-145 [facility] ([place]) Comment on above: Performed By: #### A LB, ADIFF, ANSG, GFR, BMP, ANEU, ABOG, CBC #### [address] [address] Urea nitrogen [Mass/Vol] 25 mg/dL High 7-18 [facility] ([place]) Comment on above: Performed By: #### A LB, ADIFF, ANSG, GFR, BMP, ANEU, ABOG, CBC #### [address] [address] CBCon 08-31-2022 Erythrocyte distribution width (RBC) [Ratio] 13.0 % Normal 11.5-14.5 [facility] ([place]) Comment on above: Order Comment: Pre-A dmission Testing Performed By: #### A LB, ADIFF, ANSG, GFR, BMP, ANEU, ABOG, CBC #### [address] [address] Hematocrit (Bld) [Volume fraction] 44.2 % Normal 42.0-52.0 [facility] ([place]) Comment on above: Order Comment: Pre-A dmission Testing Performed By: #### A LB, ADIFF, ANSG, GFR, BMP, ANEU, ABOG, CBC #### [address] [address] Hgb 14.7 G/dL Normal 14.0-18.0 [facility] ([place]) Comment on above: Order Comment: Pre-A dmission Testing Performed By: #### A LB, ADIFF, ANSG, GFR, BMP, ANEU, ABOG, CBC #### [address] [address] MCH (RBC) [Entitic mass] 31.0 pg Normal 27.0-31.2 [facility]) Comment on above: Order Comment: Pre-A dmission Testing Performed By: #### A LB, ADIFF, ANSG, GFR, BMP, ANEU, ABOG, CBC #### [address] [address] MCHC 33.2 G/dL Normal 31.8-35.4 [facility] ([place]) Comment on above: Order Comment: Pre-A dmission Testing Performed By: #### A LB, ADIFF, ANSG, GFR, BMP, ANEU, ABOG, CBC #### [address] [address] MCV (RBC) [Entitic vol] 93.4 fL Normal 80.0-94.0 [facility] ([place]) Comment on above: Order Comment: Pre-A dmission Testing Performed By: #### A LB, ADIFF, ANSG, GFR, BMP, ANEU, ABOG, CBC #### [address] [address] Platelet 235 10 3/mcL Normal 130-400 [facility] ([place]) Comment on above: Order Comment: Pre-A dmission Testing Performed By: #### A LB, ADIFF, ANSG, GFR, BMP, ANEU, ABOG, CBC #### [address] [address] Platelet mean volume (Bld) [Entitic vol] 8.5 fL Normal 7.4-10.4 [facility] ([place]) Comment on above: Order Comment: Pre-A dmission Testing Performed By: #### A LB, ADIFF, ANSG, GFR, BMP, ANEU, ABOG, CBC #### [address] [address] RBC 4.73 10 6/mcL Normal 4.04-6.13 [facility] ([place]) Comment on above: Order Comment: Pre-A dmission Testing Performed By: #### A LB, ADIFF, ANSG, GFR, BMP, ANEU, ABOG, CBC #### [address] [address] WBC 5.8 10 3/mcL Normal 4.6-10.8 [facility] ([place]) Comment on above: Order Comment: Pre-A dmission Testing Performed By: #### A LB, ADIFF, ANSG, GFR, BMP, ANEU, ABOG, CBC #### [place] [id number] Gel ABOon 08-31-2022 ABO/Rh Interp AB POS Invalid Interpretation Code [facility] ([place]) Comment on above: Performed By: #### A LB, ADIFF, ANSG, GFR, BMP, ANEU, ABOG, CBC #### [facility] [address] [place], [place] [address] Gel ABSon 08-31-2022 Antibody Screen Gel Negative Normal [facility] ([place]) Comment on above: Performed By: #### A LB, ADIFF, ANSG, GFR, BMP, ANEU, ABOG, CBC #### [facility] [address] [place], [place] [address] LABORATORYOrdered By: [place] on 08-31-2022 ABO/Rh Interp AB POS Invalid Interpretation Code AO BB SS Antibody Screen Gel Negative ABSC (08/31/22 12:04 PM) Invalid Interpretation Code AO BB SS LABORATORYOrdered By: SYSTEM SYSTEM on 08-31-2022 Albumin BCP dye [Mass/Vol] 3.8 G/dL Invalid Interpretation Code 3.4 - 4.8 G/dL AO ADM SS Calcium [Mass/Vol] 10.1 mg/dL Invalid Interpretation Code 8.4 - 10.2 mg/dL AO ADM SS Chloride [Moles/Vol] 104 mmol/L Invalid Interpretation Code 98 - 107 mmol/L AO ADM SS CO2 [Moles/Vol] 28 mmol/L Invalid Interpretation Code 23 - 31 mmol/L AO ADM SS Creatinine [Mass/Vol] 0.99 mg/dL Invalid Interpretation Code 0.70 - 1.30 mg/dL AO ADM SS Electrolyte Balance 8.0 mEq/L Invalid Interpretation Code 4.0 - 15.0 mEq/L AO ADM SS GFR 92 ml/min/1.73sqm Invalid Interpretation Code AO Chemistry S GFR Non- 76 ml/min/1.73sqm Invalid Interpretation Code AO Chemistry S Glucose [Mass/Vol] 96 mg/dL Invalid Interpretation Code 80 - 115 mg/dL AO ADM SS Potassium [Moles/Vol] 4.8 mmol/L Invalid Interpretation Code 3.5 - 5.1 mmol/L AO ADM SS Sodium [Moles/Vol] 140 mmol/L Invalid Interpretation Code 136 - 145 mmol/L AO ADM SS Urea nitrogen [Mass/Vol] 25 mg/dL Invalid Interpretation Code 7 - 18 mg/dL AO ADM SS Urea nitrogen/Creatinine [Mass ratio] 25 ratio Invalid Interpretation Code 7 - 27 ratio AO ADM SS LABORATORYOrdered By: Danielle Allison on 08-31-2022 Basophil, Absolute 0.0 103/mcL Invalid Interpretation Code 0.0 - 0.2 10^3/mcL AO Workflow SS Basophils/100 WBC (Bld) 0.2 % Invalid Interpretation Code 0.0 - 2.5 % AO Workflow SS Eosinophil, Absolute 0.2 103/mcL Invalid Interpretation Code 0.0 - 0.4 10^3/mcL AO Workflow SS Eosinophils/100 WBC (Bld) 3.3 % Invalid Interpretation Code 0.0 - 7.0 % AO Workflow SS Erythrocyte distribution width (RBC) [Ratio] 13.0 % Invalid Interpretation Code 11.5 - 14.5 % AO Workflow SS Hematocrit (Bld) [Volume fraction] 44.2 % Invalid Interpretation Code 42.0 - 52.0 % AO Workflow SS Hemoglobin (Bld) [Mass/Vol] 14.7 G/dL Invalid Interpretation Code 14.0 - 18.0 G/dL AO Workflow SS Lymphocyte, Absolute 1.2 103/mcL Invalid Interpretation Code 0.8 - 3.9 10^3/mcL AO Workflow SS Lymphocytes/100 WBC (Bld) 20.6 % Invalid Interpretation Code 10.0 - 50.0 % AO Workflow SS MCH (RBC) [Entitic mass] 31.0 pg Invalid Interpretation Code 27.0 - 31.2 pg AO Workflow SS MCHC 33.2 G/dL Invalid Interpretation Code 31.8 - 35.4 G/dL AO Workflow SS MCV (RBC) [Entitic vol] 93.4 fL Invalid Interpretation Code 80.0 - 94.0 fL AO Workflow SS Monocyte, Absolute 0.7 103/mcL Invalid Interpretation Code 0.2 - 1.0 10^3/mcL AO Workflow SS Monocytes/100 WBC (Bld) 12.5 % Invalid Interpretation Code 1.7 - 13.0 % AO Workflow SS Neutrophil, Absolute 3.7 103/mcL Invalid Interpretation Code 2.9 - 6.2 10^3/mcL AO Workflow SS Neutrophils/100 WBC (Bld) 63.4 % Invalid Interpretation Code 37.0 - 80.0 % AO Workflow SS Platelet mean volume (Bld) [Entitic vol] 8.5 fL Invalid Interpretation Code 7.4 - 10.4 fL AO Workflow SS Platelets (Bld) [#/Vol] 235 103/mcL Invalid Interpretation Code 130 - 400 10^3/mcL AO Workflow SS RBC (Bld) [#/Vol] 4.73 106/mcL Invalid Interpretation Code 4.04 - 6.13 10^6/mcL AO Workflow SS WBC (Bld) [#/Vol] 5.8 103/mcL Invalid Interpretation Code 4.6 - 10.8 10^3/mcL AO Workflow SS Vital Signs Date Time Vital Sign Value Performing Clinician Faci lity 05-13-2024 13:02-0400 Body weight 105.23 kg Fernando [facility] 05-13-2024 13:02-0400 Diastolic blood pressure 72 mm[Hg] Fernando Hernandez DO Work Phone: [facility] [employer] 05-13-2024 13:02-0400 Heart rate 76 /min Fernando Hernandez [facility] 05-13-2024 13:02-0400 Systolic blood pressure 121 mm[Hg] Fernando Hernandez DO Work Phone: [facility] [employer] 08-31-2022 11:20-[address] DEVORA ALEJANDRE MD [facility] 08-31-2022 11:20-0500 Body height 190.[address] DEVORA ALEJANDRE MD [facility] 08-31-2022 11:20-0500 Body weight 135.[address] DEVORA ALEJANDRE MD [facility] 08-31-2022 11:20-0500 Body weight 37.25 kg/m2 DR DEVORA ALEJANDRE MD [facility] 08-31-2022 11:20-0500 Diastolic Blood Pressure Non-Invasive [address] DEVORA ALEJANDRE MD [facility] 08-31-2022 11:20-0500 Heart rate 88 /min DR DEVORA ALEJANDRE MD [facility] 08-31-2022 11:20-0500 Respiratory rate 20 /min DR DEVORA ALEJANDRE MD [facility] 08-31-2022 11:20-0500 Systolic Blood Pressure Non-Invasive [address] DEVORA ALEJANDRE MD [facility] Encounters Encounter Date Encounter Type Care Provider Facility Start: 05-13-2024 End: 05-13-2024 Office consultation new/estab patient 60 min Fernando Hernandez DO Work Phone: [facility] [place] Comment on above: Aneurysm of ascendin g aorta without rupture (HCC) (Primary Dx); Bilateral pleural effusion; Systolic CHF with reduced left ventricular function, NYHA class 3 (HCC); Coronary artery disease involving inaja coronary artery of inaja heart without angina pectoris; Paroxysmal atrial fibrillation (HCC); Essential hypertension; H/O varicose vein stripping Start: 10-30-2022 End: 10-30-2022 ambulatory DEVORA ALEJANDRE Facility:B Start: 10-17-2022 End: 10-18-2022 ambulatory DEVORA ALEJANDRE Facility:[facility] Start: 10-17-2022 End: 10-17-[address] DEVORA ALEJANDRE MD [facility] Start: 10-16-2022 End: 10-17-2022 ambulatory DEVORA ALEJANDRE Facility:[facility] Start: 10-16-2022 End: 10-16-[address] DEVORA ALEJANDRE MD [facility] Start: 08-31-2022 End: 09-01-2022 ambulatory DEVORA ALEJANDRE Facility:[facility] Start: 08-31-2022 End: 08-31-[address] DEVORA ALEJANDRE MD [facility] Start: 12-28-2020 End: 12-28-2020 ambulatory RAMONA PETERS Facility:[facility] Comment on above: Pain (Primary Dx) Procedures Date Procedure Procedure Detail Performing Clinician Start: 12-09-[address] LISSETTE RAMIREZ Comment on above: Techniaclly difficul t, EF 60% [facility] Start: 12-09-[address] DEVORA ALEJANDRE MD Comment on above: [facility]-normal Start: 12-08-2020 Abnormal ECG (finding) DR DEVORA ALEJANDRE MD Comment on above: [facility] SR w/1st degree AV b lock, L axis deviation, L ventricular hypertrophy w/QRS widening & repolarization abn, inferior infarct Start: 12-08-2020 CT angiography of he ad and neck DR DEVORA ALEJANDRE MD Comment on above: [facility]-5 cm aneurysmal dilation of ascending aorta, L vertebral artery occludes at the base of skull w/distal reconstitution by collaterals Start: 12-08-2020 CT of brain without contrast DR DEVORA ALEJANDRE MD Comment on above: [facility]-neg Start: 12-08-2020 Plain chest X-ray DR PRASHANT RAMIREZ Comment on above: [facility]-cardiomegaly Amputation of left great toe DR DEVORA ALEJANDRE MD Decompression of med timur nerve DR DEVORA ALEJANDRE MD Comment on above: Right Decompression of uln ar nerve at wrist DR DEVORA ALEJANDRE MD Comment on above: Right Primary repair of in guinal hernia DR DEVORA ALEJANDRE MD Comment on above: right Prosthetic arthropla sty of the hip DR DEVORA ALEJANDRE MD Comment on above: Right Reconstruction of de fect of nasal sinus DR DEVORA ALEJANDRE MD Plan of Treatment Date Care Activity Detail Author Start: 03-22-2021 Influenza vaccination INFLUENZA (Sea son Ended) [facility] Start: 08-07-2013 LIPID SCREEN LIPID SCREEN [facility] Start: 08-07-2013 PROSTATE CANCER SCRE ENING DISCUSSION PROSTATE CANCER SCREENING DISCUSSION [facility] Start: 09-19-2012 DIABETES SCREEN DIABETES SCREEN [facility] Start: 2007 Screening for malign ant neoplasm of colon [facility] Start: 2007 SHINGRIX VACCINE (1 of 2) BREAUX GRIX VACCINE (1 of 2) [facility] Start: 1976 Urine microalbumin profile DTAP,TDAP ,TD (1 - Tdap) [facility] Start: 1975 HEPATITIS C SCREENING HEPATITIS C SC REENING [facility] Start: 1975 HIV SCREENING HIV SCREENING [facility] Start: 1969 Adult depression scr eening assessment DEPRESSION SCREENING [facility] Start: 1969 COVID-19 VACCINE (1) COVID-19 VACCIN E (1) [facility] End: 02-01-2022 Radiologic examination pelvis 1/2 views XR PELVIS 1V AP Radiology Routine Pain 1 Occurrences starting 01/02/2021 until 02/01/2022 [facility] Comment on above: 1 Occurrences starti ng 01/02/2021 until 02/01/2022 [facility] Immunizations Immunization Date Immunization Notes Care Provider Nohemi morales 02-10-2007 tetanus and diphther ia toxoids, adsorbed, preservative free, for adult use (2 Lf of tetanus toxoid and 2 Lf of diphtheria toxoid) Isiah Harris MD Work Phone: [facility] Payers Date Payer Category Payer Medicare supplementa l policy (as second payer) HU[employer] MEDICARE SUPPLEMENT [id number] 2019 Medicare [id number] 2019 Medicare HUMANA MEDICARE HU[employer]NA MEDICARE PPO [id number] 2019-Present PPO [id number] 1955 Unknown [id number] 1955 Unknown [id number] 1955 Unknown [id number] 1955 Unknown [id number] 1955 Unknown [id number] Social History Date Type Detail Facility Start: 09-19-2009 End: 05-12-2024 Tobacco smoking status NHIS Never smoker [facility] Start: 09-19-2009 Alcohol intake Current non-dr [place] [employer] group leader of alcohol (finding) [facility] Start: 07-08-2008 Alcohol Comment Very little [place] [facility] Start: 1955 Sex Assigned At Not on file [facility] Exposure to SARS-CoV -2 (event) Not sure [facility] Work Phone: Sex Assigned At Sex [facility] Start: 05-12-2024 Tobacco use and exposure Smokeless tobacco non-user [facility] Start: 05-13-2024 Alcoholic beverage intake Current drinker of alcohol (finding) [facility] Start: 05-12-2024 Alcohol Comment occasional, social S [facility] Start: 05-12-2024 Sex Male (finding) [facility] Gender identity Not on file [facility] Functional Status Date Assessment Result Facility 08-31-2022 Functional Status Sensory Deficits None [facility] History of Present illness Narrative 05-13-2024 Fernando Hernandez, DO - 05/13/2024 1:00 PM EDT Note Date & Type Note Facility 05-13-2024 History of Presen t illness Narrative Images from the original note were not included. [facility] SURG[facility] [address] [facility] [address] Dept: [phone] Dept Loc: [phone] Visit type: New Reason for Visit: Ascending aortic aneurysm Assessment: 1. Aneurysm of ascending aorta without rupture (HCC) 2. Bilateral pleural effusion 3. Systolic CHF with reduced left ventricular function, NYHA class 3 (HCC) 4. Coronary artery disease involving inaja coronary artery of inaja heart without angina pectoris 5. Paroxysmal atrial fibrillation (HCC) 6. Essential hypertension 7. H/O varicose vein stripping Recommendations: He presents with a complicated set of related comorbidities to work on besides his aortic aneurysm. With regard to the aneurysm at 5.3 cm it is reasonable to consider operative repair of this at this time. However, the presence of the aneurysm does not explain his pleural effusions or his low ejection fraction. I believe he has significant coronary disease based on the CT scan and the history he has related to me. I have arranged for right and left heart catheterization as a next step in workup. He will also undergo saphenous vein mapping due to his history of intervention there and my anticipation of him needing coronary bypass surgery. Once this is done he will return for an office visit for further planning. History of Present Illness Marit Hernandez is a 69 y.o. male referred by Dr. Wright for thoracic aortic aneurysm and recurrent bilateral pleural effusion. Per note, patient with past medical history significant for HF, HTN, thoracic aortic aneurysm was seen by PCP for a 1 month checkup where pt complained of shortness of breath. Pt was sent for a transthoracic echo on 04/03/24 which demonstrated severe LV hypertrophy, LVEF 35%, moderate global hypokinesis of the LV, moderately enlarged LA, a trileaflet aortic valve with mild 1+ insufficiency, and a moderate left pleural effusion. Pt was then sent for a CTA chest on 04/07/24 which showed calcifications of the coronary arteries, moderate bilateral pleural effusions, and dilation of the ascending aorta measuring 5.3cm. Pt states he had a left sided thoracentesis a couple months ago , unsure of exact date, where approx 900ml was drained and lasix was added to medicine regimen. Stress test on 04/13/24 was normal, with a reduced EF (31%). Patient is here today for an evaluation. He continues to complain of shortness of breath and appears quite winded on our encounter. He denies chest pain, pressure, tightness, or burning. He also denies lightheadedness, syncope, or orthopnea. He does have mild leg edema but has had bilateral vein stripping in the past. He has never smoked and is not diabetic. [place] and takes care of chickens, goats, cats, and dogs. Past Medical History Past Medical History: Diagnosis Date (HFpEF) heart failure with preserved ejection fraction (HCC) Bilateral pleural effusion Dysphagia Hyperlipidemia Hypertension Peripheral vascular disease (HCC) Plasma cell dyscrasia Thoracic aortic aneurysm (HCC) Past Surgical History Past Surgical History: Procedure Laterality Date CARPAL TUNNEL RELEASE HERNIA REPAIR SINUS SURGERY THORACENTESIS TOE AMPUTATION Left TOTAL HIP ARTHROPLASTY Left 04/19/2023 Family History Family History Problem Relation Name Age of Onset Hypertension Mother Coronary artery disease Mother Social History Marital status: Single but lives with his ex Work history: Retired Gre[employer] status: Never Served Social History Tobacco Use Smoking status: Never Smokeless tobacco: Never Substance Use Topics Alcohol use: Yes Comment: occasional, social Drug use: Never Allergies Allergies Allergen Reactions Beta Adrenergic Blockers Other Apneic episodes Medications Current Outpatient Medications: acetaminophen (Tylenol) 500 MG tablet, Take 1,000 mg by mouth every 6 hours as needed for mild pain (1-3)., Disp: , Rfl: aspirin 81 MG EC tablet, Take 81 mg by mouth daily., Disp: , Rfl: atorvastatin (Lipitor) 40 MG tablet, Take 40 mg by mouth daily., Disp: , Rfl: cyclobenzaprine (Flexeril) 10 MG tablet, Take 5 mg by mouth 3 times daily., Disp: , Rfl: dilTIAZem HCl ER 120 MG tablet sustained-release 24 hour, Take 1 capsule by mouth daily., Disp: , Rfl: furosemide (Lasix) 40 MG tablet, Take 40 mg by mouth in the morning and 40 mg in the evening., Disp: , Rfl: lisinopril 20 MG tablet, Take 20 mg by mouth., Disp: , Rfl: OXYBUTYNIN CHLORIDE ER PO, Take 10 mg by mouth Nightly. (Patient not taking: Reported on 05/13/2024), Disp: , Rfl: spironolactone (Aldactone) 25 MG tablet, Take 25 mg by mouth in the morning and 25 mg in the evening., Disp: , Rfl: TAMSULOSIN HCL PO, Take 0.4 mg by mouth daily. (Patient not taking: Reported on 05/13/2024), Disp: , Rfl: Review of Systems Review of Systems Constitutional: Negative. HENT: Negative. Eyes: Negative. Respiratory: Positive for shortness of breath. Cardiovascular: Negative. Gastrointestinal: Negative. Endocrine: Negative. Genitourinary: Negative. Musculoskeletal: Negative. Skin: Negative. Allergic/Immunologic: Negative. Neurological: Negative. Hematological: Negative. Psychiatric/Behavioral: Negative. Physical Exam Vitals: BP 121/72 (BP Location: Right arm, Patient Position: Sitting, BP Cuff Size: Large adult) Pulse 76 Wt 232 lb (105 kg) Constitutional: General: Not in acute distress. Appearance: Normal appearance. Not toxic-appearing. Ear, nose, mouth: Bilateral external ear and nose normal. Nose: Nose normal. Mouth: Appearance normal, no bleeding, moist mucus membranes Eyes: General: No scleral icterus. No discharge from bilateral eyes Extraocular Movements: Extraocular movements intact. Pupils equal and reactive bilaterally Cardiovascular: Heart: Irregular rhythm. No murmur Vascular: No carotid bruit. Edema: mild edema in bilateral lower extremities Pulmonary: Effort: Pulmonary effort is normal. No respiratory distress. Breath sounds: Normal breath sounds. No wheezing. Chest wall: No tenderness. Abdominal: Appearance: Not distended Palpations: There is no abdominal tenderness, no guarding. Musculoskeletal: Bilateral upper and lower extremities: Normal range of motion, no deformity Head: Normocephalic and atraumatic. Neck: Normal range of motion and neck supple. No muscular tenderness. Lymphadenopathy: Cervical: No cervical adenopathy. Skin: General: Skin is warm and dry. Multiple abrasions on arms. Coloration: Skin is not jaundiced. Neurological: General: No focal deficit present. Cranial Nerves: No obvious cranial nerve deficit. Psychiatric: Mood and Affect: Mood normal. Thought Content: Thought content normal. Patient has good judgement and insight Mental Status: Alert and oriented to place, person, and time. Labs No results found for: WBC , HGB , PLT , NA , K , CREATININE Imaging Pharmacologic Stress Test 04/13/24 CTA Chest 04/07/24 Transthoracic Echocardiogram 04/03/24 Patient Care Team: PCP: MD Everett Quinones Chi, DO FACS Cardiothoracic Surgery documented in this encounter [facility] [employer] Progress note 09-19-2021 Note Date & Type Note Facility 09-19-2021 Note HNO ID: [id number] Author: Kimberly Ortiz Service: ? Author Type: ? Type: Progress Notes Filed: 09/19/2021 12:17 PM Note Text: POPULATION HEALTH NAVIGATION OUTREACH Action/ADRIANA jefferson Patient due for the following: Annual exam/est care Colorectal Cancer Screening Flu vaccine Called home # and person answered, stated wrong number Cell phone # not in service [employer] message sent Pt identified by name and : NO Outreach Outcome/Action Unable to reach patient: Phone number not valid / voicemail full MyChart message sent Reason for Outreach Care Gap or Scheduling/Wellness visits Payer: Payor: HU[employer]NA MEDICARE / Plan: [employer] MEDICARE PPO / Product Type: PPO / Care Gap Reviewed:: Annual Wellness visit Colorectal Cancer Screening Flu vaccine Reminder: Reminder note to check Health Maintenance for items below Health Maintenance items due: COVID-19 VACCINE(1) Never done DEPRESSION SCREENING Never done HEPATITIS C SCREENING Never done HIV SCREENING Never done COLORECTAL CANCER SCREENING Never done DTAP,TDAP,TD(1 - Tdap) due on 02/11/2007 SHINGRIX VACCINE(1 of 2) Never done DIABETES SCREEN due on 09/19/2012 LIPID SCREEN due on 08/07/2013 PROSTATE CANCER SCREENING DISCUSSION due on 08/07/2013 INFLUENZA(1) Never done Message Sent to Practice: No Navigation Signature: Kimberly Ortiz September 19, 2021 12:10 PM [facility] Clinical Note 09-19-2021 Note Date & Type Note Facility 09-19-2021 Note Patient Outreach (TARA TNGUERO) MARTI HERNANDEZ ([id number]) 1955 M Date Time Provider Department 09/19/21 KIMBERLY ORTIZMURALIMontana During your visit today, we recorded the following information about you: Kimberly Ortiz 09/19/2021 12:17 PM Signed POPULATION HEALTH NAVIGATION OUTREACH Action/ADRIANA jefferson Patient due for the following: Annual exam/est care Colorectal Cancer Screening Flu vaccine Called home # and person answered, stated wrong number Cell phone # not in service [employer] message sent Pt identified by name and : NO Outreach Outcome/Action Unable to reach patient: Phone number not valid / voicemail full [email or web address] message sent Reason for Outreach Care Gap or Scheduling/Wellness visits Payer: Payor: HUMANA MEDICARE / Plan: [employer] MEDICARE PPO / Product Type: PPO / Care Gap Reviewed:: Annual Wellness visit Colorectal Cancer Screening Flu vaccine Reminder: Reminder note to check Health Maintenance for items below Health Maintenance items due: COVID-19 VACCINE(1) Never done DEPRESSION SCREENING Never done HEPATITIS C SCREENING Never done HIV SCREENING Never done COLORECTAL CANCER SCREENING Never done DTAP,TDAP,TD(1 - Tdap) due on 02/11/2007 SHINGRIX VACCINE(1 of 2) Never done DIABETES SCREEN due on 09/19/2012 LIPID SCREEN due on 08/07/2013 PROSTATE CANCER SCREENING DISCUSSION due on 08/07/2013 INFLUENZA(1) Never done Message Sent to Practice: No Navigation Signature: Kimberly Ortiz September 19, 2021 12:10 PM Allergies As of Date: 09/19/2021 Noted Allergy Reaction TETANUS VACCINES AND TOXOID 02/28/2007 8 - GI Upset Date Reviewed: 10/07/2009 Reviewed by: [facility]) JOSE Nguyen - [place] Reason for Visit: Population Health Navigation Outreach [2120] Cmt: [employer] Medicare Prescriptions as of 09/19/2021 - hydrocodone bit/acetaminophen(VICODIN 5 MG-500 MG TAB) Take 1 tablet) every six(6) hours as needed for pain. - METOPROLOL 50 MG TAB Take one(1) tablet twice daily. Problem List As Of Date 09/19/2021 Noted Resolved Lesion of Ulnar Nerve [G56.20] 08/19/2009 Carpal Tunnel Syndrome [G56.00] 08/19/2009 Pain in Soft Tissues of Limb [M79.609] 10/07/2009 Encounter Status:Closed by KIMBERLY ORTIZ on 09/19/21 [facility] Evaluation + Plan note Note Date & Type Note Facility Evaluation + Plan note Future Appointments [facility] Evaluation note Note Date & Type Note Facility Evaluation note Diagnosis Pain- Primary Generalized pain documented in this encounter [facility] Evaluation note Note Date & Type Note Facility Evaluation note Diagnosis Aneurysm of ascending aorta without rupture (HCC)- Primary Bilateral pleural effusion Unspecified pleural effusion Systolic CHF with reduced left ventricular function, NYHA class 3 (HCC) Coronary artery disease involving inaja coronary artery of inaja heart without angina pectoris Paroxysmal atrial fibrillation (HCC) Atrial fibrillation Essential hypertension Unspecified essential hypertension H/O varicose vein stripping documented in this encounter [facility] [facility] Narrative Note Date & Type Note Facility Hospital course Narrative No data available for this section [facility] Hospital Discharge instructions Note Date & Type Note Facility Hospital Discharge instructions No data available for this section [facility] Progress note Note Date & Type Note Facility Progress note No data available for this section [facility] Summary Purpose Family History No Family History Records FoundNo Family History Records FoundNo Family History Records Found Advance Directives No Advanced Directives Records FoundNo Advanced Directives Records FoundNo Advanced Directives Records Found Additional Source Comments (unrecognized sect ion and content) No Status Records FoundNo Status Records FoundNo Status Records Found INFORMATION SOURCE (unrecogn ized section and content) DATE CREATED AUTHOR 12/29/2020 [facility] DATE CREATED AUTHOR AUTHOR'S ORGANIZ ATION 10/13/2021 [facility] DATE CREATED AUTHOR AUTHOR'S ORGANIZ ATION 12/28/2022 [facility] ([place]) Source Comments (unrecognize d section and content) In the event this informatio n is protected by the Federal Confidentiality of Alcohol and Drug Abuse Patient Records regulations: The Federal rules restrict any use of the information to criminally investigate or prosecute any alcohol or drug abuse patient.[facility] Care Team (unrecognized sect ion and content) Care Team Personnel Name: BRIANA WRIGHT MD Member Role: Primary Care Physician Address: Address: ADULT [facility]ERIATRICS/[address] [place], [address] Care Team Related Persons Name: YUE HERNANDEZ Address: Home [address] [place] [address], [phone] Patient Care team informatio n (unrecognized section and content) Care Team Personnel Name: BRIANA WRIGHT MD Member Role: Primary Care Physician Address: Address: AD[facility]IATRICS/[place] [address] [place], [facility] Care Team Related Persons Name: YUE HERNANDEZ Address: [facility] [address], [phone] Care Team Personnel Name: BRIANA WRIGHT MD Member Role: Primary Care Physician Address: Address: ADULT [facility]ERIATRICS/[address] [place], [address] Care Team Related Persons Name: YUE HERNANDEZ Address: [facility] [address], [phone] Reason for Visit (unrecogniz ed section and content) Reason Comments Aortic Aneurysm Surgical Consult FOR RECORDS PERTAINING TO PATIENTS WHO ARE OR HAVE BEEN ENROLLED IN A CHEMICAL DEPENDENCY/SUBSTANCEABUSE PROGRAM, SOME INFORMATION MAY BE OMITTED. This clinical summary was aggregated from multiple sources. Caution should be exercised in using it in the provision of clinical care. This summary normalizes information from multiple sources, and as a consequence, information in this document may materially change the coding, format and clinical context of patient data. In addition, data may be omitted in some cases. CLINICAL DECISIONS SHOULD BE BASED ON THE PRIMARY CLINICAL RECORDS. [facility] [employer] [facility]. provides no warranty or guarantee of the accuracy or completeness of information in this document.
--- NOTE | 2024-05-14 05:28 | CT_ITS ---
INDICATION: fall EXAMINATION: CT BRAIN - CT Head or Brain W/O Contrast Injection TECHNIQUE: Multiple axial images were obtained of the head without intravenous contrast. The protocol utilizes one or more of the following dose reduction techniques: automated exposure control, adjustment of mA and/or kV according to patient size,and/or use of iterative reconstruction technique. IV Contrast dosage and agent: None. RADIATION DOSAGE (If Supplied By Facility): CTDIvol = ( 44.99 ) mGy, DLP = ( 846.73 ) mGycm COMPARISON: Prior study dated: 12/08/2020 FINDINGS: BRAIN: No acute bleed. No edema. Del Cid-white matter differentiation is maintained. Arterial calcifications. VENTRICLES AND SULCI: Not dilated. EXTRA-AXIAL: No hemorrhage, fluid collection, or mass. CALVARIUM / SKULL BASE: Unremarkable. FACE/SINUSES: Mucosal thickening in the maxillary and sphenoid sinuses. SOFT TISSUES: Unremarkable. CT/Brain/Head without Contrast IMPRESSION: No acute abnormality. Electronically Signed: Sheryl Hammond MD at 7:50 EDT ,
--- NOTE | 2024-05-14 05:29 | EKG12_ITS ---
Test Reason : DYSRHYTHMIA Blood Pressure : / mmHG Vent. Rate : 071 BPM Atrial Rate : 000 BPM P-R Int : 000 ms QRS Dur : 126 ms QT Int : 466 ms P-R-T Axes : 000 268 126 degrees QTc Int : 506 ms Atrial fibrillation with premature ventricular or aberrantly conducted complexes Right bundle branch block Septal infarct (cited on or before 10-NOV-2021) Inferior infarct (cited on or before 08-DEC-2020) T wave abnormality, consider lateral ischemia Abnormal ECG When compared with ECG of 06-MAR-2024 12:46, Atrial fibrillation has replaced Sinus rhythm Right bundle branch block is now Present Confirmed by JERAD RAMIREZ, VIKASH ([id number]), medical transcription editor NADJA NAVA ([id number]) on 05/18/2024 2:23:08 PM Referred By: SANJUANITA Confirmed By:VIKASH MARS MD
[2024-05-14 05:34] LABS: Blood Gas Specimen Type VEN; O2 Delivery Device Room Air; SITE Not entered; VBG BASE EXCESS 3 mmol/L (-1.0-3.5); VBG Bicarbonate 27 mmol/L (22-26); VBG PO2 39 mmHg (25-40); VBG SO2 74 % (50-70); VBG TCO2 29 mmol/L (23-33); VBG pCO2 42.1 mmHg (41-51); VBG pH 7.42 (7.32-7.42)
[2024-05-14] MEDS: Etomidate 20 MG/10 ML Vial IV (05:42)
[2024-05-14] MEDS: Succinylcholine Chloride 200 MG/10 ML SYRINGE 110 MG IV (05:43)
[2024-05-14 05:45] LABS: Absolute Lymphocyte Count 0.92 X10^3/uL (0.83-4.51); Absolute Neutrophil Count 8.2 X10^3/uL (2.0-7.7); Basophil# 0.02 X10^3/uL; Basophil% 0.2 % (0-1); Eosinophils% 0.9 % (0-5); Hematocrit 40.7 % (40-54); Hemoglobin 13.4 g/dL (13.0-16.5); Lymphocyte # 0.92 X10^3/ul (0.83-4.51); Lymphocyte % 8.5 % (19-41); Mean Corp Hgb Conc 32.9 g/dL (32-36); Mean Corpuscular Hgb 29.7 pg (27.0-32.0); Mean Corpuscular Volume 90.2 fL (80-94); Mean Platelet Vol. 10.5 fl (6.2-12.0); Monocyte# 1.47 X10^3/uL; Monocyte% 13.6 % (0-10); NRBC Flagged by Analyzer 0 % (0-5); Neutrophil # 8.23 X10^3/uL (2.7-7.7); Neutrophil % 76.3 % (47-70); Platelet Count 255 K/mm3 (150-450); RBC Distribution Width CV 12.4 % (11.6-14.6); RBC Distribution Width SD 40.9 fl (35.1-43.9); Red Blood Count 4.51 M/mm3 (4.6-6.2); White Blood Count 10.8 K/mm3 (4.4-11.0)
--- NOTE | 2024-05-14 05:48 | RAD_ITS ---
INDICATION: tube placement -- KUB with both diaphragms for NG/OG Verification EXAMINATION/TECHNIQUE: X-RAY - XR Abdomen 1 View portable. 6:36 AM COMPARISON: No relevant prior comparison study available FINDINGS: Single view included lower chest upper abdomen. Tip of the nasogastric tube is in the mid stomach. The included bowel gas pattern is nonspecific. Opacities in the lung bases greater on the left with bilateral pleural effusions. RAD/Abdomen Single View (Portable) IMPRESSION: NG tube tip in the stomach. Bilateral pleural effusions and basilar airspace disease. Electronically Signed: Sheryl Hammond MD at 8:07 EDT ,
[2024-05-14] MEDS: fentaNYL 100 MCG/2 ML Ampul 50 MCG IV ×2 (05:55→07:08)
[2024-05-14] MEDS: fentaNYL drip 100 ML 5 MCG CONT INF (05:55)
[2024-05-14 06:01] LABS: Mucous, Urine 0 SEEN /hpf (<or=2+)
[2024-05-14] MEDS: Rocuronium Bromide 50 MG/5 ML Vial IV (06:02)
[2024-05-14 06:03] LABS: Bedside Glucose 111 mg/dL (74-106)
[2024-05-14 06:07] LABS: International Normalized Ratio 1.3; Prothrombin Time (Protime)PT. 16.2 SECONDS (11.7-14.9)
[2024-05-14 06:08] LABS: Partial Thromboplast Time 34.3 Seconds (24.1-36.2)
[2024-05-14 06:11] LABS: Lactic Acid 1.9 mmol/L (0.4-1.9)
[2024-05-14 06:12] LABS: Color, Urine Yellow (Yellow); Glucose, Dipstick Normal (Normal); Ketone-Dipstick Negative (Negative); Leukocyte Esterase-Dipstick 100 /ul (Negative); Nitrite-Dipstick Negative (Negative); Occult Blood-Urine 250 /ul (Negative); Protein-Dipstick 100 mg/dl (Negative); Urine Bilirubin Dipstick Negative (Negative); Urine Clarity Sl. Cloudy (Clear); Urine Urobilinogen 1 mg/dl (Normal)
[2024-05-14 06:16] LABS: ALB/GLOB Ratio 0.7 RATIO (0.9-2.4); AST(SGOT) 21 U/L (15-37); Alanine Aminotransfer ALT/SGPT 22 U/L (16-61); Albumin, Serum 2.8 g/dL (3.2-5.0); Alkaline Phosphatase 140 U/L (45-117); Anion Gap 4 (5-15); BUN 48 mg/dL (7-18); BUN/Creat Ratio 29.8 RATIO (10-20); CPK Total, Creatine Kinase 61 U/L (39-308); Calcium,Total 9.5 mg/dL (8.5-10.1); Chloride 97 mmol/L (98-107); Creatinine, Serum 1.61 mg/dL (0.70-1.30); EST Glomerular Filtration Rate 46 mL/min (>60); Est Glom Filt Rate - Afr Amer 55 mL/min (>60); Globulin 4.3 g/dL (2.2-4.2); Glucose 131 mg/dL (74-106); Potassium 4.1 mmol/L (3.5-5.1); Protein, Total 7.1 g/dL (6.4-8.2); Sodium Level 132 mmol/L (136-145)
[2024-05-14 06:36] LABS: Bacteria 3+ /hpf (None Seen); Red Blood Cells-Urine 25-50 SEEN /hpf (0-5); Squamous Epithelial Cells - UA 0-5 SEEN /hpf (0-5); White Blood Cells 10-25 SEEN /hpf (0-5)
--- NOTE | 2024-05-14 06:40 | RAD_ITS ---
INDICATION: shortness of breath EXAMINATION/TECHNIQUE: X-RAY - XR Chest 1 View AP portable. 6:33 AM COMPARISON: Prior study dated: 04/07/2024 FINDINGS: LINES/DEVICES: Tip of the endotracheal tube is 6.5 cm above the michele. NG tube tip in the stomach. LUNGS: Alveolar infiltrates bilaterally. More confluent opacity in the left lung base. [id number] bilateral pleural effusions. Findings are similar but increased compared to the prior study. No pneumothorax. MEDIASTINUM: Unremarkable. CARDIAC SILHOUETTE: Not enlarged. BONES AND SOFT TISSUES: No acute abnormalities. RAD/Chest 1 View (Portable) IMPRESSION: Satisfactory ET tube position. Bilateral airspace disease and pleural effusions greater on the left. Most likely pulmonary edema. Pneumonia not excluded. Electronically Signed: Sheryl Hammond MD at 7:47 EDT ,
--- NOTE | 2024-05-14 06:43 | ED.VIS.DYS ---
HPI History of Present Illness Chief Complaint: Shortness of Breath Narrative Narrative: 69-year-old male presents via EMS with respiratory distress. He has known bilateral pleural effusions. He relates history that he was having an episode of his chronic back pain, and went to get up and take Tylenol like he usually does. He states his legs buckled out underneath him and he fell. Although he is , he lives with his ex-, who is at the bedside and states that her dog alerted her that there was a problem. She found him on the floor. He was having problems getting up and was very tired and sleepy. He was having difficulty breathing. She called 911. Of note, they both relate history that he was seen by his air export logistics manager Dr. Maldonado and diagnosed with bilateral pleural effusions. He is being worked up for pleural effusions because a month or 2 ago he had an effusion on the left side which he had thoracentesis performed. Per EMS, they found him cold and were unable to read a pulse ox, and obtained a blood pressure of 90 systolic. They state he was hypoxic, and placed him on a nonrebreather, and his pulse ox came up to 90% on 15 L. Patient denies any injuries from his fall. However, RN noted skin tears on his left side, and he admits to feeling weak in the knees and falling. [facility] Medical History (Updated 05/14/24 @ 07:26 by Steven Salomon MD) MGUS (monoclonal gammopathy of unknown significance) Wears glasses Alcohol use Walker as ambulation aid Excessive bleeding Easy bruising TIA (transient ischemic attack) Non-smoker History of cardioversion History of stress test Cardiology follow-up encounter History of echocardiogram Persistent atrial fibrillation CAD (coronary artery disease) Abnormal stress test Essential hypertension Abnormal ECG Arthritis Chronic ulcer of left foot with fat layer exposed Chronic ulcer of left leg with fat layer exposed Amputation of left great toe Hyperlipidemia Asthma Morbid obesity Degenerative disc disease Home Medications ?Medication ?Instructions ?Recorded ?Last Taken ?Type acetaminophen 500 mg tablet 1,000 mg (2 x 500 mg) PO Q6H PRN 11/22/21 Unknown Rx PRN Pain Score 1-3 #0 tabs cyclobenzaprine 10 mg tablet 10 mg PO TID 30 days #90 tabs 11/22/21 Unknown Rx tamsulosin 0.4 mg capsule 0.4 mg PO DAILY 12/13/21 01/16/23 History oxybutynin chloride 10 mg 10 mg PO QHS 09/05/22 Unknown History tablet,extended release 24 hr aspirin 81 mg chewable tablet 81 mg PO DAILY #90 tabs 04/05/23 Unknown Rx atorvastatin 40 mg tablet 40 mg PO QHS #90 tabs 04/05/23 Unknown Rx diltiazem HCl 120 mg 120 mg PO DAILY #90 caps 11/14/23 Unknown Rx capsule,extended release 24 hr lisinopril 20 mg tablet 20 mg PO DAILY #90 TABLETS 12/23/23 Unknown Rx doxepin 10 mg capsule 10 mg PO QDAY 04/10/24 Unknown History gabapentin 100 mg capsule 100 mg PO QHS 04/10/24 Unknown History docusate sodium 100 mg capsule 100 mg PO BID 04/14/24 Unknown History (Colace) furosemide 40 mg tablet 40 mg PO QDAY 04/14/24 Unknown History spironolactone 25 mg tablet 50 mg (2 x 25 mg) PO DAILY #180 04/24/24 Unknown Rx tabs Allergy/AdvReac Type Severity Reaction Status Date / Time Beta-Blockers AdvReac Intermediate Breathing Verified 05/14/24 05:11 (Beta-Adrenergic Bloc Issues Family History Mother Heart disease Hypertension CAD (coronary artery disease) Father Cancer Other Arthritis Surgical History History of cardiac catheterization History of colonoscopy History of facial surgery History of amputation of toe History of tonsillectomy History of hernia repair H/O sinus surgery History of hip replacement History of carpal tunnel surgery Social History household members: family current occupational status: retired Smoking Status: Never smoker alcohol intake: current details: Occasional substance use type: does not use caffeine: Yes Type: coffee Number of servings: 1 ROS ROS ED ROS Narrative Difficult to obtain secondary to patient condition. Complaints of shortness of breath. Denies injury, no headache, no chest pain. EXAM Physical Exam Narrative Exam Narrative: Afebrile. Vital signs noted. Intermittently awake, and will follow commands. Cardiovascular examination reveals a regular rate but irregular rhythm. Lungs are clear to auscultation bilaterally, but he has decreased breath sounds at the bilateral bases. Positive tachypnea. Skin is cooler to touch. Neurological examination shows him to be nonfocal, nonlateralizing examination. He is awake intermittently, alert, and oriented and responds to voice. Remote amputation of left great toe. Const Vital Signs: 05/14/24 05:11 05/14/24 05:15 05/14/24 05:15 Temperature 98 F 96.7 F L Temperature Source Axillary Axillary Pulse Rate 88 61 Respiratory Rate 20 H 25 H Respiratory Effort Short of Breath Respiratory Depth Shallow Respiratory Pattern Blood Pressure 115/92 H 59/44 L Blood Pressure Mean 99 49 Pulse Ox 100 98 Oxygen Delivery Method Room Air Room Air Fraction of Inspired Oxygen (FIO2) 05/14/24 05:19 05/14/24 05:23 05/14/24 05:27 Temperature Temperature Source Pulse Rate 88 69 62 Respiratory Rate 20 H 24 H 18 Respiratory Effort Respiratory Depth Respiratory Pattern Blood Pressure 59/44 L 46/36 L Blood Pressure Mean 50 41 Pulse Ox Oxygen Delivery Method Fraction of Inspired Oxygen (FIO2) 05/14/24 05:28 05/14/24 05:30 05/14/24 05:40 Temperature Temperature Source Pulse Rate 52 L 62 Respiratory Rate 26 H 34 H Respiratory Effort Respiratory Depth Respiratory Pattern Blood Pressure 50/37 L 59/49 L Blood Pressure Mean 43 55 Pulse Ox 98 95 Oxygen Delivery Method Room Air Non-Rebreather Fraction of Inspired Oxygen (FIO2) 05/14/24 05:45 05/14/24 06:00 05/14/24 06:09 Temperature Temperature Source Pulse Rate 79 96 81 Respiratory Rate 22 H 14 Respiratory Effort Respiratory Depth Respiratory Pattern Normal Blood Pressure 77/60 L 75/59 L Blood Pressure Mean 66 66 Pulse Ox 97 97 Oxygen Delivery Method Mechanical Ventilator Fraction of Inspired Oxygen (FIO2) 100 05/14/24 06:10 05/14/24 06:15 05/14/24 07:00 Temperature 96.2 F L 96.6 F L 96.7 F L Temperature Source Core Core Core Pulse Rate 98 86 86 Respiratory Rate 17 16 14 Respiratory Effort Respiratory Depth Respiratory Pattern Blood Pressure 76/58 L 79/63 L 96/68 Blood Pressure Mean 66 68 77 Pulse Ox 97 95 96 Oxygen Delivery Method Mechanical Ventilator Mechanical Ventilator Mechanical Ventilator Fraction of Inspired Oxygen (FIO2) 05/14/24 07:17 05/14/24 08:28 Temperature 96.6 F L 97.2 F L Temperature Source Core Core Pulse Rate 82 89 Respiratory Rate 16 16 Respiratory Effort Respiratory Depth Respiratory Pattern Blood Pressure 100/62 95/63 Blood Pressure Mean 74 73 Pulse Ox 92 95 Oxygen Delivery Method Mechanical Ventilator Mechanical Ventilator Fraction of Inspired Oxygen (FIO2) Sepsis Attestation Sepsis Alert: Yes Sepsis Attestation: Agree w/Sepsis Date exam was performed: 05/14/24 Time exam was performed: 06:45 Possible Source of Sepsis: Pulmonary, Genitourinary and Unknown Sepsis Organ Dysfunction Criteria Present: SBP < 90 mmHg or MAP < 65 mmHg, SBP decrease of more than 40 mmHg, Acute Respiratory Failure (New need for BiPAP/CPAP or MV) and New/Unexplained change in mental status MDM MDM MDM Narrative Medical decision making narrative: Patient began having low readings of his blood pressure. Additionally, he was becoming more tachypneic. There were periods where he would stare off into space and have to be stimulated by voice or gentle shaking for him to respond. Concern initially was for CO2 retention with his history of bilateral pleural effusions. Venous blood gas shows a pH of 7.4 with a pCO2 of 42 and a pO2 of 39. Given his fall, differential diagnosis includes but not limited to closed head injury versus intracranial hemorrhage, regarding his breathing difficulty, he may have pneumonia versus CHF versus bilateral pleural effusions with large accumulation. In discussion with the patient and his ex-, patient was becoming tired and heading into more respiratory distress. His pulse ox dropped into the 80s. As he remained hypotensive, sepsis workup was pursued and sepsis fluids initiated. I discussed with him intubation, and he is agreeable. His ex- told the charge nurse that she is the power of clay puddler for medical care, and that the patient is a DO NOT RESUSCITATE but will allow intubation. Rapid sequence intubation was performed. Patient was administered etomidate 20 mg intravenously as well as succinylcholine 110 mg intravenously. Quinter scope was used and patient was intubated using an 8.0 ET tube using direct visualization with a laryngoscope. There was good color change and fogging of the tube. Equal breath sounds bilaterally without epigastric noise. RNs placed OG and Machuca. He had an increase in his blood pressure to 114 systolic. Sedation was ordered in the form of fentanyl and fentanyl gtt. He was placed on the mechanical ventilator. I reviewed his laboratory work and he has a white count of 10.8 with hemoglobin 13.4, hematocrit 40.7, platelet count normal at 255. INR is 1.3 with a PTT 34.3. Glucose was appropriately elevated at 131. Anion gap low at 4. Lactic acid 1.9. Alk phos elevated at 140 which I think is nonspecific. Urinalysis obtained for Machuca catheter. He has 10-25 WBCs with 25-50 RBCs. Urine culture is pending. He will be started on Zosyn prophylactically. EKG was obtained and interpreted by myself independently as atrial fibrillation at 71 bpm with PVCs, but no acute ST changes. No STEMI. As he was found on the floor by his ex-, differential diagnosis did include rhabdomyolysis, but is total CK is only 61. I reviewed the radiology report of the CT of the brain and there is no evidence of an acute hemorrhage. Chest x-ray after intubation interpreted by myself independently shows ET tube to be in good position with bilateral pleural effusions, with bilateral airspace disease. He was started on Zosyn as stated previously and I added vancomycin. I reviewed the radiology report which comments on the possibility of bilateral pneumonia and bilateral pleural effusions/airspace disease left greater than right. At this point in time, after IV fluids, he is maintaining his blood pressure at 107 systolic with an acceptable MAP. I did order Levophed in the event that he had transient drop in his blood pressure. Patient will be discussed with the hospitalist for admission to the ICU. Patient is in guarded condition. However, with discussion with Dr. Adame, there is no in-house air export logistics manager/critical care physician available currently, there will not be one for 2 weeks. I discussed patient with his ex- and she initially wanted transfer to [facility], but there is a waiting list and no ICU bed available. I was able to discuss the patient with Dr. Suarez with critical care medicine at [facility]. He states this is where the patient's cardiothoracic surgeon is and accepts him in transfer, but requested a CTA of the chest, abdomen, and pelvis to evaluate his known aortic aneurysm prior to transfer. Disposition is now transferred to [facility] in stable condition. History & Record Review Discussion w/independent historian: Patient and Other (Ex- with whom he lives) Lab Data Attestation: I reviewed the patient's lab results. Labs: Laboratory Results - last 24 hr 05/14/24 05/14/24 05/14/24 05:20 05:45 05:54 WBC 10.8 RBC 4.51 L Hgb 13.4 Hct 40.7 MCV 90.2 MCH 29.7 MCHC 32.9 RDW Std Deviation 40.9 RDW Coeff of Benny 12.4 Plt Count 255 MPV 10.5 Immature Gran % (Auto) 0.500 Neut % (Auto) 76.3 H Lymph % (Auto) 8.5 L [facility] % (Auto) 13.6 H Eos % (Auto) 0.9 Baso % (Auto) 0.2 Absolute Neuts (auto) 8.2 H Absolute Lymphs (auto) 0.92 Nucleated RBC % 0 PT 16.2 H INR 1.3 APTT 34.3 Sodium 132 L Potassium 4.1 Chloride 97 L Carbon Dioxide 31.0 Anion Gap 4 L BUN 48 H Creatinine 1.61 H Estim Creat Clear Calc 58.50 Est GFR (MDRD) Af Amer 55 L Est GFR (MDRD) Non-Af 46 L BUN/Creatinine Ratio 29.8 H Glucose 131 H Lactic Acid 1.9 Calcium 9.5 Total Bilirubin 1.00 AST 21 ALT 22 Alkaline Phosphatase 140 H Total Creatine Kinase 61 Total Protein 7.1 Albumin 2.8 L Globulin 4.3 H Albumin/Globulin Ratio 0.7 L Urine Color Yellow Urine Clarity Sl. Cloudy Urine pH 5.0 Ur Specific [place] 1.020 Urine Protein 100 H Urine Glucose (UA) Normal Urine Ketones Negative Urine Occult Blood 250 H Urine Nitrite Negative Urine Bilirubin Negative Urine Urobilinogen 1 H Ur Leukocyte Esterase 100 H Urine RBC 25-50 SEEN Urine WBC 10-25 SEEN Ur Squamous Epith Cells 0-5 SEEN Urine Bacteria 3+ Urine Mucus 0 SEEN POC Glucose 111 H ABG Data ABG results: ABG 05/14/24 05/14/24 05:31 07:04 Specimen Type GARLAND ART Sample Site Not entered R Brach pH 7.35 Bicarbonate Actual 23.9 Total CO2 25 Base Excess -2 O2 Saturation 100 H O2 % 80.0 ABG pCO2 43.6 ABG pO2 281 H VBG pH 7.42 VBG pO2 39 VBG HCO3 27 H VBG Total CO2 29 VBG O2 Sat (Calc) 74 H VBG Base Excess 3 POC Mix VBG pCO2 Pt Tmp 42.1 Respiration Rate 14 O2 Delivery Device Room Air Not entered Vent Mode Not entered Tidal Volume 450.0 POC PEEP 5 Radiography Diagnostic Testing: Clinical Impression(s) from Imaging Studies Brain CT 05/14/24 05:28 IMPRESSION: No acute abnormality. Electronically Signed: Sheryl Hammond MD at 7:50 EDT , KUB X-Ray 05/14/24 05:48 IMPRESSION: NG tube tip in the stomach. Bilateral pleural effusions and basilar airspace disease. Electronically Signed: Sheryl Hammond MD at 8:07 EDT , Chest X-Ray 05/14/24 06:40 IMPRESSION: Satisfactory ET tube position. Bilateral airspace disease and pleural effusions greater on the left. Most likely pulmonary edema. Pneumonia not excluded. Electronically Signed: Sheryl Hammond MD at 7:47 EDT , Management Discussion w/another healthcare provider: Hospitalist and Drafter Structural Critical Care Time Critical care time (excluding procedures): 30-74 minutes (39), Including time spent:, Discussing w/Patient &/or Family/Smash Piecer, Discussing w/Consultants, Arranging Admission or Transfer and Performing Direct Patient Care at Bedside Discharge Plan Dx/Rx/DC Orders Clinical Impression: Respiratory failure requiring intubation, Bilateral pleural effusion, Sepsis Disposition Disposition: Acute Care [facility]
[2024-05-14] MEDS: Piperacil/Tazobactam 3.375 GM in 0.9% Normal Saline (50mL MB+) 50 ML IV (07:09)
[2024-05-14 07:10] LABS: Base Excess -2 mmol/L (-2 to +2); Bicarbonate 23.9 mmol/L (22-26); Blood Gas Specimen Type ART; Mode Not entered; O2 Delivery Device Not entered; PEEP 5; PO2 281 mmHG (75-100); RR 14; SITE R Brach; SO2 100 % (95-99); Total Carbon Dioxide 25 mmol/L; pCO2 43.6 mmHg (35-45); pH 7.35 (7.35-7.45)
[2024-05-14] MEDS: Vancomycin HCl 2,000 MG in 0.9% Normal Saline (500mL Bag) 500 ML 250 MG IV (08:12)
--- NOTE | 2024-05-14 08:43 | CT_ITS ---
STUDY: CT CHEST, ABDOMEN T PELVIS WITH CONTRAST REASON FOR EXAM: Male, 69 years old. Aortic aneurysm RADIATION DOSAGE (If Supplied By Facility): CTDIvol = ( 21.32 ) mGy, DLP = ( 1296.36 ) mGycm TECHNIQUE: Transaxial imaging was performed following intravenous administration of IV 100mL [id number]-370. Multiplanar coronal and sagittal images were reformatted. Individualized dose optimization techniques were used for this CT. COMPARISON: Comparison is made with prior CT of the chest dated April 07, 2024. FINDINGS: CHEST An endotracheal tube is in situ. An orogastric tube is seen. Diffuse heterogeneous enlargement of both lobes of the thyroid gland more prominent on the right side with a substernal extension. Enlargement of the isthmus with the hypodense nodule within it. Increased markings at the lung bases more prominent at the left lung base suggestive of bibasilar atelectasis and possible left lower lobe infiltrate. Moderate size bilateral pleural effusions right greater than left. Normal heart and pericardium. Normal mediastinum. Normal hilar regions. Normal unenhanced pulmonary arteries. There is dilatation of the root of the ascending thoracic aorta with a transverse dimension of 5.2 cm. No evidence of dissection. There are multi-level degenerative changes of the thoracic spine. ABDOMEN Normal liver. Mildly distended gallbladder. Normal spleen. Normal pancreas. There is evidence of bilateral adrenal hyperplasia. There is a 1.2 cm nonobstructive calculus in the lower pole calyx of the right kidney. Nonobstructive 5.9 mm calculus in the midportion of the left kidney. Nonspecific bilateral perinephric stranding. Normal visualized stomach. Normal small intestine. There are multiple colonic diverticula consistent with diverticulosis. There is non-visualization of the appendix. There is diffuse atherosclerotic calcification of the abdominal aorta, without a demonstrated aneurysm. Normal inferior vena cava. Normal retroperitoneum. Normal abdominal wall. PELVIS A Machuca catheter is seen within a decompressed urinary bladder. Small amount of free fluid is seen in the cul-de-sac. There is no pelvic fluid. There is no pelvic lymphadenopathy or mass lesion. There is diffuse atherosclerotic calcification of the pelvic arteries. Normal abdominal wall. Status post bilateral hip replacement. 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 Bilateral pleural effusions right greater than left with bibasilar atelectasis and possible infiltrate more prominent at the left lung base. Endotracheal tube and orogastric tubes are in situ. Heterogeneous diffuse enlargement of the thyroid with substernal extension. No evidence of abdominal aortic aneurysm. Small amount of free fluid in the pelvis. Electronically Signed: Antony Higuera MD at 10:12 EDT ,
[2024-05-14 09:18] LABS: BNP,B-Type NATRIURETIC PEPTIDE 136.9 pg/mL (0-100)
== END 2024-05-14 12:08 | disposition short-term general hospital (02) ==
PROVIDERS: Emergency Provider Emergency Medicine; PCP Family Medicine Geriatric Medicine; Visit Provider Emergency Medicine
DX: A41.9 Sepsis, unspecified organism (principal); J96.90 Respiratory failure, unspecified, unspecified whether with hypoxia or hypercapnia; I48.91 Unspecified atrial fibrillation; I49.3 Ventricular premature depolarization; I25.10 Atherosclerotic heart disease of native coronary artery without angina pectoris; J90 Pleural effusion, not elsewhere classified; M54.9 Dorsalgia, unspecified; G89.29 Other chronic pain; E87.29 Other acidosis; I10 Essential (primary) hypertension; E78.5 Hyperlipidemia, unspecified; Z86.73 Personal history of transient ischemic attack (TIA), and cerebral infarction without residual deficits
CPT/HCPCS: 31500; 31720; 36600; 51702; 70450; 71045; 71260; 74018; 74177; 80053; 81001; 82550; 82803; 82962; 83605; 83880; 85025; 85610; 85730; 87040; 87070; 87077; 87086; 87186; 87205; 93005; 94002; 96361; 96365; 96366; 99252; 99285; J7040; J7050; Q9967; G0463